=== PATIENT | female | born 1940 | race Caucasian/White ===

== ENCOUNTER → 2018-03-27 11:46 | Outpatient (CLI) | payer MEDICARE, OTHER, SELFPAY ==
[2018-03-27 13:59] LABS: Absolute Lymphocyte Count 2.26 X10^3/ul (0.83-4.51); Absolute Neutrophil Count 4.4 X10^3/uL (2.0-7.7); Basophil# 0.02 X10^3/uL; Basophil% 0.3 % (0-1); Eosinophil# 0.07 X10^3/uL; Hematocrit 39.2 % (37-47); Hemoglobin 12.3 g/dl (12.0-15.0); Lymphocyte # 2.26 X10^3/ul (4.0); Lymphocyte % 30.9 % (19-41); Mean Corp Hgb Conc 31.4 g/gl (32-36); Mean Corpuscular Hgb 27.3 pg (27.0-32.0); Mean Corpuscular Volume 87.1 fL (81-99); Mean Platelet Vol. 9.7 fl (6.2-12.0); Monocyte# 0.54 X10^3/uL; Monocyte% 7.4 % (0-10); Neutrophil # 4.42 X10^3/uL (2.7-7.7); Neutrophil % 60.3 % (47-70); Platelet Count 356 K/mm3 (150-450); RBC Distribution Width CV 13.3 % (11.6-14.6); RBC Distribution Width SD 42.3 fl (35.1-43.9); White Blood Count 7.3 K/mm3 (4.4-11.0)
[2018-03-27 14:00] LABS: POSITIVE COUNT NO; POSITIVE DIFFERENTIAL NO; POSITIVE MORPHOLOGY NO
[2018-03-27 14:53] LABS: Ferritin 4 ng/mL (8-252); Iron 63 ug/dL (50-170); Iron Binding Capacity,Total 450 ug/dL (250-450); Thyroid Stim Hormone (TSH) 1.75 uIU/mL (0.358-3.74)
[2018-03-28 08:39] LABS: Vitamin B12 694 pg/mL (211-911); Vitamin D,25 Hydroxy 67.5 ng/mL (29.95-100.01)
[2018-03-29 16:09] LABS: Vitamin D 1,25-Dihydroxy 79.8 pg/mL (19.9-79.3)
[2018-03-30 11:59] LABS: ANTINUCLEAR ANTIBODIES DIRECT Negative (Negative)
[2018-04-01 09:36] LABS: DHEA Sulfate 128.1 ug/dL (13.9-142.8); Testosterone, Free 1.36 ng/dL (0.10-0.85); Testosterone, Total 47 ng/dL (3-41)
[2018-04-02 11:07] LABS: Zinc, Plasma or Serum 80 ug/dL (56-134)
== END ==
PROVIDERS: Family Provider Student in an Organized Health Care Education/Training Program; PCP Student in an Organized Health Care Education/Training Program; Visit Provider Dermatology
DX: L65.0 Telogen effluvium (principal); L57.0 Actinic keratosis; L82.0 Inflamed seborrheic keratosis; L53.8 Other specified erythematous conditions; Z80.8 Family history of malignant neoplasm of other organs or systems
CPT/HCPCS: 36415; 82306; 82607; 82627; 82652; 82728; 82746; 83540; 83550; 84402; 84403; 84439; 84443; 84630; 85025; 86038; 82626

== ENCOUNTER → 2019-07-24 13:54 | Outpatient (CLI) | payer MEDICARE, OTHER, SELFPAY ==
[2017-07-31 12:50] VITALS: BMI 31.8
[2019-07-24 15:29] LABS: Hematocrit 42.2 % (37-47); Mean Corp Hgb Conc 30.8 g/dL (32-36); Mean Corpuscular Hgb 27.3 pg (27.0-32.0); Mean Corpuscular Volume 88.7 fL (81-99); Platelet Count 372 K/mm3 (150-450); RBC Distribution Width CV 13.2 % (11.6-14.6); RBC Distribution Width SD 42.8 fl (35.1-43.9); Red Blood Count 4.76 M/mm3 (4.2-5.4); White Blood Count 9.1 K/mm3 (4.4-11.0)
[2019-07-24 16:05] LABS: Iron 46 ug/dL (50-170); Iron Binding Capacity,Total 435 ug/dL (250-450); PERCENT IRON SATURATION 10.6 % (15.0-55.0)
== END ==
PROVIDERS: Family Provider Student in an Organized Health Care Education/Training Program; PCP Student in an Organized Health Care Education/Training Program; Referring Provider Dermatology; Visit Provider Dermatology
DX: C44.519 Basal cell carcinoma of skin of other part of trunk (principal); L57.0 Actinic keratosis; L65.0 Telogen effluvium
CPT/HCPCS: 36415; 83540; 83550; 85027

== ENCOUNTER → 2020-01-13 | Outpatient (CLI) | payer MEDICARE, OTHER, SELFPAY ==
[2017-07-31 12:50] VITALS: BMI 31.8
== END | disposition home or self-care (01) ==
LOC: LABSPEC 15:51
PROVIDERS: PCP Student in an Organized Health Care Education/Training Program; Referring Provider Urology; Visit Provider Urology
DX: N39.0 Urinary tract infection, site not specified (principal)
CPT/HCPCS: 87077; 87086; 87088; 87186

== ENCOUNTER 2020-01-29 10:30 | Day surgery (SDC) | payer MEDICARE, OTHER, SELFPAY ==
[2017-07-31 12:50] VITALS: BMI 31.8
[2020-01-29] VITALS (7 sets, daily range): BP systolic 135–154; BP diastolic 77–93; PULSE 62–93; RESP 16; TEMP 36.3–36.8; O2SAT 92–100; BMI 31.0
[2020-01-29] MEDS: Lactated Ringers 1,000 ML 100 ML IV (11:02)
[2020-01-29] MEDS: Cefazolin 2 GM in 0.9% Normal Saline 100 ML IV (11:48)
--- NOTE | 2020-01-29 12:31 | OP.PCM_ITS ---
Report of Operation Date of Procedure: 01/29/20 Pre-Operative Diagnosis: Suspected left ureteral stricture history of kidney stones in the past Post-Operative Diagnosis: The same confirmed left mid ureteral stricture Surgery/Procedure Performed:: Cystoscopy, balloon dilation of the left ureteral stricture ureteroscopy retrograde pyelogram interpretation fluoroscopic images and stent placement Description of Surgical Findings:: 79-year-old female with a history of kidney stones in the past she underwent a procedure for kidney stone that was stuck in the kidney a few years ago she presents in the office for recurrent UTIs CAT scan was done and she has hydronephrosis of the left ureter coming down to the pelvis there appears to be a transition zone in the ureter we suspect she may have a ureteral stricture also on CAT scan there is a question of a stone but it is possible that it is just a stricture. Patient was taken back to the operating room after smooth induction of general anesthesia she was placed supine on the table she was then placed in dorsolithotomy position. The urethra and vaginal area were prepped and draped in usual sterile fashion. She had SCDs on for DVT prophylaxis. She was given IV antibiotics prior to surgery. She was being treated for a Pseudomonas infection with amoxicillin before surgery. Of note she did refuse to take Cipro as she decided this is an allergy. After anesthesia went into the bladder with a 21 Kosovan rigid cystourethroscope the entire length the urethra was normal the trigone was normal left and right ureter orifice normal the bladder was normal no tumors or stones were seen inside the bladder I then cannulated the left ureteral orifice put a wire up and the wire went fairly easily up the ureter I then performed a retrograde pyelogram and you could see a transition point in the ureter right over the pelvic brim. A image of this was saved on fluoroscopy to document the transition point in the ureter and the stricture. I then attempted to go up with the ureteroscope but the distal ureter was too narrowed so I balloon dilated the ureteral orifice I then advanced the balloon dilator up to the area of stricture and balloon dilated the ureteral stricture I then backed out the balloon dilator went up with the ureteroscope and sure enough he could see the stricture and got was able to get through it with the ureteroscope but it was quite tight I then went back in with a 15 Kosovan 10 cm balloon dilator and dilated the stricture again for 3minutes and then after this pulled out the balloon dilator and then we loaded a stent up it was a 6 Kosovan by 24 cm stent advanced a stent over the wire up into the kidney once a stent was in good position I pulled the wire and the stent coiled in the kidney bladder good position I drained the bladder patient will go home with antibiotics high-dose for her Pseudomonas infection and will give her Pyridium for pain and some ibuprofen for pain or discomfort plan is to leave the stent in probably about a month and then remove the stent to see if the stricture will heal it was a short length stricture I think a prior good 70% chance it will heal with dilation alone. I will see her 2 weeks for checkup Type of Anesthesia:: General Drains: stent left side. - Admit VTE Documentation VTE Present on Admission: No VTE Mechan Device Prophylaxis: SCD's
--- NOTE | 2020-01-29 12:31 | DCINST_ITS ---
Discharge Diet: Light diet - advance as tolerated Discharge Activity: Return to Normal Activity Call your doctor if your incision/area has: Sudden Increased Bleeding Call your doctor if you observe: Fever of 101 or Higher Suture Line Care: Avoid Pulling/Pushing, Avoid Pinching/Bending Allergies/Adverse Reactions: Allergies ciprofloxacin [From Cipro] Allergy (Verified 01/29/20 10:54) CONFUSION Iodinated Contrast Media [DYEE] Allergy (Verified 01/29/20 10:54) Anaphylaxis lisinopril Allergy (Verified 01/29/20 10:54) CONFUSION metoprolol Allergy (Verified 01/29/20 10:54) CONFUSION Sulfa (Sulfonamide Antibiotics) Allergy (Verified 01/29/20 10:54) CONFUSION FLUOROQUINOLONES Allergy (Uncoded 01/29/20 10:54) Anaphylaxis Medications to take at Discharge Estrogen,Con/M-Progest Acet [Prempro 0.3 mg-1.5 mg Tablet] 1 each PO DAILY 07/30/17 Amoxicillin 1,500 mg PO TID 01/24/20 Ferrous Sulfate [Slow Release Iron] 28 mg PO DAILY 01/24/20 Omeprazole [Prilosec] 10 mg PO DAILY 01/24/20 Vitamin B Complex 1 ea PO DAILY 01/24/20 Amoxicillin/Potassium Clav [Augmentin Xr 1,000-62.5 Tab] 2 ea PO Q12H #10 tab.er.12h 01/29/20 Ibuprofen 600 mg PO Q4H PRN PRN 7 Days #20 tab 01/29/20 Phenazopyridine HCl [Pyridium] 100 mg PO BID #10 tab 01/29/20 The following prescriptions were given: Amoxicillin/Potassium Clav [Augmentin Xr 1,000-62.5 Tab] 2 ea PO Q12H #10 tab.er.12h Transmission Status: Pending to [facility] Ibuprofen 600 mg PO Q4H PRN PRN 7 Days #20 tab PRN Reason: Pain Score 1-08/29 Transmission Status: Pending to [facility] Phenazopyridine HCl [Pyridium] 100 mg PO BID #10 tab Transmission Status: Pending to [facility] Primary Care Physician: Honey Nicholas MD [Primary Care Provider] - Test Results: Test results from this visit will be discussed in further detail at your follow- up appointment, if applicable. Please Follow Up With: Tobias Elliott MD When: in 2 weeks, please call to make an appointment.
[2020-01-29] MEDS: Ketorolac 15 MG/ML Vial IV (12:59)
== END 2020-01-29 15:16 | disposition home or self-care (01) ==
LOC: SDC 10:34 → AC 10:36
PROVIDERS: PCP Student in an Organized Health Care Education/Training Program; Referring Provider Urology; Visit Provider Urology
PROC: (CPT 52356; principal; 2020-01-29 15:00)
DX: N13.1 Hydronephrosis with ureteral stricture, not elsewhere classified (principal); N30.00 Acute cystitis without hematuria; B96.5 Pseudomonas (aeruginosa) (mallei) (pseudomallei) as the cause of diseases classified elsewhere; I11.9 Hypertensive heart disease without heart failure; J45.20 Mild intermittent asthma, uncomplicated; E78.00 Pure hypercholesterolemia, unspecified; B15.9 Hepatitis A without hepatic coma; G93.3 Postviral and related fatigue syndromes; Z87.442 Personal history of urinary calculi; Z99.81 Dependence on supplemental oxygen
CPT/HCPCS: 00910; 52332; 52344; 76000; J7120; C1726; C1769; C2617; J2405

== ENCOUNTER 2020-04-07 08:16 | Inpatient (IN) | payer MEDICARE, OTHER, SELFPAY ==
[2020-01-29 10:55] VITALS: BMI 31.0
[2020-04-06 21:38] VITALS: BMI 31.4
[2020-04-06 21:39] VITALS: BP 137/83; PULSE 70; RESP 18; TEMP 36.8; O2SAT 100
[2020-04-06] MEDS: 0.9% Normal Saline 1,000 ML 75 ML IV (23:13)
[2020-04-07] VITALS (16 sets, daily range): BP systolic 103–157; BP diastolic 56–102; PULSE 62–93; RESP 16–18; TEMP 36.8–39.4; O2SAT 93–100; BMI 30.6; BMI 31.4
--- NOTE | 2020-04-07 06:00 | EKG12_ITS ---
Test Reason : AM EKG Blood Pressure : / mmHG Vent. Rate : 069 BPM Atrial Rate : 069 BPM P-R Int : 162 ms QRS Dur : 068 ms QT Int : 376 ms P-R-T Axes : 077 -09 044 degrees QTc Int : 402 ms Sinus rhythm with Premature atrial complexes Low voltage QRS Nonspecific ST and T wave abnormality Abnormal ECG Confirmed by ALLISON VENTURA, TRINY ([id number]), editorial director JOCELIN BIRMINGHAM ([id number]) on 04/09/2020 4:12:53 PM Referred By: OSCAR Confirmed By:TRINY COOPER MD
--- NOTE | 2020-04-07 07:26 | HP.PCM_ITS ---
Problem List (1) Left renal stone Status: Acute (2) Ureteral stricture, left Status: Acute History of Present Illness Date of Admission: 04/07/20 Chief Complaint: Left flank pain The patient is a 79 year old female who I saw recently in January with a kidney stone but also what appeared to be a stricture in the mid lower mid left ureter she has a history of prior kidney stones was instrumented several years ago and had a kidney stone. After this apparently developed a stricture and she has a stricture in the mid left distal ureter. I did a ureteroscopy and laser and found that she had a very tight ureteral stricture in the left distal ureter and she only had a small stone on last inspection she presents now to the hospital from out transfer from outside hospital with severe left flank pain CAT scan was done that was read as a kidney stone in the mid left ureter but is possible this may be scar tissue is possible she does have a ureteral stricture. Plan will be to take her today for retrograde pyelogram and stent placement and probably discharge after this. I get a repeat the CAT scan today to look at the ureter and stone. Past Medical History Allergies ciprofloxacin [From Cipro] Allergy (Verified 04/06/20 21:45) CONFUSION Iodinated Contrast Media [DYEE] Allergy (Verified 04/06/20 21:45) Anaphylaxis lisinopril Allergy (Verified 04/06/20 21:45) CONFUSION metoprolol Allergy (Verified 04/06/20 21:45) CONFUSION Sulfa (Sulfonamide Antibiotics) Allergy (Verified 04/06/20 21:45) CONFUSION FLUOROQUINOLONES Allergy (Unknown, Uncoded 04/06/20 21:45) Anaphylaxis Home Medications: Ambulatory Orders Medication Instructions Recorded Estrogen,Con/M-Progest Acet 1 each PO DAILY 07/30/17 [Prempro 0.3 mg-1.5 mg Tablet] Omeprazole [Prilosec] 20 mg PO DAILY 01/24/20 Vitamin B Complex 1 ea PO DAILY 01/24/20 Cranberry Conc/Ascorbic Acid 1 ea PO DAILY 04/06/20 [Cranberry 12,600 mg Softgel] Surgical History: - - Kidney stones, prior ureteroscopy and laser several years ago with scar tissue development in the mid left ureter recently this year stricture was dilated and balloon dilated. 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 History Items: Asthma Review of Systems Constitutional: Denies: Chills, Fever, Weight Change HEENT: Denies: Head Aches, Sinus Congestion, Sinus Drainage Cardiovascular: Denies: Chest Pain, Palpitations Respiratory: Denies: Cough, Shortness of breath at rest, Sputum production Gastrointestinal: Denies: Abdominal Pain, Nausea, Vomiting Genitourinary: Denies: Dysuria Musculoskeletal: Denies: Joint Pain, Joint Tenderness Skin: Denies: Rash, Wounds Neurological: Denies: Numbness, Tingling, Focal weakness Psychiatric: Denies: Anxiety, Depression, Homicidal Ideations, Suicidal Ideations Hematologic/ Lymphatic: Denies: Easy Bruising, Easy Bleeding VTE Information - Inpt Only VTE Present on Admission: No VTE Mechan Device Prophylaxis: SCD's Patient Problems: Active and Suspected Problems Left renal stone (Acute) Ureteral stricture, left (Acute) - Physical Exam Vitals/I&O's: Vital Signs Temp Pulse Resp BP Pulse Ox 98.7 F 62 16 135/88 H 97 04/07/20 03:48 04/07/20 03:48 04/07/20 03:48 04/07/20 03:48 04/07/20 03:48 Oxygen Flow Rate (L/min) 2 Oxygen Delivery Method Room Air Weight: 80.4 kg Body Mass Index (BMI) 31.4 Finger Stick Blood Glucose 83 Intake and Output for Last 24 Hours 04/05/20 04/06/20 04/07/20 23:59 23:59 23:59 Intake Total 250 / 250 Output Total 900 / 900 Balance -650 / -650 General: Alert, Oriented x3, Cooperative HEENT: Atraumatic, PERRLA, EOMI, Normocephalic Neck: Supple, No JVD, Negative Carotid Bruits Lungs: Clear to auscultation, Normal air movement Cardiovascular: Regular rate, No murmurs Abdomen: Bowel Sounds Present, Soft, Non Tender Extremities: No edema, Capillary Refill Less than 3 Seconds Skin: No rashes, No breakdown Musculoskeletal: No Tenderness to Palpation of Joints or Extremities Neurological: Cranial nerves II-XII grossly intact Psych/Mental Status: Normal Affect, Appropriate Current Medications Acetaminophen (Tylenol) 500 mg PO Q6H PRN PRN PRN Reason: Pain Score 1-5/10 Sodium Chloride () 250 mls @ 15 mls/hr IV .[id number] PRN PRN Reason: Saline Flush Sodium Chloride () 250 mls @ 15 mls/hr IV .[id number] PRN PRN Reason: Additional IVPB Infusion Sodium Chloride () 1,000 mls @ 75 mls/hr IV .[id number] EDWARD Last Admin: 04/06/20 23:13 Dose: 75 mls/hr Documented by: Lorazepam (Ativan) 0.5 mg PO Q12H PRN PRN PRN Reason: ANXIETY Morphine Sulfate () 2 - 4 mg IV Q4H PRN PRN PRN Reason: Pain Score 6-10/10 Morphine Sulfate () 2 - 4 mg IV Q4H PRN PRN PRN Reason: Pain Score 6-10/10 Ondansetron HCl (Zofran) 4 mg IV Q6H PRN PRN PRN Reason: NAUSEA/VOMITING Pantoprazole Sodium (Protonix) 20 mg PO DAILY [facility] Sodium Chloride () 10 - 40 ml IV UD PRN PRN Reason: SALINE FLUSH Assessment/Plan All Active Problems Left renal stone (Acute) Ureteral stricture, left (Acute) Plan today is taken to surgery for stent placement retrograde pyelogram we will repeat the CAT scan today to see if the stone is passed she may have a stricture in the mid left ureter that was found on prior ureteroscopy from prior trauma. The stricture may have recurred she may not have a stone.
--- NOTE | 2020-04-07 07:31 | CT_ITS ---
STUDY: CT ABDOMEN AND PELVIS WITHOUT CONTRAST REASON FOR EXAM: Female, 79 years old. LEFT FLANK PAIN RADIATION DOSAGE (If Supplied By Facility): CTDIvol = ( 11.60 ) mGy, DLP = ( 496.91 ) mGycm TECHNIQUE: Transaxial images were obtained from the dome of the diaphragm to the symphysis pubis without oral contrast, and without intravenous contrast. Sagittal and coronal images were reconstructed. Individualized dose optimization techniques were used for this CT. COMPARISON: None. FINDINGS: The visualized lung bases are unremarkable. The visualized portions of the heart are within normal limits. Normal liver. Normal gallbladder and extrahepatic biliary system. Normal spleen. Normal pancreas. Normal bilateral adrenal glands. 3 cm cyst in the lower pole right kidney. Bilateral nonobstructing renal stones. 5 mm obstructing stone at the mid left ureter with moderate ureteral dilatation, hydronephrosis, and perinephric edema. Moderate-sized hilar hernia. Normal small intestine. There are multiple colonic diverticula consistent with diverticulosis. The appendix is visualized and appears normal. Normal abdominal aorta. Normal inferior vena cava. Normal retroperitoneum. Normal urinary bladder. Normal abdominal wall. Mild dextroscoliosis of lumbar spine with degenerative disc disease. CT/Abdomen/Pelvis without Cont IMPRESSION: 5 mm obstructing stone in the mid left ureter with moderate ureteral dilatation, hydronephrosis, perinephric edema. Electronically Signed: Braydon Gee MD at 8:46 EDT Tel , Service support ,
--- NOTE | 2020-04-07 07:43 | NURSING ---
pt transported to CT scan at this time via bed
[2020-04-07] MEDS: Pantoprazole Sodium 20 MG Tablet PO (08:10)
[2020-04-07] MEDS: 0.9% Saline Lock 10 ML Syringe IV (08:10)
[2020-04-07 08:14] LABS: Absolute Lymphocyte Count 2.37 X10^3/uL (0.83-4.51); Absolute Neutrophil Count 8.2 X10^3/uL (2.0-7.7); Basophil# 0.04 X10^3/uL; Basophil% 0.3 % (0-1); Eosinophil# 0.11 X10^3/uL; Eosinophils% 0.9 % (0-5); Hematocrit 38.7 % (37-47); Hemoglobin 11.9 g/dL (12.0-15.0); Lymphocyte # 2.37 X10^3/ul (4.0); Lymphocyte % 20.1 % (19-41); Mean Corp Hgb Conc 30.7 g/dL (32-36); Mean Corpuscular Hgb 27.2 pg (27.0-32.0); Mean Corpuscular Volume 88.4 fL (81-99); Monocyte# 0.98 X10^3/uL; Monocyte% 8.3 % (0-10); NRBC Flagged by Analyzer 0 % (0-5); Neutrophil # 8.23 X10^3/uL (2.7-7.7); Platelet Count 337 K/mm3 (150-450); RBC Distribution Width CV 13.2 % (11.6-14.6); RBC Distribution Width SD 42.7 fl (35.1-43.9); Red Blood Count 4.38 M/mm3 (4.2-5.4); White Blood Count 11.8 K/mm3 (4.4-11.0)
[2020-04-07 08:37] LABS: Anion Gap 6 (5-15); BUN 17 mg/dL (7-18); BUN/Creat Ratio 18.5 RATIO (10-20); Calcium,Total 8.2 mg/dL (8.5-10.1); Chloride 109 mmol/L (98-107); Creatinine, Serum 0.92 mg/dL (0.55-1.02); EST Glomerular Filtration Rate 63 mL/min (>60); Est Glom Filt Rate - Afr Amer 76 mL/min (>60); Estimated Creatinine Clearance 41.69 ml/min; Glucose 103 mg/dL (74-106); Potassium 3.9 mmol/L (3.5-5.1); Sodium Level 143 mmol/L (136-145)
[2020-04-07] MEDS: 0.9% Normal Saline 1,000 ML 75 ML IV (10:34)
--- NOTE | 2020-04-07 11:17 | NURSING ---
pt transported off unit via bed for surgery at 1100
--- NOTE | 2020-04-07 12:00 | CALC_PTH ---
PATIENT: SEBASTIAN BURGOS LOC: MS3 U#:[id number] AGE/SX: 79/F ROOM: MS311 RE04/07/[address]: Dr. Tobias Elliott MD : [id number] BED: 1 DIS: 04/11/2020 SPEC #: [id number] RECD: 04/07/20 15:25 STATUS: MARIBELL MICHELLE #: [id number] EVARISTO: 04/07/20 12:[address]: Tobias Elliott DEPT: SURGICAL PATHOLOGY RECD BY: Teo Villafana ENTERED: 04/08/20 09:13 SP TYPE: Calculi OTHR DR: Dr. Honey Nicholas MD Tissues: CALCULI Procedures: Surgery Specimen Level I HEADER OPERATION: Cysto, ureteroscopy, laser PRE-OP DIAGNOSIS: Left renal stone, left ureteral stricture TISSUE SUBMITTED: Left kidney stone GROSS DIAGNOSIS Left renal stone, removal: Unremarkable calculus (gross diagnosis only). AM:nilda 04/09/20 COMMENT The calculus is submitted in its entirety for chemical stone analysis. The results from this study will be reported separately. GROSS DESCRIPTION Received is one container labeled with the patient's name and designated left kidney stone. The specimen consists of an irregular fragment of light marcum calculus measuring 0.1 x <0.1 x <0.1 cm. The calculus is submitted in its entirety for chemical stone analysis. / AM:nilda 04/08/20 CPT: 88901
--- NOTE | 2020-04-07 12:45 | PCM.OPRPT ---
Problem List (1) Left renal stone Status: Acute (2) Ureteral stricture, left Status: Acute Report of Operation Date of Procedure: 04/07/20 Pre-Operative Diagnosis: Left ureteral calculi and mild left ureteral stricture Post-Operative Diagnosis: The same Surgery/Procedure Performed:: Cystoscopy, left retrograde pyelogram, interpretation of fluoroscopic images, left ureteroscopy laser lithotripsy of stone and left stent placement. Description of Surgical Findings:: 79-year-old female with a history of scar tissue in the mid left ureter presents to the hospital with severe pain with a stone stuck right at the scar tissue in the mid left ureter she has a mild ureteral stricture. This is been treated with balloon dilation and stenting for 6 weeks. I remove the stent about 6 weeks ago. She now presents the hospital severe pain CAT scan was done that demonstrated a large stone right at the stricture in the mid ureter. Patient was taken back to the operating room at the smooth induction of general anesthesia she was placed prone on the table the urethrovaginal area prepped and draped in usual sterile fashion went into the bladder with a 21 Kuwaiti rigid cystourethroscope, cannulated the left ureter orifice with a Pollack catheter performed a retrograde pyelogram he could see contrast go up it narrowed and then opened up in the area where the stone was in the ureteral stricture I then advanced a Glidewire up into the kidney next the wire went in with a semirigid ureteroscope was able to get into the ureter quite easily got up to the area of scar tissue and she had a very mild scarring of the mid left ureter but I was able to get through it with the ureteroscope and then behind the scar tissue was a stone that was stuck there I then lasered the stone little tiny pieces with a 200 ?m laser fiber, we then basket extracted some of the pieces out, and then after this I left a stent in over the safety wire, drained the bladder patient's anesthetic was reversed at this point stones been lasered out she does have a's stricture in the mid ureter but however it is fairly open and does not require repair will leave the stent in for about a week and next week she will need to have a cystoscopy stent removal in my office. Type of Anesthesia:: General Drains: STENT LEFT SIDE - Admit VTE Documentation VTE Present on Admission: No VTE Mechan Device Prophylaxis: SCD's
--- NOTE | 2020-04-07 13:40 | PCA ---
pt off floor
[2020-04-07] MEDS: Phenazopyridine 95 MG Tablet PO (14:40)
[2020-04-07] MEDS: Ondansetron 4 MG/2 ML Vial IV (15:46)
[2020-04-07] MEDS: 0.9% Normal Saline 1,000 ML 100 ML IV (17:13)
[2020-04-07] MEDS: Acetaminophen 500 MG Tablet PO (21:35)
[2020-04-08] VITALS (13 sets, daily range): BP systolic 105–149; BP diastolic 49–91; PULSE 65–104; RESP 16–22; TEMP 37.1–39.4; O2SAT 94–99; BMI 31.4
[2020-04-08] MEDS: Ondansetron 4 MG/2 ML Vial IV ×2 (01:55→15:30)
[2020-04-08] MEDS: 0.9% Normal Saline 1,000 ML 100 ML IV (03:39)
[2020-04-08] MEDS: Acetaminophen 500 MG Tablet PO ×4 (03:42→22:22)
--- NOTE | 2020-04-08 06:09 | PN_ITS ---
Patient Problems: Active and Suspected Problems Left renal stone (Acute) Ureteral stricture, left (Acute) Subjective: 79-year-old female status post ureteroscopy and laser of stone yesterday she developed a high fever 102 put on broad-spectrum antibiotics urine cultures and blood cultures were sent these are pending her fever curve is gone down, she is still just on liquid diet no more nausea or vomiting but still states she is not feeling that good. - Physical Exam Vitals/I&O's: Vital Signs Temp Pulse Resp BP Pulse Ox 98.8 F 86 18 126/62 H 98 04/08/20 06:05 04/08/20 03:36 04/08/20 03:36 04/08/20 03:36 04/08/20 03:36 Oxygen Flow Rate (L/min) 2 Oxygen Delivery Method Nasal Cannula Weight: 78.426 kg Body Mass Index (BMI) 30.6 Finger Stick Blood Glucose 83 Intake and Output for Last 24 Hours 04/06/20 04/07/20 04/08/20 23:59 23:59 23:59 Intake Total 2031.25 / 2231.25 870 / 870 Output Total 1999 / 2499 1275 / 1275 Balance 31.25 / -268.75 -405 / -405 General: Alert, Oriented x3, Cooperative HEENT: Atraumatic, PERRLA, EOMI, Normocephalic Neck: Supple, No JVD, Negative Carotid Bruits Lungs: Clear to auscultation, Normal air movement Cardiovascular: Regular rate, No murmurs Abdomen: Bowel Sounds Present, Soft, Non Tender Extremities: No edema, Capillary Refill Less than 3 Seconds Skin: No rashes, No breakdown Musculoskeletal: No Tenderness to Palpation of Joints or Extremities Neurological: Cranial nerves II-XII grossly intact Psych/Mental Status: Normal Affect, Appropriate Microbiology Past 72 Hours 04/07/20 08:22 Mucosa - Nasopharyngeal Coronavirus COVID-19 PCR - Final Laboratory Results 04/07/20 06:31: WBC 11.8 H, RBC 4.38, Hgb 11.9 L, Hct 38.7, MCV 88.4, MCH 27.2, MCHC 30.7 L, RDW Std Deviation 42.7, RDW Coeff of Laure 13.2, Plt Count 337, MPV 10.0, Immature Gran % (Auto) 0.400, Neut % (Auto) 70.0, Lymph % (Auto) 20.1, Bath % (Auto) 8.3, Eos % (Auto) 0.9, Baso % (Auto) 0.3, Absolute Neuts (auto) 8.2 H, Absolute Lymphs (auto) 2.37, Nucleated RBC % 0 04/07/20 06:31: Sodium 143, Potassium 3.9, Chloride 109 H, Carbon Dioxide 28.0, Anion Gap 6, BUN 17, Creatinine 0.92, Estim Creat Clear Calc 41.69, Est GFR (M DRD) Af Amer 76, Est GFR (MDRD) Non-Af 63, BUN/Creatinine Ratio 18.5, Glucose 103, Calcium 8.2 L Current Medications Acetaminophen (Tylenol) 500 mg PO Q6H PRN PRN PRN Reason: Pain Score 1-5/10, fever Last Admin: 04/08/20 03:42 Dose: 500 mg Documented by: Sodium Chloride () 250 mls @ 15 mls/hr IV .[id number] PRN PRN Reason: Saline Flush Sodium Chloride () 250 mls @ 15 mls/hr IV .[id number] PRN PRN Reason: Additional IVPB Infusion Sodium Chloride () 1,000 mls @ 100 mls/hr IV .Q10H [facility] Last Admin: 04/08/20 03:39 Dose: 100 mls/hr Documented by: Ceftriaxone Sodium 2 gm/ (Sodium Chloride) 50 mls @ 100 mls/hr IV Q12 [facility] Last Infusion: 04/07/20 22:09 Dose: Infused Documented by: Lorazepam (Ativan) 0.5 mg PO Q12H PRN PRN PRN Reason: ANXIETY Morphine Sulfate () 2 - 4 mg IV Q4H PRN PRN PRN Reason: Pain Score 6-10/10 Morphine Sulfate () 2 - 4 mg IV Q4H PRN PRN PRN Reason: Pain Score 6-10/10 Ondansetron HCl (Zofran) 4 mg IV Q6H PRN PRN PRN Reason: NAUSEA/VOMITING Last Admin: 04/08/20 01:55 Dose: 4 mg Documented by: Pantoprazole Sodium (Protonix) 20 mg PO DAILY [facility] Last Admin: 04/07/20 08:10 Dose: 20 mg Documented by: Phenazopyridine HCl (Azo Standard) 95 mg PO TID EDWARD Stop: 04/09/20 06:01 Last Admin: 04/08/20 05:19 Dose: Not Given Documented by: Promethazine HCl (Phenergan) 12.5 mg IV Q4H PRN PRN PRN Reason: NAUSEA/VOMITING Sodium Chloride () 10 - 40 ml IV UD PRN PRN Reason: SALINE FLUSH Last Admin: 04/07/20 08:10 Dose: 10 ml Documented by: Medical Necessity - Tobacco Use Smoking Status: Never smoker Tobacco Use: Non-smoker Assessment/Plan All Active Problems Left renal stone (Acute) Ureteral stricture, left (Acute) Status post stent placement with a high fever afterwards early sepsis treated with broad-spectrum antibiotics, continue with antibiotics await urine and blood cultures regular diet today KVO IV fluids. Otherwise clinically stable hemodynamically stable fever curve is resolved some we will continue to monitor not sure she is just ready for discharge await urine and blood cultures.
[2020-04-08 06:44] LABS: Absolute Lymphocyte Count 1.52 X10^3/uL (0.83-4.51); Absolute Neutrophil Count 15.8 X10^3/uL (2.0-7.7); Basophil# 0.03 X10^3/uL; Basophil% 0.2 % (0-1); Hematocrit 37.2 % (37-47); Hemoglobin 11.8 g/dL (12.0-15.0); Lymphocyte # 1.52 X10^3/ul (4.0); Lymphocyte % 8.1 % (19-41); Mean Corp Hgb Conc 31.7 g/dL (32-36); Mean Corpuscular Hgb 27.9 pg (27.0-32.0); Mean Corpuscular Volume 87.9 fL (81-99); Mean Platelet Vol. 9.9 fl (6.2-12.0); Monocyte# 1.24 X10^3/uL; Monocyte% 6.6 % (0-10); NRBC Flagged by Analyzer 0 % (0-5); Neutrophil # 15.78 X10^3/uL (2.7-7.7); Neutrophil % 84.4 % (47-70); Platelet Count 297 K/mm3 (150-450); RBC Distribution Width CV 13.3 % (11.6-14.6); RBC Distribution Width SD 42.6 fl (35.1-43.9); Red Blood Count 4.23 M/mm3 (4.2-5.4); White Blood Count 18.7 K/mm3 (4.4-11.0)
[2020-04-08 07:07] LABS: Anion Gap 5 (5-15); BUN 11 mg/dL (7-18); BUN/Creat Ratio 12.1 RATIO (10-20); Calcium,Total 7.8 mg/dL (8.5-10.1); Chloride 107 mmol/L (98-107); Creatinine, Serum 0.91 mg/dL (0.55-1.02); EST Glomerular Filtration Rate 64 mL/min (>60); Est Glom Filt Rate - Afr Amer 77 mL/min (>60); Estimated Creatinine Clearance 42.15 ml/min; Glucose 154 mg/dL (74-106); Potassium 3.6 mmol/L (3.5-5.1); Sodium Level 139 mmol/L (136-145)
[2020-04-08] MEDS: Pantoprazole Sodium 20 MG Tablet PO (07:58)
--- NOTE | 2020-04-08 10:30 | CASEMGMT ---
RN CM Face to Face with patient for initial transition planning/care coordination assessment. RN CM introduced self and role at [facility]. Patient lying in bed, alert and oriented. Patient willing to participate in assessment and is able to answer all questions appropriately. Care providers, pharmacy, and demographics verified. Patient wishes to discharge home, denies need for home health at this time. Patient states she has no further needs or concerns at this time. CM to follow for discharge planning needs that may arise. PCP: Yu Specialists: Lexi Kunz Pharmacy: [facility] retail Insurance: [employer], [employer] Prescription Benefit: yes Living Will/HPOA: none LNOK: sister, niece Living Arrangements: Patient lives alone in ranch style home with 2 steps to enter the home. Patient states she is independent at home. Transportation: self, will need transport home, possibly niece. DME/HHC: Patient states she has cane and walker at home. Patient denies previous HHC. Disposition Plan: Patient to discharge home with follow-up plans in place. Kasey RITCHIE, RN, CM
[2020-04-08] MEDS: 0.9% Saline Lock 10 ML Syringe IV (15:32)
[2020-04-08 16:06] LABS: Bedside Glucose 188 mg/dL (70-110)
[2020-04-08] MEDS: 0.9% Normal Saline 1,000 ML 125 ML IV (17:25)
[2020-04-09] VITALS (10 sets, daily range): BP systolic 102–114; BP diastolic 55–81; PULSE 65–98; RESP 18–20; TEMP 36.7–39.2; O2SAT 95–100
[2020-04-09] MEDS: 0.9% Normal Saline 1,000 ML 125 ML IV ×3 (01:16→17:31)
[2020-04-09] MEDS: Acetaminophen 500 MG Tablet PO ×2 (04:35→12:31)
[2020-04-09 07:03] LABS: Hematocrit 32.5 % (37-47); Hemoglobin 9.9 g/dL (12.0-15.0); Mean Corp Hgb Conc 30.5 g/dL (32-36); Mean Corpuscular Hgb 27.1 pg (27.0-32.0); Mean Platelet Vol. 10.2 fl (6.2-12.0); Platelet Count 240 K/mm3 (150-450); RBC Distribution Width CV 13.6 % (11.6-14.6); RBC Distribution Width SD 43.9 fl (35.1-43.9); Red Blood Count 3.65 M/mm3 (4.2-5.4); White Blood Count 16.9 K/mm3 (4.4-11.0)
[2020-04-09 07:29] LABS: Anion Gap 4 (5-15); BUN 12 mg/dL (7-18); BUN/Creat Ratio 15.1 RATIO (10-20); Chloride 110 mmol/L (98-107); EST Glomerular Filtration Rate 74 mL/min (>60); Est Glom Filt Rate - Afr Amer 90 mL/min (>60); Estimated Creatinine Clearance 47.94 ml/min; Glucose 152 mg/dL (74-106); Potassium 3.5 mmol/L (3.5-5.1); Sodium Level 140 mmol/L (136-145)
--- NOTE | 2020-04-09 07:30 | PCM.PROGNOTE ---
Patient Problems: Active and Suspected Problems Left renal stone (Acute) Ureteral stricture, left (Acute) Subjective: 79-year-old female status post laser of stone in the mid ureter on the left side with scar tissue she has a mild ureteral stricture but the stone was stuck on. Was able to get through the stricture with the ureteroscope with only mild. She developed fevers and chills and early sepsis after the procedure with high fevers white blood count is still elevated at 16 urine culture is growing Pseudomonas pending results of the sensitivity. She states she was bit by a tick 3 weeks ago and has chronic Lyme disease she is wonder Lyme disease as a cause of her fever explained to her most likely this is a Pseudomonas UTI sepsis picture I am not going to do any further work-up for Lyme disease, she does have a perception that she has chronic Lyme disease etc. - Physical Exam Vitals/I&O's: Vital Signs Temp Pulse Resp BP Pulse Ox 99.5 F H 65 20 H 112/68 100 04/09/20 04:32 04/09/20 04:32 04/09/20 04:32 04/09/20 04:32 04/09/20 04:32 Oxygen Flow Rate (L/min) 2 Oxygen Delivery Method Nasal Cannula Weight: 78.426 kg Body Mass Index (BMI) 30.6 Finger Stick Blood Glucose 83 Intake and Output for Last 24 Hours 04/07/20 04/08/20 04/09/20 23:59 23:59 23:59 Intake Total 2031.25 / 2231.25 3549.92 / 3549.92 1281.25 / 1281.25 Output Total 1999 / 2499 2525 / 2525 550 / 550 Balance 31.25 / -268.75 1024.92 / 1024.92 731.25 / 731.25 General: Alert, Oriented x3, Cooperative HEENT: Atraumatic, PERRLA, EOMI, Normocephalic Neck: Supple, No JVD, Negative Carotid Bruits Lungs: Clear to auscultation, Normal air movement Cardiovascular: Regular rate, No murmurs Abdomen: Bowel Sounds Present, Soft, Non Tender Extremities: No edema, Capillary Refill Less than 3 Seconds Skin: No rashes, No breakdown Musculoskeletal: No Tenderness to Palpation of Joints or Extremities Neurological: Cranial nerves II-XII grossly intact Psych/Mental Status: Normal Affect, Appropriate Microbiology Past 72 Hours 04/07/20 17:50 Urine, Clean Catch Urine Culture - Preliminary GNR Poss Pseudomonas sp 04/07/20 08:22 Mucosa - Nasopharyngeal Coronavirus COVID-19 PCR - Final Laboratory Results 04/08/20 15:30: POC Glucose 188 H 04/09/20 06:16: WBC 16.9 H, RBC 3.65 L, Hgb 9.9 L, Hct 32.5 L, MCV 89.0, MCH 27.1, MCHC 30.5 L, RDW Std Deviation 43.9, RDW Coeff of Laure 13.6, Plt Count 240, MPV 10.2 04/09/20 06:16: Sodium 140, Potassium 3.5, Chloride 110 H, Carbon Dioxide 26.0, Anion Gap 4 L, BUN 12, Creatinine 0.80, Estim Creat Clear Calc 47.94, Est GFR (MDRD) Af Amer 90, Est GFR (MDRD) Non-Af 74, BUN/Creatinine Ratio 15.1, Glucose 152 H, Calcium 8.0 L Current Medications Acetaminophen (Tylenol) 500 mg PO Q6H PRN PRN PRN Reason: Pain Score 1-5/10, fever Last Admin: 04/09/20 04:35 Dose: 500 mg Documented by: Sodium Chloride () 1,000 mls @ 125 mls/hr IV .Q8H EDWARD Last Admin: 04/09/20 01:16 Dose: 125 mls/hr Documented by: Ceftriaxone Sodium 2 gm/ (Sodium Chloride) 50 mls @ 100 mls/hr IV Q12 [facility] Last Infusion: 04/08/20 23:00 Dose: Infused Documented by: Ondansetron HCl (Zofran) 4 mg IV Q6H PRN PRN PRN Reason: NAUSEA/VOMITING Last Admin: 04/08/20 15:30 Dose: 4 mg Documented by: Pantoprazole Sodium (Protonix) 20 mg PO DAILY [facility] Last Admin: 04/08/20 07:58 Dose: 20 mg Documented by: Promethazine HCl (Phenergan) 12.5 mg IV Q4H PRN PRN PRN Reason: NAUSEA/VOMITING Sodium Chloride () 10 - 40 ml IV UD PRN PRN Reason: SALINE FLUSH Last Admin: 04/08/20 15:32 Dose: 20 ml Documented by: Medical Necessity - Tobacco Use Smoking Status: Never smoker Tobacco Use: Non-smoker Assessment/Plan All Active Problems Left renal stone (Acute) Ureteral stricture, left (Acute) 79-year-old female status post laser of stone with infection afterwards probably was an infected stone, continue with antibiotics, Pseudomonas growing in the urine, blood cultures pending, continue with Rocephin, may may change the antibiotics per the sensitivities will await results of the sensitivities. No discharge until fevers are gone and white count is normal.
[2020-04-09] MEDS: Pantoprazole Sodium 20 MG Tablet PO (08:11)
[2020-04-09] MEDS: 0.9% Saline Lock 10 ML Syringe IV (12:39)
[2020-04-09] MEDS: Ondansetron 4 MG/2 ML Vial IV (12:39)
--- NOTE | 2020-04-09 18:06 | NURSING ---
O2 DECREASED TO 1L NC
[2020-04-10] VITALS (8 sets, daily range): BP systolic 114–144; BP diastolic 63–82; PULSE 68–144; RESP 17–20; TEMP 36.6–37.2; O2SAT 88–99
[2020-04-10] MEDS: 0.9% Normal Saline 1,000 ML 125 ML IV (01:42)
[2020-04-10] MEDS: Acetaminophen 500 MG Tablet PO (01:42)
--- NOTE | 2020-04-10 07:16 | PCM.PROGNOTE ---
Patient Problems: Active and Suspected Problems Left renal stone (Acute) Ureteral stricture, left (Acute) Subjective: 79-year-old female status post stent placement laser of stone she had a Pseudomonas infection on the stone she had sepsis afterwards this is resolving we will stop her IV fluids no more fevers. Awaiting culture results from her Pseudomonas infection. We will Hep-Lock IV fluids for now. Plan for discharge Monday. - Physical Exam Vitals/I&O's: Vital Signs Temp Pulse Resp BP Pulse Ox 98.4 F 82 18 117/72 96 04/10/20 04:04 04/10/20 04:04 04/10/20 04:04 04/10/20 04:04 04/10/20 04:04 Oxygen Flow Rate (L/min) 2 Oxygen Delivery Method Nasal Cannula Weight: 78.426 kg Body Mass Index (BMI) 30.6 Finger Stick Blood Glucose 83 Intake and Output for Last 24 Hours 04/08/20 04/09/20 04/10/20 23:59 23:59 23:59 Intake Total 3549.92 / 3549.92 4119.17 / 4519.17 1400 / 1400 Output Total 2525 / 2525 1050 / 1750 700 / 700 Balance 1024.92 / 1024.92 3069.17 / 2769.17 700 / 700 General: Alert, Oriented x3, Cooperative HEENT: Atraumatic, PERRLA, EOMI, Normocephalic Neck: Supple, No JVD, Negative Carotid Bruits Lungs: Clear to auscultation, Normal air movement Cardiovascular: Regular rate, No murmurs Abdomen: Bowel Sounds Present, Soft, Non Tender Extremities: No edema, Capillary Refill Less than 3 Seconds Skin: No rashes, No breakdown Musculoskeletal: No Tenderness to Palpation of Joints or Extremities Neurological: Cranial nerves II-XII grossly intact Psych/Mental Status: Normal Affect, Appropriate Microbiology Past 72 Hours 04/07/20 17:50 Urine, Clean Catch Urine Culture - Preliminary GNR Poss Pseudomonas sp 04/07/20 08:22 Mucosa - Nasopharyngeal Coronavirus COVID-19 PCR - Final Laboratory Results 04/09/20 06:16: Sodium 140, Potassium 3.5, Chloride 110 H, Carbon Dioxide 26.0, Anion Gap 4 L, BUN 12, Creatinine 0.80, Estim Creat Clear Calc 47.94, Est GFR (MDRD) Af Amer 90, Est GFR (MDRD) Non-Af 74, BUN/Creatinine Ratio 15.1, Glucose 152 H, Calcium 8.0 L Current Medications Acetaminophen (Tylenol) 500 mg PO Q6H PRN PRN PRN Reason: Pain Score 1-5/10, fever Last Admin: 04/10/20 01:42 Dose: 500 mg Documented by: Ceftriaxone Sodium 2 gm/ (Sodium Chloride) 50 mls @ 100 mls/hr IV Q12 [facility] Last Infusion: 04/09/20 22:36 Dose: Infused Documented by: Ondansetron HCl (Zofran) 4 mg IV Q6H PRN PRN PRN Reason: NAUSEA/VOMITING Last Admin: 04/09/20 12:39 Dose: 4 mg Documented by: Pantoprazole Sodium (Protonix) 20 mg PO DAILY [facility] Last Admin: 04/09/20 08:11 Dose: 20 mg Documented by: Promethazine HCl (Phenergan) 12.5 mg IV Q4H PRN PRN PRN Reason: NAUSEA/VOMITING Sodium Chloride () 10 - 40 ml IV UD PRN PRN Reason: SALINE FLUSH Last Admin: 04/09/20 12:39 Dose: 10 ml Documented by: Medical Necessity - Tobacco Use Smoking Status: Never smoker Tobacco Use: Non-smoker Assessment/Plan All Active Problems Left renal stone (Acute) Ureteral stricture, left (Acute) Plan for discharge tomorrow await sensitivities of Pseudomonas infection.
[2020-04-10 07:42] LABS: Hematocrit 32.3 % (37-47); Hemoglobin 9.9 g/dL (12.0-15.0); Mean Corp Hgb Conc 30.7 g/dL (32-36); Mean Corpuscular Hgb 27.2 pg (27.0-32.0); Mean Corpuscular Volume 88.7 fL (81-99); Mean Platelet Vol. 10.3 fl (6.2-12.0); Platelet Count 246 K/mm3 (150-450); RBC Distribution Width CV 13.8 % (11.6-14.6); RBC Distribution Width SD 44.6 fl (35.1-43.9); Red Blood Count 3.64 M/mm3 (4.2-5.4); White Blood Count 13.4 K/mm3 (4.4-11.0)
[2020-04-10 08:10] LABS: Anion Gap 7 (5-15); BUN 12 mg/dL (7-18); BUN/Creat Ratio 16.7 RATIO (10-20); Calcium,Total 7.8 mg/dL (8.5-10.1); Chloride 109 mmol/L (98-107); Creatinine, Serum 0.72 mg/dL (0.55-1.02); EST Glomerular Filtration Rate 83 mL/min (>60); Est Glom Filt Rate - Afr Amer 101 mL/min (>60); Estimated Creatinine Clearance 38.35 ml/min; Glucose 139 mg/dL (74-106); Potassium 3.3 mmol/L (3.5-5.1); Sodium Level 140 mmol/L (136-145)
[2020-04-10] MEDS: Pantoprazole Sodium 20 MG Tablet PO (09:02)
--- NOTE | 2020-04-10 09:30 | NURSING ---
Pt reports SOB with cough, had temp. Covid neg on the . HR is irregular when this nurse listens. Pt denies hx of AFIB. Dr. Elliott is aware and hospitalist consulted. Dr. Ramirez to order chest xray. This nurse took oxygen off and spo2 was 89-91% on RA at rest. Did not walk her yet.
--- NOTE | 2020-04-10 09:42 | PCM.CONS.GEN ---
Problem List (1) Exercise-induced asthma Status: Chronic (2) Allergic alveolitis Status: Chronic Comment: Suspected (3) Left renal stone Status: Acute (4) Ureteral stricture, left Status: Acute Reason for Consult Date of Consultation: 04/10/20 Reason for Consultation: Shortness of breath, irregular heartbeat History of Present Illness: The patient is a 79 year old F was admitted by Dr. Pollard for left ureteral stone complicated with a stricture in mid lower left ureter with prior history of kidney stone/nephrolithiasis and had cystoscopy with left ureteroscopy, laser lithotripsy of stone and left stent placement. Patient had high fever, T-max 102.9, 103 Fahrenheit on 04/08 and urine culture shows Pseudomonas aeruginosa less than 1000. Patient has history of recurrent UTI with Pseudomonas in the past, last one on 01/13/2020. Patient has chronic shortness of breath and a history of exercise-induced asthma. She also gets cough and shortness of breath on exposure to pets, pollen and farm. She lives in [facility]. She is a non-smoker. She denies any exposure to suspected or confirmed case of COVID-19. Her COVID 19 PCR was negative on 04/07/2020. Chest x-ray was done and reviewed and shows chronic interstitial changes in both lung sánchez with a small left CP angle effusion. No organized infiltrate. Currently patient heart rate is regular, blood pressure is maintained and pulse ox 91% on room air. Denies chest pain, near-syncope or syncope. [] She also has a history of chronic Lyme disease and had 5 times bitten by tick, last one about 3 weeks ago. The area of bite has healed and there is no rash or induration. Past Medical History Past Medical History (Chronic Problems): Chronic Problems Exercise-induced asthma (Chronic) Allergic alveolitis (Chronic) Suspected Allergies ciprofloxacin [From Cipro] Allergy (Verified 04/06/20 21:45) CONFUSION Iodinated Contrast Media [DYEE] Allergy (Verified 04/06/20 21:45) Anaphylaxis lisinopril Allergy (Verified 04/06/20 21:45) CONFUSION metoprolol Allergy (Verified 04/06/20 21:45) CONFUSION Sulfa (Sulfonamide Antibiotics) Allergy (Verified 04/06/20 21:45) CONFUSION FLUOROQUINOLONES Allergy (Unknown, Uncoded 04/06/20 21:45) Anaphylaxis Home Medications: Ambulatory Orders Medication Instructions Recorded Estrogen,Con/M-Progest Acet 1 each PO DAILY 07/30/17 [Prempro 0.3 mg-1.5 mg Tablet] Omeprazole [Prilosec] 20 mg PO DAILY 01/24/20 Vitamin B Complex 1 ea PO DAILY 01/24/20 Cranberry Conc/Ascorbic Acid 1 ea PO DAILY 04/06/20 [Cranberry 12,600 mg Softgel] Surgical History: - - Kidney stones, prior ureteroscopy and laser several years ago with scar tissue development in the mid left ureter recently this year stricture was dilated and balloon dilated. 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 History Items: Asthma Review of Systems Constitutional: Reports: Chills, Fever - About 2 days ago. Denies: Weight Change HEENT: Denies: Head Aches, Sinus Congestion, Sinus Drainage Cardiovascular: Denies: Chest Pain, Palpitations Respiratory: Reports: Cough - Intermittent, exposure to dust. Exercise-induced asthma. Denies: Shortness of breath at rest, Sputum production Gastrointestinal: Denies: Abdominal Pain, Nausea, Vomiting Genitourinary: Reports: Dysuria - Burning micturition at the end of the stream. Denies: Frequency, Hematuria Musculoskeletal: Reports: Joint Pain. Denies: Joint Tenderness Skin: Denies: Rash, Wounds Neurological: Reports: Balance problems. Denies: Focal weakness, Numbness, Tingling Psychiatric: Denies: Anxiety, Depression, Homicidal Ideations, Suicidal Ideations Hematologic/ Lymphatic: Denies: Easy Bruising, Easy Bleeding Patient Problems: Active and Suspected Problems Left renal stone (Acute) Ureteral stricture, left (Acute) - Physical Exam Vitals/I&O's: Vital Signs Temp Pulse Resp BP Pulse Ox 97.9 F 92 18 114/63 97 04/10/20 08:42 04/10/20 08:42 04/10/20 08:42 04/10/20 08:42 04/10/20 08:42 Oxygen Flow Rate (L/min) 1 Oxygen Delivery Method Nasal Cannula Weight: 172 lb 14.4 oz Body Mass Index (BMI) 30.6 Finger Stick Blood Glucose 83 Intake and Output for Last 24 Hours 04/08/20 04/09/20 04/10/20 23:59 23:59 23:59 Intake Total 3549.92 / 3549.92 4119.17 / 4519.17 2618.75 / 2618.75 Output Total 2525 / 2525 1050 / 1750 1000 / 1000 Balance 1024.92 / 1024.92 3069.17 / 2769.17 1618.75 / 1618.75 General: Alert, Oriented x3, Cooperative HEENT: Atraumatic, PERRLA, EOMI, Normocephalic Oral: No Gingival or Mucosal Lesions/ Ulcerations, Dry Mucosa Neck: Supple, No JVD, Negative Carotid Bruits Lungs: Diminished - Air entry diminished in bilateral lung bases, Short of Breath, Wheezes - Expiratory wheezing Cardiovascular: Regular rate, Regular Rhythm, Normal S1, Normal S2, No murmurs Abdomen: Bowel Sounds Present, Soft, Non Tender, Non-Distended, - - No suprapubic tenderness or renal angle tenderness Extremities: No edema, Capillary Refill Less than 3 Seconds Skin: No rashes, No breakdown Musculoskeletal: No Tenderness to Palpation of Joints or Extremities, Arthritic Changes Neurological: Cranial nerves II-XII grossly intact, Deep Tendon Reflexes 2+/4 and Symmetrical, Neuro grossly intact Psych/Mental Status: Normal Affect, Appropriate Microbiology Past 72 Hours 04/07/20 17:50 Urine, Clean Catch Urine Culture - Final Pseudomonas aeroginosa 04/07/20 17:55 Blood Culture (Wb) - Left Hand Blood Culture - Preliminary No growth in 48 hours. 04/07/20 17:48 Blood Culture (Wb) - Anticubital Right Blood Culture - Preliminary No growth in 48 hours. 04/07/20 08:22 Mucosa - Nasopharyngeal Coronavirus COVID-19 PCR - Final Laboratory Results 04/10/20 06:33: WBC 13.4 H, RBC 3.64 L, Hgb 9.9 L, Hct 32.3 L, MCV 88.7, MCH 27.2, MCHC 30.7 L, RDW Std Deviation 44.6 H, RDW Coeff of Laure 13.8, Plt Count 246, MPV 10.3 04/10/20 06:33: Sodium 140, Potassium 3.3 L, Chloride 109 H, Carbon Dioxide 24.0, Anion Gap 7, BUN 12, Creatinine 0.72, Estim Creat Clear Calc 38.35, Est GFR (MDRD) Af Amer 101, Est GFR (MDRD) Non-Af 83, BUN/Creatinine Ratio 16.7, Glucose 139 H, Calcium 7.8 L Current Medications Acetaminophen (Tylenol) 500 mg PO Q6H PRN PRN PRN Reason: Pain Score 1-5/10, fever Last Admin: 04/10/20 01:42 Dose: 500 mg Documented by: Ceftriaxone Sodium 2 gm/ (Sodium Chloride) 50 mls @ 100 mls/hr IV Q12 [facility] Last Infusion: 04/10/20 09:36 Dose: Infused Documented by: Ondansetron HCl (Zofran) 4 mg IV Q6H PRN PRN PRN Reason: NAUSEA/VOMITING Last Admin: 04/09/20 12:39 Dose: 4 mg Documented by: Pantoprazole Sodium (Protonix) 20 mg PO DAILY [facility] Last Admin: 04/10/20 09:02 Dose: 20 mg Documented by: Promethazine HCl (Phenergan) 12.5 mg IV Q4H PRN PRN PRN Reason: NAUSEA/VOMITING Sodium Chloride () 10 - 40 ml IV UD PRN PRN Reason: SALINE FLUSH Last Admin: 04/09/20 12:39 Dose: 10 ml Documented by: Assessment/Plan All Active Problems Left renal stone (Acute) Ureteral stricture, left (Acute) 71-year-old female admitted for left ureteral stone complicated with a stricture and previous history of Pseudomonas UTI is being seen for irregular heartbeat and intermittent shortness of breath. 1. Left ureteral stone complicated with a stricture, complicated urinary tract/upper UTI with Pseudomonas: Antibiotic changed to cefepime as per sensitivity. Need total 7 days of antibiotic coverage. Rest as per Dr. Elliott. Leukocytosis is improving. Fever has resolved for about 48 hours. 2. Intermittent shortness of breath with history of exercise-induced asthma and possible allergic alveolitis/extrinsic allergy: Started on Solu-Medrol 40 mg every 12 hourly. Albuterol inhaler as needed. Follow-up in pulmonary clinic in 2 to 3 weeks after discharge. COVID-19 PCR is negative and clinically low suspicion as she has chronic lung disease as mentioned above 3. Intermittent PACs/PVCs: Twelve-lead EKG reviewed. Normal sinus rhythm with low voltage QRS complex with intermittent PACs. Currently her heart rate is regular. Mild hypokalemia: Potassium replaced. Magnesium is 1.8. 4. Other comorbidities include GERD: On Prilosec. DVT prophylaxis: Lovenox 40 mils subcu daily. Inpatient E&M: 91219 Init Hosp L2
--- NOTE | 2020-04-10 09:55 | RAD_ITS ---
STUDY: X-RAY CHEST REASON FOR EXAM: Female, 79 years old. SOB TECHNIQUE: PA and lateral views of the chest. COMPARISON: None. FINDINGS: Chronic interstitial changes in both lung sánchez with blunting of left costophrenic angle suggesting small left pleural effusion. No organized infiltrate noted. Normal size heart. Normal mediastinum and emanuel. Normal visualized pulmonary arteries. Normal visualized aortic arch and descending thoracic aorta. There are diffuse degenerative changes of the visualized thoracic spine. There is degenerative osteoarthritis of the bilateral shoulders. There is no demonstrated abnormality of the visualized soft tissue structures of the upper abdomen. RAD/Chest PA and Lateral IMPRESSION: Chronic interstitial changes in both lung sánchez with small left pleural effusion. No organized infiltrate Electronically Signed: Gus Valverde MD at 10:20 EDT , Service support ,
[2020-04-10 10:18] LABS: AST(SGOT) 28 U/L (15-37); Alanine Aminotransfer ALT/SGPT 23 U/L (13-56); Albumin, Serum 2.2 g/dL (3.2-5.0); Alkaline Phosphatase 88 U/L (45-117); Bilirubin, Direct 0.12 mg/dL (0.00-0.30); Globulin 3.7 g/dL (2.2-4.2); Magnesium 1.8 mg/dL (1.6-2.6); Protein, Total 5.9 g/dL (6.4-8.2)
--- NOTE | 2020-04-10 12:18 | EKG12_ITS ---
Test Reason : Blood Pressure : / mmHG Vent. Rate : 109 BPM Atrial Rate : 156 BPM P-R Int : 000 ms QRS Dur : 068 ms QT Int : 298 ms P-R-T Axes : 000 036 034 degrees QTc Int : 401 ms Atrial fibrillation Low voltage QRS Nonspecific ST and T wave abnormality Abnormal ECG Confirmed by ALLISON VENTURA, TRINY ([id number]), editor newspaper JOCELIN BIRMINGHAM ([id number]) on 04/16/2020 2:55:36 PM Referred By: OSCAR Confirmed By:TRINY COOPER MD
[2020-04-10] MEDS: 0.9% Saline Lock 10 ML Syringe IV ×4 (12:25→21:45)
[2020-04-10] MEDS: Enoxaparin 40 MG/0.4 ML Syringe SC (12:28)
--- NOTE | 2020-04-10 14:11 | NURSING ---
discussed plan of care with supervisor maintenance and custodians regarding afib
[2020-04-10] MEDS: dilTIAZem 30 MG Tablet PO ×2 (15:21→21:08)
--- NOTE | 2020-04-10 15:37 | CASEMGMT ---
Addendum entered by Kasey Sarkar 04/10/20 15:51: Transfer to extended care facility form placed on pt's chart Addendum entered by Kasey Sarkar 04/10/20 15:42: Green sheet on chart. Original Note: Social Work Note Pt will now need to be discharged on IV cefepime Q12 for 10 days. JERSON placed a call to [facility], TCU would have a bed available for pt. JERSON and RN MAGED in to speak with pt. Pt unsure if she will be able to do own IV antibiotics at discharge. Pt does live alone. JERSON and RN MAGED spoke with pt about SNF for IV antibiotics and mentioned [facility] as pt would be able to stay at [facility]. Pt agreeable to staying at [facility]. Pt agreeable to SNF, prefers [facility]. JERSON explained Medicare rules and guidelines, coverage for SNF stay. JERSON placed a call back to Jennifer in TCU and updated Jennifer that pt is agreeable to TCU, likely discharge tomorrow per notes. Jennifer states understanding, confirms she is able to accept pt. Plan: TCU once medically cleared, likely tomorrow Kasey Sarkar ASSORTMENT PLANNER, [employer]
--- NOTE | 2020-04-10 16:36 | PCM.HP.ID ---
Problem List (1) Left renal stone Status: Acute Reason for Consult: fever Consulted by: Dr. Ramirez History of Present Illness: The patient is a 79 year old F with kidney stones, recurrent uti. Presented with fever, obstruction in L ureter. Has been on many courses of po abx without improvement. Does not think she has ever gotten outpt iv abx. Grew pseudomonas 12/2019. Reports tendonopathy with cipro in the past. Admitted, started on ceftriaxone, taken to OR 04/[address] Elliott for L stent placement and laser lithotripsy. 04.09 changed to cefepime and now fever resolved. Feeling anxious, no pain, does c/o some diarrhea. Going several times a day, no blood in stool, no abd pain. Full ROS performed and neg except as noted above. - Medical History Past Medical History (Chronic Problems): Chronic Problems Exercise-induced asthma (Chronic) Allergic alveolitis (Chronic) Suspected Allergies/Adverse Reactions: Allergies ciprofloxacin [From Cipro] Allergy (Verified 04/06/20 21:45) CONFUSION Iodinated Contrast Media [DYEE] Allergy (Verified 04/06/20 21:45) Anaphylaxis lisinopril Allergy (Verified 04/06/20 21:45) CONFUSION metoprolol Allergy (Verified 04/06/20 21:45) CONFUSION Sulfa (Sulfonamide Antibiotics) Allergy (Verified 04/06/20 21:45) CONFUSION FLUOROQUINOLONES Allergy (Unknown, Uncoded 04/06/20 21:45) Anaphylaxis Home Medications: Ambulatory Orders Medication Instructions Recorded Estrogen,Con/M-Progest Acet 1 each PO DAILY 07/30/17 [Prempro 0.3 mg-1.5 mg Tablet] Omeprazole [Prilosec] 20 mg PO DAILY 01/24/20 Vitamin B Complex 1 ea PO DAILY 01/24/20 Cranberry Conc/Ascorbic Acid 1 ea PO DAILY 04/06/20 [Cranberry 12,600 mg Softgel] Apixaban [Eliquis] 5 mg PO BID #60 tab 04/10/20 Cefepime HCl [Maxipime] 2 gm IV Q12 10 Days #20 vial 04/10/20 - Social History SMOKING STATUS:: Never smoker Vital Signs Temp Pulse Resp BP Pulse Ox 99.0 F 91 20 H 144/82 H 94 04/10/20 15:24 04/10/20 16:20 04/10/20 15:24 04/10/20 15:24 04/10/20 15:24 Oxygen Flow Rate (L/min) 2 Oxygen Delivery Method Nasal Cannula Weight: 78.426 kg Body Mass Index (BMI) 30.6 Finger Stick Blood Glucose 83 Microbiology Past 72 Hours 04/07/20 17:50 Urine Culture - Final Urine, Clean Catch Pseudomonas aeroginosa 04/07/20 17:55 Blood Culture - Preliminary Blood Culture (Wb) - Left Hand No growth in 48 hours. 04/07/20 17:48 Blood Culture - Preliminary Blood Culture (Wb) - Anticubital Right No growth in 48 hours. Laboratory Tests Past 24 Hrs 04/10/20 04/10/20 04/10/20 06:23 06:33 06:33 WBC 13.4 H RBC 3.64 L Hgb 9.9 L Hct 32.3 L MCV 88.7 MCH 27.2 MCHC 30.7 L RDW Std Deviation 44.6 H RDW Coeff of Laure 13.8 Plt Count 246 MPV 10.3 Sodium 140 Potassium 3.3 L Chloride 109 H Carbon Dioxide 24.0 Anion Gap 7 BUN 12 Creatinine 0.72 Estim Creat Clear Calc 38.35 Est GFR (MDRD) Af Amer 101 Est GFR (MDRD) Non-Af 83 BUN/Creatinine Ratio 16.7 Glucose 139 H Calcium 7.8 L Magnesium 1.8 Total Bilirubin 0.40 Direct Bilirubin 0.12 AST 28 ALT 23 Alkaline Phosphatase 88 Total Protein 5.9 L Albumin 2.2 L Globulin 3.7 - Other Studies Radiology: [] reviewed Other Studies: [] Route of nutrition/ use of supplements: [] Nutritional Intake: [] IV Site: [] Austin Catheter: [] - Physical Exam General: Alert, Oriented x3, Cooperative, No apparent distress HEENT: Atraumatic, PERRLA, EOMI Neck: Supple, No Nodes Lungs: Clear to auscultation, Normal air movement Cardiovascular: Regular rate, Regular Rhythm Abdomen: Soft, Non Tender, Non-Distended Extremities: No edema Skin: No rashes IV Site: Peripheral, without redness Musculoskeletal: No Tenderness to Palpation of Joints or Extremities Neurological: Cranial nerves II-XII grossly intact - Assessment/Plan Antibiotics: [] Assessment/Plan: [] Active and Suspected Problems Left renal stone (Acute) Ureteral stricture, left (Acute) Pseudomonas chronic uti with kidney stone and L ureteral obstruction - now s/p L sided stent placement and lithotripsy by Dr. Elliott 04/07. Fever now resolved since changing cefepime. Sounds like severe reaction to cipro in the past, so she will need midline placement, plan on 10 day course of cefepime to get her through her planned stent removal next week. Stop date 04/19/20. Wrote rx and lab order. Plan is for TCU. COVID neg here. Will follow, thank you, d/w Dr. Ramirez and adult protective caseworker.
--- NOTE | 2020-04-10 16:39 | ECHOD_ITS ---
Reason For Study: AFIB Procedure This was a 2D Doppler, Color Flow transthoracic echocardiogram. Exam performed portable in patient room. Left Ventricle Normal LV size. Left ventricular systolic function is normal. Stage 2 diastolic dysfunction. No regional wall motion abnormalities noted. Right Ventricle Normal RV size. Normal systolic function. Atria The left atrium is moderately enlarged. Normal right atrium. Mitral Valve Normal mitral valve. Mild (1+) eccentric mitral valve insufficiency. Tricuspid Valve Normal tricuspid valve. Mild (1+) tricuspid valve insufficiency. Pulmonary artery systolic pressure is 34 mmHg. Aortic Valve Trisinus/trileaflet aortic valve. Trivial eccentric aortic valve insufficiency. Pulmonic Valve Normal pulmonic valve. Great Vessels Normal aortic root. The pulmonary artery is normal size. Normal inferior vena cava. Pericardium/Pleural No pericardial effusion. Medication Performed a rapid injection of agitated mix of 9 cc saline and 1cc air to assess for atrial septal defect. MMode/2D Measurements & Calculations LVIDd: 4.9 cm IVSd: 1.2 cm Ao root diam: 3.3 cm LVIDs: 3.2 cm LVPWd: 1.1 cm RVDd: 3.2 cm FS: 34.2 % LAV(MOD-bp): 71.2 ml LA A4 area: 24.3 cm2 RA A4 area: 19.5 cm2 LAV(MOD-bp) Indexed: 39.2 ml/m2 LAV(MOD-sp2): 69.5 ml LAV(MOD-sp4): 71.8 ml Time Measurements MV dec time: 0.17 sec Doppler Measurements & Calculations MV E max jonny: 110.9 cm/sec Lat Peak E' Jonny: 10.5 cm/sec Med Peak E' Jonny: 9.2 cm/sec MV A max jonny: 56.6 cm/sec E/E' lat: 10.5 E/E' med: 12.0 MV E/A: 2.0 Ao V2 max: 160.7 cm/sec AI max jonny: 425.6 cm/sec LV V1 max: 114.2 cm/sec Ao max P.3 mmHg AI max P.5 mmHg LV V1 max P.2 mmHg Ao V2 mean: 119.0 cm/sec AI dec slope: 189.8 cm/sec2 LV V1 mean P.2 mmHg Ao mean P.1 mmHg AI P1/2t: 656.9 msec LV V1 mean: 85.3 cm/sec Ao V2 VTI: 40.4 cm LV V1 VTI: 28.4 cm PA V2 max: 94.7 cm/sec TR max jonny: 273.3 cm/sec TR max P.9 mmHg Interpretation Summary Normal LV size. Left ventricular systolic function is normal. Stage 2 diastolic dysfunction. Trivial eccentric aortic valve insufficiency. Pulmonary artery systolic pressure is 34 mmHg. Ordering Physician: Nicholas Ramirez Referring Physician: Honey Nicholas Performed By: Angela Hess, MARIA E, RVT
[2020-04-10] MEDS: APIXABAN 5 MG TABLET PO (21:23)
[2020-04-11] VITALS (7 sets, daily range): BP systolic 140–146; BP diastolic 75–88; PULSE 51–77; RESP 17–20; TEMP 36.6–36.8; O2SAT 99–100
--- NOTE | 2020-04-11 06:00 | NURSING ---
Addendum entered by Suzanne Monday04/11/20 06:16: hospitalist notified 0340 of the trend. 0600 cardizem held for HR<60. No new orders. Awakened pt, states feeling normal. HR increased to 60's. Original Note: Pt started on po cardizem yesterday after EKG showed new A fib. Evening dose given 04/10. Pt's HR in 60's during night time vitals. Starting around 0300 pt's HR in 50's with brief drops into the upper 30's/low 40's. This pattern continued so the hospitalist was notified 034
--- NOTE | 2020-04-11 07:58 | NURSING ---
pt alarming calos on telly monitor around 30-38. This nurse going to go assess pt but Dr. Ramirez notified.
--- NOTE | 2020-04-11 08:22 | NURSING ---
This nurse checked the leads on the telly monitor and the RA lead was stuck on the pt's hair on her vagina. Pt apical HR was 55. Once lead put on correct spot, HR was 63 on telly monitor.
--- NOTE | 2020-04-11 08:24 | NURSING ---
Echo is here in room to do Echocardiogram
--- NOTE | 2020-04-11 08:30 | EKG12_ITS ---
Test Reason : BRADYCARDIA Blood Pressure : / mmHG Vent. Rate : 086 BPM Atrial Rate : 086 BPM P-R Int : 144 ms QRS Dur : 074 ms QT Int : 364 ms P-R-T Axes : 079 015 006 degrees QTc Int : 435 ms Sinus rhythm with Premature atrial complexes Low voltage QRS Nonspecific T wave abnormality Abnormal ECG Confirmed by ALLISON VENTURA, TRINY ([id number]), department editor JOCELIN BIRMINGHAM ([id number]) on 04/16/2020 2:55:13 PM Referred By: OSCAR Confirmed By:TRINY COOPER MD
[2020-04-11] MEDS: 0.9% Saline Lock 10 ML Syringe IV ×3 (08:56→15:24)
[2020-04-11] MEDS: APIXABAN 5 MG TABLET PO (08:57)
[2020-04-11] MEDS: Pantoprazole Sodium 20 MG Tablet PO (08:57)
--- NOTE | 2020-04-11 09:52 | PCM.TXEXTCAR ---
- Diet 04/08/20 06:10 Diet: Regular Diet Is pt able to select menu?: Yes - Routine Orders/Code Status O2 Frequency: PRN - Wound(s) left ureter Wound Type: none Dressing Change: none - Therapies Weight Bearing: Full weight bearing Physical Therapy: Eval and Treat - Problem/Diagnosis (1) Left renal stone Status: Acute Current Visit: Yes (2) Ureteral stricture, left Status: Acute Current Visit: Yes - Allergies/Procedures Done in Hospital Allergies/Adverse Reactions: Allergies ciprofloxacin [From Cipro] Allergy (Verified 04/06/20 21:45) CONFUSION Iodinated Contrast Media [DYEE] Allergy (Verified 04/06/20 21:45) Anaphylaxis lisinopril Allergy (Verified 04/06/20 21:45) CONFUSION metoprolol Allergy (Verified 04/06/20 21:45) CONFUSION Sulfa (Sulfonamide Antibiotics) Allergy (Verified 04/06/20 21:45) CONFUSION FLUOROQUINOLONES Allergy (Unknown, Uncoded 04/06/20 21:45) Anaphylaxis Procedures: - - stent laser stone, has resistant, psuedomonas UTI - Type of Care/Length of Stay Estimated LOS: Convalescent Care Less Than 30 days Type of Care Needed: Skilled Rehab Potential: Good Prognosis: Good - Additional Orders/Day of Discharge Additional Orders: Needs to be Cefepime 1gm q 12 hours x 7 days more. Day of Discharge: 04/11/20 - Follow Up Care Primary Care Physician: Honey Nicholas MD [Primary Care Provider] - Please Follow Up With: Tobias Elliott MD
--- NOTE | 2020-04-11 09:55 | DS.PCM_ITS ---
Discharge Date and Diagnosis - Problem List Patient Problems: Active and Suspected Problems Left renal stone (Acute) Ureteral stricture, left (Acute) Date of Admission: 04/07/20 Date of Discharge: 04/11/20 - Primary Discharge Diagnosis Acute Problems: Active Problems Left renal stone (Acute) Ureteral stricture, left (Acute) New onset A. fib - Secondary Discharge Diagnosis Chronic Problems: Chronic Problems Exercise-induced asthma (Chronic) Allergic alveolitis (Chronic) Suspected Hospital Course and Treatment Operations: - - Cystoscopy left stent placement laser of stone. Procedures: - - Consult to hospitalist for heart problem and consult to infectious disease for resistant UTI. Summary of Care Provided: The patient is a 79 year old female with a transfer from an outside hospital she has an obstructing stone in the mid left ureter she has had a ureteral stricture, she underwent laser of the stone and stent placement on the left side after this developed high fevers of 102-103 chills and had sepsis urine and blood cultures were obtained. Blood cultures were negative urine culture was positive for Pseudomonas resistant. Also during the hospitalization she developed shortness of breath and was found to have atrial fibrillation she is started on blood thinners. She has been seen by infectious diseases and also by hospitalist. Infectious disease recommended at least 10 days of cefepime. The patient is going to go to transitional care unit to finish up her antibiotics. Hospitalist had placed the patient on blood thinners her symptoms have improved. She will need to follow-up as an outpatient with cardiology regarding her new onset of A. fib. Should be discharged to transitional care unit to continue antibiotics and she will follow-up with urology to remove the stent after she is finished with her antibiotics. Patient Problems: Active and Suspected Problems Left renal stone (Acute) Ureteral stricture, left (Acute) - Physical Exam Vitals/I&O's: Vital Signs Temp Pulse Resp BP Pulse Ox 97.9 F 55 L 18 146/88 H 100 04/11/20 08:06 04/11/20 08:06 04/11/20 08:06 04/11/20 08:06 04/11/20 08:06 Oxygen Flow Rate (L/min) 2 Oxygen Delivery Method Nasal Cannula Weight: 78.426 kg Body Mass Index (BMI) 30.6 Finger Stick Blood Glucose 83 Intake and Output for Last 24 Hours 04/09/20 04/10/20 04/11/20 23:59 23:59 23:59 Intake Total 4119.17 / 4519.17 3060.00 / 3060.00 700 / 700 Output Total 1050 / 1750 1300 / 1300 850 / 850 Balance 3069.17 / 2769.17 1760.00 / 1760.00 -150 / -150 General: Alert, Oriented x3, Cooperative HEENT: Atraumatic, PERRLA, EOMI, Normocephalic Neck: Supple, No JVD, Negative Carotid Bruits Lungs: Clear to auscultation, Normal air movement Cardiovascular: Regular rate, No murmurs Abdomen: Bowel Sounds Present, Soft, Non Tender Extremities: No edema, Capillary Refill Less than 3 Seconds Skin: No rashes, No breakdown Musculoskeletal: No Tenderness to Palpation of Joints or Extremities Neurological: Cranial nerves II-XII grossly intact Psych/Mental Status: Normal Affect, Appropriate Microbiology Past 72 Hours 04/10/20 20:50 Stool C. difficile DNA Amplification - Final 04/07/20 17:50 Urine, Clean Catch Urine Culture - Final Pseudomonas aeroginosa 04/07/20 17:55 Blood Culture (Wb) - Left Hand Blood Culture - Preliminary No growth in 48 hours. 04/07/20 17:48 Blood Culture (Wb) - Anticubital Right Blood Culture - Preliminary No growth in 48 hours. Laboratory Results 04/10/20 06:23: Magnesium 1.8, Total Bilirubin 0.40, Direct Bilirubin 0.12, AST 28, ALT 23, Alkaline Phosphatase 88, Total Protein 5.9 L, Albumin 2.2 L, Globulin 3.7 Current Medications Acetaminophen (Tylenol) 500 mg PO Q6H PRN PRN PRN Reason: Pain Score 1-5/10, fever Last Admin: 04/10/20 01:42 Dose: 500 mg Documented by: Albuterol Sulfate (Ventolin Aerosols) 2.5 mg INHALATION Q4H PRN PRN Reason: SHORTNESS OF BREATH Apixaban (Eliquis) 5 mg PO BID [facility] Last Admin: 04/11/20 08:57 Dose: 5 mg Documented by: Diltiazem HCl (Cardizem) 30 mg PO Q8 [facility] Last Admin: 04/11/20 05:44 Dose: Not Given Documented by: Cefepime HCl 2 gm/ Sodium (Chloride) 50 mls @ 100 mls/hr IV Q12 [facility] Last Admin: 04/11/20 08:57 Dose: 100 mls/hr Documented by: Potassium Chloride () 10 meq in 100 mls @ 100 mls/hr IV BOLUS Q1H [facility] Stop: 04/11/20 12:44 Methylprednisolone (Solu-Medrol) 40 mg IV Q12 [facility] Last Admin: 04/10/20 21:08 Dose: 40 mg Documented by: Ondansetron HCl (Zofran) 4 mg IV Q6H PRN PRN PRN Reason: NAUSEA/VOMITING Last Admin: 04/09/20 12:39 Dose: 4 mg Documented by: Pantoprazole Sodium (Protonix) 20 mg PO DAILY [facility] Last Admin: 04/11/20 08:57 Dose: 20 mg Documented by: Promethazine HCl (Phenergan) 12.5 mg IV Q4H PRN PRN PRN Reason: NAUSEA/VOMITING Sodium Chloride () 10 - 40 ml IV UD PRN PRN Reason: SALINE FLUSH Last Admin: 04/11/20 08:56 Dose: 10 ml Documented by: Discharge Diet: Light diet - advance as tolerated Discharge Activity: Return to Normal Activity Home Medications: Medications to take at Discharge Estrogen,Con/M-Progest Acet [Prempro 0.3 mg-1.5 mg Tablet] 1 each PO DAILY 07/30/17 Omeprazole [Prilosec] 20 mg PO DAILY 01/24/20 Vitamin B Complex 1 ea PO DAILY 01/24/20 Cranberry Conc/Ascorbic Acid [Cranberry 12,600 mg Softgel] 1 ea PO DAILY 04/06/20 Apixaban [Eliquis] 5 mg PO BID #60 tab 04/10/20 Cefepime HCl [Maxipime] 2 gm IV Q12 10 Days #20 vial 04/10/20 Following Prescrptions Were Given to Patient: Apixaban [Eliquis] 5 mg PO BID #60 tab Transmission Status: Received by [facility] Cefepime HCl [Maxipime] 2 gm IV Q12 10 Days #20 vial Prescription Printed Primary Care Physician: Honey Nicholas MD [Primary Care Provider] - Please Follow Up With: Tobias Elliott MD Medical Necessity - Tobacco Use Smoking Status: Never smoker Tobacco Use: Non-smoker Meaningful Use Info Meaningful Use Diagnoses (Choose all that apply): None applicable
--- NOTE | 2020-04-11 10:13 | PCA ---
A voicemail was left for Arelis Reynaga (person to contact) on 04-11-2020 @ 1012. Voicemail contained a call back number to [phone] to inform her of the D/C order to [facility] for her sister Yadira Leija.
[2020-04-11] MEDS: Potassium Chloride 10mEq/100mL 10 MEQ/100 ML IV.SOLN. 100 MEQ IV BOLUS ×4 (10:34→14:02)
--- NOTE | 2020-04-11 11:16 | PCM.TXEXTCAR ---
- Diet 04/08/20 06:10 Diet: Regular Diet Is pt able to select menu?: Yes - Routine Orders/Code Status Suppository Type: Dulcolax 10mg Suppository Frequency: Daily PRN O2 Frequency: PRN - Wound(s) left ureter Wound Type: none Dressing Change: none - Therapies Weight Bearing: Full weight bearing Physical Therapy: Eval and Treat Occupational Therapy: Eval and Treat - Problem/Diagnosis (1) Exercise-induced asthma Status: Chronic Current Visit: Yes (2) Allergic alveolitis Status: Chronic Comment: Suspected Current Visit: Yes (3) Left renal stone Status: Acute Current Visit: Yes (4) Ureteral stricture, left Status: Acute Current Visit: Yes - Allergies/Procedures Done in Hospital Allergies/Adverse Reactions: Allergies ciprofloxacin [From Cipro] Allergy (Verified 04/06/20 21:45) CONFUSION Iodinated Contrast Media [DYEE] Allergy (Verified 04/06/20 21:45) Anaphylaxis lisinopril Allergy (Verified 04/06/20 21:45) CONFUSION metoprolol Allergy (Verified 04/06/20 21:45) CONFUSION Sulfa (Sulfonamide Antibiotics) Allergy (Verified 04/06/20 21:45) CONFUSION FLUOROQUINOLONES Allergy (Unknown, Uncoded 04/06/20 21:45) Anaphylaxis Procedures: - - stent laser stone, has resistant, psuedomonas UTI - Type of Care/Length of Stay Estimated LOS: Convalescent Care Less Than 30 days Type of Care Needed: Skilled Rehab Potential: Good Prognosis: Good - Additional Orders/Day of Discharge Additional Orders: Needs to be Cefepime 1gm q 12 hours x 7 days more. Day of Discharge: 04/11/20 - Follow Up Care Primary Care Physician: Honey Nicholas MD [Primary Care Provider] - Please follow up with your Primary Care Physician in: in 2 weeks Please Follow Up With: Tobias Elliott MD Please Follow Up With: Andre Becerra MD When: in 3 weeks for New onset Afib for cardioversion Please Follow Up With: Vinay Donaldson DO When: in 4 weeks for PFT, Allergic history, Exercised induced asthma
--- NOTE | 2020-04-11 11:19 | PN_ITS ---
Patient Problems: Active and Suspected Problems Left renal stone (Acute) Ureteral stricture, left (Acute) Reason for Visit: Follow-up of new onset A. fib with bradycardia, complicated UTI secondary to left ureteric stone with stricture by Pseudomonas Vitals/I&O's: Vital Signs Temp Pulse Resp BP Pulse Ox 97.9 F 55 L 18 146/88 H 100 04/11/20 08:06 04/11/20 08:06 04/11/20 08:06 04/11/20 08:06 04/11/20 08:06 Oxygen Flow Rate (L/min) 2 Oxygen Delivery Method Nasal Cannula Weight: 172 lb 14.4 oz Body Mass Index (BMI) 30.6 Finger Stick Blood Glucose 83 Intake and Output for Last 24 Hours 04/09/20 04/10/20 04/11/20 23:59 23:59 23:59 Intake Total 4119.17 / 4519.17 3060.00 / 3060.00 750 / 750 Output Total 1050 / 1750 1300 / 1300 850 / 850 Balance 3069.17 / 2769.17 1760.00 / 1760.00 -100 / -100 General: Alert, Oriented x3, Cooperative HEENT: Atraumatic, PERRLA, EOMI, Normocephalic Neck: Supple, No JVD, Negative Carotid Bruits Lungs: Clear to auscultation, Normal air movement, No rhonchi, No wheeze, No rales Cardiovascular: Normal S1, Normal S2, No murmurs, Bradycardic, Irregular Rate Abdomen: Bowel Sounds Present, Soft, Non Tender, Non-Distended Extremities: No edema, Capillary Refill Less than 3 Seconds Skin: No rashes, No breakdown Musculoskeletal: No Tenderness to Palpation of Joints or Extremities Neurological: Cranial nerves II-XII grossly intact, Deep Tendon Reflexes 2+/4 and Symmetrical, Neuro grossly intact Psych/Mental Status: Normal Affect, Appropriate Microbiology Past 72 Hours 04/10/20 20:50 Stool C. difficile DNA Amplification - Final 04/07/20 17:50 Urine, Clean Catch Urine Culture - Final Pseudomonas aeroginosa 04/07/20 17:55 Blood Culture (Wb) - Left Hand Blood Culture - Preliminary No growth in 48 hours. 04/07/20 17:48 Blood Culture (Wb) - Anticubital Right Blood Culture - Preliminary No growth in 48 hours. Current Medications Acetaminophen (Tylenol) 500 mg PO Q6H PRN PRN PRN Reason: Pain Score 1-5/10, fever Last Admin: 04/10/20 01:42 Dose: 500 mg Documented by: Albuterol Sulfate (Ventolin Aerosols) 2.5 mg INHALATION Q4H PRN PRN Reason: SHORTNESS OF BREATH Apixaban (Eliquis) 5 mg PO BID [facility] Last Admin: 04/11/20 08:57 Dose: 5 mg Documented by: Diltiazem HCl (Cardizem) 30 mg PO Q8 [facility] Last Admin: 04/11/20 05:44 Dose: Not Given Documented by: Cefepime HCl 2 gm/ Sodium (Chloride) 50 mls @ 100 mls/hr IV Q12 [facility] Last Infusion: 04/11/20 09:30 Dose: Infused Documented by: Potassium Chloride () 10 meq in 100 mls @ 100 mls/hr IV BOLUS Q1H [facility] Stop: 04/11/20 12:44 Last Admin: 04/11/20 10:34 Dose: 100 mls/hr Documented by: Methylprednisolone (Solu-Medrol) 40 mg IV Q12 [facility] Last Admin: 04/11/20 10:34 Dose: 40 mg Documented by: Ondansetron HCl (Zofran) 4 mg IV Q6H PRN PRN PRN Reason: NAUSEA/VOMITING Last Admin: 04/09/20 12:39 Dose: 4 mg Documented by: Pantoprazole Sodium (Protonix) 20 mg PO DAILY [facility] Last Admin: 04/11/20 08:57 Dose: 20 mg Documented by: Promethazine HCl (Phenergan) 12.5 mg IV Q4H PRN PRN PRN Reason: NAUSEA/VOMITING Sodium Chloride () 10 - 40 ml IV UD PRN PRN Reason: SALINE FLUSH Last Admin: 04/11/20 10:36 Dose: 10 ml Documented by: STROKE Vital Signs/Narrative: Vital Signs Temp Pulse Resp BP Pulse Ox 04/11/20 08:06 97.9 F 55 L 18 146/88 H 100 04/11/20 07:25 51 L Medical Necessity - Tobacco Use Smoking Status: Never smoker Tobacco Use: Non-smoker Assessment/Plan All Active Problems Left renal stone (Acute) Ureteral stricture, left (Acute) 71-year-old female admitted for left ureteral stone complicated with a stricture and previous history of Pseudomonas UTI is being seen for irregular heartbeat and intermittent shortness of breath. 1. Left ureteral stone complicated with a stricture, complicated urinary tract/upper UTI with Pseudomonas: Antibiotic changed to cefepime as per sensitivity. Discussed with ID on 04/10 and requested ID consult. He wrote a prescription for Ceftin 2 g IV every 12 for total of 10 days stop date 04/19/2020 along with weekly BMP and CBC while on IV antibiotic. Patient has history of diarrhea probably IBS or antibiotic associated. Stool for C. difficile negative. Leukocytosis is improving. Fever has resolved for more than 48 hours 2. Intermittent shortness of breath with history of exercise-induced asthma and possible hypersensitivity pneumonitis: Started on Solu-Medrol 40 mg every 12 hourly for 1 day. Patient shortness of breath was improved. Not need prolonged steroid or steroid taper. Albuterol inhaler as needed. Follow-up in pulmonary clinic in 2 to 3 weeks after discharge. COVID-19 PCR is negative and clinically low suspicion as she has chronic lung disease as mentioned above 3. New onset A. fib: Twelve-lead EKG reviewed. Initial normal sinus rhythm with low voltage QRS complex with intermittent PACs. Repeat EKG shows A. fib at 106/min. Patient started on low-dose of Cardizem 30 mg every 8 hourly but started running bradycardic heart rate in 50s. Cardizem discontinued. Nurse also notified the patient heart rate is between 30-38 but not but it was ERROR on satellite project site monitor because of detached lead. Patient is discharged on Eliquis 5 mg twice daily. Patient has history of metoprolol and cannot tolerate rate control medications but heart rate is controlled. Follow-up with cardiology in 3 weeks for cardioversion. Mild hypokalemia: Potassium replaced. Magnesium is 1.8. 4. Other comorbidities include GERD: On Prilosec. DVT prophylaxis: On Eliquis Patient is being discharged to TCU. Inpatient E&M: 40455 Subs Hosp L2
--- NOTE | 2020-04-11 14:57 | PCA ---
04-11-2020 @ 5226 I spoke to Arelis Reynaga (person to contact) to let her know of the D/C to [facility] for Yadira Leija.
[2020-04-11] MEDS: dilTIAZem 30 MG Tablet PO (15:01)
--- NOTE | 2020-04-11 15:21 | NURSING ---
report given to Clarissa in TCU at this time.
--- OUTSIDE RECORDS SUMMARY | 2020-09-01 12:50 | XMS RPT_ITS | CCD ---
:1940 External Reference #:[id number] Demographics Preferred Language Unknown Marital Status Unknown Yarsani Affiliation Unknown Race Unknown Ethnic Group Unknown Author Organization [facility] Care Team Providers Name Role Phone Cuba Finney Attending Unavailable MD DELMER Admitting Unavailable MD DELMER Attending Unavailable MD DELMER Primary Care Unavailable MD DELMER Consulting Unavailable PROVIDER Consulting Unavailable PROVIDER Consulting Unavailable MD DELMER Admitting Unavailable MD DELMER Attending Unavailable MD DELMER Primary Care Unavailable MD DELMER Consulting Unavailable PROVIDER Consulting Unavailable PROVIDER Consulting Unavailable MD DELMER Admitting Unavailable MD DELMER Attending Unavailable MD DELMER Primary Care Unavailable MD DELMER Consulting Unavailable MD DELMER Referring Unavailable PROVIDER Consulting Unavailable PROVIDER Consulting Unavailable MD DELMER Admitting Unavailable MD DELMER Attending Unavailable MD DELMER Primary Care Unavailable MD DELMER Consulting Unavailable PROVIDER Consulting Unavailable PROVIDER Consulting Unavailable MD DELMER Admitting Unavailable MD DELMER Attending Unavailable MD DELMER Primary Care Unavailable MD DELMER Consulting Unavailable PROVIDER Consulting Unavailable PROVIDER Consulting Unavailable Nish INFANTE Admitting Unavailable Nish INFANTE Attending Unavailable Nish INFANET Primary Care Unavailable MD DELMER Consulting Unavailable MD DELMER Referring Unavailable PROVIDER Consulting Unavailable PROVIDER Consulting Unavailable Lesvia GUTIÉRREZ Admitting Unavailable Lesvia GUTIÉRREZ Attending Unavailable Lesvia GUTIÉRREZ Primary Care Unavailable MD DELMER Consulting Unavailable MD DELMER Referring Unavailable PROVIDER Consulting Unavailable PROVIDER Consulting Unavailable KAY MOORE Admitting Unavailable KAY MOORE Attending Unavailable KAY MOORE Primary Care Unavailable MD DELMER Consulting Unavailable PROVIDER Consulting Unavailable PROVIDER Consulting Unavailable MD DELMER Admitting Unavailable MD DELMER Attending Unavailable MD DELMER Primary Care Unavailable MD DELMER Consulting Unavailable MD DELMER Referring Unavailable PROVIDER Consulting Unavailable PROVIDER Consulting Unavailable MD DELMER Admitting Unavailable MD DELMER Attending Unavailable MD DELMER Primary Care Unavailable MD DELMER Consulting Unavailable PROVIDER Consulting Unavailable PROVIDER Consulting Unavailable MD DELMER Admitting Unavailable MD DELMER Attending Unavailable MD DELMER Primary Care Unavailable MD DELMER Consulting Unavailable PROVIDER Consulting Unavailable PROVIDER Consulting Unavailable GUTIÉRREZ, C Admitting Unavailable Lesvia GUTIÉRREZ Attending Unavailable MD DELMER Referring Unavailable GUTIÉRREZ, C Primary Care Unavailable MD DELMER Consulting Unavailable PROVIDER Consulting Unavailable PROVIDER Consulting Unavailable Nish INFANTE Admitting Unavailable Nish INFANTE Attending Unavailable MD DELMER Referring Unavailable Nish INFANTE Primary Care Unavailable MD DELMER Consulting Unavailable PROVIDER Consulting Unavailable PROVIDER Consulting Unavailable TIFFANIE, C Admitting Unavailable TIFFANIE C Attending Unavailable TIFFANIE C Primary Care Unavailable MD DELMER Consulting Unavailable PROVIDER Consulting Unavailable PROVIDER Consulting Unavailable Allergies Reported Allergen Reaction(s) Severity Date of Onset Location Ciprofloxacin Moderate Antony [facility] (Severity [facility] Hospit [facility] Modifier) Repository (Qualifier Value) CONTRAST MEDIA, Moderate Antony Pome[facility] e GADOLINIUM RELATED (Severity [facility] Hospital Modifier) Repository (Qualifier Value) FLUOROQUINOLONE Moderate Antony [facility]ome[facility] e (Severity [facility] Modifier) Repository (Qualifier Value) Lisinopril Moderate [facility] (Severity [facility] Modifier) Repository (Qualifier Value) Metoprolol Moderate Antony [facility] (Severity [facility] Modifier) Repository (Qualifier Value) Problems Active Problems Category Problem Name Status Date Location Diabetes mellitus Type 2 diabetes mellitus Active 02-22-2020 - Antony Pomerene without complication without complications [facility] ([id number]) Diverticulosis and Diverticulosis of Active 01-22-2020 - Antony Pomerene diverticulitis intestine, part [facility] unspecified, without (20279) perforation or abscess without bleeding 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 (72693 ) Allergic reactions Allergy status to Completed 10-30-2019 - Antony Pomerene other antibiotic [facility] agents [facility] (0000 0) Other diseases of kidney Hydronephrosis with Completed 0 - Antony Pomerene and ureters renal and ureteral [facility] calculous obstruction Hospit al (11172) Other gastrointestinal Constipation, Completed 01-22-2020 - Antony Pomerene disorders unspecified [facility] (96238 ) Residual codes; Other general symptoms Completed 03-18-2020 - Malorie el Pomerene unclassified and signs [facility] (49181 ) Residual codes; Disorientation, Completed 10-30-2019 - Antony Pome jyoti unclassified unspecified [facility] (15126 ) Urinary tract infections Urinary tract Completed 02-22-2020 - Malorie el Pomerene infection, site not [facility] (83424 ) Results Result Name Value Range Unit Interpretation Flag Date Location ct sinuses w/o contrast on 2020-08-14 CT SINUSES W/O [facility] Normal 020 [facility] CONTRAST [facility] [address] [place] [address] ([id number]) Patient: SEBASTIAN BURGOS Phone#: : 1940 Age: 80 Gender: F Pt. Type: Out Account: [id number] Location: [facility] Ordering: ZACHARIAH BRAUN Exam Date: 08/14/2020/11:18 Family Phys: ALEJANDRO REALOK Charge Code: 272506 Physician: [facility] Order #: [id number] DLP Dose#: 22.90 PROCEDURE: CT SINUSES WITHOUT CONTRAST COMPARISON: None. INDICATIONS: Intrinsic cartilagenous obstruction of E[place] an tube. TECHNIQUE: CT images were created without intravenous contra st. All CT scans at this facilit y use dose modulation, iterative reconstruction, and/or weight based dosing when appropriate to reduce radiation dos e to as low as reasonably achievable. IV CONTRAST: No IV contrast used,0ml TOTAL DOSE: 22.90 CTDIvol(mGy) FINDINGS: There is dental amalgam stre ak artifact limiting evaluation of the involved levels. MAXILLARY SINUSES: Normal. N o significant mucosal thickening or fluid. Infundibula are patent. No anomalous inferior orbital ethmoid (Arti) air cells. ETHMOID SINUSES: Normal. No significant mucosal thickening or fluid. Fovea ethmoidali and lamina papyracea are symmetric and intact. SPHENOID SINUSES: Normal. No significant mucosal thickening or fluid. Sphenoethmoidal recesses are patent. No bony dehiscence. FRONTAL SINUSES: The right f rontal sinus is not pneumatized. No significant mucosal thickening or fluid. Frontal recesses are patent. No anomalous frontal air cells. NASAL FOSSA: Leftward nasal septal spur and a smaller rightward nasal septal spur. There is paradoxical left middle turbinate. No septal perforation or deviation. No josemanuel bullosa are identified. OTHER: There is atherosclero tic calcification of the cavernous carotid arteries. Limited views of the skull base and orbits are unremarkable. CONCLUSION: 1. No sinus mucosal disease. 2. Nasal septal spurs [place] [address] Patient: SEBASTIAN BURGOS. Phone#: : 1940 Age: 80 Gender: F Pt. Type: Out Account: [id number] Location: 052 Ordering: ZACHARIAH BRAUN Exam Date: 08/14/2020/11:18 Family Phys: ALEJANDRO MCCOY Charge Code: 175150 Physician: [facility] Order #: [id number] DLP Dose#: 22.90 Dictated by: Vanessa Walker MD on 08/14/2020 at 13:38 Approved by: Vanessa Walker MD on 08/14/2020 at 13:38 emergency report on 2020-05-06 EMERGENCY REPORT [facility] Normal 05-06 [facility] EMERGENCY ROOM REPORT ([id number]) NAME ACCOUNT SEX AGE ADMIT DISCHARGE PT MED. RECORD# NUMBER DATE DATE TYPE LORETTA [id number] F 79 05/02/20 05/02/20 Drew Feldman [address] ROOM: ER DATE OF : 1940 DICTATING PHYSICIAN: Kitty Casper CHIEF COMPLAINT: Roaring, decreased hearing in left ear for 5 days. HISTORY OF PRESENT ILLNESS: No trauma, no bleeding, no drain age. No sore throat. No headache. No blur red vision or double vision. She said when she listens to music the pitch sounds reall y high. We saw and evaluated her here on April 06. She had a large ureteral calculi, wa s sent to [facility], seen by Nephrology, had surgery done, grew out pseudomonas and was on IV antibiotics cephazolin for 14 days. She has been home and in the last 5 days she feels a roaring and decreased hearing in her left ear only when she moves real august ck does she have to recalibrate herself but she is not dizzy. She is not lightheade d. She drove herself here. She has no headache, no blurry vision, no double vision, no stroke like symptoms. No difficulty breathing, swallowing, talking. No chest pain. No c ough. No shortness of breath. No nausea, vomiting and is ambulatory on arrival. PAST MEDICAL HISTORY: Pretty extensive f or kidney stones, atrial fibrillation, asthma. PAST SURGICAL HISTORY: Kidney stones, appendectomy. MEDICATIONS: See nurse's notes. ALLERGIES: Multiple. SOCIAL HISTORY: Negative for alcohol, tobacco, illicit drug abuse. REVIEW OF SYSTEMS: Ten systems reviewed and present above in HPI. PHYSICAL EXAMINATION: Blood pressure 148/78, pulse 76, res piratory rate 18, temperature 98, O2 saturatio n 98% on room air. General: She is awake, alert, nontoxic, no acute distress. Head is n ormocephalic, atraumatic. Pupils equal, reactive to light bilaterally. Mucous membrane s are moist. Trachea midline. Neck is supple. Her ear is completely normal in the lef t. No pre or postauricular lymphadenopathy, redness, swelling, drainage of the ma stoid, but when I talk to her on that side, she has trouble hearing me. I do not see any thing abnormal. No facial swelling. No tenderness. Right TM is symmetrical and normal . No difficulty breathing or swallowing. Heart rate and rhythm regular without murmu r, rub or gallop. Lungs clear to auscultation bilaterally Page 1 of 2 SEBASTIAN BURGOS Emergency Room Report SEBASTIAN BURGOS : 1940 without wheezes, rales or rhonchi. EMERGENCY DEPARTMENT COURSE AND TREATMENT: This is not an in fection. Usually when people describe roaring or decreased hearing, there is no real medication I can start at this point. S he is going to see ENT this week for a further evaluation. I do not think she needs an acute CT. This is definitely stroke like symptoms, but I told her if anything changed or worsened she needs to come back here, but I think this is more in the realm of ear, nose and t hroat and that there is nothing different emergently I can do today. She may need an outpa tient MRI of the brain, but a CAT scan would be of little value today and I do not thi nk it is necessary. She is to follow up with Dr. Braun. Call to be seen in 3 or 4 days. Return for increased worsening or ne w symptoms. DIAGNOSIS: Decreased hearing, roaring in the left ear. Dictated By: Kitty Casper DO 05/02/20 12:15 JOB #: [id number] Transcribed By: sasha 05/03/20 09:34 Electronically signed by: E-Sign: KITTY CASPER MD 05/06/20 11:46 Page 2 of 2 SEBASTIAN BURGOS Emergency Room Report emergency report on 2020-04-09 EMERGENCY REPORT [facility] Normal 04-09 [facility] EMERGENCY ROOM REPORT ([id number]) NAME ACCOUNT SEX AGE ADMIT DISCHARGE PT MED. RECORD# NUMBER DATE DATE TYPE LORETTA [id number] F 79 04/06/20 3 SEBASTIAN Gaston [id number] ROOM: ER DATE OF : 1940 DICTATING PHYSICIAN: Brian Gutiérrez CHIEF COMPLAINT: Flank pain. HISTORY OF PRESENT ILLNESS: The patient states that she has a history of frequent UTIs and has also h ad previous kidney stones. Last week, she generally was doing pretty well. Yesterday , she noticed some mild urinary incontinence, which is unusual for her. She was not having other significant symptoms such pain. However, today fairly abruptly she de veloped some left flank pain associated with an episode of vomiting, which she states t hat I never do. She has had ongoing left flank pain that is quite severe since, and stat es that she is afraid it is a kidney stone, which is similar to what she had previously. She has not had fever with this. No cough or congestion. PAST MEDICAL HISTORY: Significant for previous urinary tract infections, fibromyalgia, myalgia encephalomyelitis. She has chronic Lym e disease. PAST SURGICAL HISTORY: She has not had previous surgeries. S he has had previous lithotripsy. MEDICATIONS: She is on a number of medications per med rec l ist. ALLERGIES: She has multiple allergies as on her allergy list . SOCIAL HISTORY: She lives at home alone. She baires s not smoke or drink alcohol. REVIEW OF SYSTEMS: No headache or dizziness. No chest pain o r shortness of breath. No bowel problems or bleeding disorders. PHYSICAL EXAMINATION: This is a 79-year-old mildly anxious appearing female pleasant, alert, appropriate, and does not appea r toxic, though uncomfortable appearing. Her skin is pink, warm, and dry. HEENT: Normal. Her neck is supple. Lungs are clear. Cardiac exam is r egular rhythm without ectopy or murmurs. Abdomen is soft without significant tenderne ss. No masses, guarding, or rebound. No appreciable flank tenderness. She does move ex tremities appropriately with good peripheral pulses and good capillary refill. Vital signs: Temperature 97, pulse 75, respirations 16, and blood pressure 147/98. DIAGNOSTIC DATA: Laboratories returned showing a CBC with a white count of Page 1 of 2 SEBASTIAN BURGOS Emergency Room Report SEBASTIAN BURGOS : 1940 15,200, 80% neutrophils, H&H 13.7 and 40.8. CMP: BUN and creatinine 21 and 1.1. She does have a GFR mildly l ow at 48. Glucose 133. Electrolytes are normal. Urinalysis is pending. CT KUB shows a 7 mm calculus in the mid ureter with signific ant left-sided hydronephrosis and perinephr ic fat stranding. She got some relief with IV Dilaudid, but continues to have ongoing pain. EMERGENCY DEPARTMENT COURSE AND TREATMENT: Her O2 saturation was 95%. We did check laboratory studies, CT KUB. She did have some difficult venous access, but we were able to get an IV and gave her Dilaudid and Zofran IV. DIAGNOSIS: Renal colic with left ureteral calculus. PLAN/DISPOSITION: Since she lives at home by herself and the fact with her ongoing pain and large ureteral calc ulus, I feel that admission will be most appropriate. She has seen Dr. Moore for this in the past. I did talk with him, and he is willing to accept the patient as a direct admit to [facility] where he will see her there. Dictated By: Brian Gutiérrez MD 04/06/20 19:00 JOB #: [id number] Transcribed By: am 04/06/20 19:09 Electronically signed by: DUNIA Gutiérrez M.D. 04/09/20 07:29 Page 2 of 2 SEBASTIAN BURGOS Emergency Room Report urinalysis on 04-06 Amorphous NONE Normal 04-06-2020 [facility] (82355) Comment: Performed By: #### [id number] ## ##[facility],[address] [place] [address] 97814 Bacteria LM.HPF (Urine sed) 1+ Normal [facility] [#/Area] [facility] ( 25255) Comment: Performed By: #### [id number] ## ##[facility],[address] [place] [address] 34214 Bilirubin [Mass/Vol] NEG NORMAL: NEGATIVE mg/dL Normal [facility] (12570) Comment: Performed By: #### [id number] ## ##[facility],[address] [place] [address] 82855 Blood 25 NORMAL: NEGATIVE Abnormal 04-06-2020 [facility] (44962) Comment: Performed By: #### [id number] ## ##[facility],[address] [place] [address] 96969 Casts LM.LPF (Urine sed) NONE Normal 04-06 [facility] [#/Area] [facility] ( 15240) Comment: Performed By: #### [id number] ## ##[facility],[address] [place] [address] 97584 Clarity (U) sl.cloudy NORMAL: CLEAR Normal 04-06-2020 [facility] ( 56793) Comment: Performed By: #### [id number] ## ##[facility],[address] [place] [address] 12942 Color (U) p.yel NORMAL: YELLOW Normal 04-06-2020 [facility] (34811) Comment: Performed By: #### [id number] ## ##[facility],[address] [place] [address] 41035 Crystals LM Nom (Urine sed) NONE Normal [facility] ( 72070) Comment: Performed By: #### [id number] ## ##[facility],[address] [place] [address] 27084 Epi Cells MANY Normal 04-06-2020 [facility] (41713) Comment: Performed By: #### [id number] ## ##[facility],[address] [place] [address] 37132 Glucose [Mass/Vol] NORM NORMAL: NORMAL Normal 2019 [facility] ( 02905) Comment: Performed By: #### [id number] ## ##[facility],[address] [place] [address] 21913 Ketone NEG NORMAL: NEGATIVE Normal 04-06-2020 [facility] (38866) Comment: Performed By: #### [id number] ## ##[facility],[address] [place] [address] 78002 Microscopic SEE BELOW Normal 04-06-2020 [facility] (01915) Comment: Result Comment: MICROSCOPIC Performed By: #### [id number] ## ##[facility],[address] [place] [address] 04494 Mucous TRACE Normal 04-06-2020 [facility] (37178) Comment: Performed By: #### [id number] ## ##[facility],[address] [place] [address] 80441 Nitrite Ql (U) NEG NORMAL: NEGATIVE Normal 04-06-20 [facility] ( 82338) Comment: Performed By: #### [id number] ## ##[facility],[address] [place] [address] 80565 pH (Bld) 6 NORMAL: 5.0-8.0 Normal 04-06-2020 [facility] (33098) Comment: Performed By: #### [id number] ## ##[address] [address] Protein (U) 15 NORMAL: NEGATIVE mg/dL Abnormal 04-06-2020 [facility] [Mass/Vol] [facility] (07975) Comment: Performed By: #### [id number] ## ##[address] [address] Rbc 0-5 0-3/hpf Normal 04-06-2020 [facility] (06082) Comment: Performed By: #### [id number] ## ##[place] [address] Sp [place] 1.015 NORMAL: 1.010-1.030 Normal 0 [facility] ( 76409) Comment: Performed By: #### [id number] ## ##[place] [address] Specimen type Nom (Spec) UNSPECIFIED Normal [facility] ( 36824) Comment: Performed By: #### [id number] ## ##[place] [id number] Urobilinog NORM NORMAL: NORMAL Normal 04-06-2020 [facility] (45981) Comment: Performed By: #### [id number] ## ##[place] [id number] Wbc >50 0-5/hpf Normal 04-06-2020 [facility] (74977) Comment: Performed By: #### [id number] ## ##[address] [address] WBC (Bld) [#/Vol] 500 NORMAL: NEGATIVE Abnormal 04-06 [facility] ( 54332) Comment: Performed By: #### [id number] ## ##[address] [address] Yeast LM Ql (Urine sed) NONE Normal 2019 [facility] (94710) Comment: Performed By: #### [id number] ## ##[facility],[address] [place] [address] kub (kidney stone protocol) on 2020-04-06 CT KUB (KIDNEY [facility] Normal 04-06-2 020 [facility] STONE PROTOCOL) [address] [address] ([id number]) Patient: SEBASTIAN BURGOS Phone#: : 1940 Age: 79 Gender: F Pt. Type: ER Account: [id number] Location: [facility] Ordering: BRIAN GUTIÉRREZ Exam Date: 04/06/2020/17:44 Family Phys: GERBER NICHOLAS Charge Code: [id number] Physician: [facility] Order #: [id number] DLP Dose#: 13.60 PROCEDURE: CT ABDOMEN AND PELVIS WITHOUT CONTRAST COMPARISON: [facility], CT, KUB W/O CON, 01/25/2019, 1 1:00. INDICATIONS: Abdominal pain. TECHNIQUE: After obtaining t he patient's consent, CT images of the abdomen and pelvis were created without non-ionic intravenous contrast material. All CT scans at this facilit y use dose modulation, iterative reconstruction, and/or weight based dosing when appropriate to reduce radiation dos e to as low as reasonably achievable. IV CONTRAST: No IV contrast used,0ml TOTAL DOSE: 13.60 CTDIvol(mGy) FINDINGS: KIDNEYS: There is moderate l eft-sided hydronephrosis. Perinephric fat stranding is present. There is a 7 x 5 mi llimeter mid left ureteral calculus. The ureter distal to the calculus is normal. T here is a 2.8 centimeter posterior right renal cyst. There is no evidence of renal calculi. ADRENALS: Normal. No mass or enlargement. URINARY BLADDER: Normal. No visible focal wall thickening, lesion, or calculus. LIVER: Normal. No enlargement, atrophy, abnormal density, or significant focal lesion. BILIARY: Normal. No visible dilatation or calcification. PANCREAS: Normal. No lesion, fluid collection, d uctal dilatation, or atrophy. SPLEEN: Normal. No enlargement or focal lesion. AORTA/VASCULAR: Normal. No aneurysm. RETROPERITONEUM: Normal. No mass or adenopathy. BOWEL/MESENTERY: Sigmoid div erticula are present without inflammatory change. A moderate hiatal hernia is present. No visible mass, obstruction, or bowel wall thickening. Continued Report - Page 2 of 2 Patient: SEBASTIAN BURGOS Phone#: : 1940 Age: 79 Gender: F Pt. Type: ER Account: [id number] Location: [facility] Ordering: BRIAN GUTIÉRREZ Exam Date: 04/06/2020/17:44 Family Phys: GERBER STRATTONFRANCINE Charge Code: [id number] Physician: [facility] Order #: [id number] DLP Dose#: 13.60 ABDOMINAL WALL: Normal. No mass or hernia. PELVIC NODES: Normal. No adenopathy. PELVIC ORGANS: Normal. No vi sible mass. Pelvic organs appropriate for patient age. BONES: Mild degenerative elie nges of the spine are present. There is narrowing at the L4-5 interspace. There is mild curvature of the lumbar spine to the right. LUNG BASES: Normal. No visible pulmonary or pleural disease. OTHER: Negative. CONCLUSION: 1. Moderate left-sided hydro nephrosis with perinephric fat stranding. There is a 7.0 millimeter calculus in the mid ureter. Dictated by: Shannan Casey MD on 04/06/2020 at 18:05 Approved by: Shannan Casey MD on 04/06/2020 at 18:05 cmp with egfr on 08-04-18 Age - Reported 79 years Normal 04-06-2020 [facility] (66019) Comment: Performed By: #### [id number] ## ##[facility],[address] [place] [address]2704 Albumin [Mass/Vol] 4.5 3.4 - 4.8 g/dL Normal 04-06-2020 [facility] ( 76240) Comment: Performed By: #### [id number] ## ##[facility],[address],[place] [address] Albumin/Globulin [Mass 1.7 0.9 - 1.6 {ratio} High 020 [facility] ratio] [facility] (19991) Comment: Performed By: #### [id number] ## ##[facility],[address] [place] [address] [place] [address] ALK PHOS 78 38 - 126 U/L Normal 04-06-2020 [facility] (68019) Comment: Performed By: #### [id number] ## ##[facility],[address] [place] [address] [place] [address] ALT/SGPT 12 8 - 35 U/L Normal 04-06-2020 [facility] (44757) Comment: Performed By: #### [id number] ## ##[facility],[address] [place] [address] [place] [address] Anion gap [Moles/Vol] 12 10 - 20 mmol/L Normal 04-06-20 20 [facility] ( 45817) Comment: Performed By: #### [id number] ## ##The [facility],[address] [place] [address] [place] [address] AST/SGOT 18 13 - 39 U/L Normal 04-06-2020 [facility] (81022) Comment: Performed By: #### [id number] ## ##[facility],[address] [place] [address] [place] [address] B/C RATIO 19 0 - 30 ratio Normal 04-06-2020 [facility] (33262) Comment: Performed By: #### [id number] ## ##[facility],[address] [place] [address] [place] [address] Bilirubin [Mass/Vol] 0.4 0.0 - 1.5 mg/dl Normal 0 [facility] ( 92314) Comment: Performed By: #### [id number] ## ##[facility],[address] [place] [address] [place] [address] Calcium [Mass/Vol] 9.4 8.6 - 10.2 mg/dl Normal 04-06-2020 [facility] ( 43758) Comment: Performed By: #### [id number] ## ##[facility],[address] [place] [address] 59829 Chloride [Moles/Vol] 103 98 - 107 mmol/L Normal 0 [facility] ( 29941) Comment: Performed By: #### [id number] ## ##[facility],[address] [place] [address] 11978 CO2 [Moles/Vol] 29.4 21.0 - 31.0 mmol/L Normal 04-06-2020 [facility] ( 99624) Comment: Performed By: #### [id number] ## ##[facility],[address] [place] [address] 23262 Creatinine [Mass/Vol] 1.1 0.6 - 1.2 mg/dl Normal 04-06-20 20 [facility] ( 71494) Comment: Performed By: #### [id number] ## ##[facility],[address] [place] [address]241 GFR/1.73 sq M predicted 58 60 - 999 ML/MINUTE Low 2019 [facility] among non-blacks [facility] (03968) (S/P/Bld) [Vol rate/Area] Comment: Result Comment: ACCORDING TO THE NATIONAL KIDNEY DISEASE EDUCATION PROGRAM(NKDE), A NORMAL eGFR IS A VALUE GREATER THAN OR E QUAL TO 60 ML/MIN/1.73 SQ METERS. CHRONIC KIDNEY DISEASE: <60m L/MIN/1.73 SQ METERS KIDNEY FAILURE: <15mL/MIN/1. 73 SQ METERS THIS TEST SHOULD ONLY BE USE D FOR PATIENTS 18 YEARS OF AGE AND OLDER. Performed By: #### [id number] ## ##[facility],[address] [place] [address]106 GFR/1.73 sq M predicted among Normal 04-06-2020 [facility] non-blacks MDRD (S/P/Bld) [Vol Hospital (18335) rate/Area] Comment: Result Comment: COMPREHENSIV E METABOLIC PANEL Performed By: #### [id number] ## ##[facility],[address] [place] [address] [place] [address] GFR/1.73 sq M predicted 48 60 - 999 ML/MINUTE Low 2019 [facility] among non-blacks [facility] (31889) (S/P/Bld) [Vol rate/Area] Comment: Performed By: #### [id number] ## ##[facility],[address] [place] [address] [place] [address] Globulin (S) [Mass/Vol] 2.7 1.5 - 3.8 G/DL Normal 2019 [facility] ( 15384) Comment: Performed By: #### [id number] ## ##[facility],[address] [place] [address] [place] [address] Glucose [Mass/Vol] 133 74 - 106 mg/dl High 04-06-2020 [facility] (59605) Comment: Performed By: #### [id number] ## ##[facility],[address] [place] [address] [place] [address] Potassium [Moles/Vol] 4.2 3.5 - 5.1 mmol/L Normal 04-06-20 20 [facility] ( 53824) Comment: Performed By: #### [id number] ## ##[facility],[address] [place] [address] [place] [address] Protein [Mass/Vol] 7.2 6.4 - 8.3 g/dl Normal 04-06-2020 [facility] ( 68195) Comment: Performed By: #### [id number] ## ##[facility],[address] [place] [address] [place] [address] Sodium [Moles/Vol] 140 136 - 145 mmol/l Normal 04-06-2020 [facility] ( 46807) Comment: Performed By: #### [id number] ## ##[facility],[address] [place] [address] [place] [address] Urea nitrogen [Mass/Vol] 21 6 - 20 mg/dl High 04-06 [facility] ( 45695) Comment: Performed By: #### [id number] ## ##[facility],[address] [place] [address] 19103 cbc + diff on 04-06 Basophils (Bld) 0.10 0.00 - 0.10 x10EE3/UL Normal 04-06-2020 [facility] [#/Vol] [facility] (31292) Comment: Performed By: #### [id number] ## ##[facility],[address] [place] [address] 78699 Basophils/100 WBC (Bld) 0.5 0.0 - 2.0 % Normal 2019 [facility] ( 76158) Comment: Performed By: #### [id number] ## ##[address] [address] CBC + DIFF Normal 04-06-2020 [facility] (65952) Comment: Result Comment: CBC-COMPLETE BLOOD COUNT Performed By: #### [id number] ## ##[address] [address] Eosinophils (Bld) 0.00 0.00 - 0.50 x10EE3/UL Normal 04-06-2020 [facility] [#/Vol] [facility] (11170) Comment: Performed By: #### [id number] ## ##[address] [address] Eosinophils/100 WBC (Bld) 0.3 0.0 - 7.0 % Normal 03-20 [facility] ( 71283) Comment: Performed By: #### [id number] ## ##[address] [address] Erythrocyte distribution 14.5 12.0 - 15.6 % Normal [place] (RBC) [Ratio] [facility] (10147) Comment: Performed By: #### [id number] ## ##[facility] [address] [address] Hematocrit (Bld) [Volume 40.8 34.0 - 46.0 % Normal [facility] ( 01153) Comment: Performed By: #### [id number] ## ##[address] [address] Hemoglobin (Bld) 13.7 12.0 - 16.0 g/dl Normal 04-06-2020 [facility] [Mass/Vol] [facility] (18932) Comment: Performed By: #### [id number] ## ##[address] [address] Lymphocytes (Bld) 2.00 0.80 - 2.80 x10EE3/UL Normal 04-06-2020 [facility] [#/Vol] [facility] (80617) Comment: Performed By: #### [id number] ## ##[address] [address] Lymphocytes/100 WBC (Bld) 13.3 20.0 - 45.0 % Low [facility] ( 19594) Comment: Performed By: #### [id number] ## ##[address] [address] MANUAL DIFF N/A Normal 04-06-2020 [facility] (70245) Comment: Performed By: #### [id number] ## ##[address] [address] MCH (RBC) [Entitic mass] 28 27 - 33 pg Normal 04-06 [facility] ( 80835) Comment: Performed By: #### [id number] ## ##[address] [address] MCHC (RBC) [Mass/Vol] 34 32 - 36 X10 3 Normal 04-06-20 20 [facility] ( 98625) Comment: Performed By: #### [id number] ## ##[address] [place] [address] MCV (RBC) [Entitic vol] 85 80 - 99 fl Normal 2019 [facility] ( 95077) Comment: Performed By: #### [id number] ## ##[address] [address] Monocytes (Bld) 0.90 0.20 - 1.00 x10EE3/UL Normal 04-06-2020 [facility] [#/Vol] [facility] (42666) Comment: Performed By: #### [id number] ## ##[address] [address] MONOS % 5.7 0.0 - 10.0 % Normal 04-06-2020 [facility] (33612) Comment: Performed By: #### [id number] ## ##[address] [address] Morphology Victorino (Bld) [Interp] N/A Normal 04-06-2020 [facility] ( 93969) Comment: Performed By: #### [id number] ## ##[address] [address] Neutrophils (Bld) 12.20 1.50 - 7.10 x10EE3/UL High 04-06-2020 [facility] [#/Vol] [facility] (66935) Comment: Performed By: #### [id number] ## ##[address] [address] Neutrophils/100 WBC (Bld) 80.2 46.0 - 76.0 % High [facility] ( 70693) Comment: Performed By: #### [id number] ## ##[address] [address] Platelet mean volume 7.8 6.6 - 10.5 fl Normal 04-06-20 20 [facility] (Bld) [Entitic vol] Hospital (11054) Comment: Result Comment: AUTOMATED DI FFERENTIAL Performed By: #### [id number] ## ##[facility],[address] [place] [address] 06616 Platelets (Bld) 390 150 - 450 x10EE3/UL Normal 04-06-2020 [facility] [#/Vol] [facility] (31117) Comment: Performed By: #### [id number] ## ##[address] [address] RBC (Bld) [#/Vol] 4.80 4.10 - 5.30 x 10EE6/UL Normal 0 [facility] (25203) Comment: Performed By: #### [id number] ## ##[facility],[address] [place] [address] 12181 WBC (Bld) [#/Vol] 15.2 4.5 - 10.8 x 10EE3/UL High 04-06-2020 [facility] ( 58773) Comment: Performed By: #### [id number] ## ##[address] [address] tsh on 2020-03-18 TSH Qn 2.64 0.34 - 5.60 uIU/ml Normal 03-18-2020 [facility] (15106) Comment: Performed By: #### [id number] ## ##[address] [address] cmp with egfr on 09-03-29 Age - Reported 79 years Normal 03-18-2020 [facility] (37520) Comment: Performed By: #### [id number] ## ##[address] [address] Albumin [Mass/Vol] 4.4 3.4 - 4.8 g/dL Normal 03-18-2020 [facility] ( 80596) Comment: Performed By: #### [id number] ## ##[address] [address] Albumin/Globulin [Mass 1.4 0.9 - 1.6 {ratio} Normal 020 [facility] (66342) Comment: Performed By: #### [id number] ## ##[facility],[address] [place] [address] 01778 ALK PHOS 80 38 - 126 U/L Normal 03-18-2020 [facility] (79682) Comment: Performed By: #### [id number] ## ##[facility],[address] [place] [address] 32814 ALT/SGPT 15 8 - 35 U/L Normal 03-18-2020 [facility] (68388) Comment: Performed By: #### [id number] ## ##[facility],[address] [place] [address] 60641 Anion gap [Moles/Vol] 12 10 - 20 mmol/L Normal 03-18-20 20 [facility] ( 77018) Comment: Performed By: #### [id number] ## ##[facility],[address] [place] [address] 59494 AST/SGOT 18 13 - 39 U/L Normal 03-18-2020 [facility] (70878) Comment: Performed By: #### [id number] ## ##[facility],[address] [place] [address] 28879 B/C RATIO 20 0 - 30 ratio Normal 03-18-2020 [facility] (20849) Comment: Performed By: #### [id number] ## ##[facility],[address] [place] [address] 88170 Bilirubin [Mass/Vol] 0.4 0.0 - 1.5 mg/dl Normal 0 [facility] ( 98536) Comment: Performed By: #### [id number] ## ##[facility],[address] [place] [address] 92979 Calcium [Mass/Vol] 9.4 8.6 - 10.2 mg/dl Normal 03-18-2020 [facility] ( 70851) Comment: Performed By: #### [id number] ## ##[facility],[address] [place] [address] 93099 Chloride [Moles/Vol] 102 98 - 107 mmol/L Normal 0 [facility] ( 28826) Comment: Performed By: #### [id number] ## ##[facility],[address] [place] [address] 14379 CO2 [Moles/Vol] 31.0 21.0 - 31.0 mmol/L Normal 03-18-2020 [facility] ( 98313) Comment: Performed By: #### [id number] ## ##[facility],[address] [place] [address] 29889 Creatinine [Mass/Vol] 0.9 0.6 - 1.2 mg/dl Normal 03-18-20 20 [facility] ( 72915) Comment: Performed By: #### [id number] ## ##[facility],[address] [place] [address] 51192 GFR/1.73 sq M >60 60 - 999 mL/min/{1.73_m2} Normal 0 [facility] predicted among [facility] non-blacks MDRD (000 00) (S/P/Bld) [Vol rate/Area] Comment: Performed By: #### [id number] ## ##[address] [address] Result Comment: ACCORDING TO THE NATIONAL KIDNEY DISEASE EDUCATION PROGRAM(NKDE), A NORMAL eGFR IS A VALUE GREATER THAN OR E QUAL TO 60 ML/MIN/1.73 SQ METERS. CHRONIC KIDNEY DISEASE: <60m L/MIN/1.73 SQ METERS KIDNEY FAILURE: <15mL/MIN/1. 73 SQ METERS THIS TEST SHOULD ONLY BE USE D FOR PATIENTS 18 YEARS OF AGE AND OLDER. GFR/1.73 sq M predicted among Normal 03-18-2020 [facility] non-blacks MDRD (S/P/Bld) [Vol Hospital (10224) rate/Area] Comment: Result Comment: COMPREHENSIV E METABOLIC PANEL Performed By: #### [id number] ## ##[facility],[address] [place] [address] 39781 Globulin (S) [Mass/Vol] 3.2 1.5 - 3.8 G/DL Normal 2019 [facility] ( 70493) Comment: Performed By: #### [id number] ## ##[facility],[address] [place] [address] 97716 Glucose [Mass/Vol] 94 74 - 106 mg/dl Normal 03-18-2020 [facility] ( 09609) Comment: Performed By: #### [id number] ## ##[facility],[address] [place] [address] 44952 Potassium [Moles/Vol] 3.9 3.5 - 5.1 mmol/L Normal 03-18-20 20 [facility] ( 88757) Comment: Performed By: #### [id number] ## ##[facility],[address] [place] [address] 81526 Protein [Mass/Vol] 7.6 6.4 - 8.3 g/dl Normal 03-18-2020 [facility] ( 69496) Comment: Performed By: #### [id number] ## ##[facility],[address] [place] [address] 08647 Sodium [Moles/Vol] 141 136 - 145 mmol/l Normal 03-18-2020 [facility] ( 08530) Comment: Performed By: #### [id number] ## ##[facility],[address] [place] [address] 11776 Urea nitrogen [Mass/Vol] 18 6 - 20 mg/dl Normal 03-18 [facility] ( 87648) Comment: Performed By: #### [id number] ## ##[facility],[address] [place] [address] 72742 cbc + diff on 03-18 Basophils (Bld) 0.10 0.00 - 0.10 x10EE3/UL Normal 03-18-2020 [facility] [#/Vol] [facility] (98835) Comment: Performed By: #### [id number] ## ##[address] [address] Basophils/100 WBC (Bld) 0.6 0.0 - 2.0 % Normal 2019 [facility] ( 16907) Comment: Performed By: #### [id number] ## ##[address] [address] CBC + DIFF Normal 03-18-2020 [facility] (82414) Comment: Result Comment: CBC-COMPLETE BLOOD COUNT Performed By: #### [id number] ## ##[address] [address] Eosinophils (Bld) 0.10 0.00 - 0.50 x10EE3/UL Normal 03-18-2020 [facility] [#/Vol] [facility] (00848) Comment: Performed By: #### [id number] ## ##[address] [address] Eosinophils/100 WBC (Bld) 1.4 0.0 - 7.0 % Normal 02-19 [facility] ( 93672) Comment: Performed By: #### 701851 ## ##[address] [address] Erythrocyte distribution 14.0 12.0 - 15.6 % Normal [facility] width (RBC) [Ratio] [facility] (66886) Comment: Performed By: #### [id number] ## ##[address] [address] Hematocrit (Bld) [Volume 40.8 34.0 - 46.0 % Normal [facility]] [facility] ( 76667) Comment: Performed By: #### [id number] ## ##[address] [address] Hemoglobin (Bld) 13.4 12.0 - 16.0 g/dl Normal 03-18-2020 [facility] [Mass/Vol] [facility] (69079) Comment: Performed By: #### [id number] ## ##[facility],[address] [place] [address] 04966 Lymphocytes (Bld) 3.10 0.80 - 2.80 x10EE3/UL High 03-18-2020 [facility] [#/Vol] [facility] (47038) Comment: Performed By: #### [id number] ## ##[facility],[address] [place] [address] 25632 Lymphocytes/100 WBC (Bld) 33.4 20.0 - 45.0 % Normal [facility] ( 56473) Comment: Performed By: #### [id number] ## ##[address] [address] MANUAL DIFF N/A Normal 03-18-2020 [facility] (43672) Comment: Performed By: #### [id number] ## ##[address] [address] MCH (RBC) [Entitic mass] 28 27 - 33 pg Normal 03-18 [facility] ( 88764) Comment: Performed By: #### [id number] ## ##[address] [address] MCHC (RBC) [Mass/Vol] 33 32 - 36 X10 3 Normal 03-18-20 20 [facility] ( 84526) Comment: Performed By: #### [id number] ## ##[address] [address] MCV (RBC) [Entitic vol] 84 80 - 99 fl Normal 2019 [facility] ( 27238) Comment: Performed By: #### [id number] ## ##[address] [address] Monocytes (Bld) 0.60 0.20 - 1.00 x10EE3/UL Normal 03-18-2020 Emily [facility] [#/Vol] [facility] (08518) Comment: Performed By: #### [id number] ## ##[facility],[address] [place] [address] 35399 MONOS % 6.1 0.0 - 10.0 % Normal 03-18-2020 [facility] (92442) Comment: Performed By: #### [id number] ## ##[facility],[address] [place] [address] Morphology Victorino (Bld) [Interp] N/A Normal 03-18-2020 [facility] ( 84510) Comment: Performed By: #### [id number] ## ##[address] [address] Neutrophils (Bld) 5.40 1.50 - 7.10 x10EE3/UL Normal 03-18-2020 [facility] [#/Vol] [facility] (97249) Comment: Performed By: #### [id number] ## ##[address] [address] Neutrophils/100 WBC (Bld) 58.5 46.0 - 76.0 % Normal [facility] ( 75010) Comment: Performed By: #### [id number] ## ##[address] [address] Platelet mean volume 7.7 6.6 - 10.5 fl Normal 03-18-20 20 [facility] (Bld) [Entitic vol] Hospital (59550) Comment: Result Comment: AUTOMATED DI FFERENTIAL Performed By: #### 245119 ## ##[address] [address] Platelets (Bld) [#/Vol] 471 150 - 450 x10EE3/UL High 2019 [facility] ( 19228) Comment: Performed By: #### [id number] ## ##[facility],[address] [place] [address] 14212 RBC (Bld) [#/Vol] 4.84 4.10 - 5.30 x 10EE6/UL Normal 0 [facility] (49908) Comment: Performed By: #### [id number] ## ##[address] [address] WBC (Bld) [#/Vol] 9.2 4.5 - 10.8 x 10EE3/UL Normal 03-18-2020 [facility] ( 45623) Comment: Performed By: #### [id number] ## ##[address] [address] parasite id on 2019 Parasite ID Specimen Desc: Normal 02-24-2020 [facility] (52585) Sp. Request/Comment: SPSTER Culture Result Adult Female Ixodes spp. (Pratt Tick)(*) Mouth parts not in tact Not Engorged Report Status 02/24/2020 FINAL Parasite ID Specimen Desc: Normal 02-24-2020 [facility] (12523) Sp. Request/Comment: SPSTER Culture Result Adult Female Ixodes spp. (Pratt Tick)(*) Mouth parts intact N ot Engorged Report Status 02/24/2020 FINAL hgb a1c [ccl] on 09-03-05 HbA1c (Bld) [Mass fraction] 143 mg/dL Normal [facility] ( 33867) Comment: Result Comment: eAG: (Estima zoey average glucose) is a calculated value from HgbA1c and is accounting representative of the averag e blood glucose level in the last 2-3 month period. [facility] [address] [place] [address] Alexx Han III, M.D. [id number] Performed By: #### [id number] ## ## [facility],[address] [place] [address] 88938 HbA1c (Bld) [Mass fraction] 6.6 4.3-5.6 % High [facility] ( 03858) Comment: Result Comment: [place] [employer] guidelines indicate that patients with HgbA1c in the range 5.7-6.4% are at in creased risk for development of diabetes, and intervention by lifestyle mo dification may be beneficial. HgbA1c greater or equal to 6.5% is considered diagnostic of diabetes. Performed By: #### [id number] ## ## [facility],[address] [place] [address] 89694 hemoglobin a1c on HbA1c (Bld) [Mass fraction] 143 mg/dL Normal [facility] (15543 ) Comment: Performed By: #### HBA1C ### # [facility] Routine Lab [address] [place], [place] [address] HbA1c (Bld) [Mass fraction] 6.6 4.3-5.6 % High [facility] (60047 ) Comment: Performed By: #### HBA1C ### # [facility] [address] [place], [place] [address] lipid profile on 09-03-03 Cholesterol [Mass/Vol] 295 0 - 200 mg/dl High 020 [facility] ( 61006) Comment: Performed By: #### [id number] ## ## [facility],[address] [place] [address] 96248 Cholesterol in HDL 72 40 - 60 mg/dl High 02-21-2020 [facility] [Mass/Vol] [facility] (91469) Comment: Performed By: #### [id number] ## ## [facility],[address] [place] [address] 09489 Cholesterol in LDL 196 0 - 129 mg/dl High 02-21-2020 [facility] [Mass/Vol] [facility] (14089) Comment: Performed By: #### [id number] ## ## [facility],[address] [place] [address] 39208 Cholesterol.total/Cholesterol in HDL 4.1 0.0 - 5.0 Nor mal 02-21-2020 [facility] [Mass ratio] [facility] (23907) Comment: Performed By: #### 260505 ## ## [facility],[address] [facility] [address] Lipid 1996 panel Normal 02-21-2020 [facility] (44724) Comment: Result Comment: LIPID PROFIL E Performed By: #### [id number] ## ## [facility] [facility] [address] Triglyceride [Mass/Vol] 135 0 - 150 mg/dl Normal 2019 [facility] ( 24698) Comment: Performed By: #### 137015 ## ## [facility],[address] [facility] [address]135 culture urine on 09-03-03 CULTURE CULTURE URINE Normal 02-21-2020 [facility] URINE _URINE CULTURE_ Pome jyoti Mock I C R O B I O L O G Y R E P O R T FINAL [facility] ----- Antimicrobial Susceptibility and Organism Identification Report [facility] Specimen Number : [id number] Requested : 02/21/20 ([id number]) Specimen Source : URINE Collected : 02/21/20 11:25 Riley of Isolation : OUTPATIENT Received : 02/21/20 11:25 Requesting Physician : DELMER Patient/Specimen Tests and Comments Specimen Comments --------- FINAL REPORT: URINE COLONY COUNT: > THAN 100,000 CFU/CC GRAM NEGATIVE RODS [id number] CFU/CC GRAM POSITIVE TERESA PROBABLE CONTAMINATION Organisms Identified --- ----- * 01 Pseudomonas aeruginosa 02/24/20 Comments --------- >100,000 cfu Tech : Source : URINE ID # : [id number] FINAL Report Date : / / : Collected : 02/21/20 11:25 Continued on Next Page M I C R O B I O L O G Y R E P O R T FINAL ----- Antimicrobial Susceptibility and Organism Identification Report Isolate 01 Pseudomonas aeruginosa Pseudomonas aeruginosa DRUG ELPIDIO Sys. Urine UNITS ML/DL --- ----- ----- Ceftriaxone >32 Ciprofloxacin <=1 S S Ertapenem 4 Imipenem 2 S S Levofloxacin <=2 S S Meropenem <=1 S S Pip/Tazo >64 R R Tobramycin <=4 S S +, ++, +++, or S = Susceptib le N/R = Not Reported Claude = Beta Lactamase Positive I = Intermediate CC = Cost Code TFG = Thymidine-dependent St rain R = Resistant ELPIDIO = mcg/ml ( mg/L) Blank = Data not available, or drug not advisable or tested For Blood and CSF Isolates, a Beta-Lactamase test is recommended for Enterococus species. IB appears in place of S, I (S), +, ++, or +++ with species known to possess inducible B-lactamases; potentially they may become resistant to all B-lactam dr ugs. Monitoring of patients during/after therapy is recommended. Avoid other/combined B-lactam drugs. (a) Use maximum doses of rl g with an aminoglycoside for P. aeruginosa in patients with granulocytopenia or serious infections. (b) Breakpoints based on par enteral dose. For cefuroxime Axetil (PO) use <8=S, 8-16=I, >16=R. (c) For non-enterococcal str eptococci, Micrococcus species, and Listeria species, refer to the Ampicillin interpretation. * Interpretations based on a pprox. adult attainable systemic/urine levels, except drugs with <3 dilutions, which print NCCLS. Doses are guidelines; consider weight and renal/hepatic function. Urine interpretation for lower UTI only. Interpretations based on NCCLS M7-A2. Ticar/K Clav'ate for gram positives based on financial coach's breakpoints. Tech : Source : URINE ID # : [id number] FINAL Report Date : / / : Collected : 02/21/20 11:25 02/24/20.1414.KLS. 02/23/20.0713.AMIEN. 02/24/[email or web address].[email or web address] Comment: Performed By: #### [id number] ## ## [facility] [place] [address] ct abdomen/pelvis on 2020-01-22 CT ABDOMEN/PELVIS [facility] Normal 0 01-22-2020 [facility] [address] [place] [address] ([id number]) Patient: SEBASTIAN BURGOS Phone#: : [phone] Age: 79 Gender: F Pt. Type: Out Account: [id number] Location: 010 Ordering: Emily MOORE Exam Date: 01/22/2020/11:02 Family Phys: GERBER NICHOLAS Charge Code: 308760 Physician: [place] Order #: [id number] DLP Dose#: PROCEDURE: CT ABDOMEN/PELVIS WITHOUT CONTRAST COMPARISON: [facility] l, CT, DANI W/O CON, 01/25/2019, 11:00. [facility], CT, ABDOMEN/PELVIS W/O CON, 07/24/2016, 22:34. INDICATIONS: Hydronephrosis hematuria. TECHNIQUE: CT images were created without intravenous contra st. All CT scans at this facilit y use dose modulation, iterative reconstruction, and/or weight based dosing when appropriate to reduce radiation dos e to as low as reasonably achievable. IV CONTRAST: No IV contrast used,ml TOTAL DOSE: 13.0 CTDIvol(mGy) FINDINGS: Evaluation of the solid orga ns and soft tissues is limited in the absence of intravenous contrast. LIVER: Unremarkable in contour. BILIARY: The gallbladder is present. PANCREAS: Unremarkable in contour. SPLEEN: Unremarkable in contour. KIDNEYS: In the distal left ureter there are at least 3 small stones, 2 of which measures 0.4 cm. The stones are located at the site of transition belinda cribed on comparison CT. This raises suspicion for focal ureteral sten osis. There is moderate hydroureter and hydronephrosis. There are bilateral nonobstructing nephr olithiasis. On the right measuring 0.3 cm. On the left measuring 0.5 cm, and was present on the com parison study. A 2nd left sided stone seen on the comparison CT is no longer present in the lower pole. There is no right hydronephr osis. There is a fluid attenuation lesion in the right kidney, similar prior. Continued Report - Page 2 of 2 Patient: SEBASTIAN BURGOS Phone#: : 1940 Age: 79 Gender: F Pt. Type: Out Account: [id number] Location: [facility] Ordering: Emily MOORE Exam Date: 01/22/2020/11:02 Family Phys: GERBER NICHOLAS Charge Code: [id number] Physician: Prince George'S Order #: [id number] DLP Dose#: ADRENALS: Normal. No mass or enlargement. AORTA/VASCULAR: No aortic an eurysm. There are atherosclerotic calcifications of the aorta and branch vessels. RETROPERITONEUM: Limited vanessa luation for adenopathy in the absence of contrast, though none identified. BOWEL/MESENTERY: There is a moderate-sized hiatal hernia. No bowel obstruction or dilatation. There is diverticulosis. There is moderate stool burden throughout the colon. The appendix is unremarkable containing air. ABDOMINAL WALL: Small fat containing umbilical hernia. URINARY BLADDER: Normal. No visible focal wall thickening, lesion, or calculus. PELVIC NODES: Normal. No adenopathy. PELVIC ORGANS: The uterus is present. There is a small calcification in the fundus of the uterus. No adnexal mass. BONES: Mild dextroscoliosis of the lumbar spine. There is disc height loss and vacuum disc phenomenon at L4-5. LUNG BASES: Normal. No visible pulmonary or pleural disease. OTHER: Negative. CONCLUSION: 1. Collection of small stone s in the distal left ureter at the site of prior ureteral transition suggesting focal stenosis. T here is persistent moderate hydronephrosis and hydroureter. 2. Bilateral nonobstructing nephrolithiasis. 3. Moderate size hiatal hernia. 4. Moderate stool burden, correlate for constipation. 5. Diverticulosis. Dictated by: Vanessa Walker MD on 01/22/2020 at 13:15 Approved by: Vanessa Walker MD on 01/22/2020 at 13:15 emergency report on 2019-11-09 EMERGENCY REPORT [facility] Normal 11-09 [facility] ospital EMERGENCY ROOM REPORT ([id number]) NAME ACCOUNT SEX AGE ADMIT DISCHARGE PT MED. RECORD# NUMBER DATE DATE TYPE LORETTA [id number] F 79 10/31/19 10/31/19 3 SEBASTIAN Feldman [id number] ROOM: ER DATE OF : 1940 DICTATING PHYSICIAN: Brian Gutiérrez CHIEF COMPLAINT: Here for antibiotics. HISTORY OF PRESENT ILLNESS: The patient was seen in the ED y esterday. She apparently has had chronic r ecurrent UTIs recently. She had a urinalysis done by her family physician, Dr. Paz keating, and was seen in the ED yesterday, where she was given a dose of IV meropenem. She was told that she needed to return and get IV antibiotics for 3 days, so she presents today. She is not having fever, chills, or abdominal pain. She does have somewhat ongoing urinary s ymptoms intermittently for months. She states that this morning it seemed more concentrated than what it had been. Initially she was given meropenem but thought she was going to be getting Tobramycin and was somewhat concerned and a little disappointed that she was getting meropenem because she was told in the past that it was not effective. We do not, however, have any Tobramycin in the hospital. PAST MEDICAL HISTORY: Signif icant for a number of chronic medical problems. She states that she also has chronic Lyme disease. MEDICATIONS: Per medication reconciliation list. She uses a lot of herbal and jrsj-vnj-lfazixh vitamin products. ALLERGIES: She has multiple allergies as noted on the allerg y list. PHYSICAL EXAMINATION: This i s a 79-year-old, generally pleasant female who does not appear toxic or in any d istress. Her skin is warm and dry. Vital signs are quite unremarkable. She is not hav ing any abdominal tenderness. Good peripheral pulses and capillary refill. EMERGENCY DEPARTMENT COURSE AND TREATMENT: I discussed manag ement with her and told her that i nitially I would probably recommend giving meropenem IV, which was recommended to her . However, she is very hesitant to do this. Additionally, she states that her urine is actually worse today than it was in the last day or two since she had the meropenem and if there was a way to avoid that she would prefer that. I did mention that we could procee d to get a urinalysis to check at first and get another culture, and she was quite i n agreement with this. Her urinalysis returned showing a moderately large number of w moreno cells and too numerous to count red cells with positive nitrites. We will p rachel to get a culture on this. She preferred to get started on Page 1 of 2 SEBASTIAN BURGOS Emergency Room Report SEBASTIAN BURGOS : 1940 some oral antibiotics at [facility] until we can find what the culture and sensitivities are of this, so I did give her a pr escription for Augmentin, as she does not seem to have any penicillin allergies. She st ates that she is unable to tolerate quinolones. She states that she also is allergic to Bactrim and Macr obid. She was given a prescription for Augmentin 500 mg b.i.d. Cont inue her other medications and follow up with Dr. Nicholas in the next couple of days. She said that she has had Pseudomonas in her urine for a year. I mentioned that if i ndeed that is the case she probably will need to see a urologist, and she did want a urology referral. I gave her Dr. Moore in [place] to follow up with in the meantime. DIAGNOSIS: Urinary tract infection. Dictated By: Brian Gutiérrez MD 10/31/19 13:36 JOB #: [id number] Transcribed By: maurice 11/01/19 15:09 Electronically signed by: DUNIA Gutiérrez M.D. 11/09/19 07:54 Page 2 of 2 SEBASTIAN BURGOS Emergency Room Report emergency report on 2019-11-04 EMERGENCY REPORT [facility] Normal 11-04 [facility] ospital EMERGENCY ROOM REPORT ([id number]) NAME ACCOUNT SEX AGE ADMIT DISCHARGE PT MED. RECORD# NUMBER DATE DATE TYPE LORETTA [id number] F 79 10/30/19 10/30/19 3 SEBASTIAN Feldman [id number] ROOM: ER DATE OF : 1940 DICTATING PHYSICIAN: Kitty Casper HISTORY OF PRESENT ILLNESS: She actually wandered over to th e Emergency Department and asked if I wa s here today. She wanted to talk to me, and the nurse thought she was just here to say hello. She began asking me questions about a recent diagnosis given by Dr. Arden li and just came from an MRI. I come to find out after looking up all the informati on that she had a urinary tract infection that was diagnosed as Pseudomonas. She is aller gic to fluoroquinolones and refuses to take Cipro or Levaquin because she is everett id that something is going to happen to her despite being told that she does not have an allergic reaction to it. I pulled up her sensitivity, and those are the only two oral antibiotics she is sensitive to. Everything else she is resistant to except for IV antibiotics . I went ahead and gave her some Tobramycin IV here. She has no complaints on arrival . She has been having increased confusion for several months, which is why Dr. Guille sanchez did an MRI of the brain. She denies any headaches, blurred vision, double visio n, chest pain, shortness of breath, nausea, vomiting, fevers, chills, or change in appetite. PAST MEDICAL HISTORY: Fibromyalgia, myalgic encephalitis, an d recurrent incontinence. MEDICATIONS: Primarily vitamins and herbal. ALLERGIES: Multiple. SOCIAL HISTORY: She lives at home by herself. She does not d rink. REVIEW OF SYSTEMS: Ten systems were reviewed and pertinent positives as above in the HPI. PHYSICAL EXAMINATION: She is pleasant an d cooperative. She is awake and alert. She denies any current compl aints. Head is normocephalic, atraumatic. Pupils are equal and reactive to light bilaterally. Extraocular muscles are intact. Mucous membranes are moist. Trachea is midline. Neck is supple. Heart rate and rhythm are regular without murmur, gall op or rub. Lungs are clear to auscultation bilaterally without wheezes, rales or rhonchi. A bdomen is soft. No tenderness, guarding, rebound, or rigidity. Skin is otherwise warm and dry without cyanosis, ecchymosis, petechiae, or purpura. Page 1 of 2 SEBASTIAN BURGOS Emergency Room Report SEBASTIAN BURGOS : 1940 EMERGENCY DEPARTMENT COURSE AND TREATMENT: I will go ahead a nd give her IV Tobramycin. Her only option is to bring her back for a recheck tomorrow and the next day and give her IV Tob ramycin because otherwise there is no antibiotic that she is going to take for the Pseudo monas. I explained all of that to her. We are going to give her a dose of Tobramycin her e. I got her a meal tray, and she is going to be discharged to follow up in 24 hours and then 48 hours for r echeck and Tobramycin dosage. DIAGNOSES: 1. Urinary tract infection, Pseudomonas resistant. 2. Cannot take fluoroquinolones. Dictated By: Kitty Casper DO 10/30/19 12:30 JOB #: [id number] Transcribed By: maurice 10/31/19 13:03 Electronically signed by: E-Sign: KITTY CASPER MD 11/04/19 11:14 Page 2 of 2 SEBASTIAN BURGOS Emergency Room Report urinalysis on 10-31 Amorphous NONE Normal 10-31-2019 [facility] ([id number]) Comment: Performed By: #### [id number] ## ## [facility],[address] [place] [address] Bacteria LM.HPF (Urine sed) 2+ Normal [facility] [#/Area] [facility] ( 21227) Comment: Performed By: #### [id number] ## ## [facility],[address] [place] [address] 92210 Bilirubin [Mass/Vol] NEG NORMAL: NEGATIVE mg/dL Normal [facility] ospital (84582) Comment: Performed By: #### [id number] ## ## [facility],[address] [place] [address] 72160 Blood 250 NORMAL: NEGATIVE Abnormal 10-31-2019 [facility] (30455) Comment: Performed By: #### [id number] ## ## [facility],[address] [place] [address] 43468 Casts LM.LPF (Urine sed) NONE Normal 10-31 [facility] ( 74740) Comment: Performed By: #### [id number] ## ## [facility],[address] [place] [address] 57897 Clarity (U) very cloudy NORMAL: CLEAR Normal 10-31-2019 [facility] ( 49447) Comment: Performed By: #### [id number] ## ## [facility],[address] [place] [address] 89649 Color (U) david NORMAL: YELLOW Normal 10-31-2019 [facility] (82971) Comment: Performed By: #### [id number] ## ## [facility],[address] [place] [address] 30282 Crystals LM Nom (Urine sed) NONE Normal [facility] ( 25790) Comment: Performed By: #### [id number] ## ## [facility],[address] [place] [address] 90810 Epi Cells NONE Normal 10-31-2019 [facility] (50537) Comment: Performed By: #### [id number] ## ## [facility],[address] [place] [address] 92254 Glucose [Mass/Vol] NORM NORMAL: NORMAL Normal 2018 [facility] ( 37555) Comment: Performed By: #### [id number] ## ## [facility],[address] [place] [address] 78743 Ketone 5 NORMAL: NEGATIVE Abnormal 10-31-2019 [facility] (10027) Comment: Performed By: #### [id number] ## ## [facility],[address] [place] [address] 02147 Microscopic SEE BELOW Normal 10-31-2019 [facility] (06747) Comment: Result Comment: MICROSCOPIC Performed By: #### [id number] ## ## [facility],[address] [place] [address] 42463 Mucous 1+ Normal 10-31-2019 [facility] (93979) Comment: Performed By: #### [id number] ## ## [facility],[address] [place] [address] 16224 Nitrite Ql (U) POS NORMAL: NEGATIVE Normal 10-31-20 19 [facility] ( 24797) Comment: Performed By: #### [id number] ## ## [facility],[address] [place] [address] 10492 pH (Bld) 5 NORMAL: 5.0-8.0 Normal 10-31-2019 [facility] (79355) Comment: Performed By: #### [id number] ## ## [facility],[address] [place] [address] 90108 Protein (U) 100 NORMAL: NEGATIVE mg/dL Abnormal 10-31-2019 [facility] [Mass/Vol] [facility] (80124) Comment: Performed By: #### [id number] ## ## [facility],[address] [place] [address] 56828 Rbc TNTC 0-3/hpf Normal 10-31-2019 [facility] (23428) Comment: Performed By: #### [id number] ## ## [facility],[address] [place] [address] 73128 Sp [place] 1.025 NORMAL: 1.010-1.030 Normal 9 [facility] ( 86769) Comment: Performed By: #### [id number] ## ## [facility],[address] [place] [address] 22411 Specimen type Nom (Spec) Void Normal 10-31 [facility] (52489) Comment: Performed By: #### [id number] ## ## [facility],[address] [place] [address] 87368 Urobilinog NORM NORMAL: NORMAL Normal 10-31-2019 [facility] (45158) Comment: Performed By: #### [id number] ## ## [facility],[address] [place] [address] 60683 Wbc 26-50 0-5/hpf Normal 10-31-2019 [facility] (41783) Comment: Performed By: #### [id number] ## ## [facility],[address] [place] [address] 73847 WBC (Bld) [#/Vol] 500 NORMAL: NEGATIVE Abnormal 10-31 [facility] ( 67384) Comment: Performed By: #### [id number] ## ## [facility],[address] [place] [address] 65544 Yeast LM Ql (Urine sed) NONE Normal 2018 [facility] (88994) Comment: Performed By: #### [id number] ## ## [facility],[address] [place], [place] [id number] culture urine on 20 07-11-12 CULTURE CULTURE URINE Normal 10-31-2019 [facility] URINE _URINE CULTURE_ [facility] G Y [facility] E P O R T FINAL [facility] ----- Antimicrobial Susceptibility and Organism Identification Report Hospital Specimen Number : [id number] Requested : 10/31/19 ([id number]) Specimen Source : URINE Collected : 10/31/19 12:05 [facility] Isolation : Emergency Room Received : 10/31/19 12:05 Requesting Physician : FILIPE MULLER Patient/Specimen Tests and Comments Specimen Comments --------- FINAL REPORT: URINE COLONY COUNT: 5000 CFU/CC GRAM NEGATIVE RODS Organisms Identified --- ----- * 01 Pseudomonas aeruginosa 11/03/19 Comments --------- 5,000 cfu Tech : Source : URINE ID # : [id number] FINAL Report Date : / / : Collected : 10/31/19 12:05 Continued on Next Page M I C R O B I O L O G Y R E P O R T FINAL ----- Antimicrobial Susceptibility and Organism Identification Report Isolate 01 Pseudomonas aeruginosa Pseudomonas aeruginosa DRUG ELPIDIO Sys. Urine UNITS ML/DL --- ----- ----- Aztreonam >16 R R Ceftriaxone >32 Ceftazidime >16 R R Ciprofloxacin <=1 S S Ertapenem 4 Gentamicin 8 I I Imipenem <=1 S S Levofloxacin <=2 S S Meropenem <=1 S S Pip/Tazo <=16 S S Piperacillin >64 R R Tobramycin <=4 S S +, ++, +++, or S = Susceptib le N/R = Not Reported Claude = Beta Lactamase Positive I = Intermediate CC = Cost Code TFG = Thymidine-dependent St rain R = Resistant ELPIDIO = mcg/ml ( mg/L) Blank = Data not available, or drug not advisable or tested For Blood and CSF Isolates, a Beta-Lactamase test is recommended for Enterococus species. IB appears in place of S, I (S), +, ++, or +++ with species known to possess inducible B-lactamases; potentially they may become resistant to all B-lactam dr ugs. Monitoring of patients during/after therapy is recommended. Avoid other/combined B-lactam drugs. (a) Use maximum doses of rl g with an aminoglycoside for P. aeruginosa in patients with granulocytopenia or serious infections. (b) Breakpoints based on par enteral dose. For cefuroxime Axetil (PO) use <8=S, 8-16=I, >16=R. (c) For non-enterococcal str eptococci, Micrococcus species, and Listeria species, refer to the Ampicillin interpretation. * Interpretations based on a pprox. adult attainable systemic/urine levels, except drugs with <3 dilutions, which print NCCLS. Doses are guidelines; consider weight and renal/hepatic function. Urine interpretation for lower UTI only. Interpretations based on NCCLS M7-A2. Ticar/K Clav'ate for gram positives based on financial coach's breakpoints. Tech : Source : URINE ID # : [id number] FINAL Report Date : / / : Collected : 10/31/19 12:05 11/03/19.1005.FELICIA. 11/02/19.1035.PETERO. 11/01/19.0844.PETERO. SEND TO PHARMACY? YES 11/03/19.1005.FELICIA.COMPLETE YES Comment: Performed By: #### [id number] ## ## [facility],[address] [place] [address] mr mri brain w/o contrast on 2019-10-30 MR MRI BRAIN W/O [facility] Normal 10-30 [facility] ospital [address] [place], [place] [address] ([id number]) Patient: SEBASTIAN BURGOS Phone#: : 1940 Age: 79 Gender: F Pt. Type: Out Account: [id number] Location: [facility] Ordering: GERBER NICHOLAS Exam Date: 10/30/2019/10:21 Family Phys: Charge Code: [id number] Physician: Prince George'S Order #: [id number] DLP Dose#: PROCEDURE: MRI BRAIN WITHOUT CONTRAST COMPARISON: [facility], MR, BRAIN WITHOUT CONTR AST, 08/01/2012, 11:34. INDICATIONS: Episodic confusion TECHNIQUE: A variety of imag ing planes and parameters were utilized for visualization of suspected pathology. Images were performed without contrast. FINDINGS: CEREBRUM: There has been int erval development of periventricular and scattered deep cerebral T2 and FLAIR signal hyperint ensities. On the right there are at least 6 foci and on the left at least ten foci. A accounting representative lesion measures 0.3 cm. No associated restricted diffusion, mass effect, or ross on HEMO sequence . There is mild global atrophy. No hemorrhage or acute infarction. CEREBELLUM: No edema, hemorrhage, mass, or acute infarction. BRAINSTEM: No edema, hemorrh age, mass, acute infarction, or inappropriate atrophy. CSF SPACES: Ventricles, cist erns, and sulci are appropriate for age. No hydrocephalus, subarachnoid hemorrhage, or mass. Stable prominence of the c horoid plexus. SKULL: No mass or other significant visible lesion. SINUSES: Limited views demonstrate no si gnificant mucosal thickening or fluid. ORBITS: Limited views are unremarkable. OTHER: Negative. CONCLUSION: 1. Interval development of p eriventricular and scattered foci of deep cerebral matter signal abnormalities. In a patient of this age group, this finding is most often due to chronic small vessel ischemic disease, how ever given the patient's history of Lyme's disease and skin cancer the differential also includes post inflammatory, post infectious, metastatic or demyelinating etiologies. Dictated by: Vanessa Walker MD on 10/30/2019 at 16:36 Continued Report - Page 2 of 2 Patient: SEBASTIAN BURGOS Phone#: : 1940 Age: 79 Gender: F Pt. Type: Out Account: [id number] Location: [facility] Ordering: GERBER NICHOLAS Exam Date: 10/30/2019/10:21 Family Phys: Charge Code: [id number] Physician: Prince George'S Order #: [id number] DLP Dose#: Approved by: Vanessa Walker MD on 10/30/2019 at 16:36 culture urine on 07-11-04 CULTURE CULTURE URINE Normal 10-23-2019 Antony URINE _URINE CULTURE_ Conchita Mock I C R O B I O L O G Y R E P O R T FINAL [facility] ----- Antimicrobial Susceptibility and Organism Identification Report Hospital Specimen Number : [id number] Requested : 10/23/19 ([id number]) Specimen Source : URINE Collected : 10/23/19 12:30 [facility]olation : OUTPATIENT Received : 10/23/19 12:30 Requesting Physician : DELMER Patient/Specimen Tests and Comments Specimen Comments --------- FINAL REPORT: URINE COLONY COUNT: [id number] CFU/CC GRAM NEGATIVE RODS CONTAMINATED WITH: GRAM POSITIVE TERESA Organisms Identified --- ----- * 01 Pseudomonas aeruginosa 10/26/19 Comments --------- 10-50,000 CFU Tech : Source : URINE ID # : [id number] FINAL Report Date : / / : Collected : 10/23/19 12:30 Continued on Next Page M I C R O B I O L O G Y R E P O R T FINAL ----- Antimicrobial Susceptibility and Organism Identification Report Isolate 01 Pseudomonas aeruginosa Pseudomonas aeruginosa DRUG ELPIDIO Sys. Urine UNITS ML/DL --- ----- ----- Ceftriaxone >32 Ciprofloxacin <=1 S S Ertapenem >4 Imipenem >8 R R Levofloxacin <=2 S S Meropenem 2 S S Pip/Tazo >64 R R Tobramycin <=4 S S +, ++, +++, or S = Susceptib le N/R = Not Reported Claude = Beta Lactamase Positive I = Intermediate CC = Cost Code TFG = Thymidine-dependent St rain R = Resistant ELPIDIO = mcg/ml ( mg/L) Blank = Data not available, or drug not advisable or tested For Blood and CSF Isolates, a Beta-Lactamase test is recommended for Enterococus species. IB appears in place of S, I (S), +, ++, or +++ with species known to possess inducible B-lactamases; potentially they may become resistant to all B-lactam dr ugs. Monitoring of patients during/after therapy is recommended. Avoid other/combined B-lactam drugs. (a) Use maximum doses of rl g with an aminoglycoside for P. aeruginosa in patients with granulocytopenia or serious infections. (b) Breakpoints based on par enteral dose. For cefuroxime Axetil (PO) use <8=S, 8-16=I, >16=R. (c) For non-enterococcal str eptococci, Micrococcus species, and Listeria species, refer to the Ampicillin interpretation. * Interpretations based on a pprox. adult attainable systemic/urine levels, except drugs with <3 dilutions, which print NCCLS. Doses are guidelines; consider weight and renal/hepatic function. Urine interpretation for lower UTI only. Interpretations based on NCCLS M7-A2. Ticar/K Clav'ate for gram positives based on financial coach's breakpoints. Tech : Source : URINE ID # : [id number] FINAL Report Date : / / : Collected : 10/23/19 12:30 10/26/19.0825.BKO. 10/25/19.1240.KLS. SEND TO PHARMACY? NO 10/26/19.BKO.COMPLETE NO Comment: Performed By: #### [id number] ## ## Antony [facility],[address] [place] [address] Encounters Date Type Reason Provider Location 05-02-2020 - Emergency [facility] Antony Franklin 05-02-2020 [facility] GERBER VENTURA ([id number]) [facility] GERBER NICHOLAS UNKNOWN PROVIDER UNKNOWN PROVIDER 04-06-2020 - Emergency BRIAN montes 04-06-2020 department patient BROCK MAYES MD Memoria l [facility] BROCK MAYES MD ([id number]) DELMER UNKNOWN PROVIDER UNKNOWN PROVIDER 10-31-2019 - Emergency BRIAN montes 10-31-2019 department patient BROCK GUTIÉRREZ Memor ial visit GERBER VENTURA [facility] DELMER MAYES ([id number]) MD NICHOLAS UNKNOWN PROVIDER UNKNOWN PROVIDER 10-30-2019 - Emergency [facility] Antony Franklin 10-30-2019 [facility] ([id number]) ARELIS NICHOLAS UNKNOWN PROVIDER UNKNOWN PROVIDER 03-07-2019 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 [place] carcamo:[facility] inpatient 08-14-2020 - Patient encounter ZACHARIAH Franklin 08-14-2020 procedure C TIFFANIE MAYES MD [facility] GUILLE UNKNOWN ([id number]) PROVIDER UNKNOWN PROVIDER 03-18-2020 - Patient encounter Other general symptoms GERBER Franklin 03-18-2020 procedure and signs DELMER [facility] [place] ([id number]) DELMER NICHOLAS UNKNOWN PROVIDER UNKNOWN PROVIDER 02-22-2020 - Patient encounter Urinary tract GERBER Arango jyoti 02-22-2020 procedure infection, site not DELMER MAYES Memo rial leia VENTURA [facility] GERBER [place]A ([id number]) DELMER NICHOLAS UNKNOWN PROVIDER UNKNOWN PROVIDER 02-22-2020 - Patient encounter Type 2 diabetes GERBER armstrong 02-22-2020 procedure mellitus without DELMER MAYES Memoria l val VENTURA [facility] GERBER V[place]URA ([id number]) DELMER NICHOLAS UNKNOWN PROVIDER UNKNOWN PROVIDER 01-22-2020 - Patient encounter Neuromuscular J KAY OSCAR J Antony Franklin 01-22-2020 procedure dysfunction of [facility] bladder, unspecified [facility] [place] ([id number]) DELMER UNKNOWN PROVIDER UNKNOWN PROVIDER 01-13-2020 Patient encounter GERBER saleh procedure DELMER Aviles [facility] GERBER [place] ([id number]) DELMER NICHOLAS UNKNOWN PROVIDER UNKNOWN PROVIDER 10-30-2019 - Patient encounter Disorientation, GERBER armstrong 10-30-2019 procedure unspecified DELMER Aviles MD [facility] GERBER [place] ([id number]) DELMER NICHOLAS UNKNOWN PROVIDER UNKNOWN PROVIDER 10-23-2019 - Patient encounter GERBER saleh 10-23-2019 procedure DELMER Aviles MD [facility] GERBER [place] ([id number]) DELMER NICHOLAS UNKNOWN PROVIDER UNKNOWN PROVIDER Procedures Procedure Name Date Provider Location Urinalysis 04-06-2020 [facility] ([id number]) Comment: Result Comment: URINALYSIS Performed By: #### [id number] ## ##[facility],[address] [place] [id number] Urinalysis 10-31-2019 [facility] ([id number]) Comment: Result Comment: URINALYSIS Performed By: #### [id number] ## ## [facility],[address] [place] [id number] Payers Payer Name Policy Number Location [employer] [id number] [facility] ([id number]) MEDICARE OUTPATIENT [id number] [facility] ([id number]) [id number] [facility] ([phone]) [id number] [facility] ([phone]) [id number] [facility] ([phone]) [id number] [facility] ([phone]) [id number] [facility] ([phone]) [id number] [facility] ([phone]) [id number] [facility] ([id number]) [id number] [facility] ([id number]) [id number] [facility] ([id number]) [id number] [facility] ([phone]) [id number] [facility] ([phone]) [id number] [facility] ([phone]) [id number] [facility] ([phone]) [id number] [facility] ([id number]) The following information is from the original human readable contentNo Payer Records FoundNo Payer Records FoundNo Payer Records Found Summary Purpose Family History No Family History Records FoundNo Family History Records FoundNo Family History Records Found Advance Directives No Advanced Directives Records FoundNo Advanced Directives Records FoundNo Advanced Directives Records Found Additional Source Comments FOR RECORDS PERTAINING TO PATIENTS WHO ARE OR HAVE BEEN ENROLLED IN A CHEMICAL DEPENDENCY/SUBSTANCE ABUSE PROGRAM, SOME INFORMATION MAY BE OMITTED. This clinical summary was aggregated from multiple sources. Caution should be exercised in using it in the provision of clinical care. This summary normalizes information from multiple sources, and as a consequence, information in this document may materially changethe coding, format and clinical context of patient data. In addition, data may be omittedin some cases. CLINICAL DECISIONS SHOULD BE BASED ON THE PRIMARY CLINICAL RECORDS. [facility] provides no warranty or guarantee of the accuracy or completeness of information in this document. UNRECOGNIZED CONTENT PROVIDED BELOW FOR UNRECOGNIZED SECTION INFORMATION SOURCE DATE CREATED AUTHOR AUTHOR'S ORGANIZATIO N 02/28/2019 [facility] DATE CREATED AUTHOR AUTHOR'S ORGANIZATIO N 02/24/2020 [facility] DATE CREATED AUTHOR AUTHOR'S ORGANIZATIO N 08/15/2020 [facility]
--- OUTSIDE RECORDS SUMMARY | 2020-09-01 12:50 | XMS RPT_ITS | CCD ---
:1940 External Reference #:[id number] Demographics Preferred Language Unknown Marital Status Unknown Taoist Affiliation Unknown Race Unknown Ethnic Group Unknown Author Organization [facility] Care Team Providers Name Role Phone [...] PROVIDER Consulting Unavailable PROVIDER Consulting Unavailable Nish INFANET Admitting Unavailable Nish INFANTE Attending Unavailable Nish INFANTE Primary Care Unavailable MD [...] Onset Location Ciprofloxacin Moderate Antony Pomerene (Severity [facility] Modifier) Repository (Qualifier Value) CONTRAST MEDIA, Moderate Antony Pomeren e GADOLINIUM RELATED (Severity [facility] Modifier) Repository (Qualifier Value) FLUOROQUINOLONE Moderate Antony Pomeren e (Severity [facility] Modifier) Repository (Qualifier Value) Lisinopril Moderate Antony Pomerene (Severity [facility] Modifier) Repository (Qualifier Value) Metoprolol Moderate Antony Pomerene (Severity [facility] Modifier) Repository (Qualifier Value) Problems Active Problems Category Problem Name Status Date Location Diabetes mellitus Type 2 diabetes mellitus Active 02-22-2020 - Antony Pomerene without complication without complications [facility] (54364) Diverticulosis and Diverticulosis of Active 01-22-2020 - Antony Pomerene diverticulitis intestine, part [facility]spital unspecified, without (66736) perforation or abscess without bleeding 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, [facility] unspecified (45787) Unclassified LEFT HYDRONEPHROSIS Active 03-07-2019 - [facility] (88920) Past or Other Problems Category Problem Name Status Date Location Abdominal hernia Diaphragmatic hernia Completed 01-22-2020 - Keenan l Pomerene without obstruction or [facility] (46596 ) Allergic reactions Allergy status to Completed 10-30-2019 - Antony Pomerene other antibiotic [facility] agents [facility] (0000 0) Other diseases of kidney Hydronephrosis with Completed 0 - Antony Pomerene and ureters renal and ureteral [facility] calculous obstruction Hospit al (23306) Other gastrointestinal Constipation, Completed 01-22-2020 - Antony Pomerene disorders unspecified [facility] (56381 ) Residual codes; Other general symptoms Completed 03-18-2020 - Malorie el Pomerene unclassified and signs [facility] (90359 ) Residual codes; Disorientation, Completed 10-30-2019 - Antony Pome jyoti unclassified unspecified [facility] (96595 ) Urinary tract infections Urinary tract Completed 02-22-2020 - Malorie el Pomerene infection, site not [facility] (62678 ) Results Result Name Value Range Unit Interpretation Flag Date Location ct sinuses w/o contrast on 2020-08-14 CT SINUSES W/O [facility] Normal 020 [facility] CONTRAST [facility] [address] [place] [address] (34463) Patient: SEBASTIAN BURGOS Phone#: : 1940 Age: 80 Gender: F Pt. Type: Out Account: [id number] Location: [facility] Ordering: ZACHARIAH BRAUN Exam Date: 08/14/2020/11:18 Family Phys: ALEJANDRO REALOK Charge Code: 141751 Physician: [place] Order #: [id number] DLP Dose#: 22.90 PROCEDURE: CT SINUSES WITHOUT [...] sinus mucosal disease. 2. Nasal septal spurs [place] [address] Patient: SEBASTIAN BURGOS. Phone#: : 1940 Age: 80 Gender: F Pt. Type: Out Account: [id number] Location: 052 Ordering: ZACHARIAH BRAUN Exam Date: 08/14/2020/11:18 Family Phys: ALEJANDRO MCCOY Charge Code: 820651 Physician: [place] Order #: [id number] DLP Dose#: 22.90 Dictated by: Vanessa Walker MD on 08/14/2020 at 13:38 Approved by: Vanessa Walker MD on 08/14/2020 at 13:38 emergency report on 2020-05-06 EMERGENCY REPORT [facility] Normal 05-06 [facility] EMERGENCY ROOM REPORT (72213) NAME ACCOUNT SEX AGE ADMIT DISCHARGE PT MED. RECORD# NUMBER DATE DATE TYPE LORETTA [id number] F 79 05/02/20 05/02/20 Drew Feldman [address] ROOM: ER DATE OF : 1940 DICTATING PHYSICIAN: Kitty Casepr CHIEF COMPLAINT: Roaring, decreased hearing in left [...] Kitty Casper DO 05/02/20 12:15 JOB #: [id number] Transcribed By: sasha 05/03/20 09:34 Electronically signed by: E-Sign: KITTY CASPER MD 05/06/20 11:46 Page 2 of 2 SEBASTIAN BURGOS Emergency Room Report emergency report on 2020-04-09 EMERGENCY REPORT [facility] Normal 04-09 [facility] EMERGENCY ROOM REPORT (93083) NAME ACCOUNT SEX AGE ADMIT DISCHARGE PT MED. RECORD# NUMBER DATE DATE TYPE LORETTA [id number] F 79 04/06/20 3 SEBASTIAN Gaston [id number] ROOM: ER DATE OF : 1940 DICTATING [...] the patient as a direct admit to [facility] where he will see her there. Dictated By: Brian Gutiérrez MD 04/06/20 19:00 JOB #: [id number] Transcribed By: am 04/06/20 19:09 Electronically signed by: DUNIA Gutiérrez M.D. 04/09/20 07:29 Page 2 of 2 SEBASTIAN BURGOS Emergency Room Report urinalysis on 04-06 Amorphous NONE Normal 04-06-2020 [facility] (95741) Comment: Performed By: #### [id number] ## ##[facility],[address] [place] [address] 28038 Bacteria LM.HPF (Urine sed) 1+ Normal [facility] [#/Area] [facility] ( 69258) Comment: Performed By: #### [id number] ## ##[facility],[address] [place] [address] 24165 Bilirubin [Mass/Vol] NEG NORMAL: NEGATIVE mg/dL Normal [facility] (06103) Comment: Performed By: #### [id number] ## ##[facility],[address] [place] [address] 10916 Blood 25 NORMAL: NEGATIVE Abnormal 04-06-2020 [facility] (35732) Comment: Performed By: #### [id number] ## ##[facility],[address] [place] [address] 27591 Casts LM.LPF (Urine sed) NONE Normal 04-06 [facility] [#/Area] [facility] ( 15310) Comment: Performed By: #### [id number] ## ##[facility],[address] [place] [address] 14455 Clarity (U) sl.cloudy NORMAL: CLEAR Normal 04-06-2020 [facility] ( 78133) Comment: Performed By: #### [id number] ## ##[facility],[address] [place] [address] 69628 Color (U) p.yel NORMAL: YELLOW Normal 04-06-2020 [facility] (27755) Comment: Performed By: #### [id number] ## ##[facility],[address] [place] [address] 77612 Crystals LM Nom (Urine sed) NONE Normal [facility] ( 60801) Comment: Performed By: #### [id number] ## ##[facility],[address] [place] [address] 72259 Epi Cells MANY Normal 04-06-2020 [facility] (56521) Comment: Performed By: #### [id number] ## ##[facility],[address] [place] [address] 44057 Glucose [Mass/Vol] NORM NORMAL: NORMAL Normal 2019 [facility] ( 80967) Comment: Performed By: #### [id number] ## ##[facility],[address] [place] [address] 25246 Ketone NEG NORMAL: NEGATIVE Normal 04-06-2020 [facility] (85100) Comment: Performed By: #### [id number] ## ##[facility],[address] [place] [address] 33512 Microscopic SEE BELOW Normal 04-06-2020 [facility] (69603) Comment: Result Comment: MICROSCOPIC Performed By: #### [id number] ## ##[facility],[address] [place] [address] 44996 Mucous TRACE Normal 04-06-2020 [facility] (41948) Comment: Performed By: #### [id number] ## ##[facility],[address] [place] [address] 67945 Nitrite Ql (U) NEG NORMAL: NEGATIVE Normal 04-06-20 [facility] ( 07713) Comment: Performed By: #### [id number] ## ##[facility],[address] [place] [address] 71204 pH (Bld) 6 NORMAL: 5.0-8.0 Normal 04-06-2020 [facility] (92657) Comment: Performed By: #### [id number] ## ##[address] [address] Protein (U) 15 NORMAL: NEGATIVE mg/dL Abnormal 04-06-2020 [facility] [Mass/Vol] [facility] (16198) Comment: Performed By: #### [id number] ## ##[address] [address] Rbc 0-5 0-3/hpf Normal 04-06-2020 [facility] (75511) Comment: Performed By: #### [id number] ## ##[place] [address] Sp [place] 1.015 NORMAL: 1.010-1.030 Normal 0 [facility] ( 66086) Comment: Performed By: #### [id number] ## ##[place] [address] Specimen type Nom (Spec) UNSPECIFIED Normal [facility] ( 10956) Comment: Performed By: #### [id number] ## ##[place] [id number] Urobilinog NORM NORMAL: NORMAL Normal 04-06-2020 [facility] (68708) Comment: Performed By: #### [id number] ## ##[place] [id number] Wbc >50 0-5/hpf Normal 04-06-2020 [facility] (34848) Comment: Performed By: #### [id number] ## ##[address] [address] WBC (Bld) [#/Vol] 500 NORMAL: NEGATIVE Abnormal 04-06 [facility] ( 02646) Comment: Performed By: #### [id number] ## ##[address] [address] Yeast LM Ql (Urine sed) NONE Normal 2019 [facility] (11805) Comment: Performed By: #### [id number] ## ##[facility],[address] [place] [address] kub (kidney stone protocol) on 2020-04-06 CT KUB (KIDNEY [facility] Normal 04-06-2 020 [facility] STONE PROTOCOL) [address] [address] ([address]894) Patient: SEBASTIAN BURGOS Phone#: : 1940 Age: 79 Gender: F Pt. Type: ER Account: [id number] Location: [facility] Ordering: BRIAN GUTIÉRREZ Exam Date: 04/06/2020/17:44 Family Phys: GERBER NCIHOLAS Charge Code: 984255 Physician: [place] Order #: [id number] DLP Dose#: 13.60 PROCEDURE: CT ABDOMEN AND PELVIS WITHOUT CONTRAST COMPARISON: [facility], CT, KUB W/O CON, 01/25/2019, 1 [...] 79 Gender: F Pt. Type: ER Account: [id number] Location: [facility] Ordering: BRIAN GUITÉRREZ Exam Date: 04/06/2020/17:44 Family Phys: GERBER STRATTONFRANCINE Charge Code: 224907 Physician: [place] Order #: [id number] DLP Dose#: 13.60 ABDOMINAL WALL: Normal. No [...] Age - Reported 79 years Normal 04-06-2020 [facility] (67148) Comment: Performed By: #### [id number] ## ##[facility],[address] [place] [address] 94878 Albumin [Mass/Vol] 4.5 3.4 - 4.8 g/dL Normal 04-06-2020 [facility] ( 56698) Comment: Performed By: #### [id number] ## ##[facility],[address],[place] [address] Albumin/Globulin [Mass 1.7 0.9 - 1.6 {ratio} High 020 [facility] ratio] [facility] (55350) Comment: Performed By: #### [id number] ## ##[facility],[address] [place] [address] [place] [address] ALK PHOS 78 38 - 126 U/L Normal 04-06-2020 [facility] (01994) Comment: Performed By: #### [id number] ## ##[facility],[address] [place] [address] [place] [address] ALT/SGPT 12 8 - 35 U/L Normal 04-06-2020 [facility] (44469) Comment: Performed By: #### [id number] ## ##[facility],[address] [place] [address] [place] [address] Anion gap [Moles/Vol] 12 10 - 20 mmol/L Normal 04-06-20 20 [facility] ( 11102) Comment: Performed By: #### [id number] ## ##[facility],[address] [place] [address] [place] [address] AST/SGOT 18 13 - 39 U/L Normal 04-06-2020 [facility] (16144) Comment: Performed By: #### [id number] ## ##[facility],[address] [place] [address] [place] [address] B/C RATIO 19 0 - 30 ratio Normal 04-06-2020 [facility] (50214) Comment: Performed By: #### [id number] ## ##[facility],[address] [place] [address] [place] [address] Bilirubin [Mass/Vol] 0.4 0.0 - 1.5 mg/dl Normal 0 [facility] ( 51655) Comment: Performed By: #### [id number] ## ##[facility],[address] [place] [address] [place] [address] Calcium [Mass/Vol] 9.4 8.6 - 10.2 mg/dl Normal 04-06-2020 [facility] ( 66809) Comment: Performed By: #### [id number] ## ##[facility],[address] [place] [address] 48020 Chloride [Moles/Vol] 103 98 - 107 mmol/L Normal 0 [facility] ( 63186) Comment: Performed By: #### [id number] ## ##[facility],[address] [place] [address] 86653 CO2 [Moles/Vol] 29.4 21.0 - 31.0 mmol/L Normal 04-06-2020 [facility] ( 38244) Comment: Performed By: #### [id number] ## ##[facility],[address] [place] [address] 13542 Creatinine [Mass/Vol] 1.1 0.6 - 1.2 mg/dl Normal 04-06-20 20 [facility] ( 19994) Comment: Performed By: #### [id number] ## ##[facility],[address] [place] [address] 33597 GFR/1.73 sq M predicted 58 60 - 999 ML/MINUTE Low 2019 [facility] among non-blacks MDRD Hospital (48129) (S/P/Bld) [Vol rate/Area] Comment: Result Comment: ACCORDING TO THE NATIONAL KIDNEY DISEASE EDUCATION PROGRAM(NKDE), A NORMAL eGFR IS A VALUE GREATER THAN OR E QUAL TO 60 ML/MIN/1.73 SQ METERS. CHRONIC KIDNEY DISEASE: <60m L/MIN/1.73 SQ METERS KIDNEY FAILURE: <15mL/MIN/1. 73 SQ METERS THIS TEST SHOULD ONLY BE USE D FOR PATIENTS 18 YEARS OF AGE AND OLDER. Performed By: #### [id number] ## ##[facility],[address] [place] [address] 06692 GFR/1.73 sq M predicted among Normal 04-06-2020 [facility] non-blacks MDRD (S/P/Bld) [Vol Hospital (89325) rate/Area] Comment: Result Comment: COMPREHENSIV E METABOLIC PANEL Performed By: #### [id number] ## ##[facility],[address] [place] [address] [place] [address] GFR/1.73 sq M predicted 48 60 - 999 ML/MINUTE Low 2019 [facility] (84596) (S/P/Bld) [Vol rate/Area] Comment: Performed By: #### [id number] ## ##[facility],[address] [place] [address] [place] [address] Globulin (S) [Mass/Vol] 2.7 1.5 - 3.8 G/DL Normal 2019 [facility] ( 41098) Comment: Performed By: #### [id number] ## ##[facility],[address] [place] [address] [place] [address] Glucose [Mass/Vol] 133 74 - 106 mg/dl High 04-06-2020 [facility] (94120) Comment: Performed By: #### [id number] ## ##[facility],[address] [place] [address] [place] [address] Potassium [Moles/Vol] 4.2 3.5 - 5.1 mmol/L Normal 04-06-20 20 [facility] ( 44728) Comment: Performed By: #### [id number] ## ##[facility],[address] [place] [address] [place] [address] Protein [Mass/Vol] 7.2 6.4 - 8.3 g/dl Normal 04-06-2020 [facility] ( 19445) Comment: Performed By: #### [id number] ## ##[facility],[address] [place] [address] [place] [address] Sodium [Moles/Vol] 140 136 - 145 mmol/l Normal 04-06-2020 [facility] ( 88060) Comment: Performed By: #### [id number] ## ##[facility],[address] [place] [address] [place] [address] Urea nitrogen [Mass/Vol] 21 6 - 20 mg/dl High 04-06 [facility] ( 55182) Comment: Performed By: #### [id number] ## ##[facility],[address] [place] [address] 01319 cbc + diff on 04-06 Basophils (Bld) 0.10 0.00 - 0.10 x10EE3/UL Normal 04-06-2020 [facility] [#/Vol] [facility] (93105) Comment: Performed By: #### [id number] ## ##[facility],[address] [place] [address] 39965 Basophils/100 WBC (Bld) 0.5 0.0 - 2.0 % Normal 2019 [facility] ( 16313) Comment: Performed By: #### [id number] ## ##[address] [address] CBC + DIFF Normal 04-06-2020 [facility] (51421) Comment: Result Comment: CBC-COMPLETE BLOOD COUNT Performed By: #### [id number] ## ##[address] [address] Eosinophils (Bld) 0.00 0.00 - 0.50 x10EE3/UL Normal 04-06-2020 [facility] [#/Vol] [facility] (25803) Comment: Performed By: #### [id number] ## ##[address] [address] Eosinophils/100 WBC (Bld) 0.3 0.0 - 7.0 % Normal 03-20 [facility] ( 19952) Comment: Performed By: #### [id number] ## ##[address] [address] Erythrocyte distribution 14.5 12.0 - 15.6 % Normal [facility] (RBC) [Ratio] [facility] (67831) Comment: Performed By: #### [id number] ## ##[facility] [address] [address] Hematocrit (Bld) [Volume 40.8 34.0 - 46.0 % Normal [facility] ( 27595) Comment: Performed By: #### [id number] ## ##[address] [address] Hemoglobin (Bld) 13.7 12.0 - 16.0 g/dl Normal 04-06-2020 [facility] [Mass/Vol] [facility] (13999) Comment: Performed By: #### [id number] ## ##[address] [address] Lymphocytes (Bld) 2.00 0.80 - 2.80 x10EE3/UL Normal 04-06-2020 [facility] [#/Vol] [facility] (82713) Comment: Performed By: #### [id number] ## ##[address] [address] Lymphocytes/100 WBC (Bld) 13.3 20.0 - 45.0 % Low [facility] ( 41082) Comment: Performed By: #### 391940 ## ##[address] [address] MANUAL DIFF N/A Normal 04-06-2020 [facility] (77432) Comment: Performed By: #### 379113 ## ##[address] [address] MCH (RBC) [Entitic mass] 28 27 - 33 pg Normal 04-06 [facility] ( 20196) Comment: Performed By: #### [id number] ## ##[address] [address] MCHC (RBC) [Mass/Vol] 34 32 - 36 X10 3 Normal 04-06-20 20 [facility] ( 59376) Comment: Performed By: #### [id number] ## ##[address] [place] [address] MCV (RBC) [Entitic vol] 85 80 - 99 fl Normal 2019 [facility] ( 94147) Comment: Performed By: #### 727704 ## ##[address] [address] Monocytes (Bld) 0.90 0.20 - 1.00 x10EE3/UL Normal 04-06-2020 [facility] [#/Vol] [facility] (09726) Comment: Performed By: #### [id number] ## ##[address] [address] MONOS % 5.7 0.0 - 10.0 % Normal 04-06-2020 [facility] (13471) Comment: Performed By: #### 484187 ## ##[address] [address] Morphology Victorino (Bld) [Interp] N/A Normal 04-06-2020 [facility] ( 77354) Comment: Performed By: #### [id number] ## ##[address] [address] Neutrophils (Bld) 12.20 1.50 - 7.10 x10EE3/UL High 04-06-2020 [facility] [#/Vol] [facility] (66523) Comment: Performed By: #### [id number] ## ##[address] [address] Neutrophils/100 WBC (Bld) 80.2 46.0 - 76.0 % High [facility] ( 00686) Comment: Performed By: #### [id number] ## ##[address] [address] Platelet mean volume 7.8 6.6 - 10.5 fl Normal 04-06-20 20 [facility] (Bld) [Entitic vol] Hospital (75580) Comment: Result Comment: AUTOMATED DI FFERENTIAL Performed By: #### [id number] ## ##[facility],[address] [place] [address]676 Platelets (Bld) 390 150 - 450 x10EE3/UL Normal 04-06-2020 [facility] [#/Vol] [facility] (05844) Comment: Performed By: #### [id number] ## ##[address] [address] RBC (Bld) [#/Vol] 4.80 4.10 - 5.30 x 10EE6/UL Normal 0 [facility] (16212) Comment: Performed By: #### [id number] ## ##[facility],[address] [place] [address] WBC (Bld) [#/Vol] 15.2 4.5 - 10.8 x 10EE3/UL High 04-06-2020 [facility] ( 13925) Comment: Performed By: #### [id number] ## ##[address] [address] tsh on 2020-03-18 TSH Qn 2.64 0.34 - 5.60 uIU/ml Normal 03-18-2020 [facility] (49563) Comment: Performed By: #### [id number] ## ##[address] [address] cmp with egfr on 09-03-29 Age - Reported 79 years Normal 03-18-2020 [facility] (37787) Comment: Performed By: #### [id number] ## ##[address] [address] Albumin [Mass/Vol] 4.4 3.4 - 4.8 g/dL Normal 03-18-2020 [facility] ( 33587) Comment: Performed By: #### 760230 ## ##[address] [address] Albumin/Globulin [Mass 1.4 0.9 - 1.6 {ratio} Normal 020 [facility] (24978) Comment: Performed By: #### 284350 ## ##[facility],[address] [place] [address] 74208 ALK PHOS 80 38 - 126 U/L Normal 03-18-2020 [facility] (40683) Comment: Performed By: #### 706215 ## ##[facility],[address] [place] [address] 27042 ALT/SGPT 15 8 - 35 U/L Normal 03-18-2020 [facility] (16182) Comment: Performed By: #### [id number] ## ##[facility],[address] [place] [address] 44966 Anion gap [Moles/Vol] 12 10 - 20 mmol/L Normal 03-18-20 20 [facility] ( 89969) Comment: Performed By: #### [id number] ## ##[facility],[address] [place] [address] 42055 AST/SGOT 18 13 - 39 U/L Normal 03-18-2020 [facility] (07252) Comment: Performed By: #### [id number] ## ##[facility],[address] [place] [address] 87675 B/C RATIO 20 0 - 30 ratio Normal 03-18-2020 [facility] (71431) Comment: Performed By: #### [id number] ## ##[facility],[address] [place] [address] 78219 Bilirubin [Mass/Vol] 0.4 0.0 - 1.5 mg/dl Normal 0 [facility] ( 04308) Comment: Performed By: #### [id number] ## ##[facility],[address] [place] [address] 19144 Calcium [Mass/Vol] 9.4 8.6 - 10.2 mg/dl Normal 03-18-2020 [facility] ( 25395) Comment: Performed By: #### [id number] ## ##[facility],[address] [place] [address] 77431 Chloride [Moles/Vol] 102 98 - 107 mmol/L Normal 0 [facility] ( 92970) Comment: Performed By: #### [id number] ## ##[facility],[address] [place] [address] 05871 CO2 [Moles/Vol] 31.0 21.0 - 31.0 mmol/L Normal 03-18-2020 [facility] ( 42292) Comment: Performed By: #### [id number] ## ##[facility],[address] [place] [address] 63200 Creatinine [Mass/Vol] 0.9 0.6 - 1.2 mg/dl Normal 03-18-20 20 [facility] ( 70857) Comment: Performed By: #### [id number] ## ##[facility],[address] [place] [address] 93846 GFR/1.73 sq M >60 60 - 999 mL/min/{1.73_m2} Normal 0 [facility] predicted among [facility] non-blacks MDRD (000 00) (S/P/Bld) [Vol rate/Area] Comment: Performed By: #### [id number] ## ##[address] [address] Result Comment: ACCORDING TO THE NATIONAL KIDNEY DISEASE EDUCATION PROGRAM(NKDE), A NORMAL eGFR IS A VALUE GREATER THAN OR E QUAL TO 60 ML/MIN/1.73 SQ METERS. CHRONIC KIDNEY DISEASE: <60m L/MIN/1.73 SQ METERS KIDNEY FAILURE: <15mL/MIN/1. 73 SQ METERS THIS TEST SHOULD ONLY BE USE D FOR PATIENTS 18 YEARS OF AGE AND OLDER. GFR/1.73 sq M predicted among Normal 03-18-2020 [facility] non-blacks MDRD (S/P/Bld) [Vol Hospital (85632) rate/Area] Comment: Result Comment: COMPREHENSIV E METABOLIC PANEL Performed By: #### [id number] ## ##[facility],[address] [place] [address] 61718 Globulin (S) [Mass/Vol] 3.2 1.5 - 3.8 G/DL Normal 2019 [facility] ( 45019) Comment: Performed By: #### [id number] ## ##[facility],[address] [place] [address] 54672 Glucose [Mass/Vol] 94 74 - 106 mg/dl Normal 03-18-2020 [facility] ( 41478) Comment: Performed By: #### [id number] ## ##[facility],[address] [place] [address] 28797 Potassium [Moles/Vol] 3.9 3.5 - 5.1 mmol/L Normal 03-18-20 20 [facility] ( 77979) Comment: Performed By: #### [id number] ## ##[facility],[address] [place] [address] 41267 Protein [Mass/Vol] 7.6 6.4 - 8.3 g/dl Normal 03-18-2020 [facility] ( 79775) Comment: Performed By: #### [id number] ## ##[facility],[address] [place] [address] 02806 Sodium [Moles/Vol] 141 136 - 145 mmol/l Normal 03-18-2020 [facility] ( 26994) Comment: Performed By: #### [id number] ## ##[facility],[address] [place] [address] 44554 Urea nitrogen [Mass/Vol] 18 6 - 20 mg/dl Normal 03-18 [facility] ( 25635) Comment: Performed By: #### [id number] ## ##[facility],[address] [place] [address] 11341 cbc + diff on 03-18 Basophils (Bld) 0.10 0.00 - 0.10 x10EE3/UL Normal 03-18-2020 [facility] [#/Vol] [facility] (14088) Comment: Performed By: #### [id number] ## ##[address] [address] Basophils/100 WBC (Bld) 0.6 0.0 - 2.0 % Normal 2019 [facility] ( 08008) Comment: Performed By: #### [id number] ## ##[address] [address] CBC + DIFF Normal 03-18-2020 [facility] (59174) Comment: Result Comment: CBC-COMPLETE BLOOD COUNT Performed By: #### [id number] ## ##[address] [address] Eosinophils (Bld) 0.10 0.00 - 0.50 x10EE3/UL Normal 03-18-2020 [facility] [#/Vol] [facility] (46157) Comment: Performed By: #### [id number] ## ##[address] [address] Eosinophils/100 WBC (Bld) 1.4 0.0 - 7.0 % Normal 02-19 [facility] ( 71628) Comment: Performed By: #### [id number] ## ##[address] [address] Erythrocyte distribution 14.0 12.0 - 15.6 % Normal [facility] width (RBC) [Ratio] [facility] (85977) Comment: Performed By: #### [id number] ## ##[address] [address] Hematocrit (Bld) [Volume 40.8 34.0 - 46.0 % Normal [facility]] [facility] ( 49075) Comment: Performed By: #### [id number] ## ##[address] [address] Hemoglobin (Bld) 13.4 12.0 - 16.0 g/dl Normal 03-18-2020 [facility] [Mass/Vol] [facility] (12222) Comment: Performed By: #### [id number] ## ##[facility],[address] [place] [address] 44057 Lymphocytes (Bld) 3.10 0.80 - 2.80 x10EE3/UL High 03-18-2020 [facility] [#/Vol] [facility] (08426) Comment: Performed By: #### [id number] ## ##[facility],[address] [place] [address] 24121 Lymphocytes/100 WBC (Bld) 33.4 20.0 - 45.0 % Normal [facility] ( 81315) Comment: Performed By: #### [id number] ## ##[address] [address] MANUAL DIFF N/A Normal 03-18-2020 [facility] (03042) Comment: Performed By: #### [id number] ## ##[address] [address] MCH (RBC) [Entitic mass] 28 27 - 33 pg Normal 03-18 [facility] ( 39324) Comment: Performed By: #### [id number] ## ##[address] [address] MCHC (RBC) [Mass/Vol] 33 32 - 36 X10 3 Normal 03-18-20 20 [facility] ( 09756) Comment: Performed By: #### [id number] ## ##[address] [address] MCV (RBC) [Entitic vol] 84 80 - 99 fl Normal 2019 [facility] ( 58213) Comment: Performed By: #### [id number] ## ##[address] [address] Monocytes (Bld) 0.60 0.20 - 1.00 x10EE3/UL Normal 03-18-2020 [facility] [#/Vol] [facility] (17996) Comment: Performed By: #### [id number] ## ##[facility],[address] [place] [address] 28931 MONOS % 6.1 0.0 - 10.0 % Normal 03-18-2020 [facility] (18404) Comment: Performed By: #### [id number] ## ##[facility],[address] [place] [address] 12964 Morphology Victorino (Bld) [Interp] N/A Normal 03-18-2020 [facility] ( 46104) Comment: Performed By: #### [id number] ## ##[address] [address] Neutrophils (Bld) 5.40 1.50 - 7.10 x10EE3/UL Normal 03-18-2020 [facility] [#/Vol] [facility] (30084) Comment: Performed By: #### [id number] ## ##[address] [address] Neutrophils/100 WBC (Bld) 58.5 46.0 - 76.0 % Normal [facility] ( 67156) Comment: Performed By: #### [id number] ## ##[address] [address] Platelet mean volume 7.7 6.6 - 10.5 fl Normal 03-18-20 20 [facility] (Bld) [Entitic vol] Hospital (26539) Comment: Result Comment: AUTOMATED DI FFERENTIAL Performed By: #### [id number] ## ##[address] [address] Platelets (Bld) [#/Vol] 471 150 - 450 x10EE3/UL High 2019 [facility] ( 90405) Comment: Performed By: #### [id number] ## ##[facility],[address] [place] [address] 22317 RBC (Bld) [#/Vol] 4.84 4.10 - 5.30 x 10EE6/UL Normal 0 [facility] (81267) Comment: Performed By: #### [id number] ## ##[address] [address] WBC (Bld) [#/Vol] 9.2 4.5 - 10.8 x 10EE3/UL Normal 03-18-2020 [facility] ( 55010) Comment: Performed By: #### [id number] ## ##[address] [address] parasite id on 2019 Parasite ID Specimen Desc: Normal 02-24-2020 [facility] (15071) Sp. Request/Comment: SPSTER Culture Result Adult Female Ixodes spp. ([place] Tick)(*) Mouth parts not in tact Not Engorged Report Status 02/24/2020 FINAL Parasite ID Specimen Desc: Normal 02-24-2020 [facility] (30321) Sp. Request/Comment: SPSTER Culture Result Adult Female Ixodes spp. ([place] Tick)(*) Mouth parts intact N ot Engorged Report Status 02/24/2020 FINAL hgb a1c [ccl] on 09-03-05 HbA1c (Bld) [Mass fraction] 143 mg/dL Normal [facility] ( 77096) Comment: Result Comment: eAG: (Estima zoey average glucose) is a calculated value from HgbA1c and is product support sales representative of the averag e blood glucose level in the last 2-3 month period. [facility] [address] [place] [address] Alexx Han III, M.D. [id number] Performed By: #### [id number] ## ## [facility],[address] [place] [address] 03992 HbA1c (Bld) [Mass fraction] 6.6 4.3-5.6 % High [facility] ( 37764) Comment: Result Comment: [employer] Raquel betes [employer] guidelines indicate that patients with HgbA1c in the range 5.7-6.4% are at in creased risk for development of diabetes, and intervention by lifestyle mo dification may be beneficial. HgbA1c greater or equal to 6.5% is considered diagnostic of diabetes. Performed By: #### [id number] ## ## [facility],[address] [place] [address] 38447 hemoglobin a1c on HbA1c (Bld) [Mass fraction] 143 mg/dL Normal [facility] (86038 ) Comment: Performed By: #### HBA1C ### # [facility] Routine Lab [address] [place], [place] [address] HbA1c (Bld) [Mass fraction] 6.6 4.3-5.6 % High [facility] (05845 ) Comment: Performed By: #### HBA1C ### # [facility] [address] [place], [place] [address] lipid profile on 09-03-03 Cholesterol [Mass/Vol] 295 0 - 200 mg/dl High 020 [facility] ( 42934) Comment: Performed By: #### [id number] ## ## [facility],[address] [place] [address] 48702 Cholesterol in HDL 72 40 - 60 mg/dl High 02-21-2020 [facility] [Mass/Vol] [facility] (01989) Comment: Performed By: #### [id number] ## ## [facility],[address] [place] [address] 59172 Cholesterol in LDL 196 0 - 129 mg/dl High 02-21-2020 [facility] [Mass/Vol] [facility] (69974) Comment: Performed By: #### [id number] ## ## [facility],[address] [place] [address] 58074 Cholesterol.total/Cholesterol in HDL 4.1 0.0 - 5.0 Nor mal 02-21-2020 [facility] [Mass ratio] [facility] (81037) Comment: Performed By: #### [id number] ## ## [facility],[address] [facility] [address] Lipid 1996 panel Normal 02-21-2020 [facility] (96773) Comment: Result Comment: LIPID PROFIL E Performed By: #### [id number] ## ## [facility] [facility] [address] Triglyceride [Mass/Vol] 135 0 - 150 mg/dl Normal 2019 [facility] ( 41663) Comment: Performed By: #### [id number] ## ## [facility],[address] [facility] [address] culture urine on 09-03-03 CULTURE CULTURE URINE Normal 02-21-2020 [facility] URINE _URINE CULTURE_ Pome jyoti Mock I C R O B I O L O G Y R E P O R T FINAL [facility] ----- Antimicrobial Susceptibility and Organism Identification Report [facility] Specimen Number : [id number] Requested : 02/21/20 (35685) Specimen Source : URINE Collected : 02/21/20 11:25 [facility] Isolation : OUTPATIENT Received : 02/21/20 11:25 Requesting Physician : DELMER Patient/Specimen Tests and Comments Specimen Comments --------- FINAL REPORT: URINE COLONY COUNT: > THAN 100,000 CFU/CC GRAM NEGATIVE RODS [id number] CFU/CC GRAM POSITIVE TERESA PROBABLE CONTAMINATION Organisms Identified --- ----- * 01 Pseudomonas aeruginosa 02/24/20 Comments --------- >100,000 cfu Tech : Source : URINE ID # : [id number] FINAL Report Date : / / : [...] Ticar/K Clav'ate for gram positives based on furniture builder's breakpoints. Tech : Source : URINE ID # : [id number] FINAL Report Date : / / : Collected : 02/21/20 11:25 02/24/20.1414.KLS. 02/23/20.0713.AMIEN. 02/24/20.1414.KLGaston.COMPLETE Comment: Performed By: #### [id number] ## ## [facility],[address] [place] [address] ct abdomen/pelvis on 2020-01-22 CT ABDOMEN/PELVIS [facility] Normal 0 01-22-2020 [facility] [address] [place] [address] ([id number]) Patient: SEBASTIAN BURGOS Phone#: : 1940 Age: 79 Gender: F Pt. Type: Out Account: [id number] Location: 010 Ordering: Emily MOORE Exam Date: 01/22/2020/11:02 Family Phys: GERBER NICHOLAS Charge Code: [id number] Physician: [place] Order #: [id number] DLP Dose#: PROCEDURE: CT ABDOMEN/PELVIS WITHOUT CONTRAST COMPARISON: [facility] l, CT, DANI W/O CON, 01/25/2019, 11:00. [facility], CT, ABDOMEN/PELVIS W/O CON, 07/24/2016, 22:34. [...] 79 Gender: F Pt. Type: Out Account: [id number] Location: [facility] Ordering: Emily MOORE Exam Date: 01/22/2020/11:02 Family Phys: GERBER NICHOLAS Charge Code: [id number] Physician: [place] Order #: [id number] DLP Dose#: ADRENALS: Normal. No mass or [...] 13:15 emergency report on 2019-11-09 EMERGENCY REPORT [facility] Normal 11-09 [facility] EMERGENCY ROOM REPORT (03420) NAME ACCOUNT SEX AGE ADMIT DISCHARGE PT MED. RECORD# NUMBER DATE DATE TYPE LORETTA [id number] F 79 10/31/19 10/31/19 3 SEBASTIAN Feldman [address] ROOM: ER DATE OF : 1940 DICTATING [...] She uses a lot of herbal and ycep-ori-oshipfl vitamin products. ALLERGIES: She has multiple allergies [...] BURGOS : 1940 some oral antibiotics at [facility] until we can find what the [...] referral. I gave her Dr. Moore in [place] to follow up with in the meantime. DIAGNOSIS: Urinary tract infection. Dictated By: Brian Gutiérrez MD 10/31/19 13:36 JOB #: [id number] Transcribed By: maurice 11/01/19 15:09 Electronically signed by: DUNIA Gutiérrez M.D. 11/09/19 07:54 Page 2 of 2 SEBASTIAN BURGOS Emergency Room Report emergency report on 2019-11-04 EMERGENCY REPORT [facility] Normal 11-04 [facility] EMERGENCY ROOM REPORT ([id number]) NAME ACCOUNT SEX AGE ADMIT DISCHARGE PT MED. RECORD# NUMBER DATE DATE TYPE LORETTA [id number] F 79 10/30/19 10/30/19 3 SEBASTIAN Feldman [address] ROOM: ER DATE OF : 1940 DICTATING [...] Kitty Casper DO 10/30/19 12:30 JOB #: [id number] Transcribed By: maurice 10/31/19 13:03 Electronically signed by: E-Sign: KITTY CASPER MD 11/04/19 11:14 Page 2 of 2 SEBASTIAN BURGOS Emergency Room Report urinalysis on 10-31 Amorphous NONE Normal 10-31-2019 [facility] (35507) Comment: Performed By: #### [id number] ## ## [facility],[address] [place] [address] Bacteria LM.HPF (Urine sed) 2+ Normal [facility] [#/Area] [facility] ( 00553) Comment: Performed By: #### [id number] ## ## [facility],[address] [place] [address] 07070 Bilirubin [Mass/Vol] NEG NORMAL: NEGATIVE mg/dL Normal [facility] (25566) Comment: Performed By: #### [id number] ## ## [facility],[address] [place] [address] 95397 Blood 250 NORMAL: NEGATIVE Abnormal 10-31-2019 [facility] (69630) Comment: Performed By: #### [id number] ## ## [facility],[address] [place] [address] 89792 Casts LM.LPF (Urine sed) NONE Normal 10-31 [facility] ( 68848) Comment: Performed By: #### [id number] ## ## [facility],[address] [place] [address] 57211 Clarity (U) very cloudy NORMAL: CLEAR Normal 10-31-2019 [facility] ( 54660) Comment: Performed By: #### [id number] ## ## [facility],[address] [place] [address] 73167 Color (U) david NORMAL: YELLOW Normal 10-31-2019 [facility] (90734) Comment: Performed By: #### [id number] ## ## [facility],[address] [place] [address] 44179 Crystals LM Nom (Urine sed) NONE Normal [facility] ( 09735) Comment: Performed By: #### [id number] ## ## [facility],[address] [place] [address] 11861 Epi Cells NONE Normal 10-31-2019 [facility] (95576) Comment: Performed By: #### [id number] ## ## [facility],[address] [place] [address] 39510 Glucose [Mass/Vol] NORM NORMAL: NORMAL Normal 2018 [facility] ( 32408) Comment: Performed By: #### [id number] ## ## [facility],[address] [place] [address] 50315 Ketone 5 NORMAL: NEGATIVE Abnormal 10-31-2019 [facility] (45276) Comment: Performed By: #### [id number] ## ## [facility],[address] [place] [address] 21244 Microscopic SEE BELOW Normal 10-31-2019 [facility] (62212) Comment: Result Comment: MICROSCOPIC Performed By: #### [id number] ## ## [facility],[address] [place] [address] 06576 Mucous 1+ Normal 10-31-2019 [facility] (73776) Comment: Performed By: #### [id number] ## ## [facility],[address] [place] [address] 65386 Nitrite Ql (U) POS NORMAL: NEGATIVE Normal 10-31-20 19 [facility] ( 27189) Comment: Performed By: #### [id number] ## ## [facility],[address] [place] [address] 64144 pH (Bld) 5 NORMAL: 5.0-8.0 Normal 10-31-2019 [facility] (79081) Comment: Performed By: #### [id number] ## ## [facility],[address] [place] [address] 03518 Protein (U) 100 NORMAL: NEGATIVE mg/dL Abnormal 10-31-2019 [facility] [Mass/Vol] [facility] (52666) Comment: Performed By: #### [id number] ## ## [facility],[address] [place] [address] 91806 Rbc TNTC 0-3/hpf Normal 10-31-2019 [facility] (05566) Comment: Performed By: #### [id number] ## ## [facility],[address] [place] [address] 53323 Sp Fortuna 1.025 NORMAL: 1.010-1.030 Normal 9 [facility] ( 93565) Comment: Performed By: #### [id number] ## ## [facility],[address] [place] [address] 03154 Specimen type Nom (Spec) Void Normal 10-31 [facility] (54349) Comment: Performed By: #### [id number] ## ## [facility],[address] [place] [address] 55986 Urobilinog NORM NORMAL: NORMAL Normal 10-31-2019 [facility] (68120) Comment: Performed By: #### [id number] ## ## [facility],[address] [place] [address] 11880 Wbc 26-50 0-5/hpf Normal 10-31-2019 [facility] (53737) Comment: Performed By: #### [id number] ## ## [facility],[address] [place] [address] 68278 WBC (Bld) [#/Vol] 500 NORMAL: NEGATIVE Abnormal 10-31 [facility] ( 75782) Comment: Performed By: #### [id number] ## ## [facility],[address] [place] [address] 47812 Yeast LM Ql (Urine sed) NONE Normal 2018 [facility] (71185) Comment: Performed By: #### [id number] ## ## [facility],[address] [place], [place] [address] culture urine on 20 07-11-12 CULTURE CULTURE URINE Normal 10-31-2019 [facility] URINE _URINE CULTURE_ [facility] M I C R O B I O L O G Y R E P O R T FINAL [facility] ----- Antimicrobial Susceptibility and Organism Identification Report Hospital Specimen Number : [id number] Requested : 10/31/19 ([id number]) Specimen Source : URINE Collected : 10/31/19 12:05 [place] [facility] Isolation : Emergency Room Received : 10/31/19 12:05 Requesting Physician : FILIPE MULLER Patient/Specimen Tests and Comments Specimen Comments --------- FINAL REPORT: URINE COLONY COUNT: 5000 CFU/CC GRAM NEGATIVE RODS Organisms Identified --- ----- * 01 Pseudomonas aeruginosa 11/03/19 Comments --------- 5,000 cfu Tech : Source : URINE ID # : [id number] FINAL Report Date : / / : [...] Ticar/K Clav'ate for gram positives based on furniture builder's breakpoints. Tech : Source : URINE ID # : [id number] FINAL Report Date : / / : Collected : 10/31/19 12:05 11/03/19.1005.FELICIA. 11/02/19.1035.PETERO. 11/01/19.0844.PETERO. SEND TO PHARMACY? YES 11/03/19.1005.FELICIA.COMPLETE YES Comment: Performed By: #### [id number] ## ## Antony Franklin [facility],[address] [place] [address] mr mri brain w/o contrast on 2019-10-30 MR MRI BRAIN W/O [facility] Normal 10-30 [facility] [address] [place], [place] [address] (44308) Patient: SEBASTIAN BURGOS Phone#: : 1940 Age: 79 Gender: F Pt. Type: Out Account: [id number] Location: [facility] Ordering: GERBER NICHOLAS Exam Date: 10/30/2019/10:21 Family Phys: Charge Code: [id number] Physician: [place] Order #: [id number] DLP Dose#: PROCEDURE: MRI BRAIN WITHOUT CONTRAST COMPARISON: [facility], MR, BRAIN WITHOUT CONTR AST, 08/01/2012, [...] the left at least ten foci. A product support sales representative lesion measures 0.3 cm. No associated [...] 79 Gender: F Pt. Type: Out Account: [id number] Location: [facility] Ordering: GERBER NICHOLAS Exam Date: 10/30/2019/10:21 Family Phys: Charge Code: [id number] Physician: [place] Order #: [id number] DLP Dose#: Approved by: Vanessa Walker MD on 10/30/2019 at 16:36 culture urine on 07-11-04 CULTURE CULTURE URINE Normal 10-23-2019 Antony URINE _URINE CULTURE_ Conchita Mock I C R O B I O L O G Y R E P O R T FINAL [facility] ----- Antimicrobial Susceptibility and Organism Identification Report Hospital Specimen Number : [id number] Requested : 10/23/19 ([id number]) Specimen Source : URINE Collected : 10/23/19 12:30 [place] of Isolation : OUTPATIENT Received : 10/23/19 12:30 Requesting Physician : DELMER Patient/Specimen Tests and Comments Specimen Comments --------- FINAL REPORT: URINE COLONY COUNT: [id number] CFU/CC GRAM NEGATIVE RODS CONTAMINATED WITH: GRAM POSITIVE TERESA Organisms Identified --- ----- * 01 Pseudomonas aeruginosa 10/26/19 Comments --------- 10-50,000 CFU Tech : Source : URINE ID # : [id number] FINAL Report Date : / / : [...] Ticar/K Clav'ate for gram positives based on furniture builder's breakpoints. Tech : Source : URINE ID # : [id number] FINAL Report Date : / / : Collected : 10/23/19 12:30 10/26/19.0825.BKO. 10/25/19.1240.KLS. SEND TO PHARMACY? NO 10/26/19.BKO.COMPLETE NO Comment: Performed By: #### [id number] ## ## Antony [facility],[address] [place] [address] Encounters Date Type Reason Provider Location 05-02-2020 - [facility] 05-02-[address] [facility] [facility] GERBER VENTURA (76562) [facility] GERBER NICHOLAS UNKNOWN PROVIDER UNKNOWN PROVIDER 04-06-2020 - Emergency BRIAN montes 04-06-2020 department patient BROCK MAYES MD [facility] l [facility] BROCK MAYES MD (18128) DELMER UNKNOWN PROVIDER UNKNOWN PROVIDER 10-31-2019 - Emergency BRIAN montes 10-31-2019 department patient BROCK GUTIÉRREZ Memor ial visit GERBER VENTURA [facility] DELMER MAYES (48235) MD NICHOLAS UNKNOWN PROVIDER UNKNOWN PROVIDER 10-30-2019 - [facility] Antony Franklin 10-30-[address] 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 [place] carcamo:[facility] inpatient 08-14-2020 - Patient encounter ZACHARIAH Franklin 08-14-2020 procedure C TIFFANIE AMYES MD [facility] GUILLE UNKNOWN (51614) PROVIDER UNKNOWN PROVIDER 03-18-2020 - Patient encounter Other general symptoms GERBER Franklin 03-18-2020 procedure and signs DELMER Aviles [facility] GERBER VENTURA (45462) DELMER NICHOLAS UNKNOWN PROVIDER UNKNOWN PROVIDER 02-22-2020 - Patient encounter Urinary tract GERBER Arango jyoti 02-22-2020 procedure infection, site not DELMER MAYES Memo rial leia VENTURA [facility] GERBER VENTURA (41976) DELMER NICHOLAS UNKNOWN PROVIDER UNKNOWN PROVIDER 02-22-2020 - Patient encounter Type 2 diabetes GERBER armstrong 02-22-2020 procedure mellitus without DELMER MAYES Memoria l val [facility]UR[facility] GERBER VENTURA (63376) DELMER NICHOLAS UNKNOWN PROVIDER UNKNOWN PROVIDER 01-22-2020 - Patient encounter Neuromuscular J KAY OSCAR J Antony Franklin 01-22-2020 procedure dysfunction of [facility] bladder, unspecified [facility] GERBER VENTURA (62634) DELMER UNKNOWN PROVIDER UNKNOWN PROVIDER 01-13-2020 Patient encounter GERBER saleh procedure DELMER Aviles MD [facility] GERBER VENTURA (67815) DELMER NICHOLAS UNKNOWN PROVIDER UNKNOWN PROVIDER 10-30-2019 - Patient encounter Disorientation, GERBER armstrong 10-30-2019 procedure unspecified DELMER Aviles MD [facility] GERBER VENTURA (13893) DELMER NICHOLAS UNKNOWN PROVIDER UNKNOWN PROVIDER 10-23-2019 - Patient encounter GERBER saleh 10-23-2019 procedure DELMER Aviles MD [facility] GERBER VENTURA (94905) DELMER NICHOLAS UNKNOWN PROVIDER UNKNOWN PROVIDER Procedures Procedure Name Date Provider Location Urinalysis 04-06-2020 [facility] (73663) Comment: Result Comment: URINALYSIS Performed By: #### [id number] ## ##[facility],[address] [place] [id number] Urinalysis 10-31-2019 [facility] ([id number]) Comment: Result Comment: URINALYSIS Performed By: #### [id number] ## ## [facility],[address] [place] [id number] Payers Payer Name Policy Number Location [employer] [id number] [facility] ([id number]) MEDICARE OUTPATIENT [id number] [facility] [place] [phone]) [phone] [facility] [place] [phone]) [phone] [facility] [place] [phone]) [phone] [facility] [place] [phone]) [phone] [facility] [place] [phone]) [phone] [facility] [place] [phone]) [phone] [facility] [place] [phone]) [phone] [facility] [place] [phone]) [phone] [facility] [place] [phone]) [phone] [facility] [place] [phone]) [phone] [facility] [place] [phone]) [phone] [facility] [place] [phone]) [phone] [facility] [place] [phone]) [phone] [facility] [place] [phone]) [phone] [facility] [place] ([phone]) The following information is from the original [...] BE BASED ON THE PRIMARY CLINICAL RECORDS. [facility] provides no warranty or guarantee of the accuracy or completeness of information in this document. UNRECOGNIZED CONTENT PROVIDED BELOW FOR UNRECOGNIZED SECTION INFORMATION SOURCE DATE CREATED AUTHOR AUTHOR'S ORGANIZATIO N 02/28/2019 [facility] [place] DATE CREATED AUTHOR AUTHOR'S ORGANIZATIO N 02/24/2020 [facility] DATE CREATED AUTHOR AUTHOR'S ORGANIZATIO N 08/15/2020 [facility] [place]
--- OUTSIDE RECORDS SUMMARY | 2020-09-01 13:05 | XMS RPT_ITS | CCD ---
:1940 External Reference #:[id number] Demographics Preferred Language Unknown Marital Status Unknown Tenriism Affiliation Unknown Race Unknown Ethnic Group Unknown Author Organization [facility] Care Team Providers Name Role Phone [place] [...] Onset Location Ciprofloxacin Moderate Antony Pomerene (Severity [facility] Modifier) Repository (Qualifier Value) CONTRAST MEDIA, Moderate Antony Pomeren e GADOLINIUM RELATED (Severity [facility] Hospital Modifier) Repository (Qualifier Value) FLUOROQUINOLONE Moderate Antony Pomeren e (Severity [facility] Hospit [facility] Modifier) Repository (Qualifier Value) Lisinopril Moderate Antony Pomerene (Severity [facility] Modifier) Repository (Qualifier Value) Metoprolol Moderate Antony Pomerene (Severity [facility] Modifier) Repository (Qualifier Value) Problems Active Problems Category Problem Name Status Date Location Diabetes mellitus Type 2 diabetes mellitus Active 02-22-2020 - Antony Pomerene without complication without complications [facility] (32716) Diverticulosis and Diverticulosis of Active 01-22-2020 - Antony Pomerene diverticulitis intestine, part [facility] ospital unspecified, without (00631) perforation or abscess without bleeding 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, [facility] unspecified (83446) Unclassified LEFT HYDRONEPHROSIS Active 03-07-2019 - [facility] (47960) Past or Other Problems Category Problem Name Status Date Location Abdominal hernia Diaphragmatic hernia Completed 01-22-2020 - Keenan l Pomerene without obstruction or [facility] (42208 ) Allergic reactions Allergy status to Completed 10-30-2019 - Antony Pomerene other antibiotic [facility] agents [facility] (0000 0) Other diseases of kidney Hydronephrosis with Completed 0 - Antony Pomerene and ureters renal and ureteral [facility] calculous obstruction Hospit al (63293) Other gastrointestinal Constipation, Completed 01-22-2020 - Antony Pomerene disorders unspecified [facility] (06876 ) Residual codes; Other general symptoms Completed 03-18-2020 - Malorie el Pomerene unclassified and signs [facility] (79605 ) Residual codes; Disorientation, Completed 10-30-2019 - Antony Pome jyoti unclassified unspecified [facility] (49547 ) Urinary tract infections Urinary tract Completed 02-22-2020 - Malorie el Pomerene infection, site not [facility] (85440 ) Results Result Name Value Range Unit Interpretation Flag Date Location ct sinuses w/o contrast on 2020-08-14 CT SINUSES W/O [facility] Normal 020 [facility] CONTRAST [facility] [address] [place] [address] (70644) Patient: SEBASTIAN BURGOS Phone#: : 1940 Age: 80 Gender: F Pt. Type: Out Account: [id number] Location: [facility] Ordering: ZACHARIAH BRAUN Exam Date: 08/14/2020/11:18 Family Phys: ALEJANDRO REALOK Charge Code: 019737 Physician: Obion Order #: [id number] DLP Dose#: 22.90 PROCEDURE: CT SINUSES WITHOUT [...] sinus mucosal disease. 2. Nasal septal spurs [place] [address] Patient: SEBASTIAN BURGOS. Phone#: : 1940 Age: 80 Gender: F Pt. Type: Out Account: [id number] Location: 052 Ordering: ZACHARIAH BRAUN Exam Date: 08/14/2020/11:18 Family Phys: ALEJANDRO MCCOY Charge Code: 442251 Physician: Obion Order #: [id number] DLP Dose#: 22.90 Dictated by: Vanessa Walker MD on 08/14/2020 at 13:38 Approved by: Vanessa Walker MD on 08/14/2020 at 13:38 emergency report on 2020-05-06 EMERGENCY REPORT [facility] Normal 05-06 [facility] EMERGENCY ROOM REPORT (97601) NAME ACCOUNT SEX AGE ADMIT DISCHARGE PT MED. RECORD# NUMBER DATE DATE TYPE LORETTA [id number] F 79 05/02/20 05/02/20 Drew Feldman [address] ROOM: ER DATE OF : 1940 DICTATING [...] Kitty Casper DO 05/02/20 12:15 JOB #: [id number] Transcribed By: sasha 05/03/20 09:34 Electronically signed by: E-Sign: KITTY CASPER MD 05/06/20 11:46 Page 2 of 2 SEBASTIAN BURGOS Emergency Room Report emergency report on 2020-04-09 EMERGENCY REPORT [facility] Normal 04-09 [facility] EMERGENCY ROOM REPORT (49335) NAME ACCOUNT SEX AGE ADMIT DISCHARGE PT MED. RECORD# NUMBER DATE DATE TYPE LORETTA [id number] F [id number] 04/06/20 3 SEBASTIAN Gaston [address]227 ROOM: ER DATE OF : 1940 DICTATING [...] HISTORY: She lives at home alone. She abires s not smoke or drink alcohol. REVIEW [...] the patient as a direct admit to [facility] where he will see her there. Dictated By: Brian Gutiérrez MD 04/06/20 19:00 JOB #: [id number] Transcribed By: am 04/06/20 19:09 Electronically signed by: DUNIA Gutiérrez M.D. 04/09/20 07:29 Page 2 of 2 SEBASTIAN BURGOS Emergency Room Report urinalysis on 04-06 Amorphous NONE Normal 04-06-2020 [facility] (08958) Comment: Performed By: #### [id number] ## ##[facility],[address] [place] [address] 40142 Bacteria LM.HPF (Urine sed) 1+ Normal [facility] [#/Area] [facility] ( 37015) Comment: Performed By: #### [id number] ## ##[facility],[address] [place] [address] 17045 Bilirubin [Mass/Vol] NEG NORMAL: NEGATIVE mg/dL Normal [facility] (18356) Comment: Performed By: #### [id number] ## ##[facility],[address] [place] [address] 58832 Blood 25 NORMAL: NEGATIVE Abnormal 04-06-2020 [facility] (20096) Comment: Performed By: #### [id number] ## ##[facility],[address] [place] [address] 26864 Casts LM.LPF (Urine sed) NONE Normal 04-06 [facility] [#/Area] [facility] ( 32781) Comment: Performed By: #### [id number] ## ##[facility],[address] [place] [address] 24379 Clarity (U) sl.cloudy NORMAL: CLEAR Normal 04-06-2020 [facility] ( 56618) Comment: Performed By: #### [id number] ## ##[facility],[address] [place] [address] 06914 Color (U) p.yel NORMAL: YELLOW Normal 04-06-2020 [facility] (54964) Comment: Performed By: #### [id number] ## ##[facility],[address] [place] [address] 07133 Crystals LM Nom (Urine sed) NONE Normal [facility] ( 34310) Comment: Performed By: #### [id number] ## ##[facility],[address] [place] [address] 42639 Epi Cells MANY Normal 04-06-2020 [facility] (77542) Comment: Performed By: #### [id number] ## ##[facility],[address] [place] [address] 15366 Glucose [Mass/Vol] NORM NORMAL: NORMAL Normal 2019 [facility] ( 65285) Comment: Performed By: #### [id number] ## ##[facility],[address] [place] [address] 43697 Ketone NEG NORMAL: NEGATIVE Normal 04-06-2020 [facility] (02470) Comment: Performed By: #### [id number] ## ##[facility],[address] [place] [address] 24230 Microscopic SEE BELOW Normal 04-06-2020 [facility] (99675) Comment: Result Comment: MICROSCOPIC Performed By: #### [id number] ## ##[facility],[address] [place] [address] 95975 Mucous TRACE Normal 04-06-2020 [facility] (29580) Comment: Performed By: #### [id number] ## ##[facility],[address] [place] [address] 49241 Nitrite Ql (U) NEG NORMAL: NEGATIVE Normal 04-06-20 [facility] ( 93391) Comment: Performed By: #### [id number] ## ##[facility],[address] [place] [address] 29413 pH (Bld) 6 NORMAL: 5.0-8.0 Normal 04-06-2020 [facility] (36026) Comment: Performed By: #### [id number] ## ##[address] [address] Protein (U) 15 NORMAL: NEGATIVE mg/dL Abnormal 04-06-2020 [facility] [Mass/Vol] [facility] (77772) Comment: Performed By: #### 003105 ## ##[address] [address] Rbc 0-5 0-3/hpf Normal 04-06-2020 [facility] (71049) Comment: Performed By: #### [id number] ## ##[place] [address] [address] [facility] 1.015 NORMAL: 1.010-1.030 Normal 0 [facility] ( 83685) Comment: Performed By: #### [id number] ## ##[place] [address] Specimen type Nom (Spec) UNSPECIFIED Normal [facility] ( 39824) Comment: Performed By: #### [id number] ## ##[place] [id number] Urobilinog NORM NORMAL: NORMAL Normal 04-06-2020 [facility] (23508) Comment: Performed By: #### [id number] ## ##[place] [id number] Wbc >50 0-5/hpf Normal 04-06-2020 [facility] (16793) Comment: Performed By: #### [id number] ## ##[address] [address] WBC (Bld) [#/Vol] 500 NORMAL: NEGATIVE Abnormal 04-06 [facility] ( 59772) Comment: Performed By: #### [id number] ## ##[address] [address] Yeast LM Ql (Urine sed) NONE Normal 2019 [facility] (57951) Comment: Performed By: #### [id number] ## ##[facility],[address] [place] [address] kub (kidney stone protocol) on 2020-04-06 CT KUB (KIDNEY [facility] Normal 04-06-2 020 [facility] STONE PROTOCOL) [address] [address] ([address]) Patient: SEBASTIAN BURGOS Phone#: : 1940 Age: 79 Gender: F Pt. Type: ER Account: [id number] Location: [facility] Ordering: BRIAN GUTIÉRREZ Exam Date: 04/06/2020/17:44 Family Phys: GERBER NICHOLAS Charge Code: 995836 Physician: Obion Order #: [id number] DLP Dose#: 13.60 PROCEDURE: CT ABDOMEN AND [...] 79 Gender: F Pt. Type: ER Account: [id number] Location: [facility] Ordering: BRIAN GUTIÉRREZ Exam Date: 04/06/2020/17:44 Family Phys: GERBER STRATTONFRANCINE Charge Code: 103714 Physician: Obion Order #: [id number] DLP Dose#: 13.60 ABDOMINAL WALL: Normal. No [...] Age - Reported 79 years Normal 04-06-2020 [facility] (33383) Comment: Performed By: #### [id number] ## ##[facility],[address] [place] [address] 60238 Albumin [Mass/Vol] 4.5 3.4 - 4.8 g/dL Normal 04-06-2020 [facility] ( 51022) Comment: Performed By: #### [id number] ## ##[facility],[address],[place] [address] Albumin/Globulin [Mass 1.7 0.9 - 1.6 {ratio} High 020 [facility] ratio] [facility] (95826) Comment: Performed By: #### [id number] ## ##[facility],[address] [place] [address] [place] [address] ALK PHOS 78 38 - 126 U/L Normal 04-06-2020 [facility] (87668) Comment: Performed By: #### [id number] ## ##[facility],[address] [place] [address] [place] [address] ALT/SGPT 12 8 - 35 U/L Normal 04-06-2020 [facility] (96398) Comment: Performed By: #### [id number] ## ##[facility],[address] [place] [address] [place] [address] Anion gap [Moles/Vol] 12 10 - 20 mmol/L Normal 04-06-20 20 [facility] ( 78120) Comment: Performed By: #### [id number] ## ##[facility],[address] [place] [address] [place] [address] AST/SGOT 18 13 - 39 U/L Normal 04-06-2020 [facility] (37065) Comment: Performed By: #### [id number] ## ##[facility],[address] [place] [address] [place] [address] B/C RATIO 19 0 - 30 ratio Normal 04-06-2020 [facility] (57213) Comment: Performed By: #### 615206 ## ##[facility],[address] [place] [address] [place] [address] Bilirubin [Mass/Vol] 0.4 0.0 - 1.5 mg/dl Normal 0 [facility] ( 61098) Comment: Performed By: #### [id number] ## ##[facility],[address] [place] [address] [place] [address] Calcium [Mass/Vol] 9.4 8.6 - 10.2 mg/dl Normal 04-06-2020 [facility] ( 59253) Comment: Performed By: #### 896297 ## ##[facility],[address] [place] [address] 22141 Chloride [Moles/Vol] 103 98 - 107 mmol/L Normal 0 [facility] ( 95450) Comment: Performed By: #### [id number] ## ##[facility],[address] [place] [address] 27679 CO2 [Moles/Vol] 29.4 21.0 - 31.0 mmol/L Normal 04-06-[address] [facility] ( 35728) Comment: Performed By: #### [id number] ## ##[facility],[address] [place] [address] 99158 Creatinine [Mass/Vol] 1.1 0.6 - 1.2 mg/dl Normal 04-06-20 20 [facility] ( 20505) Comment: Performed By: #### [id number] ## ##[facility],[address] [place] [address] 46966 GFR/1.73 sq M predicted 58 60 - 999 ML/MINUTE Low 2019 [facility] among non-blacks [facility]D Hospital (04896) (S/P/Bld) [Vol rate/Area] Comment: Result Comment: ACCORDING TO THE NATIONAL KIDNEY DISEASE EDUCATION PROGRAM(NKDE), A NORMAL eGFR IS A VALUE GREATER THAN OR E QUAL TO 60 ML/MIN/1.73 SQ METERS. CHRONIC KIDNEY DISEASE: <60m L/MIN/1.73 SQ METERS KIDNEY FAILURE: <15mL/MIN/1. 73 SQ METERS THIS TEST SHOULD ONLY BE USE D FOR PATIENTS 18 YEARS OF AGE AND OLDER. Performed By: #### [id number] ## ##[facility],[address] [place] [address] 29311 GFR/1.73 sq M predicted among Normal 04-06-2020 [facility] non-blacks MDRD (S/P/Bld) [Vol Hospital (81657) rate/Area] Comment: Result Comment: COMPREHENSIV E METABOLIC PANEL Performed By: #### [id number] ## ##[facility],[address] [place] [address] [place] [address] GFR/1.73 sq M predicted 48 60 - 999 ML/MINUTE Low 2019 [facility] among non-blacks [facility] (36386) (S/P/Bld) [Vol rate/Area] Comment: Performed By: #### [id number] ## ##[facility],[address] [place] [address] [place] [address] Globulin (S) [Mass/Vol] 2.7 1.5 - 3.8 G/DL Normal 2019 [facility] ( 43769) Comment: Performed By: #### 315191 ## ##[facility],[address] [place] [address] [place] [address] Glucose [Mass/Vol] 133 74 - 106 mg/dl High 04-06-2020 [facility] (18516) Comment: Performed By: #### 975486 ## ##[facility],[address] [place] [address] [place] [address] Potassium [Moles/Vol] 4.2 3.5 - 5.1 mmol/L Normal 04-06-20 20 [facility] ( 42548) Comment: Performed By: #### 413851 ## ##[facility],[address] [place] [address] [place] [address] Protein [Mass/Vol] 7.2 6.4 - 8.3 g/dl Normal 04-06-2020 [facility] ( 42222) Comment: Performed By: #### [id number] ## ##[facility],[address] [place] [address] [place] [address] Sodium [Moles/Vol] 140 136 - 145 mmol/l Normal 04-06-2020 [facility] ( 19047) Comment: Performed By: #### 814911 ## ##[facility],[address] [place] [address] [place] [address] Urea nitrogen [Mass/Vol] 21 6 - 20 mg/dl High 04-06 [facility] ( 57494) Comment: Performed By: #### [id number] ## ##[facility],[address] [place] [address] 09103 cbc + diff on 04-06 Basophils (Bld) 0.10 0.00 - 0.10 x10EE3/UL Normal 04-06-2020 [facility] [#/Vol] [facility] (57006) Comment: Performed By: #### [id number] ## ##[facility],[address] [place] [address] 86429 Basophils/100 WBC (Bld) 0.5 0.0 - 2.0 % Normal 2019 [facility] ( 09482) Comment: Performed By: #### 660691 ## ##[address] [address] CBC + DIFF Normal 04-06-2020 [facility] (43606) Comment: Result Comment: CBC-COMPLETE BLOOD COUNT Performed By: #### [id number] ## ##[address] [address] Eosinophils (Bld) 0.00 0.00 - 0.50 x10EE3/UL Normal 04-06-2020 [facility] [#/Vol] [facility] (76775) Comment: Performed By: #### [id number] ## ##[address] [address] Eosinophils/100 WBC (Bld) 0.3 0.0 - 7.0 % Normal 03-20 [facility] ( 93905) Comment: Performed By: #### 568592 ## ##[address] [address] Erythrocyte distribution 14.5 12.0 - 15.6 % Normal [facility] (RBC) [Ratio] [facility] (19945) Comment: Performed By: #### [id number] ## ##[facility] [address] [address] Hematocrit (Bld) [Volume 40.8 34.0 - 46.0 % Normal [facility] ( 48110) Comment: Performed By: #### 198229 ## ##[address] [address] Hemoglobin (Bld) 13.7 12.0 - 16.0 g/dl Normal 04-06-2020 [facility] [Mass/Vol] [facility] (93396) Comment: Performed By: #### 577154 ## ##[address] [address] Lymphocytes (Bld) 2.00 0.80 - 2.80 x10EE3/UL Normal 04-06-2020 [facility] [#/Vol] [facility]ital (09035) Comment: Performed By: #### [id number] ## ##[address] [address] Lymphocytes/100 WBC (Bld) 13.3 20.0 - 45.0 % Low [facility] ( 87439) Comment: Performed By: #### [id number] ## ##[address] [address] MANUAL DIFF N/A Normal 04-06-2020 [facility] (88303) Comment: Performed By: #### 126932 ## ##[address] [address] MCH (RBC) [Entitic mass] 28 27 - 33 pg Normal 04-06 [facility] ( 89225) Comment: Performed By: #### [id number] ## ##[address] [address] MCHC (RBC) [Mass/Vol] 34 32 - 36 X10 3 Normal 04-06-20 20 [facility] ( 62555) Comment: Performed By: #### [id number] ## ##[address] [place] [address] MCV (RBC) [Entitic vol] 85 80 - 99 fl Normal 2019 [facility] ( 79164) Comment: Performed By: #### 798116 ## ##[address] [address] Monocytes (Bld) 0.90 0.20 - 1.00 x10EE3/UL Normal 04-06-2020 [facility] [#/Vol] [facility] (61303) Comment: Performed By: #### 765358 ## ##[address] [address] MONOS % 5.7 0.0 - 10.0 % Normal 04-06-2020 [facility] (78166) Comment: Performed By: #### [id number] ## ##[address] [address] Morphology Victorino (Bld) [Interp] N/A Normal 04-06-2020 [facility] ( 34954) Comment: Performed By: #### 947249 ## ##[address] [address] Neutrophils (Bld) 12.20 1.50 - 7.10 x10EE3/UL High 04-06-2020 [facility] [#/Vol] [facility] (68582) Comment: Performed By: #### 308491 ## ##[address] [address] Neutrophils/100 WBC (Bld) 80.2 46.0 - 76.0 % High [facility] ( 43724) Comment: Performed By: #### 897200 ## ##[address] [address] Platelet mean volume 7.8 6.6 - 10.5 fl Normal 04-06-20 20 [facility] (Bld) [Entitic vol] Hospital (26822) Comment: Result Comment: AUTOMATED DI FFERENTIAL Performed By: #### 146582 ## ##[facility],[address] [place] [address] 12292 Platelets (Bld) 390 150 - 450 x10EE3/UL Normal 04-06-2020 [facility] [#/Vol] [facility] (83062) Comment: Performed By: #### [id number] ## ##[address] [address] RBC (Bld) [#/Vol] 4.80 4.10 - 5.30 x 10EE6/UL Normal 0 [facility] (05364) Comment: Performed By: #### [id number] ## ##[facility],[address] [place] [address] 86017 WBC (Bld) [#/Vol] 15.2 4.5 - 10.8 x 10EE3/UL High 04-06-2020 [facility] ( 25692) Comment: Performed By: #### 924254 ## ##[address] [address] tsh on 2020-03-18 TSH Qn 2.64 0.34 - 5.60 uIU/ml Normal 03-18-2020 [facility] (89939) Comment: Performed By: #### [id number] ## ##[address] [address] cmp with egfr on 09-03-29 Age - Reported 79 years Normal 03-18-2020 [facility] (72446) Comment: Performed By: #### 071944 ## ##[address] [address] Albumin [Mass/Vol] 4.4 3.4 - 4.8 g/dL Normal 03-18-2020 [facility] ( 69790) Comment: Performed By: #### 012666 ## ##[address] [address] Albumin/Globulin [Mass 1.4 0.9 - 1.6 {ratio} Normal 020 [facility] (56455) Comment: Performed By: #### [id number] ## ##[facility],[address] [place] [address]0330 ALK PHOS 80 38 - 126 U/L Normal 03-18-2020 [facility] (85803) Comment: Performed By: #### 720443 ## ##[facility],[address] [place] [address] 81297 ALT/SGPT 15 8 - 35 U/L Normal 03-18-2020 [facility] (76122) Comment: Performed By: #### [id number] ## ##[facility],[address] [place] [address] 76354 Anion gap [Moles/Vol] 12 10 - 20 mmol/L Normal 03-18-20 20 [facility] ( 81233) Comment: Performed By: #### 120585 ## ##[facility],[address] [place] [address] 05198 AST/SGOT 18 13 - 39 U/L Normal 03-18-2020 [facility] (74754) Comment: Performed By: #### 538102 ## ##[facility],[address] [place] [address] 46875 B/C RATIO 20 0 - 30 ratio Normal 03-18-2020 [facility] (85011) Comment: Performed By: #### 812509 ## ##[facility],[address] [place] [address] 67476 Bilirubin [Mass/Vol] 0.4 0.0 - 1.5 mg/dl Normal 0 [facility] ( 34135) Comment: Performed By: #### 343295 ## ##[facility],[address] [place] [address] 60895 Calcium [Mass/Vol] 9.4 8.6 - 10.2 mg/dl Normal 03-18-2020 [facility] ( 01291) Comment: Performed By: #### 947169 ## ##[facility],[address] [place] [address] 48859 Chloride [Moles/Vol] 102 98 - 107 mmol/L Normal 0 [facility] ( 98868) Comment: Performed By: #### 063757 ## ##[facility],[address] [place] [address] 11248 CO2 [Moles/Vol] 31.0 21.0 - 31.0 mmol/L Normal 03-18-[address] [facility] ( 80114) Comment: Performed By: #### [id number] ## ##[facility],[address] [place] [address] 64139 Creatinine [Mass/Vol] 0.9 0.6 - 1.2 mg/dl Normal 03-18-20 20 [facility] ( 52240) Comment: Performed By: #### [id number] ## ##[facility],[address] [place] [address] 22894 GFR/1.73 sq M >60 60 - 999 mL/min/{1.73_m2} Normal 0 [facility] predicted among [facility] non-blacks MDRD (000 00) (S/P/Bld) [Vol rate/Area] Comment: Performed By: #### 129013 ## ##[address] [address] Result Comment: ACCORDING TO THE NATIONAL KIDNEY DISEASE EDUCATION PROGRAM(NKDE), A NORMAL eGFR IS A VALUE GREATER THAN OR E QUAL TO 60 ML/MIN/1.73 SQ METERS. CHRONIC KIDNEY DISEASE: <60m L/MIN/1.73 SQ METERS KIDNEY FAILURE: <15mL/MIN/1. 73 SQ METERS THIS TEST SHOULD ONLY BE USE D FOR PATIENTS 18 YEARS OF AGE AND OLDER. GFR/1.73 sq M predicted among Normal 03-18-2020 [facility] non-blacks MDRD (S/P/Bld) [Vol Hospital (74819) rate/Area] Comment: Result Comment: COMPREHENSIV E METABOLIC PANEL Performed By: #### [id number] ## ##[facility],[address] [place] [address] 82005 Globulin (S) [Mass/Vol] 3.2 1.5 - 3.8 G/DL Normal 2019 [facility] ( 70890) Comment: Performed By: #### [id number] ## ##[facility],[address] [place] [address] 26336 Glucose [Mass/Vol] 94 74 - 106 mg/dl Normal 03-18-2020 [facility] ( 54726) Comment: Performed By: #### 384178 ## ##[facility],[address] [place] [address] 08735 Potassium [Moles/Vol] 3.9 3.5 - 5.1 mmol/L Normal 03-18-20 20 [facility] ( 75426) Comment: Performed By: #### 595294 ## ##[facility],[address] [place] [address] 85467 Protein [Mass/Vol] 7.6 6.4 - 8.3 g/dl Normal 03-18-2020 [facility] ( 02142) Comment: Performed By: #### 199801 ## ##[facility],[address] [place] [address] 47376 Sodium [Moles/Vol] 141 136 - 145 mmol/l Normal 03-18-2020 [facility] ( 76833) Comment: Performed By: #### 759297 ## ##[facility],[address] [place] [address] 09347 Urea nitrogen [Mass/Vol] 18 6 - 20 mg/dl Normal 03-18 [facility] ( 07469) Comment: Performed By: #### [id number] ## ##[facility],[address] [place] [address] 61593 cbc + diff on 03-18 Basophils (Bld) 0.10 0.00 - 0.10 x10EE3/UL Normal 03-18-2020 [facility] [#/Vol] [facility] (05728) Comment: Performed By: #### [id number] ## ##[address] [address] Basophils/100 WBC (Bld) 0.6 0.0 - 2.0 % Normal 2019 [facility] ( 21396) Comment: Performed By: #### [id number] ## ##[address] [address] CBC + DIFF Normal 03-18-2020 [facility] (32283) Comment: Result Comment: CBC-COMPLETE BLOOD COUNT Performed By: #### [id number] ## ##[address] [address] Eosinophils (Bld) 0.10 0.00 - 0.50 x10EE3/UL Normal 03-18-2020 [facility] [#/Vol] [facility] (33759) Comment: Performed By: #### [id number] ## ##[address] [address] Eosinophils/100 WBC (Bld) 1.4 0.0 - 7.0 % Normal 02-19 [facility] ( 11784) Comment: Performed By: #### [id number] ## ##[address] [address] Erythrocyte distribution 14.0 12.0 - 15.6 % Normal [facility] width (RBC) [Ratio] [facility] (76108) Comment: Performed By: #### [id number] ## ##[address] [address] Hematocrit (Bld) [Volume 40.8 34.0 - 46.0 % Normal [facility]] [facility] ( 44759) Comment: Performed By: #### [id number] ## ##[address] [address] Hemoglobin (Bld) 13.4 12.0 - 16.0 g/dl Normal 03-18-2020 [facility] [Mass/Vol] [facility] (03262) Comment: Performed By: #### [id number] ## ##[facility],[address] [place] [address] Lymphocytes (Bld) 3.10 0.80 - 2.80 x10EE3/UL High 03-18-2020 [facility] [#/Vol] [facility] [place] [facility] (30914) Comment: Performed By: #### [id number] ## ##[facility],[address] [place] [address]64 Lymphocytes/100 WBC (Bld) 33.4 20.0 - 45.0 % Normal [facility] ( 42836) Comment: Performed By: #### [id number] ## ##[address] [address] MANUAL DIFF N/A Normal 03-18-2020 [facility] (20272) Comment: Performed By: #### [id number] ## ##[address] [address] MCH (RBC) [Entitic mass] 28 27 - 33 pg Normal 03-18 [facility] ( 28717) Comment: Performed By: #### [id number] ## ##[address] [address] MCHC (RBC) [Mass/Vol] 33 32 - 36 X10 3 Normal 03-18-20 20 [facility] ( 83581) Comment: Performed By: #### [id number] ## ##[address] [address] MCV (RBC) [Entitic vol] 84 80 - 99 fl Normal 2019 [facility] ( 78791) Comment: Performed By: #### [id number] ## ##[address] [address] Monocytes (Bld) 0.60 0.20 - 1.00 x10EE3/UL Normal 03-18-2020 [facility] [#/Vol] [facility] (70435) Comment: Performed By: #### [id number] ## ##[facility],[address] [place] [address]684 MONOS % 6.1 0.0 - 10.0 % Normal 03-18-2020 [facility] (96491) Comment: Performed By: #### [id number] ## ##[facility],[address] [place] [address]261 Morphology Victorino (Bld) [Interp] N/A Normal 03-18-2020 [facility] ( 65755) Comment: Performed By: #### [id number] ## ##[address] [address] Neutrophils (Bld) 5.40 1.50 - 7.10 x10EE3/UL Normal 03-18-2020 [facility] [#/Vol] [facility] (46208) Comment: Performed By: #### [id number] ## ##[address] [address] Neutrophils/100 WBC (Bld) 58.5 46.0 - 76.0 % Normal [facility] ( 66326) Comment: Performed By: #### [id number] ## ##[address] [address] Platelet mean volume 7.7 6.6 - 10.5 fl Normal 03-18-20 20 [facility] (Bld) [Entitic vol] Hospital (98528) Comment: Result Comment: AUTOMATED DI FFERENTIAL Performed By: #### [id number] ## ##[address] [address] Platelets (Bld) [#/Vol] 471 150 - 450 x10EE3/UL High 2019 [facility] ( 48247) Comment: Performed By: #### [id number] ## ##[facility],[address] [place] [address] RBC (Bld) [#/Vol] 4.84 4.10 - 5.30 x 10EE6/UL Normal 0 [facility] (11077) Comment: Performed By: #### [id number] ## ##[address] [address] WBC (Bld) [#/Vol] 9.2 4.5 - 10.8 x 10EE3/UL Normal 03-18-2020 [facility] ( 15987) Comment: Performed By: #### [id number] ## ##[address] [address] parasite id on 2019 Parasite ID Specimen Desc: Normal 02-24-[address] [facility] (56380) Sp. Request/Comment: SPSTER Culture Result Adult Female Ixodes spp. (Wilmot Tick)(*) Mouth parts not in tact Not Engorged Report Status 02/24/2020 FINAL Parasite ID Specimen Desc: Normal 02-24-[address] [facility] (55522) Sp. Request/Comment: SPSTER Culture Result Adult Female Ixodes spp. (Wilmot Tick)(*) Mouth parts intact N ot Engorged Report Status 02/24/2020 FINAL hgb a1c [ccl] on 09-03-05 HbA1c (Bld) [Mass fraction] 143 mg/dL Normal [facility] ( 29209) Comment: Result Comment: eAG: (Estima zoey average glucose) is a calculated value from HgbA1c and is loss control representative of the averag e blood glucose level in the last 2-3 month period. [facility] [address] [place] [address] Alexx Han III, M.D. [id number] Performed By: #### [id number] ## ## [facility],[address] [place] [address] HbA1c (Bld) [Mass fraction] 6.6 4.3-5.6 % High [facility] ( 78343) Comment: Result Comment: [place] Raquel betes Association guidelines indicate that patients with HgbA1c in the range 5.7-6.4% are at in creased risk for development of diabetes, and intervention by lifestyle mo dification may be beneficial. HgbA1c greater or equal to 6.5% is considered diagnostic of diabetes. Performed By: #### [id number] ## ## [facility],[address] [place] [address] hemoglobin a1c on HbA1c (Bld) [Mass fraction] 143 mg/dL Normal [facility] (12261 ) Comment: Performed By: #### HBA1C ### # [facility] Routine Lab [address] [place], [place] [address] HbA1c (Bld) [Mass fraction] 6.6 4.3-5.6 % High [facility] (38948 ) Comment: Performed By: #### HBA1C ### # [facility] Routine Lab [address] [place], [place] [address] lipid profile on 09-03-03 Cholesterol [Mass/Vol] 295 0 - 200 mg/dl High 020 [facility] ( 19697) Comment: Performed By: #### [id number] ## ## [facility],[address] [place] [address] Cholesterol in HDL 72 40 - 60 mg/dl High 02-21-2020 [facility] [Mass/Vol] [facility] (18497) Comment: Performed By: #### [id number] ## ## [facility],[address] [place] [address]642 Cholesterol in LDL 196 0 - 129 mg/dl High 02-21-2020 [facility] [Mass/Vol] [facility] (41352) Comment: Performed By: #### [id number] ## ## [facility],[address] [place] [address]855 Cholesterol.total/Cholesterol in HDL 4.1 0.0 - 5.0 Nor mal 02-21-2020 [facility] [Mass ratio] [facility] (52325) Comment: Performed By: #### [id number] ## ## [facility],[address] [facility] [address] Lipid 1996 panel Normal 02-21-2020 [facility] (69688) Comment: Result Comment: LIPID PROFIL E Performed By: #### [id number] ## ## [facility] [facility] [address] Triglyceride [Mass/Vol] 135 0 - 150 mg/dl Normal 2019 [facility] ( 89129) Comment: Performed By: #### [id number] ## ## [facility],[address] [facility] [address] culture urine on 09-03-03 CULTURE CULTURE URINE Normal 02-21-2020 [facility] URINE _URINE CULTURE_ Pome jyoti Mock I C R O B I O L O G Y R E P O R T FINAL [facility] ----- Antimicrobial Susceptibility and Organism Identification Report [facility] Specimen Number : [id number] Requested : 02/21/20 (84649) Specimen Source : URINE Collected : 02/21/20 11:25 [facility] : OUTPATIENT Received : 02/21/20 11:25 Requesting Physician : DELMER Patient/Specimen Tests and Comments Specimen Comments --------- FINAL REPORT: URINE COLONY COUNT: > THAN 100,000 CFU/CC GRAM NEGATIVE RODS [id number] CFU/CC GRAM POSITIVE TERESA PROBABLE CONTAMINATION Organisms Identified --- ----- * 01 Pseudomonas aeruginosa 02/24/20 Comments --------- >100,000 cfu Tech : Source : URINE ID # : [id number] FINAL Report Date : / / : [...] Ticar/K Clav'ate for gram positives based on failure analysis engineer's breakpoints. Tech : Source : URINE ID # : [id number] FINAL Report Date : / / : Collected : 02/21/20 11:25 02/24/20.1414.KLS. 02/23/20.0713.AMIEN. 02/24/20.1414.KLGaston.COMPLETE Comment: Performed By: #### [id number] ## ## [facility],[address] [place] [address] ct abdomen/pelvis on 2020-01-22 CT ABDOMEN/PELVIS [facility] Normal 0 01-22-2020 [facility] [address] [place] [address] (06892) Patient: SEBASTIAN BURGOS Phone#: : 1940 Age: 79 Gender: F Pt. Type: Out Account: [id number] Location: 010 Ordering: Emily MOORE Exam Date: 01/22/2020/11:02 Family Phys: GERBER NICHOLAS Charge Code: 364245 Physician: Obion Order #: [id number] DLP Dose#: PROCEDURE: CT ABDOMEN/PELVIS WITHOUT CONTRAST COMPARISON: [facility] l, CT, DANI W/O CON, 01/25/2019, [...] 79 Gender: F Pt. Type: Out Account: [id number] Location: [facility] Ordering: Emily MOORE Exam Date: 01/22/2020/11:02 Family Phys: GERBER NICHOLAS Charge Code: 588862 Physician: Obion Order #: [id number] DLP Dose#: ADRENALS: Normal. No mass or [...] 13:15 emergency report on 2019-11-09 EMERGENCY REPORT [facility] Normal 11-09 [facility]ital EMERGENCY ROOM REPORT (76483) NAME ACCOUNT SEX AGE ADMIT DISCHARGE PT MED. RECORD# NUMBER DATE DATE TYPE LORETTA [id number] F 79 10/31/19 10/31/19 3 SEBASTIAN Feldman [address] ROOM: ER DATE OF : 1940 DICTATING [...] She uses a lot of herbal and qlqs-clm-yzzgxug vitamin products. ALLERGIES: She has multiple allergies [...] BURGOS : 1940 some oral antibiotics at [facility] until we can find what the culture [...] referral. I gave her Dr. Moore in [place] to follow up with in the meantime. DIAGNOSIS: Urinary tract infection. Dictated By: Brian Gutiérrez MD 10/31/19 13:36 JOB #: [id number] Transcribed By: amurice 11/01/19 15:09 Electronically signed by: DUNIA Gutiérrez M.D. 11/09/19 07:54 Page 2 of 2 SEBASTIAN BURGOS Emergency Room Report emergency report on 2019-11-04 EMERGENCY REPORT [facility] Normal 11-04 [facility] EMERGENCY ROOM REPORT (48030) NAME ACCOUNT SEX AGE ADMIT DISCHARGE PT MED. RECORD# NUMBER DATE DATE TYPE LORETTA [id number] F 79 10/30/19 10/30/19 3 SEBASTIAN Feldman [address] ROOM: ER DATE OF : 1940 DICTATING [...] Kitty Casper DO 10/30/19 12:30 JOB #: [id number] Transcribed By: maurice 10/31/19 13:03 Electronically signed by: E-Sign: KITTY CASPER MD 11/04/19 11:14 Page 2 of 2 SEBASTIAN BURGOS Emergency Room Report urinalysis on 10-31 Amorphous NONE Normal 10-31-2019 [facility] (90527) Comment: Performed By: #### [id number] ## ## [facility],[address] [place] [address] Bacteria LM.HPF (Urine sed) 2+ Normal [facility] [#/Area] [facility] ( 97164) Comment: Performed By: #### [id number] ## ## [facility],[address] [place] [address] 72846 Bilirubin [Mass/Vol] NEG NORMAL: NEGATIVE mg/dL Normal [facility]spital (15617) Comment: Performed By: #### [id number] ## ## [facility],[address] [place] [address] 11376 Blood 250 NORMAL: NEGATIVE Abnormal 10-31-2019 [facility] (85118) Comment: Performed By: #### [id number] ## ## [facility],[address] [place] [address] 39198 Casts LM.LPF (Urine sed) NONE Normal 10-31 [facility] ( 49328) Comment: Performed By: #### [id number] ## ## [facility],[address] [place] [address] 89287 Clarity (U) very cloudy NORMAL: CLEAR Normal 10-31-2019 [facility] ( 07306) Comment: Performed By: #### [id number] ## ## [facility],[address] [place] [address] 00237 Color (U) david NORMAL: YELLOW Normal 10-31-2019 [facility] (28283) Comment: Performed By: #### [id number] ## ## [facility],[address] [place] [address] 69406 Crystals LM Nom (Urine sed) NONE Normal [facility] ( 64259) Comment: Performed By: #### [id number] ## ## [facility],[address] [place] [address] 90706 Epi Cells NONE Normal 10-31-2019 [facility] (20939) Comment: Performed By: #### [id number] ## ## [facility],[address] [place] [address] 40747 Glucose [Mass/Vol] NORM NORMAL: NORMAL Normal 2018 [facility] ( 58279) Comment: Performed By: #### [id number] ## ## [facility],[address] [place] [address] 14658 Ketone 5 NORMAL: NEGATIVE Abnormal 10-31-2019 [facility] (71170) Comment: Performed By: #### [id number] ## ## [facility],[address] [place] [address] Microscopic SEE BELOW Normal 10-31-2019 [facility] (60223) Comment: Result Comment: MICROSCOPIC Performed By: #### [id number] ## ## [facility],[address] [place] [address] 85463 Mucous 1+ Normal 10-31-2019 [facility] (73501) Comment: Performed By: #### [id number] ## ## [facility],[address] [place] [address] 26803 Nitrite Ql (U) POS NORMAL: NEGATIVE Normal 10-31-20 19 [facility] ( 09657) Comment: Performed By: #### [id number] ## ## [facility],[address] [place] [address] 45129 pH (Bld) 5 NORMAL: 5.0-8.0 Normal 10-31-2019 [facility] (49124) Comment: Performed By: #### [id number] ## ## [facility],[address] [place] [address] 00667 Protein (U) 100 NORMAL: NEGATIVE mg/dL Abnormal 10-31-2019 [facility] [Mass/Vol] [facility] (17088) Comment: Performed By: #### [id number] ## ## [facility],[address] [place] [address] 66083 Rbc TNTC 0-3/hpf Normal 10-31-2019 [facility] (61277) Comment: Performed By: #### [id number] ## ## [facility],[address] [place] [address] 10732 [address] [facility] 1.025 NORMAL: 1.010-1.030 Normal 9 [facility] ( 09748) Comment: Performed By: #### [id number] ## ## [facility],[address] [place] [address] 90247 Specimen type Nom (Spec) Void Normal 10-31 [facility] (25625) Comment: Performed By: #### [id number] ## ## [facility],[address] [place] [address] 36480 Urobilinog NORM NORMAL: NORMAL Normal 10-31-2019 [facility] (09847) Comment: Performed By: #### [id number] ## ## [facility],[address] [place] [address] 77983 Wbc 26-50 0-5/hpf Normal 10-31-2019 [facility] (75186) Comment: Performed By: #### [id number] ## ## [facility],[address] [place] [address] 08392 WBC (Bld) [#/Vol] 500 NORMAL: NEGATIVE Abnormal 10-31 [facility] ( 00738) Comment: Performed By: #### [id number] ## ## [facility],[address] [place] [address] 77020 Yeast LM Ql (Urine sed) NONE Normal 2018 [facility] (38204) Comment: Performed By: #### [id number] ## ## [facility],[address] [place], [place] [address] culture urine on 20 07-11-12 CULTURE CULTURE URINE Normal 10-31-2019 [facility] URINE _[facility] CULTURE_ [facility] M I C R O B I O L O G Y R E P O R T FINAL [facility] [place] [facility] ----- Antimicrobial Susceptibility and Organism Identification Report Hospital Specimen Number : [id number] Requested : 10/31/19 (50799) Specimen Source : URINE Collected : 10/31/19 12:05 [facility] : Emergency Room Received : 10/31/19 12:05 Requesting Physician : FILIPE MULLER Patient/Specimen Tests and Comments Specimen Comments --------- FINAL REPORT: URINE COLONY COUNT: 5000 CFU/CC GRAM NEGATIVE RODS Organisms Identified --- ----- * 01 Pseudomonas aeruginosa 11/03/19 Comments --------- 5,000 cfu Tech : Source : URINE ID # : [id number] FINAL Report Date : / / : [...] Ticar/K Clav'ate for gram positives based on failure analysis engineer's breakpoints. Tech : Source : URINE ID # : [id number] FINAL Report Date : / / : Collected : 10/31/19 12:05 11/03/19.1005.FELICIA. 11/02/19.1035.PETERO. 11/01/19.0844.PETERO. SEND TO PHARMACY? YES 11/03/19.1005.FELICIA.COMPLETE YES Comment: Performed By: #### [id number] ## ## Antony Franklin [facility],[address] [place] [address] mr mri brain w/o contrast on 2019-10-30 MR MRI BRAIN W/O [facility] Normal 10-30 [facility] [address] [place], [place] [address] (06970) Patient: SEBASTIAN BURGOS Phone#: : 1940 Age: 79 Gender: F Pt. Type: Out Account: [id number] Location: [facility] Ordering: GERBER NICHOLAS Exam Date: 10/30/2019/10:21 Family Phys: Charge Code: [id number] Physician: Obion Order #: [id number] DLP Dose#: PROCEDURE: MRI BRAIN WITHOUT CONTRAST [...] the left at least ten foci. A loss control representative lesion measures 0.3 cm. No associated [...] 79 Gender: F Pt. Type: Out Account: [id number] Location: [facility] Ordering: GERBER NICHOLAS Exam Date: 10/30/2019/10:21 Family Phys: Charge Code: [id number] Physician: Obion Order #: [id number] DLP Dose#: Approved by: Vanessa Walker MD on 10/30/2019 at 16:36 culture urine on 07-11-04 CULTURE CULTURE URINE Normal 10-23-2019 Antony URINE _URINE CULTURE_ Conchita Mock I C R O B I O L O G Y R E P O R T FINAL [facility] [place] [facility] ----- Antimicrobial Susceptibility and Organism Identification Report Hospital Specimen Number : [id number] Requested : 10/23/19 (24035) Specimen Source : URINE Collected : 10/23/19 12:30 [facility] Isolation : OUTPATIENT Received : 10/23/19 12:30 Requesting Physician : DELMER Patient/Specimen Tests and Comments Specimen Comments --------- FINAL REPORT: URINE COLONY COUNT: [id number] CFU/CC GRAM NEGATIVE RODS CONTAMINATED WITH: GRAM POSITIVE TERESA Organisms Identified --- ----- * 01 Pseudomonas aeruginosa 10/26/19 Comments --------- 10-50,000 CFU Tech : Source : URINE ID # : [id number] FINAL Report Date : / / : [...] Ticar/K Clav'ate for gram positives based on failure analysis engineer's breakpoints. Tech : Source : URINE ID # : [id number] FINAL Report Date : / / : Collected : 10/23/19 12:30 10/26/19.0825.BKO. 10/25/19.1240.KLS. SEND TO PHARMACY? NO 10/26/19.BKO.COMPLETE NO Comment: Performed By: #### [id number] ## ## [facility],[address] [place] [address] Encounters Date Type Reason Provider Location 05-02-2020 - Emergency [facility] Antony Franklin 05-02-2020 [facility] Ch[facility] GERBER VENTURA (87050) [facility] GERBER NICHOLAS UNKNOWN PROVIDER UNKNOWN PROVIDER 04-06-2020 - Emergency BRIAN montes 04-06-2020 department patient BROCK MAYES MD [facility] BROCK MAYES MD (04184) DELMER UNKNOWN PROVIDER UNKNOWN PROVIDER 10-31-2019 - Emergency BRIAN montes 10-31-2019 department patient BROCK GUTIÉRREZ Memor ial visit GERBER VENTURA 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 inpatient 08-14-2020 - Patient encounter ZACHARIAH Franklin 08-14-2020 procedure C TIFFANIE MAYES MD [facility] GUILLE UNKNOWN (72149) PROVIDER UNKNOWN PROVIDER 03-18-2020 - Patient encounter Other general symptoms GERBER Franklin 03-18-2020 procedure and signs DELMER Aviles [facility] GERBER [facility]A (80367) DELMER NICHOLAS UNKNOWN PROVIDER UNKNOWN PROVIDER 02-22-2020 - Patient encounter Urinary tract GERBER Arango jyoti 02-22-2020 procedure infection, site not DELMER MAYES Memo rial leia VENTURA [facility] GERBER VENTURA (92614) DELMER NICHOLAS UNKNOWN PROVIDER UNKNOWN PROVIDER 02-22-2020 - Patient encounter Type 2 diabetes GERBER armstrong 02-22-2020 procedure mellitus without DELMER MAYES Memoria l val V[facility]URA [facility] GERBER VENTURA (55480) DELMER NICHOLAS UNKNOWN PROVIDER UNKNOWN PROVIDER 01-22-2020 - Patient encounter Neuromuscular J KAY OSCAR J Antony Franklin 01-22-2020 procedure dysfunction of [facility] O[facility] bladder, unspecified [facility] GERBER VENTURA (94652) DELMER UNKNOWN PROVIDER UNKNOWN PROVIDER 01-13-2020 Patient encounter GERBER saleh procedure DELMER Aviles [facility] GERBER VENTURA (80430) DELMER NICHOLAS UNKNOWN PROVIDER UNKNOWN PROVIDER 10-30-2019 - Patient encounter Disorientation, GERBER armstrong 10-30-2019 procedure unspecified DELMER Aviles MD [facility] GERBER VENTURA (00616) DELMER NICHOLAS UNKNOWN PROVIDER UNKNOWN PROVIDER 10-23-2019 - Patient encounter GERBER saleh 10-23-2019 procedure DELMER Aviles MD [facility] GERBER VENTURA (38954) DELMER NICHOLAS UNKNOWN PROVIDER UNKNOWN PROVIDER Procedures Procedure Name Date Provider Location Urinalysis 04-06-2020 [facility] (34950) Comment: Result Comment: URINALYSIS Performed By: #### [id number] ## ##[facility],[address] [place] [address] 75237 Urinalysis 10-31-2019 [facility] (35236) Comment: Result Comment: URINALYSIS Performed By: #### [id number] ## ## [facility],[address] [place] [address] 31832 Payers Payer Name Policy Number Location [employer] OUT[employer]IENT [id number] [facility] ([id number]) MEDICARE OUTPATIENT [id number] [facility] ([id number]) [id number] [facility] ([id number]) [id number] [facility] ([id number]) [id number] [facility] ([id number]) [id number] [facility] (51045) [id number] [facility] ([id number]) [id number] [facility] ([id number]) [id number] [facility] ([id number]) [id number] [facility] ([id number]) [id number] [facility] ([id number]) [id number] [facility] (94454) [id number] [facility] ([id number]) [id number] [facility] ([id number]) [id number] [facility] ([id number]) [id number] [facility] (39316) The following information is from the original [...] BE BASED ON THE PRIMARY CLINICAL RECORDS. [facility] provides no warranty or guarantee of the accuracy or completeness of information in this document. UNRECOGNIZED CONTENT PROVIDED BELOW FOR UNRECOGNIZED SECTION INFORMATION SOURCE DATE CREATED AUTHOR AUTHOR'S ORGANIZATIO N 02/28/2019 [facility] DATE CREATED AUTHOR AUTHOR'S ORGANIZATIO N 02/24/2020 [facility] Ref erence Lab DATE CREATED AUTHOR AUTHOR'S ORGANIZATIO N 08/15/2020 [facility]
== END 2020-04-11 15:35 | disposition skilled nursing facility (03) | DRG 659 ==
PROVIDERS: Internal Medicine; Admitting Provider Urology; PCP Student in an Organized Health Care Education/Training Program; Visit Provider Urology
PROC: BT1F1ZZ Fluoroscopy of Left Kidney, Ureter and Bladder using Low Osmolar Contrast (ICD-10-PCS; CPT 52353; principal; 2020-04-07 11:50)
DX: N20.1 Calculus of ureter (principal); A41.52 Sepsis due to Pseudomonas; J67.9 Hypersensitivity pneumonitis due to unspecified organic dust; N13.6 Pyonephrosis; B96.5 Pseudomonas (aeruginosa) (mallei) (pseudomallei) as the cause of diseases classified elsewhere; J45.990 Exercise induced bronchospasm; I48.91 Unspecified atrial fibrillation; K21.9 Gastro-esophageal reflux disease without esophagitis; E87.6 Hypokalemia; Z87.442 Personal history of urinary calculi; Z87.440 Personal history of urinary (tract) infections
CPT/HCPCS: 36415; 71046; 74176; 76000; 80048; 80076; 82360; 82962; 83735; 85025; 85027; 87040; 87077; 87086; 87088; 87186; 87493; 87635; 88300; 93005; 93306; 94640; G2023; J7030; A4216; C1769; C2617; J0696; J2405; U0002

== ENCOUNTER 2020-04-11 15:47 | Inpatient (IN) | payer MEDICARE, OTHER, SELFPAY ==
[2020-04-07 10:30] VITALS: BMI 30.6
[2020-04-11 16:04] VITALS: PULSE 75; RESP 16; O2SAT 97
[2020-04-11 16:23] VITALS: BMI 32.5
[2020-04-11 16:39] VITALS: BP 155/89; PULSE 78; RESP 16; TEMP 36.9; O2SAT 98
[2020-04-11 16:40] VITALS: BMI 32.5
[2020-04-11] MEDS: APIXABAN 5 MG TABLET PO (18:05)
[2020-04-11] MEDS: Cefepime HCl 2 GM in 0.9% NS 100 ML Minibag Q12 IV (18:59)
[2020-04-11] MEDS: 0.9% Saline Lock 10 ML Syringe IV (19:45)
--- NOTE | 2020-04-11 21:33 | HP.PCM_ITS ---
Problem List (1) Debility Status: Acute (2) Hydronephrosis, left Status: Acute (3) Sepsis Status: Acute (4) Menopausal syndrome Status: Chronic (5) GERD (gastroesophageal reflux disease) Status: Chronic (6) Asthma Status: Chronic (7) Left renal stone Status: Acute (8) Ureteral stricture, left Status: Acute (9) Atrial fibrillation with rapid ventricular response Status: Acute History of Present Illness Date of Admission: 04/11/20 Chief Complaint: Here for rehabilitation, strengthening, intravenous antibiotics, prior to discharge home alone. 04/07/2020 The patient is a 79 year old Femae with below past medical history with followin04/07/2020 Admit to Hospital with left renal stone, left ureteral stricture. 04/07/2020 EKG sinus rhythm with premature atrial contractions. Low voltage QRS, nonspecific ST&T wave abnormality. 04/07/2020 CT abdomen/pelvis showed mid left ureter 5mm obstructing stone with ureteral dilatation, hydronephrosis, perinephric edema. Transfer from outside hospital with severe left flank pain, mid left ureteral stone. Admit to Dr. Elliott. 04/07/2020 Dr. Elliott performed cystoscopy, left retrograde pyelogram, interpretation of fluoro images, left ureteroscopy. Laser lithotripsy of stone, left stent placement. Fever, chills, confusion afterwards. Rocephin 2GM IV Q12H. 04/08/2020 Fever improved. Blood, urine cultures pending. 04/09/2020 Urine culture growing Pseudomonas. Blood culture pending. 04/10/2020 Await sensitivity of Pseudomonas. 04/10/2020 Dr. Ramirez recommended Solu-Medrol 40MG IV Q12H. Albuterol MDI for shortness of breath. Replete potassium. Patient has new onset atrial fibrillation with rapid ventricular response, anticoagulation started, cardiology in 3 weeks for cardioversion. 04/10/2020 Chest X-ray chronic interstitial changes, small left pleural effusion. 04/10/2020 Dr. High noted Pseudomonas chronic urinary tract infection with kidney stone, Left ureteral obstruction, status post left sided stent, lithotripsy. Recommend midline for 10 day course of Cefepime, until left ureteral stent removed. 04/10/2020 Echo LV systolic function normal. Stage 2 diastolic dysfunction. Pulmonary artery systolic pressure 34mm HG. 04/11/2020 Admit to TCU with debility, here for rehabilitation, strengthening, intravenous antibiotics, left ureteral stent removal, prior to discharge home. Past Medical History Past Medical History (Chronic Problems): Chronic Problems Exercise-induced asthma (Chronic) Allergic alveolitis (Chronic) Suspected Menopausal syndrome (Chronic) GERD (gastroesophageal reflux disease) (Chronic) Asthma (Chronic) Allergies ciprofloxacin [From Cipro] Allergy (Verified 04/06/20 21:45) CONFUSION Iodinated Contrast Media [DYEE] Allergy (Verified 04/06/20 21:45) Anaphylaxis lisinopril Allergy (Verified 04/06/20 21:45) CONFUSION metoprolol Allergy (Verified 04/06/20 21:45) CONFUSION Sulfa (Sulfonamide Antibiotics) Allergy (Verified 04/06/20 21:45) CONFUSION FLUOROQUINOLONES Allergy (Unknown, Uncoded 04/06/20 21:45) Anaphylaxis Home Medications: Ambulatory Orders Medication Instructions Recorded Estrogen,Con/M-Progest Acet 1 each PO DAILY 07/30/17 [Prempro 0.3 mg-1.5 mg Tablet] Omeprazole [Prilosec] 20 mg PO DAILY 01/24/20 Vitamin B Complex 1 ea PO DAILY 01/24/20 Cranberry Conc/Ascorbic Acid 1 ea PO DAILY 04/06/20 [Cranberry 12,600 mg Softgel] Apixaban [Eliquis] 5 mg PO BID 04/11/20 Cefepime HCl [Maxipime] 2 gm IV Q12 04/11/20 Surgical History: - - Kidney stones, prior ureteroscopy and laser several years ago with scar tissue development in the mid left ureter recently this year stricture was dilated and balloon dilated. 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 History Items: Asthma Review of Systems Constitutional: Denies: Chills, Fever, Weight Change HEENT: Denies: Head Aches, Sinus Congestion, Sinus Drainage Cardiovascular: Denies: Chest Pain, Palpitations Respiratory: Denies: Cough, Shortness of breath at rest, Sputum production Gastrointestinal: Denies: Abdominal Pain, Nausea, Vomiting Genitourinary: Denies: Dysuria Musculoskeletal: Denies: Joint Pain, Joint Tenderness Skin: Denies: Rash, Wounds Neurological: Denies: Numbness, Tingling, Focal weakness Psychiatric: Denies: Anxiety, Depression, Homicidal Ideations, Suicidal Ideations Hematologic/ Lymphatic: Denies: Easy Bruising, Easy Bleeding VTE Information - Inpt Only VTE Present on Admission: No VTE Mechan Device Prophylaxis: SCD's VTE Pharm Prophylaxis ordered?: No Reason prophylaxis not ordered:: Treatment Not Indicated Patient Problems: Active and Suspected Problems Debility (Acute) Hydronephrosis, left (Acute) Sepsis (Acute) Atrial fibrillation with rapid ventricular response (Acute) - Physical Exam Vitals/I&O's: Vital Signs Temp Pulse Resp BP Pulse Ox 98.4 F 78 16 155/89 H 98 04/11/20 16:39 04/11/20 16:39 04/11/20 16:39 04/11/20 16:39 04/11/20 16:39 Oxygen Delivery Method Room Air Weight: 83.263 kg Body Mass Index (BMI) 32.5 Finger Stick Blood Glucose 83 Intake and Output for Last 24 Hours 04/09/20 04/10/20 04/11/20 23:59 23:59 23:59 Intake Total 240 / 240 Balance 240 / 240 General: Alert, Oriented x3, Cooperative HEENT: Atraumatic, PERRLA, EOMI, Normocephalic Neck: Supple, No JVD, Negative Carotid Bruits Lungs: Clear to auscultation, Normal air movement Cardiovascular: Regular rate, No murmurs Abdomen: Bowel Sounds Present, Soft, Non Tender Extremities: No edema, Capillary Refill Less than 3 Seconds, - - LUE midline. Skin: No rashes, No breakdown Musculoskeletal: No Tenderness to Palpation of Joints or Extremities Neurological: Cranial nerves II-XII grossly intact Psych/Mental Status: Normal Affect, Appropriate Microbiology Past 72 Hours 04/11/20 17:20 Mucosa - Nasopharyngeal Coronavirus COVID-19 PCR - Final Current Medications Apixaban (Eliquis) 5 mg PO BID [facility] Last Admin: 04/11/20 18:05 Dose: 5 mg Documented by: Cefepime HCl 2 gm/ Sodium (Chloride) 100 mls @ 200 mls/hr IV Q12 [facility] Stop: 04/19/20 18:01 Last Admin: 04/11/20 18:59 Dose: 200 mls/hr Documented by: Multivitamins (Allbee W/C Caplet, Thera B Comp/C) 1 capsule PO DAILY@0800 [facility] Non-Formulary Medication (Estrogen,Con/M-Progest Acet) 1 each PO DAILY [facility] Pantoprazole Sodium (Protonix) 20 mg PO DAILY [facility] Sodium Chloride () 10 - 40 ml IV UD PRN PRN Reason: Midline Flush Last Admin: 04/11/20 19:45 Dose: 10 ml Documented by: Sodium Chloride (0.9% Nacl (Sterile) Posiflush) 10 - 40 ml IV UD PRN PRN Reason: Port access or dressing change Tuberculin PPD (Tubersol, Aplisol, Ppd) 5 tu ID X1 ONE Stop: 04/12/20 10:01 Tuberculin PPD (Tubersol, Aplisol, Ppd) 5 tu ID X1 ONE Stop: 04/19/20 10:01 Assessment/Plan All Active Problems Left renal stone (Acute) Ureteral stricture, left (Acute) Debility (Acute) Hydronephrosis, left (Acute) Sepsis (Acute) Atrial fibrillation with rapid ventricular response (Acute) 79 year old female with below past medical history hospitalized for left renal stone, left ureteral stricture, status post left ureteral stent, lithotripsy, complicated by Pseudomonas urinary tract infection, asthma exacerbation, new onset atrial fibrillation, admitted to TCU with debility, here for rehabilitation, strengthening, intravenous antibiotic, left ureteral stent removal, prior to discharge home alone. * Debility - PT/OT. * Pain - Tylenol 1000MG Q6H PRN pain (1-10). * Bowel - Miralax 17GM daily, Senna/colace 1 tablet BID, Dulcolax 10MG daily PRN. * Adult immunization - Administer Prevnar 13, Pneumovax 23, Fluzone as appropriate. * DVT prophylaxis - Not necessary, already on Eliquis. * Pseudomonas UTI - Cefepime 2GM IV Q12H thru 04/19/2020. * Menopausal syndrome - Estrogen/progesterone 1 tablet daily. * GERD - Pantoprazole 20MG daily. * Vitamin B deficiency - Vitamin B complex daily. * Left ureteral stone status post left ureteral stent, lithotripsy - Consult Dr. Elliott for left ureteral stent removal. * Atrial fibrillation - Eliquis 5MG twice daily, currently in sinus rhythm, cardioversion may not be necessary.
[2020-04-11] MEDS: Acetaminophen 500 MG Tablet 1000 MG PO (22:34)
[2020-04-12 05:00] VITALS: BP 149/86; PULSE 58; RESP 16; TEMP 36.6; O2SAT 96
[2020-04-12] MEDS: APIXABAN 5 MG TABLET PO ×2 (05:46→17:44)
[2020-04-12] MEDS: Pantoprazole Sodium 20 MG Tablet PO (05:46)
[2020-04-12] MEDS: Cefepime HCl 2 GM in 0.9% NS 100 ML Minibag Q12 IV ×2 (05:51→17:38)
[2020-04-12 06:09] LABS: Absolute Lymphocyte Count 1.82 X10^3/uL (0.83-4.51); Absolute Neutrophil Count 13.4 X10^3/uL (2.0-7.7); Basophil# 0.02 X10^3/uL; Basophil% 0.1 % (0-1); Hematocrit 31.6 % (37-47); Lymphocyte # 1.82 X10^3/ul (4.0); Lymphocyte % 11.3 % (19-41); Mean Corp Hgb Conc 31.6 g/dL (32-36); Mean Corpuscular Hgb 27.9 pg (27.0-32.0); Mean Corpuscular Volume 88.3 fL (81-99); Mean Platelet Vol. 10.7 fl (6.2-12.0); Monocyte# 0.71 X10^3/uL; Monocyte% 4.4 % (0-10); NRBC Flagged by Analyzer 0 % (0-5); Neutrophil # 13.36 X10^3/uL (2.7-7.7); Neutrophil % 83.3 % (47-70); Platelet Count 316 K/mm3 (150-450); RBC Distribution Width CV 13.7 % (11.6-14.6); RBC Distribution Width SD 44.2 fl (35.1-43.9); Red Blood Count 3.58 M/mm3 (4.2-5.4); White Blood Count 16.1 K/mm3 (4.4-11.0)
[2020-04-12 06:38] LABS: Anion Gap 6 (5-15); BUN 26 mg/dL (7-18); BUN/Creat Ratio 30.8 RATIO (10-20); Calcium,Total 8.7 mg/dL (8.5-10.1); Chloride 108 mmol/L (98-107); Creatinine, Serum 0.84 mg/dL (0.55-1.02); EST Glomerular Filtration Rate 69 mL/min (>60); Est Glom Filt Rate - Afr Amer 84 mL/min (>60); Estimated Creatinine Clearance 45.66 ml/min; Glucose 292 mg/dL (74-106); Potassium 4.9 mmol/L (3.5-5.1); Sodium Level 139 mmol/L (136-145)
[2020-04-12] MEDS: Vitamin B Comp W-C Capsule 1 CAP PO (08:08)
[2020-04-12] MEDS: Tuberculin,Purif.prot.deriv. 50 TU/ML Vial 5 ML ID (10:29)
--- NOTE | 2020-04-12 11:00 | NURSING ---
pt sister was called for daily update, no answer message was left to return call
[2020-04-12 14:27] VITALS: BP 139/76; PULSE 62; RESP 16; TEMP 36.6; O2SAT 98
--- NOTE | 2020-04-12 14:39 | NURSING ---
Addendum entered by Betty Sanchez 04/12/20 14:51: This nurse heard bed alarm going off and went to check on pt, she was observed walking across her room and she turned the alarm off, when asked if she needed help she stated I know I shouldn't shut this alarm off but someone called me and they thought my renard was , she isn't thank goodness but now i'm just so upset, give me a valium or ativan i'll take that if you have it that always helps me settle down. Pt was assisted back in bed and incident was reported to RN Original Note: pt stressing about weight gain saying she has gained 10 pounds since she has been here, thinks she is swelling up with fluid. no edema noted in BLE zoey hose were applied this morning per order. Sister states she has been complaining about her weight since before she came to the hospital
--- NOTE | 2020-04-12 15:00 | NURSING ---
Went in to room to speak with patient about her anxiety and she states she was upset because she thought her cat was , but it's not. Also states she is anxious and used to take ativan a couple years ago but my primary doctor told me to quit taking that. This RN attempted to redirect patient stating that we would notify the doctor if anything needed ordered. Suggested reading, TV, coloring, hot tea, patient declined all. Will monitor.
--- NOTE | 2020-04-12 15:45 | NURSING ---
Patient was notified that someone dropped off a bag of belongings. Patient was extremely excited and states this is so good. I feel so much better now! Will continue to monitor anxiety.
--- NOTE | 2020-04-12 23:51 | NURSING ---
pt called out at hs and asked for 02, stated it would settle her down and help her sleep. pt stated that she is dozing off but startles back awake gasping for air. This nurse applied 02 at 1 L nc, spo2 at 98%. RN aware, will continue to monitor throughout the night.
[2020-04-13] MEDS: Pantoprazole Sodium 20 MG Tablet PO (06:35)
[2020-04-13] MEDS: APIXABAN 5 MG TABLET PO ×2 (06:35→17:19)
[2020-04-13 06:38] VITALS: BP 144/95; PULSE 67; RESP 14; TEMP 36.4; O2SAT 95
[2020-04-13] MEDS: 0.9% Saline Lock 10 ML Syringe IV ×4 (06:42→22:12)
[2020-04-13] MEDS: Cefepime HCl 2 GM in 0.9% NS 100 ML Minibag Q12 IV ×2 (06:44→17:18)
[2020-04-13] MEDS: Vitamin B Comp W-C Capsule 1 CAP PO (07:38)
--- NOTE | 2020-04-13 10:39 | NURSING ---
labs faxed to Dr Giacomo suggs
--- NOTE | 2020-04-13 12:43 | NURSING ---
Called patients sister with an update. Sister was pleased to hear from us and that her sister has started therapy and is tolerating her treatment well.
[2020-04-13 14:27] VITALS: BP 152/82; PULSE 67; RESP 16; TEMP 35.8; O2SAT 98
[2020-04-13 22:05] VITALS: RESP 16; O2SAT 95
[2020-04-14 02:46] VITALS: BP 144/77; PULSE 63; RESP 16; TEMP 36.8; O2SAT 98
[2020-04-14] MEDS: Acetaminophen 500 MG Tablet 1000 MG PO (02:48)
[2020-04-14] MEDS: Cefepime HCl 2 GM in 0.9% NS 100 ML Minibag Q12 IV ×2 (05:17→18:15)
[2020-04-14] MEDS: APIXABAN 5 MG TABLET PO ×2 (05:20→18:03)
[2020-04-14] MEDS: Pantoprazole Sodium 20 MG Tablet PO (05:20)
[2020-04-14] MEDS: Vitamin B Comp W-C Capsule 1 CAP PO (08:44)
[2020-04-14 08:50] VITALS: PULSE 69; RESP 18; O2SAT 98
--- NOTE | 2020-04-14 10:07 | PCM.PN.RX ---
<IkeJavier jenningsi - Last Filed: 04/14/20 10:07> Progress Note - Pharmacy Subjective: TCU Admission Objective: Allergies ciprofloxacin [From Cipro] Allergy (Verified 04/06/20 21:45) CONFUSION Iodinated Contrast Media [DYEE] Allergy (Verified 04/06/20 21:45) Anaphylaxis lisinopril Allergy (Verified 04/06/20 21:45) CONFUSION metoprolol Allergy (Verified 04/06/20 21:45) CONFUSION Sulfa (Sulfonamide Antibiotics) Allergy (Verified 04/06/20 21:45) CONFUSION FLUOROQUINOLONES Allergy (Unknown, Uncoded 04/06/20 21:45) Anaphylaxis Current Medications Generic Name Dose Route Start Last Admin Trade Name Freq PRN Reason Stop Dose Admin Acetaminophen 1,000 mg 04/11/20 21:54 04/14/20 02:48 Tylenol PO 1,000 mg Q6H PRN PRN Administration Pain Score 1-10/10 Apixaban 5 mg 04/11/20 18:00 04/14/20 05:20 Eliquis PO 5 mg BID EDWARD Administration Bisacodyl 10 mg 04/11/20 21:55 Dulcolax PO DAILY PRN PRN Constipation Cefepime HCl 2 gm/ Sodium 100 mls @ 200 mls/hr 04/11/20 18:00 04/14/20 05:57 Chloride IV 04/19/20 18:01 Infused Q12 EDWARD Infusion Sodium Chloride 250 mls @ 15 mls/hr 04/12/20 00:42 04/14/20 06:05 IV 0 mls/hr .[id number] PRN Infusion Additional IVPB Infusion Sodium Chloride 250 mls @ 15 mls/hr 04/14/20 08:13 IV .[id number] PRN Saline Flush Sodium Chloride 250 mls @ 15 mls/hr 04/14/20 08:13 IV .[id number] PRN Additional IVPB Infusion Multivitamins 1 capsule 04/12/20 08:00 04/14/20 08:44 Allbee W/C Caplet, Thera B Comp/C PO 1 capsule DAILY@0800 EDWARD Administration Non-Formulary Medication 1 each 04/12/20 06:00 Estrogen,Con/M-Progest Acet PO DAILY EDWARD Pantoprazole Sodium 20 mg 04/12/20 06:00 04/14/20 05:20 Protonix PO 20 mg DAILY EDWARD Administration Polyethylene Glycol 17 gm 04/12/20 06:00 04/14/20 05:24 Miralax PO Not Given DAILY EDWARD Senna/Docusate Sodium 1 tablet 04/12/20 06:00 04/14/20 05:24 Senokot-S, [place]-Colace PO Not Given BID EDWARD Sodium Chloride 10 - 40 ml 04/11/20 21:53 0.9% Nacl (Sterile) Posiflush IV UD PRN Port access or dressing change Sodium Chloride 10 - 40 ml 04/12/20 18:43 04/13/20 22:12 IV 30 ml UD PRN Administration SALINE FLUSH Sodium Chloride 10 - 40 ml 04/14/20 08:13 IV UD PRN SALINE FLUSH Sodium Chloride 10 - 40 ml 04/14/20 08:13 IV UD PRN Midline Flush Sodium Chloride 10 - 40 ml 04/14/20 08:13 0.9% Nacl (Sterile) Posiflush IV UD PRN Port access or dressing change Tuberculin PPD 5 tu 04/19/20 10:00 Tubersol, Aplisol, Ppd ID 04/19/20 10:01 X1 ONE Problem List Debility (Acute) Hydronephrosis, left (Acute) Sepsis (Acute) Menopausal syndrome (Chronic) GERD (gastroesophageal reflux disease) (Chronic) Asthma (Chronic) Atrial fibrillation with rapid ventricular response (Acute) Vital Signs Temp Pulse Resp BP Pulse Ox 98.2 F 63 16 144/77 H 98 04/14/20 02:46 04/14/20 02:46 04/14/20 02:46 04/14/20 02:46 04/14/20 02:46 Oxygen Flow Rate (L/min) 2 Oxygen Delivery Method Nasal Cannula Weight: 83.263 kg Body Mass Index (BMI) 32.5 Finger Stick Blood Glucose 83 Sodium 139 mmol/L (136-145) 04/12/20 05:25 Potassium 4.9 mmol/L (3.5-5.1) 04/12/20 05:25 Chloride 108 mmol/L (98-107) H 04/12/20 05:25 Carbon Dioxide 25.0 mmol/L (21.0-32.0) 04/12/20 05:25 Anion Gap 6 (5-15) 04/12/20 05:25 BUN 26 mg/dL (7-18) H 04/12/20 05:25 Creatinine 0.84 mg/dL (0.55-1.02) 04/12/20 05:25 Est GFR (MDRD) Af Amer 84 mL/min (>60) 04/12/20 05:25 Est GFR (MDRD) Non-Af 69 mL/min (>60) 04/12/20 05:25 BUN/Creatinine Ratio 30.8 RATIO (10-20) H 04/12/20 05:25 Glucose 292 mg/dL (74-106) H 04/12/20 05:25 Assessment/Plan: 1. Pain: acetaminophen 1000mg PO Q6H PRN pain (-08/29). Please continue to monitor for pain and PRN usage. 2. Pseudomonas UTI: cefepime 2gm IV Q12H thru 04/19/2020. Please continue to monitor renal function and S/S of infection. 3. Atrial fibrillation: apixaban 5mg PO BID. Please continue to monitor for S/S of bleeding, renal functions and platelets. 4. GERD: pantoprazole 20mg PO daily. Please continue to monitor for S/S of GERD. 5. Menopausal syndrome: estrogen/progesterone 1T PO daily. Please continue to monitor for S/S of menopause. *6. Vitamin B deficiency: Thera-B complex 1 capsule PO daily. Last vitamin B12 level is from 2018. Please consider ordering one now and then annually as clinically appropriate. Thanks. Please continue to monitor. Psychotropic Medications: None Unnecessary Medications: None *Bowel Regimen: Miralax 17gm PO daily, senna/docusate 1T PO BID and bisacodyl 10mg PO daily PRN constipation. Patient has refused 3/3 doses of Miralax and 5/5 doses of senna/docusate. Please consider changing from scheduled to PRN constipation. Thanks. Please continue to monitor for constipation and diarrhea. Date of Note:: 04/14/20 - Provider Comments Provider responsibility: Provider responsible to enter orders to implement recommendations <Torsten Koenig Chi - Last Filed: 04/14/20 17:28> Progress Note - Pharmacy Subjective: [] Objective: Allergies ciprofloxacin [From Cipro] Allergy (Verified 04/06/20 21:45) CONFUSION Iodinated Contrast Media [DYEE] Allergy (Verified 04/06/20 21:45) Anaphylaxis lisinopril Allergy (Verified 04/06/20 21:45) CONFUSION metoprolol Allergy (Verified 04/06/20 21:45) CONFUSION Sulfa (Sulfonamide Antibiotics) Allergy (Verified 04/06/20 21:45) CONFUSION FLUOROQUINOLONES Allergy (Unknown, Uncoded 04/06/20 21:45) Anaphylaxis Current Medications Generic Name Dose Route Start Last Admin Trade Name Freq PRN Reason Stop Dose Admin Acetaminophen 1,000 mg 04/11/20 21:54 04/14/20 02:48 Tylenol PO 1,000 mg Q6H PRN PRN Administration Pain Score 1-10/10 Apixaban 5 mg 04/11/20 18:00 04/14/20 05:20 Eliquis PO 5 mg BID EDWARD Administration Bisacodyl 10 mg 04/11/20 21:55 Dulcolax PO DAILY PRN PRN Constipation Estrogens Conj/Medroxyprogest Acet 1 each 04/15/20 06:00 Prempro 0.3 Mg-1.5 Mg Tablet PO DAILY EDWARD Cefepime HCl 2 gm/ Sodium 100 mls @ 200 mls/hr 04/11/20 18:00 04/14/20 05:57 Chloride IV 04/19/20 18:01 Infused Q12 EDWARD Infusion Sodium Chloride 250 mls @ 15 mls/hr 04/12/20 00:42 04/14/20 06:05 IV 0 mls/hr .[id number] PRN Infusion Additional IVPB Infusion Sodium Chloride 250 mls @ 15 mls/hr 04/14/20 08:13 IV .[id number] PRN Saline Flush Sodium Chloride 250 mls @ 15 mls/hr 04/14/20 08:13 IV .[id number] PRN Additional IVPB Infusion Multivitamins 1 capsule 04/12/20 08:00 04/14/20 08:44 Allbee W/C Caplet, Thera B Comp/C PO 1 capsule DAILY@0800 EDWARD Administration Pantoprazole Sodium 20 mg 04/12/20 06:00 04/14/20 05:20 Protonix PO 20 mg DAILY EDWARD Administration Polyethylene Glycol 17 gm 04/12/20 06:00 04/14/20 05:24 Miralax PO Not Given DAILY EDWARD Senna/Docusate Sodium 1 tablet 04/12/20 06:00 04/14/20 05:24 Senokot-S, [place]-Colace PO Not Given BID EDWARD Sodium Chloride 10 - 40 ml 04/11/20 21:53 0.9% Nacl (Sterile) Posiflush IV UD PRN Port access or dressing change Sodium Chloride 10 - 40 ml 04/12/20 18:43 04/13/20 22:12 IV 30 ml UD PRN Administration SALINE FLUSH Sodium Chloride 10 - 40 ml 04/14/20 08:13 IV UD PRN SALINE FLUSH Sodium Chloride 10 - 40 ml 04/14/20 08:13 IV UD PRN Midline Flush Sodium Chloride 10 - 40 ml 04/14/20 08:13 0.9% Nacl (Sterile) Posiflush IV UD PRN Port access or dressing change Tuberculin PPD 5 tu 04/19/20 10:00 Tubersol, Aplisol, Ppd ID 04/19/20 10:01 X1 ONE Problem List Debility (Acute) Hydronephrosis, left (Acute) Sepsis (Acute) Menopausal syndrome (Chronic) GERD (gastroesophageal reflux disease) (Chronic) Asthma (Chronic) Atrial fibrillation with rapid ventricular response (Acute) Vital Signs Temp Pulse Resp BP Pulse Ox 98.2 F 61 20 H 163/74 H 98 04/14/20 15:54 04/14/20 15:54 04/14/20 15:54 04/14/20 15:54 04/14/20 15:54 Oxygen Flow Rate (L/min) 2 Oxygen Delivery Method Room Air Weight: 83.263 kg Body Mass Index (BMI) 32.5 Finger Stick Blood Glucose 83 Sodium 139 mmol/L (136-145) 04/12/20 05:25 Potassium 4.9 mmol/L (3.5-5.1) 04/12/20 05:25 Chloride 108 mmol/L (98-107) H 04/12/20 05:25 Carbon Dioxide 25.0 mmol/L (21.0-32.0) 04/12/20 05:25 Anion Gap 6 (5-15) 04/12/20 05:25 BUN 26 mg/dL (7-18) H 04/12/20 05:25 Creatinine 0.84 mg/dL (0.55-1.02) 04/12/20 05:25 Est GFR (MDRD) Af Amer 84 mL/min (>60) 04/12/20 05:25 Est GFR (MDRD) Non-Af 69 mL/min (>60) 04/12/20 05:25 BUN/Creatinine Ratio 30.8 RATIO (10-20) H 04/12/20 05:25 Glucose 292 mg/dL (74-106) H 04/12/20 05:25 Assessment/Plan: Psychotropic Medications: Unnecessary Medications: Bowel Regimen: - Provider Comments Provider responsibility: Provider responsible to enter orders to implement recommendations Provider Comments to Recommendations by Pharmacy: Agree
[2020-04-14 15:54] VITALS: BP 163/74; PULSE 61; RESP 20; TEMP 36.8; O2SAT 98
[2020-04-14] MEDS: 0.9% Saline Lock 10 ML Syringe IV (18:13)
[2020-04-15] MEDS: Cefepime HCl 2 GM in 0.9% NS 100 ML Minibag Q12 IV ×2 (05:54→17:58)
[2020-04-15] MEDS: 0.9% Saline Lock 10 ML Syringe IV ×2 (05:55→17:49)
[2020-04-15] MEDS: Pantoprazole Sodium 20 MG Tablet PO (05:56)
[2020-04-15] MEDS: APIXABAN 5 MG TABLET PO ×2 (05:57→17:47)
[2020-04-15] MEDS: Senna/Docusate Sodium 1 Tablet PO ×2 (05:57→17:47)
[2020-04-15] MEDS: Polyethylene Glycol 3350 17 GM PACKET PO (06:00)
[2020-04-15 07:17] VITALS: BP 136/78; PULSE 65; RESP 16; TEMP 36.4; O2SAT 94
[2020-04-15] MEDS: Vitamin B Comp W-C Capsule 1 CAP PO (08:04)
[2020-04-15] MEDS: Acetaminophen 500 MG Tablet 1000 MG PO ×2 (08:07→19:57)
--- NOTE | 2020-04-15 11:31 | NURSING ---
everardo,soc.worker talked to family.
[2020-04-15 13:16] VITALS: BP 105/72; PULSE 68; RESP 16; TEMP 36.9; O2SAT 97
--- NOTE | 2020-04-15 15:16 | CASEMGMT ---
Social Work IDT met with patient and son via conference call for care plan meeting. Discussed patient's progress in therapy. Pt is SBA for bed mobility, transfers, ambulating 25 ft wit hFWW, and distant supervision with all ADLs, toileting. Pt is adlib in room on this date. P tis on a reg/thin diet, intake 75-100%, weight table, off of O2, out of room isolation 04/24, IV ATB Q12 until 04/19. Pt enjoys 1:1 visits from activities, writing poetry and was provided art supplies in room. Provided [employer] resources to pt and son via email. Explained Medicare benefit. Pt requesting DC after IVS 04/20, IDT agreeable. No HHC or DME needs. Plan: DC home alone 04/20 with no HHC/DME needs. ERNESTO Cabrera ULTRASONIC WELDING MACHINE OPERATOR
[2020-04-15 19:46] VITALS: PULSE 67; O2SAT 98
--- NOTE | 2020-04-15 20:09 | PCM.DC ---
- Discharge Diagnoses Current Active Problems: Current Active and Chronic Problems Debility (Acute) Hydronephrosis, left (Acute) Sepsis (Acute) Menopausal syndrome (Chronic) GERD (gastroesophageal reflux disease) (Chronic) Asthma (Chronic) Atrial fibrillation with rapid ventricular response (Acute) You will use the following diet at home:: No restrictions, Regular Your food should be the consistency of: Regular Your liquids should be the consistency of: Regular/Thin Discharge Activity: Return to Normal Activity, May Shower, Use Walker Weight Bearing Status: Weight bearing as tolerated Call your doctor if you observe: Fever of 101 or Higher, Inability to urinate, Inability to have a bowel movement, Shortness of breath, Chest pain, Uncontrolled pain Allergies/Adverse Reactions: Allergies ciprofloxacin [From Cipro] Allergy (Verified 04/06/20 21:45) CONFUSION Iodinated Contrast Media [DYEE] Allergy (Verified 04/06/20 21:45) Anaphylaxis lisinopril Allergy (Verified 04/06/20 21:45) CONFUSION metoprolol Allergy (Verified 04/06/20 21:45) CONFUSION Sulfa (Sulfonamide Antibiotics) Allergy (Verified 04/06/20 21:45) CONFUSION FLUOROQUINOLONES Allergy (Unknown, Uncoded 04/06/20 21:45) Anaphylaxis Medications to take at Discharge Estrogen,Con/M-Progest Acet [Prempro 0.3 mg-1.5 mg Tablet] 1 each PO DAILY 07/30/17 Omeprazole [Prilosec] 20 mg PO DAILY 01/24/20 Vitamin B Complex 1 ea PO DAILY 01/24/20 Cranberry Conc/Ascorbic Acid [Cranberry 12,600 mg Softgel] 1 ea PO DAILY 04/06/20 Acetaminophen [Tylenol] 1,000 mg PO Q6H PRN PRN tablet 04/15/20 Apixaban [Eliquis] 5 mg PO BID #60 tab 04/15/20 The following prescriptions were given: Apixaban [Eliquis] 5 mg PO BID #60 tab Transmission Status: Pending to [facility] Primary Care Physician: Torsten Koenig Chi, MD [COURTESY STAFF PHYSICIAN] - Please follow up with your Primary Care Physician in: 1 week. Test Results: Test results from this visit will be discussed in further detail at your follow-up appointment, if applicable. Please Follow Up With: Tobias Elliott MD When: follow-up after d/c from TCU Please Follow Up With: Andre Becerra MD - Paroxysmal atrial fibrillation When: 2 weeks. Proposed Discharge Date: 04/20/20
--- NOTE | 2020-04-15 20:12 | PCM.DC.SUM ---
Discharge Date and Diagnosis - Problem List Patient Problems: Active and Suspected Problems Debility (Acute) Hydronephrosis, left (Acute) Sepsis (Acute) Atrial fibrillation with rapid ventricular response (Acute) Date of Admission: 04/11/20 Date of Discharge: 04/20/20 - Primary Discharge Diagnosis Acute Problems: Active Problems Debility (Acute) Hydronephrosis, left (Acute) Sepsis (Acute) Atrial fibrillation with rapid ventricular response (Acute) - Secondary Discharge Diagnosis Chronic Problems: Chronic Problems Exercise-induced asthma (Chronic) Allergic alveolitis (Chronic) Suspected Menopausal syndrome (Chronic) GERD (gastroesophageal reflux disease) (Chronic) Asthma (Chronic) Hospital Course and Treatment Imaging Results: 04/11/20 16:23 Diet: Regular Diet Food consistency:: Regular Liquid Consistency:: Regular/Thin Operations: None, - - Cystoscopy left stent placement laser of stone. Procedures: None Summary of Care Provided: The patient is a 79 year old Female with below past medical history hospitalized for left renal stone, left ureteral stricture, status post left ureteral stent, lithotripsy, complicated by Pseudomonas urinary tract infection, asthma exacerbation, new onset atrial fibrillation, admitted to TCU with debility, here for rehabilitation, strengthening, intravenous antibiotic, left ureteral stent removal, prior to discharge home alone. Consider PFT as outpatient for Asthma. Follow up with Dr. Becerra for new onset atrial fibrillation, resident now in normal sinus rhythm. Will ask Dr. Elliott if resident's left ureteral stent can be removed prior to discharge, she has transportation issues due to living alone. Discharge home alone 04/20/2020, No Home health Care/Durable Medical Equipment needs. Patient Problems: Active and Suspected Problems Debility (Acute) Hydronephrosis, left (Acute) Sepsis (Acute) Atrial fibrillation with rapid ventricular response (Acute) - Physical Exam Vitals/I&O's: Vital Signs Temp Pulse Resp BP Pulse Ox 98.4 F 67 16 105/72 98 04/15/20 13:16 04/15/20 19:46 04/15/20 13:16 04/15/20 13:16 04/15/20 19:46 Oxygen Flow Rate (L/min) 2 Oxygen Delivery Method Room Air Weight: 83.263 kg Body Mass Index (BMI) 32.5 Finger Stick Blood Glucose 83 Intake and Output for Last 24 Hours 04/13/20 04/14/20 04/15/20 23:59 23:59 23:59 Intake Total 860.25 / 860.25 902 / 902 1042 / 1042 Balance 860.25 / 860. 902 / 902 1042 / 1042 Current Medications Acetaminophen (Tylenol) 1,000 mg PO Q6H PRN PRN PRN Reason: Pain Score 1-10/10 Last Admin: 04/15/20 19:57 Dose: 1,000 mg Documented by: Apixaban (Eliquis) 5 mg PO BID [facility] Last Admin: 04/15/20 17:47 Dose: 5 mg Documented by: Bisacodyl (Dulcolax) 10 mg PO DAILY PRN PRN PRN Reason: Constipation Estrogens Conj/Medroxyprogest Acet (Prempro 0.3 Mg-1.5 Mg Tablet) 1 each PO DAILY [facility] Last Admin: 04/15/20 05:56 Dose: 1 each Documented by: Cefepime HCl 2 gm/ Sodium (Chloride) 100 mls @ 200 mls/hr IV Q12 [facility] Stop: 04/19/20 18:01 Last Infusion: 04/15/20 18:37 Dose: Infused Documented by: Sodium Chloride () 250 mls @ 15 mls/hr IV .[id number] PRN PRN Reason: Additional IVPB Infusion Last Infusion: 04/15/20 06:32 Dose: 0 mls/hr Documented by: Sodium Chloride () 250 mls @ 15 mls/hr IV .[id number] PRN PRN Reason: Saline Flush Sodium Chloride () 250 mls @ 15 mls/hr IV .[id number] PRN PRN Reason: Additional IVPB Infusion Multivitamins (Allbee W/C Caplet, Thera B Comp/C) 1 capsule PO DAILY@0800 [facility] Last Admin: 04/15/20 08:04 Dose: 1 capsule Documented by: Pantoprazole Sodium (Protonix) 20 mg PO DAILY [facility] Last Admin: 04/15/20 05:56 Dose: 20 mg Documented by: Polyethylene Glycol (Miralax) 17 gm PO DAILY [facility] Last Admin: 04/15/20 06:00 Dose: 17 gm Documented by: Senna/Docusate Sodium (Senokot-S, [place]-Colace) 1 tablet PO BID [facility] Last Admin: 04/15/20 17:47 Dose: 1 tablet Documented by: Sodium Chloride (0.9% Nacl (Sterile) Posiflush) 10 - 40 ml IV UD PRN PRN Reason: Port access or dressing change Sodium Chloride () 10 - 40 ml IV UD PRN PRN Reason: SALINE FLUSH Last Admin: 04/15/20 17:49 Dose: 20 ml Documented by: Sodium Chloride () 10 - 40 ml IV UD PRN PRN Reason: SALINE FLUSH Sodium Chloride () 10 - 40 ml IV UD PRN PRN Reason: Midline Flush Sodium Chloride (0.9% Nacl (Sterile) Posiflush) 10 - 40 ml IV UD PRN PRN Reason: Port access or dressing change Tuberculin PPD (Tubersol, Aplisol, Ppd) 5 tu ID [id number] Stop: 04/19/20 10:01 Discharge Diet: No Restrictions Discharge Activity: Return to Normal Activity, May Shower, Use Walker Weight Bearing Status: Weight bearing as tolerated Call your doctor if you observe: Fever of 101 or Higher, Inability to urinate, Inability to have a bowel movement, Shortness of breath, Chest pain, Uncontrolled pain Home Medications: Medications to take at Discharge Estrogen,Con/M-Progest Acet [Prempro 0.3 mg-1.5 mg Tablet] 1 each PO DAILY 07/30/17 Omeprazole [Prilosec] 20 mg PO DAILY 01/24/20 Vitamin B Complex 1 ea PO DAILY 01/24/20 Cranberry Conc/Ascorbic Acid [Cranberry 12,600 mg Softgel] 1 ea PO DAILY 04/06/20 Acetaminophen [Tylenol] 1,000 mg PO Q6H PRN PRN tablet 04/15/20 Apixaban [Eliquis] 5 mg PO BID #60 tab 04/15/20 Following Prescrptions Were Given to Patient: Apixaban [Eliquis] 5 mg PO BID #60 tab Transmission Status: Pending to [facility] Primary Care Physician: Torsten Koenig Chi, MD [COURTESY STAFF PHYSICIAN] - Please follow up with your Primary Care Physician in: 1 week. Please Follow Up With: Tobias Elliott MD When: follow-up after d/c from TCU Please Follow Up With: Andre Becerra MD - Paroxysmal atrial fibrillation When: 2 weeks. Disposition: Home Minutes spent on discharge:: 30 Patient Condition:: Stable Medical Necessity - Tobacco Use Smoking Status: Never smoker Tobacco Use: Non-smoker Meaningful Use Info Meaningful Use Diagnoses (Choose all that apply): None applicable
[2020-04-16] MEDS: Acetaminophen 500 MG Tablet 1000 MG PO ×2 (04:31→21:07)
[2020-04-16] MEDS: Pantoprazole Sodium 20 MG Tablet PO (04:31)
[2020-04-16] MEDS: Senna/Docusate Sodium 1 Tablet PO ×2 (04:31→18:09)
[2020-04-16] MEDS: APIXABAN 5 MG TABLET PO ×2 (04:31→18:09)
[2020-04-16] MEDS: Polyethylene Glycol 3350 17 GM PACKET PO (04:32)
[2020-04-16] MEDS: 0.9% Saline Lock 10 ML Syringe IV (04:36)
[2020-04-16] MEDS: Cefepime HCl 2 GM in 0.9% NS 100 ML Minibag Q12 IV ×2 (04:37→17:56)
[2020-04-16 04:45] VITALS: BP 170/82; PULSE 68; RESP 16; TEMP 36.4; O2SAT 97
[2020-04-16] MEDS: Vitamin B Comp W-C Capsule 1 CAP PO (07:44)
--- NOTE | 2020-04-16 11:06 | NURSING ---
family not called, pt stated she had already talked with her family that there was no need to call them
--- NOTE | 2020-04-16 14:09 | NURSING ---
Lexi's office was called to request f/u appointment for pt occurs before discharge d/t transportation issues. Office stated they would talk with Dr. Elliott and call back and let staff know what Dr. Elliott wants to do.
[2020-04-16 14:54] VITALS: BP 141/54; PULSE 70; RESP 14; TEMP 36.2; O2SAT 95
--- NOTE | 2020-04-16 17:29 | NURSING ---
Dr Elliott checks in with patient. He states he will come in tomorrow to do a stent removal in residents room.He would like resident to be in her gown. She does not need to be NPO for procedure.
--- NOTE | 2020-04-16 17:32 | PCM.CONS.U ---
Reason for Consult Date of Consultation: 04/16/20 Reason for Consultation: Status post stent and treatment of Pseudomonas infection History of Present Illness: The patient is a 79 year old female who underwent ureteroscopy laser for stone in a stricture and stent placement. She is now in rehab for IV antibiotics for resistant UTI. Plan is tomorrow to remove her stent here at the rehab center. Past Medical History Past Medical History (Chronic Problems): Chronic Problems Exercise-induced asthma (Chronic) Allergic alveolitis (Chronic) Suspected Menopausal syndrome (Chronic) GERD (gastroesophageal reflux disease) (Chronic) Asthma (Chronic) Allergies ciprofloxacin [From Cipro] Allergy (Verified 04/06/20 21:45) CONFUSION Iodinated Contrast Media [DYEE] Allergy (Verified 04/06/20 21:45) Anaphylaxis lisinopril Allergy (Verified 04/06/20 21:45) CONFUSION metoprolol Allergy (Verified 04/06/20 21:45) CONFUSION Sulfa (Sulfonamide Antibiotics) Allergy (Verified 04/06/20 21:45) CONFUSION FLUOROQUINOLONES Allergy (Unknown, Uncoded 04/06/20 21:45) Anaphylaxis Home Medications: Ambulatory Orders Medication Instructions Recorded Estrogen,Con/M-Progest Acet 1 each PO DAILY 07/30/17 [Prempro 0.3 mg-1.5 mg Tablet] Omeprazole [Prilosec] 20 mg PO DAILY 01/24/20 Vitamin B Complex 1 ea PO DAILY 01/24/20 Cranberry Conc/Ascorbic Acid 1 ea PO DAILY 04/06/20 [Cranberry 12,600 mg Softgel] Acetaminophen [Tylenol] 1,000 mg PO Q6H PRN PRN tab 04/15/20 Apixaban [Eliquis] 5 mg PO BID #60 tab 04/15/20 Surgical History: - - Kidney stones, prior ureteroscopy and laser several years ago with scar tissue development in the mid left ureter recently this year stricture was dilated and balloon dilated. 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 History Items: Asthma Review of Systems Constitutional: Denies: Chills, Fever, Weight Change HEENT: Denies: Head Aches, Sinus Congestion, Sinus Drainage Cardiovascular: Denies: Chest Pain, Palpitations Respiratory: Denies: Cough, Shortness of breath at rest, Sputum production Gastrointestinal: Denies: Abdominal Pain, Nausea, Vomiting Genitourinary: Denies: Dysuria Musculoskeletal: Denies: Joint Pain, Joint Tenderness Skin: Denies: Rash, Wounds Neurological: Denies: Numbness, Tingling, Focal weakness Psychiatric: Denies: Anxiety, Depression, Homicidal Ideations, Suicidal Ideations Hematologic/ Lymphatic: Denies: Easy Bruising, Easy Bleeding Physical Exam - Physical Exam Vital Signs Temp 97.1 F L 04/16/20 14:54 Pulse 70 04/16/20 14:54 Resp 14 04/16/20 14:54 BP 141/54 H 04/16/20 14:54 Pulse Ox 95 04/16/20 14:54 Intake & Output 04/14/20 04/15/20 04/16/20 23:59 23:59 23:59 Intake Total 902 / 902 1042 / 1042 580 / 580 Balance 902 / 902 1042 / 1042 580 / 580 Weight: 78.483 kg 83.263 kg Intake: Oral 700 / 700 840 / 840 480 / 480 Intake, IV Amount 202 / 202 202 / 202 100 / 100 0.9% Normal Saline 250 ML @ 15 2 / 2 2 / 2 mls/hr IV .[id number] PRN Rx#: [id number] Maxipime 2 GM In 0.9% Normal 200 / 200 200 / 200 100 / 100 Saline 100 ML @ 200 mls/hr IV Q12 [facility] Rx#:[id number] Other: Incontinent Amount Moderate General: Alert, Oriented x3 HEENT: Atraumatic Oral: Moist Mucosa Neck: Supple Lungs: Normal air movement Cardiovascular: Regular rate Assessment/Plan All Active Problems Left renal stone (Acute) Ureteral stricture, left (Acute) Debility (Acute) Hydronephrosis, left (Acute) Sepsis (Acute) Atrial fibrillation with rapid ventricular response (Acute) 79-year-old female status post laser of stone and stent plan is to swing by tomorrow and I will remove the stent here on the floor all bring a flexible scope and a grasper.
[2020-04-16 21:07] VITALS: PULSE 70; RESP 16; O2SAT 97
[2020-04-17] MEDS: Cefepime HCl 2 GM in 0.9% NS 100 ML Minibag Q12 IV ×2 (05:41→17:27)
[2020-04-17] MEDS: APIXABAN 5 MG TABLET PO ×2 (05:42→17:35)
[2020-04-17] MEDS: Senna/Docusate Sodium 1 Tablet PO (05:42)
[2020-04-17] MEDS: Pantoprazole Sodium 20 MG Tablet PO (05:42)
[2020-04-17] MEDS: 0.9% Saline Lock 10 ML Syringe IV (05:43)
[2020-04-17 05:45] VITALS: BP 158/71; PULSE 63; RESP 18; TEMP 36.6; O2SAT 95
[2020-04-17] MEDS: Vitamin B Comp W-C Capsule 1 CAP PO (07:37)
--- NOTE | 2020-04-17 08:49 | CASEMGMT ---
Social Work BIMS and PHQ-9 completed for MDS assessment. [place] الع[place]اقي, [employer]
[2020-04-17 09:37] VITALS: PULSE 67; RESP 16; O2SAT 98
--- NOTE | 2020-04-17 12:37 | PCM.OPRPT ---
Report of Operation Date of Procedure: 04/17/20 Pre-Operative Diagnosis: Status post treatment of left kidney stone and stent Post-Operative Diagnosis: Same Surgery/Procedure Performed:: Flexible cystoscopy and stent removal Description of Surgical Findings:: 79-year-old female was prepped and draped in sterile fashion she was placed in lithotomy position went into the bladder with a flexible cystoscope and used a rat-tooth grasper to grab the stent from the left ureteral orifice the stent was then carefully removed from the bladder. She was given topical lidocaine jelly for anesthesia she tolerated procedure well and the stent was removed without difficulty. Type of Anesthesia:: Local - Admit VTE Documentation VTE Present on Admission: No
--- NOTE | 2020-04-17 12:37 | NURSING ---
Addendum entered by Betty Sanchez 04/17/20 12:47: tylenol given per request d/t discomfort of stent removal Original Note: Dr Elliott here and removed stent at bedside. pt tolerated well. resting in bed, c/o cramping. Dr Elliott aware and states normal, may have alittle bleeding as well.
[2020-04-17] MEDS: Acetaminophen 500 MG Tablet 1000 MG PO (12:44)
[2020-04-17] MEDS: Lidocaine Jelly 2% 20 ML Syringe (URO-JET) 20 APPLIC (12:46)
--- NOTE | 2020-04-17 13:08 | MDS.RN ---
Pain interview for RAVI 04/18/20 completed.
[2020-04-17 16:50] VITALS: BP 151/95; PULSE 69; RESP 20; TEMP 36.6; O2SAT 98
[2020-04-18 06:03] VITALS: BP 143/77; PULSE 68; RESP 14; TEMP 36.8; O2SAT 97
[2020-04-18] MEDS: 0.9% Saline Lock 10 ML Syringe IV ×2 (06:05→18:35)
[2020-04-18] MEDS: APIXABAN 5 MG TABLET PO ×2 (06:06→17:27)
[2020-04-18] MEDS: Pantoprazole Sodium 20 MG Tablet PO (06:09)
[2020-04-18] MEDS: Cefepime HCl 2 GM in 0.9% NS 100 ML Minibag Q12 IV ×2 (06:13→18:34)
[2020-04-18] MEDS: Vitamin B Comp W-C Capsule 1 CAP PO (08:14)
[2020-04-18 14:49] VITALS: BP 155/72; PULSE 63; RESP 16; TEMP 37; O2SAT 99
--- NOTE | 2020-04-18 16:17 | NURSING ---
PT STATED TO THIS NURSE THAT THERE WAS NO ONE THAT SHE WANTED UPDATED ON.
[2020-04-18 20:35] VITALS: PULSE 67; RESP 16; O2SAT 96
[2020-04-19 06:19] VITALS: BP 158/83; PULSE 67; RESP 16; TEMP 36.9; O2SAT 98
[2020-04-19] MEDS: APIXABAN 5 MG TABLET PO ×2 (06:27→17:19)
[2020-04-19] MEDS: Pantoprazole Sodium 20 MG Tablet PO (06:27)
[2020-04-19] MEDS: Cefepime HCl 2 GM in 0.9% NS 100 ML Minibag Q12 IV ×2 (06:28→17:14)
[2020-04-19] MEDS: 0.9% Saline Lock 10 ML Syringe IV ×2 (06:32→18:15)
[2020-04-19 06:59] LABS: Absolute Lymphocyte Count 3.32 X10^3/uL (0.83-4.51); Basophil# 0.08 X10^3/uL; Basophil% 0.7 % (0-1); Eosinophil# 0.26 X10^3/uL; Eosinophils% 2.2 % (0-5); Hematocrit 39.5 % (37-47); Hemoglobin 12.2 g/dL (12.0-15.0); Lymphocyte # 3.32 X10^3/ul (4.0); Lymphocyte % 28.5 % (19-41); Mean Corp Hgb Conc 30.9 g/dL (32-36); Mean Corpuscular Hgb 27.4 pg (27.0-32.0); Mean Corpuscular Volume 88.8 fL (81-99); NRBC Flagged by Analyzer 0 % (0-5); Neutrophil # 7.03 X10^3/uL (2.7-7.7); Neutrophil % 60.3 % (47-70); Platelet Count 491 K/mm3 (150-450); RBC Distribution Width CV 13.5 % (11.6-14.6); RBC Distribution Width SD 43.6 fl (35.1-43.9); Red Blood Count 4.45 M/mm3 (4.2-5.4); White Blood Count 11.7 K/mm3 (4.4-11.0)
[2020-04-19 07:18] LABS: Anion Gap 4 (5-15); BUN 15 mg/dL (7-18); BUN/Creat Ratio 18.7 RATIO (10-20); Calcium,Total 8.7 mg/dL (8.5-10.1); Chloride 106 mmol/L (98-107); EST Glomerular Filtration Rate 73 mL/min (>60); Est Glom Filt Rate - Afr Amer 89 mL/min (>60); Estimated Creatinine Clearance 47.94 ml/min; Glucose 145 mg/dL (74-106); Potassium 4.1 mmol/L (3.5-5.1); Sodium Level 139 mmol/L (136-145)
[2020-04-19 08:51] VITALS: RESP 16
[2020-04-19] MEDS: Vitamin B Comp W-C Capsule 1 CAP PO (08:55)
[2020-04-19] MEDS: Tuberculin,Purif.prot.deriv. 50 TU/ML Vial 5 ML ID (09:35)
--- NOTE | 2020-04-19 11:13 | NURSING ---
Labs faxed to Dr. Lopez per order.
[2020-04-19 14:10] VITALS: BP 122/66; PULSE 71; RESP 16; TEMP 36.8; O2SAT 96
--- NOTE | 2020-04-19 18:22 | NURSING ---
Midline removed per orders. Length 11 cm, no blood noted, DSD applied, pt tolerated well.
[2020-04-20 05:30] VITALS: BP 158/76; PULSE 64; RESP 16; TEMP 36.8; O2SAT 98
[2020-04-20] MEDS: Pantoprazole Sodium 20 MG Tablet PO (05:39)
[2020-04-20] MEDS: APIXABAN 5 MG TABLET PO (05:39)
[2020-04-20] MEDS: Vitamin B Comp W-C Capsule 1 CAP PO (07:56)
[2020-04-20 09:32] VITALS: BP 149/78; PULSE 69; RESP 18; TEMP 36.7; O2SAT 99
[2020-04-20 09:33] VITALS: PULSE 69; RESP 18; O2SAT 99
--- NOTE | 2020-04-20 14:52 | MDS.RN ---
Information for the mds was obtained from review of the clinical record, interview of resident, staff, and direct observation of resident's care.
--- OUTSIDE RECORDS SUMMARY | 2020-09-01 16:29 | XMS RPT_ITS | CCD ---
:1940 External Reference #:[id number] Demographics Preferred Language Unknown Marital Status Unknown Oriental Orthodox Affiliation Unknown Race Unknown Ethnic Group Unknown [...] Onset Location Ciprofloxacin Moderate Antony Pomerene (Severity [facility] Modifier) Repository (Qualifier Value) CONTRAST MEDIA, Moderate Antony Pomeren e GADOLINIUM RELATED (Severity [facility] Modifier) Repository (Qualifier Value) FLUOROQUINOLONE Moderate Antony Pomeren e (Severity [facility] Modifier) Repository (Qualifier Value) Lisinopril Moderate Antony Pomerene (Severity [facility] Modifier) Repository (Qualifier Value) Metoprolol Moderate Antony Pomerene (Severity [facility] Modifier) Repository (Qualifier Value) Problems Active Problems Category Problem Name Status Date Location Diabetes mellitus Type 2 diabetes mellitus Active 02-22-2020 - Antony Pomerene without complication without complications [facility] (46996) Diverticulosis and Diverticulosis of Active 01-22-2020 - Antony Pomerene diverticulitis intestine, part [facility] ospital unspecified, without (16468) perforation or abscess without bleeding 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, [facility] unspecified (42647) Unclassified LEFT HYDRONEPHROSIS Active 03-07-2019 - [facility] (16587) Past or Other Problems Category Problem Name Status Date Location Abdominal hernia Diaphragmatic hernia Completed 01-22-2020 - Keenan l Pomerene without obstruction or [facility] (58058 ) Allergic reactions Allergy status to Completed 10-30-2019 - Antony Pomerene other antibiotic [facility] agents [facility] (0000 0) Other diseases of kidney Hydronephrosis with Completed 0 - Antony Pomerene and ureters renal and ureteral [facility] calculous obstruction Hospit al (84276) Other gastrointestinal Constipation, Completed 01-22-2020 - Antony Pomerene disorders unspecified [facility] (24387 ) Residual codes; Other general symptoms Completed 03-18-2020 - Malorie el Pomerene unclassified and signs [facility] (91711 ) Residual codes; Disorientation, Completed 10-30-2019 - Antony Pome jyoti unclassified unspecified [facility] (26247 ) Urinary tract infections Urinary tract Completed 02-22-2020 - Malorie el Pomerene infection, site not [facility] (89022 ) Results Result Name Value Range Unit Interpretation Flag Date Location ct sinuses w/o contrast on 2020-08-14 CT SINUSES W/O [facility] Normal 020 [facility] CONTRAST [facility] ospital [address] [place] [address] (35672) Patient: SEBASTIAN BURGOS Phone#: : 1940 Age: 80 Gender: F Pt. Type: Out Account: [id number] Location: [facility] Ordering: ZACHARIAH BRAUN Exam Date: 08/14/2020/11:18 Family Phys: ALEJANDRO REALOK Charge Code: 630709 Physician: Dickenson Order #: [id number] DLP Dose#: 22.90 PROCEDURE: CT SINUSES WITHOUT [...] sinus mucosal disease. 2. Nasal septal spurs [place] [address] Patient: SEBASTIAN BURGOS. Phone#: : 1940 Age: 80 Gender: F Pt. Type: Out Account: [id number] Location: 052 Ordering: ZACHARIAH BRAUN Exam Date: 08/14/2020/11:18 Family Phys: ALEJANDRO MCCOY Charge Code: 183889 Physician: Dickenson Order #: [id number] DLP Dose#: 22.90 Dictated by: Vanessa Walker MD on 08/14/2020 at 13:38 Approved by: Vanessa Walker MD on 08/14/2020 at 13:38 emergency report on 2020-05-06 EMERGENCY REPORT [facility] Normal 05-06 [facility] EMERGENCY ROOM REPORT (55023) NAME ACCOUNT SEX AGE ADMIT DISCHARGE PT MED. RECORD# NUMBER DATE DATE TYPE LORETTA [id number] F [id number] 05/02/20 05/02/20 Drew Feldman [address] ROOM: ER DATE OF : 1940 DICTATING [...] Kitty Casper DO 05/02/20 12:15 JOB #: [id number] Transcribed By: sasha 05/03/20 09:34 Electronically signed by: E-Sign: KITTY CASPER MD 05/06/20 11:46 Page 2 of 2 SEBASTIAN BURGOS Emergency Room Report emergency report on 2020-04-09 EMERGENCY REPORT [facility] Normal 04-09 [facility] EMERGENCY ROOM REPORT (57689) NAME ACCOUNT SEX AGE ADMIT DISCHARGE PT MED. RECORD# NUMBER DATE DATE TYPE LORETTA [id number] F [id number] 04/06/20 3 SEBASTIAN Gaston [address] ROOM: ER DATE OF : 1940 DICTATING [...] the patient as a direct admit to [facility] where he will see her there. Dictated By: Brian Gutiérrez MD 04/06/20 19:00 JOB #: [id number] Transcribed By: am 04/06/20 19:09 Electronically signed by: DUNIA Gutiérrez M.D. 04/09/20 07:29 Page 2 of 2 SEBASTIAN BURGOS Emergency Room Report urinalysis on 04-06 Amorphous NONE Normal 04-06-2020 [facility] (93004) Comment: Performed By: #### [id number] ## ##[facility],[address] [place] [address] 39704 Bacteria LM.HPF (Urine sed) 1+ Normal [facility] [#/Area] [facility] ( 46046) Comment: Performed By: #### [id number] ## ##[facility],[address] [place] [address] 09964 Bilirubin [Mass/Vol] NEG NORMAL: NEGATIVE mg/dL Normal [facility] (67077) Comment: Performed By: #### [id number] ## ##[facility],[address] [place] [address] 16415 Blood 25 NORMAL: NEGATIVE Abnormal 04-06-2020 [facility] (55702) Comment: Performed By: #### [id number] ## ##[facility],[address] [place] [address] 63490 Casts LM.LPF (Urine sed) NONE Normal 04-06 [facility] [#/Area] [facility] ( 68093) Comment: Performed By: #### [id number] ## ##[facility],[address] [place] [address] 24377 Clarity (U) sl.cloudy NORMAL: CLEAR Normal 04-06-2020 [facility] ( 74502) Comment: Performed By: #### [id number] ## ##[facility],[address] [place] [address] 17540 Color (U) p.yel NORMAL: YELLOW Normal 04-06-2020 [facility] (72969) Comment: Performed By: #### [id number] ## ##[facility],[address] [place] [address] 65144 Crystals LM Nom (Urine sed) NONE Normal [facility] ( 19285) Comment: Performed By: #### [id number] ## ##[facility],[address] [place] [address] 79550 Epi Cells MANY Normal 04-06-2020 [facility] (88941) Comment: Performed By: #### [id number] ## ##[facility],[address] [place] [address] 48335 Glucose [Mass/Vol] NORM NORMAL: NORMAL Normal 2019 [facility] ( 30782) Comment: Performed By: #### [id number] ## ##[facility],[address] [place] [address] 59069 Ketone NEG NORMAL: NEGATIVE Normal 04-06-2020 [facility] (45072) Comment: Performed By: #### [id number] ## ##[facility],[address] [place] [address] 98453 Microscopic SEE BELOW Normal 04-06-[address] [facility] (08133) Comment: Result Comment: MICROSCOPIC Performed By: #### [id number] ## ##[facility],[address] [place] [address] 26133 Mucous TRACE Normal 04-06-2020 [facility] (10369) Comment: Performed By: #### [id number] ## ##[facility],[address] [place] [address] 63413 Nitrite Ql (U) NEG NORMAL: NEGATIVE Normal 04-06-20 [facility] ( 51101) Comment: Performed By: #### [id number] ## ##[facility],[address] [place] [address] 07573 pH (Bld) 6 NORMAL: 5.0-8.0 Normal 04-06-2020 [facility] (12184) Comment: Performed By: #### [id number] ## ##[address] [address] Protein (U) 15 NORMAL: NEGATIVE mg/dL Abnormal 04-06-2020 [facility] [Mass/Vol] [facility] (40541) Comment: Performed By: #### [id number] ## ##[address] [address] Rbc 0-5 0-3/hpf Normal 04-06-2020 [facility] (52309) Comment: Performed By: #### [id number] ## ##[place] [address] [address] [place] 1.015 NORMAL: 1.010-1.030 Normal 0 [facility] ( 98563) Comment: Performed By: #### [id number] ## ##[place] [address] Specimen type Nom (Spec) UNSPECIFIED Normal [facility] ( 60725) Comment: Performed By: #### [id number] ## ##[place] [id number] Urobilinog NORM NORMAL: NORMAL Normal 04-06-2020 [facility] (72186) Comment: Performed By: #### [id number] ## ##[place] [id number] Wbc >50 0-5/hpf Normal 04-06-2020 [facility] (93013) Comment: Performed By: #### [id number] ## ##[address] [address] WBC (Bld) [#/Vol] 500 NORMAL: NEGATIVE Abnormal 04-06 [facility] ( 83259) Comment: Performed By: #### [id number] ## ##[address] [address] Yeast LM Ql (Urine sed) NONE Normal 2019 [facility] (66740) Comment: Performed By: #### [id number] ## ##[facility],[address] [place] [address] kub (kidney stone protocol) on 2020-04-06 CT KUB (KIDNEY [facility] Normal 04-06-2 020 [facility] STONE PROTOCOL) [address] [address] (85142) Patient: SEBASTIAN BURGOS Phone#: : 1940 Age: 79 Gender: F Pt. Type: ER Account: [id number] Location: [facility] Ordering: BRIAN GUTIÉRREZ Exam Date: 04/06/2020/17:44 Family Phys: GERBER NICHOLAS Charge Code: 747448 Physician: Dickenson Order #: [id number] DLP Dose#: 13.60 PROCEDURE: CT ABDOMEN AND PELVIS WITHOUT CONTRAST COMPARISON: [facility], CT, KUB W/O CON, 01/25/2019, 1 [...] 79 Gender: F Pt. Type: ER Account: [id number] Location: [facility] Ordering: BRIAN GUTIÉRREZ Exam Date: 04/06/2020/17:44 Family Phys: GERBER STRATTONFRANCINE Charge Code: 270262 Physician: Dickenson Order #: [id number] DLP Dose#: 13.60 ABDOMINAL WALL: Normal. No [...] - Reported 79 years Normal 04-06-2020 [facility] (09226) Comment: Performed By: #### [id number] ## ##[facility],[address] [place] [address] 45490 Albumin [Mass/Vol] 4.5 3.4 - 4.8 g/dL Normal 04-06-2020 [facility] ( 61684) Comment: Performed By: #### [id number] ## ##[facility],[address],[place] [address] Albumin/Globulin [Mass 1.7 0.9 - 1.6 {ratio} High 020 [facility] ratio] [facility] (57004) Comment: Performed By: #### [id number] ## ##[facility],[address] [place] [address] [place] [address] ALK PHOS 78 38 - 126 U/L Normal 04-06-2020 [facility] (66342) Comment: Performed By: #### [id number] ## ##[facility],[address] [place] [address] [place] [address] ALT/SGPT 12 8 - 35 U/L Normal 04-06-2020 [facility] (20691) Comment: Performed By: #### [id number] ## ##[facility],[address] [place] [address] [place] [address] Anion gap [Moles/Vol] 12 10 - 20 mmol/L Normal 04-06-20 20 [facility] ( 06245) Comment: Performed By: #### [id number] ## ##[facility],[address] [place] [address] [place] [address] AST/SGOT 18 13 - 39 U/L Normal 04-06-2020 [facility] (99121) Comment: Performed By: #### [id number] ## ##[facility],[address] [place] [address] [place] [address] B/C RATIO 19 0 - 30 ratio Normal 04-06-2020 [facility] (17446) Comment: Performed By: #### [id number] ## ##[facility],[address] [place] [address] [place] [address] Bilirubin [Mass/Vol] 0.4 0.0 - 1.5 mg/dl Normal 0 [facility] ( 73022) Comment: Performed By: #### [id number] ## ##[facility],[address] [place] [address] [place] [address] Calcium [Mass/Vol] 9.4 8.6 - 10.2 mg/dl Normal 04-06-2020 [facility] ( 01578) Comment: Performed By: #### [id number] ## ##[facility],[address] [place] [address] 13588 Chloride [Moles/Vol] 103 98 - 107 mmol/L Normal 0 [facility] ( 97154) Comment: Performed By: #### [id number] ## ##[facility],[address] [place] [address] 43177 CO2 [Moles/Vol] 29.4 21.0 - 31.0 mmol/L Normal 04-06-2020 [facility] ( 42134) Comment: Performed By: #### [id number] ## ##[facility],[address] [place] [address] 13561 Creatinine [Mass/Vol] 1.1 0.6 - 1.2 mg/dl Normal 04-06-20 20 [facility] ( 08403) Comment: Performed By: #### [id number] ## ##[facility],[address] [place] [address] 17960 GFR/1.73 sq M predicted 58 60 - 999 ML/MINUTE Low 2019 [facility] among non-blacks [facility] (58761) (S/P/Bld) [Vol rate/Area] Comment: Result Comment: ACCORDING TO THE NATIONAL KIDNEY DISEASE EDUCATION PROGRAM(NKDE), A NORMAL eGFR IS A VALUE GREATER THAN OR E QUAL TO 60 ML/MIN/1.73 SQ METERS. CHRONIC KIDNEY DISEASE: <60m L/MIN/1.73 SQ METERS KIDNEY FAILURE: <15mL/MIN/1. 73 SQ METERS THIS TEST SHOULD ONLY BE USE D FOR PATIENTS 18 YEARS OF AGE AND OLDER. Performed By: #### [id number] ## ##[facility],[address] [place] [address] 15898 GFR/1.73 sq M predicted among Normal 04-06-2020 [facility] non-blacks MDRD (S/P/Bld) [Vol Hospital (59868) rate/Area] Comment: Result Comment: COMPREHENSIV E METABOLIC PANEL Performed By: #### [id number] ## ##[facility],[address] [place] [address] [place] [address] GFR/1.73 sq M predicted 48 60 - 999 ML/MINUTE Low 2019 [facility] among non-blacks [facility] (43786) (S/P/Bld) [Vol rate/Area] Comment: Performed By: #### [id number] ## ##[facility],[address] [place] [address] [place] [address] Globulin (S) [Mass/Vol] 2.7 1.5 - 3.8 G/DL Normal 2019 [facility] ( 53333) Comment: Performed By: #### [id number] ## ##[facility],[address] [place] [address] [place] [address] Glucose [Mass/Vol] 133 74 - 106 mg/dl High 04-06-2020 [facility] (73474) Comment: Performed By: #### [id number] ## ##[facility],[address] [place] [address] [place] [address] Potassium [Moles/Vol] 4.2 3.5 - 5.1 mmol/L Normal 04-06-20 20 [facility] ( 14772) Comment: Performed By: #### [id number] ## ##[facility],[address] [place] [address] [place] [address] Protein [Mass/Vol] 7.2 6.4 - 8.3 g/dl Normal 04-06-2020 [facility] ( 69702) Comment: Performed By: #### [id number] ## ##[facility],[address] [place] [address] [place] [address] Sodium [Moles/Vol] 140 136 - 145 mmol/l Normal 04-06-2020 [facility] ( 06738) Comment: Performed By: #### [id number] ## ##[facility],[address] [place] [address] [place] [address] Urea nitrogen [Mass/Vol] 21 6 - 20 mg/dl High 04-06 [facility] ( 17440) Comment: Performed By: #### 085350 ## ##[facility],[address] [place] [address] 46705 cbc + diff on 04-06 Basophils (Bld) 0.10 0.00 - 0.10 x10EE3/UL Normal 04-06-2020 [facility] [#/Vol] [facility] (97568) Comment: Performed By: #### [id number] ## ##[facility],[address] [place] [address] 16045 Basophils/100 WBC (Bld) 0.5 0.0 - 2.0 % Normal 2019 [facility] ( 14109) Comment: Performed By: #### [id number] ## ##[address] [address] CBC + DIFF Normal 04-06-2020 [facility] (46010) Comment: Result Comment: CBC-COMPLETE BLOOD COUNT Performed By: #### [id number] ## ##[address] [address] Eosinophils (Bld) 0.00 0.00 - 0.50 x10EE3/UL Normal 04-06-2020 [facility] [#/Vol] [facility] (95830) Comment: Performed By: #### [id number] ## ##[address] [address] Eosinophils/100 WBC (Bld) 0.3 0.0 - 7.0 % Normal 03-20 [facility] ( 81553) Comment: Performed By: #### [id number] ## ##[address] [address] Erythrocyte distribution 14.5 12.0 - 15.6 % Normal [facility] (RBC) [Ratio] [facility] (64086) Comment: Performed By: #### [id number] ## ##[facility] [address] [address] Hematocrit (Bld) [Volume 40.8 34.0 - 46.0 % Normal [facility] ( 87139) Comment: Performed By: #### [id number] ## ##[address] [address] Hemoglobin (Bld) 13.7 12.0 - 16.0 g/dl Normal 04-06-2020 [facility] [Mass/Vol] [facility] (52878) Comment: Performed By: #### [id number] ## ##[address] [address] Lymphocytes (Bld) 2.00 0.80 - 2.80 x10EE3/UL Normal 04-06-2020 [facility] [#/Vol] [facility]spital (32820) Comment: Performed By: #### [id number] ## ##[address] [address] Lymphocytes/100 WBC (Bld) 13.3 20.0 - 45.0 % Low [facility] ( 48590) Comment: Performed By: #### [id number] ## ##[address] [address] MANUAL DIFF N/A Normal 04-06-[address] [facility] (75424) Comment: Performed By: #### [id number] ## ##[address] [address] MCH (RBC) [Entitic mass] 28 27 - 33 pg Normal 04-06 [facility] ( 73451) Comment: Performed By: #### 939101 ## ##[address] [address] MCHC (RBC) [Mass/Vol] 34 32 - 36 X10 3 Normal 04-06-20 20 [facility] ( 70640) Comment: Performed By: #### 649750 ## ##[address] [place] [address] MCV (RBC) [Entitic vol] 85 80 - 99 fl Normal 2019 [facility] ( 99299) Comment: Performed By: #### [id number] ## ##[address] [address] Monocytes (Bld) 0.90 0.20 - 1.00 x10EE3/UL Normal 04-06-2020 [facility] [#/Vol] [facility] (48596) Comment: Performed By: #### 984609 ## ##[address] [address] MONOS % 5.7 0.0 - 10.0 % Normal 04-06-2020 [facility] (05845) Comment: Performed By: #### 975861 ## ##[address] [address] Morphology Victorino (Bld) [Interp] N/A Normal 04-06-2020 [facility] ( 49754) Comment: Performed By: #### 685295 ## ##[address] [address] Neutrophils (Bld) 12.20 1.50 - 7.10 x10EE3/UL High 04-06-2020 [facility] [#/Vol] [facility] (02484) Comment: Performed By: #### [id number] ## ##[address] [address] Neutrophils/100 WBC (Bld) 80.2 46.0 - 76.0 % High [facility] ( 52483) Comment: Performed By: #### 586257 ## ##[address] [address] Platelet mean volume 7.8 6.6 - 10.5 fl Normal 04-06-20 20 [facility] (Bld) [Entitic vol] Hospital (70935) Comment: Result Comment: AUTOMATED DI FFERENTIAL Performed By: #### [id number] ## ##[facility],[address] [place] [address] 72182 Platelets (Bld) 390 150 - 450 x10EE3/UL Normal 04-06-2020 [facility] [#/Vol] [facility] (98319) Comment: Performed By: #### [id number] ## ##[address] [address] RBC (Bld) [#/Vol] 4.80 4.10 - 5.30 x 10EE6/UL Normal 0 [facility] (11867) Comment: Performed By: #### [id number] ## ##[facility],[address] [place] [address] 53702 WBC (Bld) [#/Vol] 15.2 4.5 - 10.8 x 10EE3/UL High 04-06-2020 [facility] ( 34605) Comment: Performed By: #### [id number] ## ##[address] [address] tsh on 2020-03-18 TSH Qn 2.64 0.34 - 5.60 uIU/ml Normal 03-18-[address] [facility] (09732) Comment: Performed By: #### 661128 ## ##[address] [address] cmp with egfr on 09-03-29 Age - Reported 79 years Normal 03-18-2020 [facility] (24453) Comment: Performed By: #### 540221 ## ##[address] [address] Albumin [Mass/Vol] 4.4 3.4 - 4.8 g/dL Normal 03-18-2020 [facility] ( 91376) Comment: Performed By: #### 549889 ## ##[address] [address] Albumin/Globulin [Mass 1.4 0.9 - 1.6 {ratio} Normal 020 [facility] (46365) Comment: Performed By: #### [id number] ## ##[facility],[address] [place] [address] 62998 ALK PHOS 80 38 - 126 U/L Normal 03-18-2020 [facility] (51723) Comment: Performed By: #### [id number] ## ##[facility],[address] [place] [address] 04555 ALT/SGPT 15 8 - 35 U/L Normal 03-18-2020 [facility] (86317) Comment: Performed By: #### [id number] ## ##[facility],[address] [place] [address] 15003 Anion gap [Moles/Vol] 12 10 - 20 mmol/L Normal 03-18-20 20 [facility] ( 04399) Comment: Performed By: #### [id number] ## ##[facility],[address] [place] [address] 84135 AST/SGOT 18 13 - 39 U/L Normal 03-18-2020 [facility] (89055) Comment: Performed By: #### [id number] ## ##[facility],[address] [place] [address] 71440 B/C RATIO 20 0 - 30 ratio Normal 03-18-2020 [facility] (90458) Comment: Performed By: #### [id number] ## ##[facility],[address] [place] [address] 84816 Bilirubin [Mass/Vol] 0.4 0.0 - 1.5 mg/dl Normal 0 [facility] ( 99861) Comment: Performed By: #### [id number] ## ##[facility],[address] [place] [address] 31998 Calcium [Mass/Vol] 9.4 8.6 - 10.2 mg/dl Normal 03-18-2020 [facility] ( 89235) Comment: Performed By: #### [id number] ## ##[facility],[address] [place] [address] 43812 Chloride [Moles/Vol] 102 98 - 107 mmol/L Normal 0 [facility] ( 12996) Comment: Performed By: #### [id number] ## ##[facility],[address] [place] [address] 04513 CO2 [Moles/Vol] 31.0 21.0 - 31.0 mmol/L Normal 03-18-2020 [facility] ( 69148) Comment: Performed By: #### [id number] ## ##[facility],[address] [place] [address] 51638 Creatinine [Mass/Vol] 0.9 0.6 - 1.2 mg/dl Normal 03-18-20 20 [facility] ( 26141) Comment: Performed By: #### [id number] ## ##[facility],[address] [place] [address] 97072 GFR/1.73 sq M >60 60 - 999 mL/min/{1.73_m2} Normal 0 [facility] predicted among [place] non-blacks MDRD (000 00) (S/P/Bld) [Vol rate/Area] Comment: Performed By: #### 632324 ## ##[address] [address] Result Comment: ACCORDING TO THE NATIONAL KIDNEY DISEASE EDUCATION PROGRAM(NKDE), A NORMAL eGFR IS A VALUE GREATER THAN OR E QUAL TO 60 ML/MIN/1.73 SQ METERS. CHRONIC KIDNEY DISEASE: <60m L/MIN/1.73 SQ METERS KIDNEY FAILURE: <15mL/MIN/1. 73 SQ METERS THIS TEST SHOULD ONLY BE USE D FOR PATIENTS 18 YEARS OF AGE AND OLDER. GFR/1.73 sq M predicted among Normal 03-18-2020 [facility] non-blacks MDRD (S/P/Bld) [Vol Hospital (96982) rate/Area] Comment: Result Comment: COMPREHENSIV E METABOLIC PANEL Performed By: #### [id number] ## ##[facility],[address] [place] [address] 70689 Globulin (S) [Mass/Vol] 3.2 1.5 - 3.8 G/DL Normal 2019 [facility] ( 29470) Comment: Performed By: #### [id number] ## ##[facility],[address] [place] [address] 99786 Glucose [Mass/Vol] 94 74 - 106 mg/dl Normal 03-18-2020 [facility] ( 84755) Comment: Performed By: #### 850269 ## ##[facility],[address] [place] [address] 96606 Potassium [Moles/Vol] 3.9 3.5 - 5.1 mmol/L Normal 03-18-20 20 [facility] ( 90298) Comment: Performed By: #### [id number] ## ##[facility],[address] [place] [address] 31667 Protein [Mass/Vol] 7.6 6.4 - 8.3 g/dl Normal 03-18-2020 [facility] ( 52142) Comment: Performed By: #### [id number] ## ##[facility],[address] [place] [address] 01856 Sodium [Moles/Vol] 141 136 - 145 mmol/l Normal 03-18-2020 [facility] ( 68224) Comment: Performed By: #### [id number] ## ##[facility],[address] [place] [address] 04867 Urea nitrogen [Mass/Vol] 18 6 - 20 mg/dl Normal 03-18 [facility] ( 25075) Comment: Performed By: #### [id number] ## ##[facility],[address] [place] [address] 19005 cbc + diff on 03-18 Basophils (Bld) 0.10 0.00 - 0.10 x10EE3/UL Normal 03-18-2020 [facility] [#/Vol] [facility] (08317) Comment: Performed By: #### [id number] ## ##[address] [address] Basophils/100 WBC (Bld) 0.6 0.0 - 2.0 % Normal 2019 [facility] ( 56902) Comment: Performed By: #### [id number] ## ##[address] [address] CBC + DIFF Normal 03-18-2020 [facility] (29728) Comment: Result Comment: CBC-COMPLETE BLOOD COUNT Performed By: #### [id number] ## ##[address] [address] Eosinophils (Bld) 0.10 0.00 - 0.50 x10EE3/UL Normal 03-18-2020 [facility] [#/Vol] [facility] (79893) Comment: Performed By: #### [id number] ## ##[address] [address] Eosinophils/100 WBC (Bld) 1.4 0.0 - 7.0 % Normal 02-19 [facility] ( 48925) Comment: Performed By: #### [id number] ## ##[address] [address] Erythrocyte distribution 14.0 12.0 - 15.6 % Normal [facility] width (RBC) [Ratio] [facility] (64403) Comment: Performed By: #### [id number] ## ##[address] [address] Hematocrit (Bld) [Volume 40.8 34.0 - 46.0 % Normal [facility]] [facility] ( 59999) Comment: Performed By: #### [id number] ## ##[address] [address] Hemoglobin (Bld) 13.4 12.0 - 16.0 g/dl Normal 03-18-2020 [facility] [Mass/Vol] [facility] (78567) Comment: Performed By: #### [id number] ## ##[facility],[address] [place] [address] 96269 Lymphocytes (Bld) 3.10 0.80 - 2.80 x10EE3/UL High 03-18-2020 [facility] [#/Vol] [facility] (98967) Comment: Performed By: #### [id number] ## ##[facility],[address] [place] [address] 00294 Lymphocytes/100 WBC (Bld) 33.4 20.0 - 45.0 % Normal [facility] ( 15818) Comment: Performed By: #### [id number] ## ##[address] [address] MANUAL DIFF N/A Normal 03-18-[address] [facility] (22699) Comment: Performed By: #### [id number] ## ##[address] [address] MCH (RBC) [Entitic mass] 28 27 - 33 pg Normal 03-18 [facility] ( 03470) Comment: Performed By: #### [id number] ## ##[address] [address] MCHC (RBC) [Mass/Vol] 33 32 - 36 X10 3 Normal 03-18-20 20 [facility] ( 10372) Comment: Performed By: #### [id number] ## ##[address] [address] MCV (RBC) [Entitic vol] 84 80 - 99 fl Normal 2019 [facility] ( 70339) Comment: Performed By: #### [id number] ## ##[address] [address] Monocytes (Bld) 0.60 0.20 - 1.00 x10EE3/UL Normal 03-18-2020 Emily [facility] [#/Vol] [facility] (18299) Comment: Performed By: #### [id number] ## ##[facility],[address] [place] [address] 27590 MONOS % 6.1 0.0 - 10.0 % Normal 03-18-2020 [facility] (87630) Comment: Performed By: #### [id number] ## ##[facility],[address] [place] [address] 14000 Morphology Victorino (Bld) [Interp] N/A Normal 03-18-2020 [facility] ( 48742) Comment: Performed By: #### [id number] ## ##[address] [address] Neutrophils (Bld) 5.40 1.50 - 7.10 x10EE3/UL Normal 03-18-2020 [facility] [#/Vol] [facility] (00898) Comment: Performed By: #### [id number] ## ##[address] [address] Neutrophils/100 WBC (Bld) 58.5 46.0 - 76.0 % Normal [facility] ( 06965) Comment: Performed By: #### [id number] ## ##[address] [address] Platelet mean volume 7.7 6.6 - 10.5 fl Normal 03-18-20 20 [facility] (Bld) [Entitic vol] Hospital (82583) Comment: Result Comment: AUTOMATED DI FFERENTIAL Performed By: #### [id number] ## ##[address] [address] Platelets (Bld) [#/Vol] 471 150 - 450 x10EE3/UL High 2019 [facility] ( 48398) Comment: Performed By: #### [id number] ## ##[facility],[address] [place] [address] 57500 RBC (Bld) [#/Vol] 4.84 4.10 - 5.30 x 10EE6/UL Normal 0 [facility] (40172) Comment: Performed By: #### [id number] ## ##[address] [address] WBC (Bld) [#/Vol] 9.2 4.5 - 10.8 x 10EE3/UL Normal 03-18-2020 [facility] ( 10779) Comment: Performed By: #### [id number] ## ##[address] [address] parasite id on 2019 Parasite ID Specimen Desc: Normal 02-24-2020 [facility] (02891) Sp. Request/Comment: SPSTER Culture Result Adult Female Ixodes spp. ([place] Tick)(*) Mouth parts not in tact Not Engorged Report Status 02/24/2020 FINAL Parasite ID Specimen Desc: Normal 02-24-2020 [facility] (20224) Sp. Request/Comment: SPSTER Culture Result Adult Female Ixodes spp. ([place] Tick)(*) Mouth parts intact N ot Engorged Report Status 02/24/2020 FINAL hgb a1c [ccl] on 09-03-05 HbA1c (Bld) [Mass fraction] 143 mg/dL Normal [facility] ( 71798) Comment: Result Comment: eAG: (Estima zoey average glucose) is a calculated value from HgbA1c and is sales representative electric service of the averag e blood glucose level in the last 2-3 month period. [facility] [address] [place] [address] Alexx Han III, M.D. [id number] Performed By: #### [id number] ## ## [facility],[address] [place] [address] 03948 HbA1c (Bld) [Mass fraction] 6.6 4.3-5.6 % High [facility] ( 64595) Comment: Result Comment: [place] Raquel betes [employer] guidelines indicate that patients with HgbA1c in the range 5.7-6.4% are at in creased risk for development of diabetes, and intervention by lifestyle mo dification may be beneficial. HgbA1c greater or equal to 6.5% is considered diagnostic of diabetes. Performed By: #### [id number] ## ## [facility],[address] [place] [address] 38061 hemoglobin a1c on HbA1c (Bld) [Mass fraction] 143 mg/dL Normal [facility] (59368 ) Comment: Performed By: #### HBA1C ### # [facility]ine [facility] [address] [place], [place] [address] HbA1c (Bld) [Mass fraction] 6.6 4.3-5.6 % High [facility] (23125 ) Comment: Performed By: #### HBA1C ### # [facility] [address] [place], [place] [address] lipid profile on 09-03-03 Cholesterol [Mass/Vol] 295 0 - 200 mg/dl High 020 [facility] ( 26427) Comment: Performed By: #### [id number] ## ## [facility],[address] [place] [address] 00060 Cholesterol in HDL 72 40 - 60 mg/dl High 02-21-2020 [facility] [Mass/Vol] [facility] (83821) Comment: Performed By: #### [id number] ## ## [facility],[address] [place] [address] 42314 Cholesterol in LDL 196 0 - 129 mg/dl High 02-21-2020 [facility] [Mass/Vol] [facility] (14403) Comment: Performed By: #### [id number] ## ## [facility],[address] [place] [address] 77692 Cholesterol.total/Cholesterol in HDL 4.1 0.0 - 5.0 Nor mal 02-21-2020 [facility] [Mass ratio] [facility] (33578) Comment: Performed By: #### [id number] ## ## [facility],[address] [facility] [address] Lipid 1996 panel Normal 02-21-2020 [facility] (32169) Comment: Result Comment: LIPID PROFIL E Performed By: #### [id number] ## ## [facility] [facility] [address] Triglyceride [Mass/Vol] 135 0 - 150 mg/dl Normal 2019 [facility] ( 56192) Comment: Performed By: #### [id number] ## ## [facility],[address] [facility] [address] culture urine on 09-03-03 CULTURE CULTURE URINE Normal 02-21-2020 [facility] URINE _URINE CULTURE_ Pome jyoti Mock I C R O B I O L O G Y R E P O R T FINAL [facility] ----- Antimicrobial Susceptibility and Organism Identification Report [facility] Specimen Number : [id number] Requested : 02/21/20 ([id number]) Specimen Source : URINE Collected : 02/21/20 11:25 [facility] : OUTPATIENT Received : 02/21/20 11:25 Requesting Physician : DELMER Patient/Specimen Tests and Comments Specimen Comments --------- FINAL REPORT: URINE COLONY COUNT: > THAN 100,000 CFU/CC GRAM NEGATIVE RODS [id number] CFU/CC GRAM POSITIVE TERESA PROBABLE CONTAMINATION Organisms Identified --- ----- * 01 Pseudomonas aeruginosa 02/24/20 Comments --------- >100,000 cfu Tech : Source : URINE ID # : [id number] FINAL Report Date : / / : [...] Ticar/K Clav'ate for gram positives based on telephone sterilizer's breakpoints. Tech : Source : URINE ID # : [id number] FINAL Report Date : / / : Collected : 02/21/20 11:25 02/24/20.1414.KLS. 02/23/20.0713.AMIEN. 02/24/20.1414.KLGaston.COMPLETE Comment: Performed By: #### [id number] ## ## [facility],[address] [place] [address] ct abdomen/pelvis on 2020-01-22 CT ABDOMEN/PELVIS [facility] Normal 0 01-22-2020 [facility] [address] [place] [address] (76984) Patient: SEBASTIAN BURGOS Phone#: : 1940 Age: 79 Gender: F Pt. Type: Out Account: [id number] Location: 010 Ordering: Emily MOORE Exam Date: 01/22/2020/11:02 Family Phys: GERBER NICHOLAS Charge Code: [id number] Physician: Dickenson Order #: [id number] DLP Dose#: PROCEDURE: CT ABDOMEN/PELVIS WITHOUT CONTRAST COMPARISON: [facility] l, CT, DANI W/O CON, 01/25/2019, 11:00. [facility], CT, ABDOMEN/PELVIS W/O CON, 07/24/2016, 22:34. [...] 79 Gender: F Pt. Type: Out Account: [id number] Location: [facility] Ordering: Emily MOORE Exam Date: 01/22/2020/11:02 Family Phys: GERBER NICHOLAS Charge Code: [id number] Physician: Dickenson Order #: [id number] DLP Dose#: ADRENALS: Normal. No mass or [...] 13:15 emergency report on 2019-11-09 EMERGENCY REPORT [facility] Normal 11-09 [facility]spital EMERGENCY ROOM REPORT (96352) NAME ACCOUNT SEX AGE ADMIT DISCHARGE PT MED. RECORD# NUMBER DATE DATE TYPE LORETTA [id number] F 79 10/31/19 10/31/19 3 SEBASTIAN Feldman [address] ROOM: ER DATE OF : 1940 DICTATING [...] She uses a lot of herbal and itqo-xwr-mmhthka vitamin products. ALLERGIES: She has multiple allergies [...] BURGOS : 1940 some oral antibiotics [facility] until we can find what the [...] referral. I gave her Dr. Moore in [place] to follow up with in the meantime. DIAGNOSIS: Urinary tract infection. Dictated By: Brian Gutiérrez MD 10/31/19 13:36 JOB #: [id number] Transcribed By: maurice 11/01/19 15:09 Electronically signed by: DUNIA Gutiérrez M.D. 11/09/19 07:54 Page 2 of 2 SEBASTIAN BURGOS Emergency Room Report emergency report on 2019-11-04 EMERGENCY REPORT [facility] Normal 11-04 [facility] [place] [facility] EMERGENCY ROOM REPORT ([id number]) NAME ACCOUNT SEX AGE ADMIT DISCHARGE PT MED. RECORD# NUMBER DATE DATE TYPE LORETTA [id number] F 79 10/30/19 10/30/19 3 SEBASTIAN Feldman [address]8989 ROOM: ER DATE OF : 1940 DICTATING [...] Kitty Casper DO 10/30/19 12:30 JOB #: [id number] Transcribed By: maurice 10/31/19 13:03 Electronically signed by: E-Sign: KITTY CASPER MD 11/04/19 11:14 Page 2 of 2 SEBASTIAN BURGOS Emergency Room Report urinalysis on 10-31 Amorphous NONE Normal 10-31-2019 [facility] (17611) Comment: Performed By: #### [id number] ## ## [facility],[address] [place] [address] Bacteria LM.HPF (Urine sed) 2+ Normal [facility] [#/Area] [facility] ( 43457) Comment: Performed By: #### [id number] ## ## [facility],[address] [place] [address] 52443 Bilirubin [Mass/Vol] NEG NORMAL: NEGATIVE mg/dL Normal [facility] ospital (72861) Comment: Performed By: #### [id number] ## ## [facility],[address] [place] [address] 23924 Blood 250 NORMAL: NEGATIVE Abnormal 10-31-2019 [facility] (01401) Comment: Performed By: #### [id number] ## ## [facility],[address] [place] [address] 10070 Casts LM.LPF (Urine sed) NONE Normal 10-31 [facility] ( 03479) Comment: Performed By: #### [id number] ## ## [facility],[address] [place] [address] 80245 Clarity (U) very cloudy NORMAL: CLEAR Normal 10-31-2019 [facility] ( 70490) Comment: Performed By: #### [id number] ## ## [facility],[address] [place] [address] 52900 Color (U) david NORMAL: YELLOW Normal 10-31-2019 [facility] (78553) Comment: Performed By: #### [id number] ## ## [facility],[address] [place] [address] 96477 Crystals LM Nom (Urine sed) NONE Normal [facility] ( 34293) Comment: Performed By: #### [id number] ## ## [facility],[address] [place] [address] 26915 Epi Cells NONE Normal 10-31-2019 [facility] (74580) Comment: Performed By: #### 965244 ## ## [facility],[address] [place] [address] 81460 Glucose [Mass/Vol] NORM NORMAL: NORMAL Normal 2018 [facility] ( 37183) Comment: Performed By: #### [id number] ## ## [facility],[address] [place] [address] 74397 Ketone 5 NORMAL: NEGATIVE Abnormal 10-31-2019 [facility] (61795) Comment: Performed By: #### 635954 ## ## [facility],[address] [place] [address] 47678 Microscopic SEE BELOW Normal 10-31-[address] [facility] (56287) Comment: Result Comment: MICROSCOPIC Performed By: #### [id number] ## ## [facility],[address] [place] [address] 84261 Mucous 1+ Normal 10-31-2019 [facility] (16648) Comment: Performed By: #### [id number] ## ## [facility],[address] [place] [address] 30876 Nitrite Ql (U) POS NORMAL: NEGATIVE Normal 10-31-20 19 [facility] ( 00883) Comment: Performed By: #### [id number] ## ## [facility],[address] [place] [address] 50078 pH (Bld) 5 NORMAL: 5.0-8.0 Normal 10-31-2019 [facility] (22069) Comment: Performed By: #### [id number] ## ## [facility],[address] [place] [address] 43803 Protein (U) 100 NORMAL: NEGATIVE mg/dL Abnormal 10-31-2019 [facility] [Mass/Vol] [facility] (59272) Comment: Performed By: #### [id number] ## ## [facility],[address] [place] [address] 19469 Rbc TNTC 0-3/hpf Normal 10-31-2019 [facility] (83571) Comment: Performed By: #### [id number] ## ## [facility],[address] [place] [address] 93945 Sp [place] 1.025 NORMAL: 1.010-1.030 Normal 9 [facility] ( 81848) Comment: Performed By: #### [id number] ## ## [facility],[address] [place] [address] 49702 Specimen type Nom (Spec) Void Normal 10-31 [facility] (27714) Comment: Performed By: #### [id number] ## ## [facility],[address] [place] [address] 56013 Urobilinog NORM NORMAL: NORMAL Normal 10-31-2019 [facility] (95228) Comment: Performed By: #### 139087 ## ## [facility],[address] [place] [address] 32244 Wbc 26-50 0-5/hpf Normal 10-31-2019 [facility] (45313) Comment: Performed By: #### [id number] ## ## [facility],[address] [place] [address] 36016 WBC (Bld) [#/Vol] 500 NORMAL: NEGATIVE Abnormal 10-31 [facility] ( 44278) Comment: Performed By: #### [id number] ## ## [facility],[address] [place] [address] 90584 Yeast LM Ql (Urine sed) NONE Normal 2018 [facility] (76571) Comment: Performed By: #### [id number] ## ## [facility],[address] [place], [place] [address] culture urine on 20 07-11-12 CULTURE CULTURE URINE Normal 10-31-2019 [facility] URINE _URINE CULTURE_ [facility]il[facility] jyoti M I C R O B I O L O G Y R E P O R T FINAL [facility] ----- Antimicrobial Susceptibility and Organism Identification Report Hospital Specimen Number : [id number] Requested : 10/31/19 ([id number]) Specimen Source : URINE Collected : 10/31/19 12:05 [place] [facility] Isolation : Emergency Room Received : 10/31/19 12:05 Requesting Physician : FILIPE MULLER Patient/Specimen Tests and Comments Specimen Comments --------- FINAL REPORT: URINE COLONY COUNT: 5000 CFU/CC GRAM NEGATIVE RODS Organisms Identified --- ----- * 01 Pseudomonas aeruginosa 11/03/19 Comments --------- 5,000 cfu Tech : Source : URINE ID # : [id number] FINAL Report Date : / / : [...] Ticar/K Clav'ate for gram positives based on telephone sterilizer's breakpoints. Tech : Source : URINE ID # : [id number] FINAL Report Date : / / : Collected : 10/31/19 12:05 11/03/19.1005.FELICIA. 11/02/19.1035.PETERO. 11/01/19.0844.PETERO. SEND TO PHARMACY? YES 11/03/19.1005.FELICIA.COMPLETE YES Comment: Performed By: #### [id number] ## ## Antony Franklin [facility],[address] [place] [address] mr mri brain w/o contrast on 2019-10-30 MR MRI BRAIN W/O [facility] Normal 10-30 [facility] [address] [place], [place] [address] ([id number]) Patient: SEBASTIAN BURGOS Phone#: : 1940 Age: 79 Gender: F Pt. Type: Out Account: [id number] Location: [facility] Ordering: GERBER NICHOLAS Exam Date: 10/30/2019/10:21 Family Phys: Charge Code: [id number] Physician: Dickenson Order #: [id number] DLP Dose#: PROCEDURE: MRI BRAIN WITHOUT CONTRAST COMPARISON: [facility], MR, BRAIN WITHOUT CONTR AST, 08/01/2012, [...] the left at least ten foci. A sales representative electric service lesion measures 0.3 cm. No associated restricted [...] Report - Page 2 of 2 Patient: SBEASTIAN BURGOS Phone#: : 1940 Age: 79 Gender: F Pt. Type: Out Account: [id number] Location: [facility] Ordering: GERBER NICHOLAS Exam Date: 10/30/2019/10:21 Family Phys: Charge Code: [id number] Physician: Dickenson Order #: [id number] DLP Dose#: Approved by: Vanessa Walker MD on 10/30/2019 at 16:36 culture urine on 07-11-04 CULTURE CULTURE URINE Normal 10-23-2019 Antony URINE _URINE CULTURE_ Conchita Mock I C R O B I O L O G Y R E P O R T FINAL [facility] ----- Antimicrobial Susceptibility and Organism Identification Report Hospital Specimen Number : [id number] Requested : 10/23/19 ([id number]) Specimen Source : URINE Collected : 10/23/19 12:30 [place] of Isolation : OUTPATIENT Received : 10/23/19 12:30 Requesting Physician : DELMER Patient/Specimen Tests and Comments Specimen Comments --------- FINAL REPORT: URINE COLONY COUNT: [id number] CFU/CC GRAM NEGATIVE RODS CONTAMINATED WITH: GRAM POSITIVE TERESA Organisms Identified --- ----- * 01 Pseudomonas aeruginosa 10/26/19 Comments --------- 10-50,000 CFU Tech : Source : URINE ID # : [id number] FINAL Report Date : / / : [...] Ticar/K Clav'ate for gram positives based on telephone sterilizer's breakpoints. Tech : Source : URINE ID # : [id number] FINAL Report Date : / / : Collected : 10/23/19 12:30 10/26/19.0825.BKO. 10/25/19.1240.KLS. SEND TO PHARMACY? NO 10/26/19.BKO.COMPLETE NO Comment: Performed By: #### [id number] ## ## Antony [facility],[address] [place] [address] Encounters Date Type Reason Provider Location 05-02-2020 - Emergency [facility] Antony Franklin 05-02-2020 [facility] GERBER VENTURA (83183) [facility] NICHOLAS UNKNOWN PROVIDER UNKNOWN PROVIDER 04-06-2020 - Emergency BRIAN montes 04-06-2020 department patient BROCK MAYES MD [facility]oria l [facility] BROCK MAYES MD (54695) DELMER UNKNOWN PROVIDER UNKNOWN PROVIDER 10-31-2019 - Emergency BRIAN montes 10-31-2019 department patient BROCK GUTIÉRREZ Memor ial visit [facility]ER[facility] DELMER MAYES (99099) MD NICHOLAS UNKNOWN PROVIDER UNKNOWN PROVIDER 10-30-2019 - Emergency [facility] Antony Franklin 10-30-2019 department [facility] (41537) ARELIS NICHOLAS UNKNOWN PROVIDER UNKNOWN PROVIDER 03-07-2019 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 [place] carcamo:[facility] inpatient 08-14-2020 - Patient encounter ZACHARIAH Franklin 08-14-2020 procedure C TIFFANIE MAYES MD [facility] GUILLE UNKNOWN (46133) PROVIDER UNKNOWN PROVIDER 03-18-2020 - Patient encounter Other general symptoms GERBER Franklin 03-18-2020 procedure and signs DELMER Aviles [facility] GERBER VENTURA (32339) DELMER NICHOLAS UNKNOWN PROVIDER UNKNOWN PROVIDER 02-22-2020 - Patient encounter Urinary tract GERBER Arango jyoti 02-22-2020 procedure infection, site not DELMER MAYES Memo rial leia VENTURA [facility] GERBER VENTURA (65393) DELMER NICHOLAS UNKNOWN PROVIDER UNKNOWN PROVIDER 02-22-2020 - Patient encounter Type 2 diabetes GERBER armstrong 02-22-2020 procedure mellitus without DELMER MAYES Memoria l val VENTURA [facility] GERBER VENTURA (34420) DELMER NICHOLAS UNKNOWN PROVIDER UNKNOWN PROVIDER 01-22-2020 - Patient encounter Neuromuscular J KAY OSCAR J Antony Franklin 01-22-2020 procedure dysfunction of [facility] bladder, unspecified [facility] GERBER VENTURA (04806) DELMER UNKNOWN PROVIDER UNKNOWN PROVIDER 01-13-2020 Patient encounter GERBER saleh procedure DELMER Aviles [facility] GERBER VENTURA (86064) DELMER NICHOLAS UNKNOWN PROVIDER UNKNOWN PROVIDER 10-30-2019 - Patient encounter Disorientation, GERBER armstrong 10-30-2019 procedure unspecified DELMER Aviles MD [facility] GERBER VENTURA (00722) DELMER NICHOLAS UNKNOWN PROVIDER UNKNOWN PROVIDER 10-23-2019 - Patient encounter GERBER saleh 10-23-2019 procedure DELMER Aviles MD [facility] GERBER VENTURA ([id number]) DELMER NICHOLAS UNKNOWN PROVIDER UNKNOWN PROVIDER Procedures Procedure Name Date Provider Location Urinalysis 04-06-2020 [facility] ([id number]) Comment: Result Comment: URINALYSIS Performed By: #### [id number] ## ##[facility],[address] [place] [address] [id number] Urinalysis 10-31-2019 [facility] ([id number]) Comment: Result Comment: URINALYSIS Performed By: #### [id number] ## ## [facility],[address] [place] [id number] Payers Payer Name Policy Number Location [employer] [id number] [facility] ([id number]) MEDICARE OUTPATIENT [id number] [facility] ([id number]) [id number] [facility] ([id number]) [id number] [facility] ([id number]) [id number] [facility] ([id number]) [id number] [facility] ([id number]) [id number] [facility] ([id number]) [id number] [facility] ([id number]) [id number] [facility] ([id number]) [id number] [facility] ([id number]) [id number] [facility] ([id number]) [id number] [facility] ([id number]) [id number] [facility] ([id number]) [id number] [facility] ([id number]) [id number] [facility] ([id number]) [id number] [facility] ([id number]) The following information is from the original [...] DATE CREATED AUTHOR AUTHOR'S ORGANIZATIO N 02/28/2019 [facility] DATE CREATED AUTHOR AUTHOR'S ORGANIZATIO N 02/24/2020 [facility] DATE CREATED AUTHOR AUTHOR'S ORGANIZATIO N 08/15/2020 [facility]
== END 2020-04-20 10:15 | disposition home or self-care (01) | DRG 949 ==
PROVIDERS: Admitting Provider Family Medicine Geriatric Medicine; PCP Student in an Organized Health Care Education/Training Program; Visit Provider Family Medicine Geriatric Medicine
DX: Z48.816 Encounter for surgical aftercare following surgery on the genitourinary system (principal); N20.2 Calculus of kidney with calculus of ureter; N13.6 Pyonephrosis; J45.909 Unspecified asthma, uncomplicated; I48.91 Unspecified atrial fibrillation; B96.5 Pseudomonas (aeruginosa) (mallei) (pseudomallei) as the cause of diseases classified elsewhere; K21.9 Gastro-esophageal reflux disease without esophagitis; N95.1 Menopausal and female climacteric states; E53.9 Vitamin B deficiency, unspecified
CPT/HCPCS: 36415; 80048; 85025; 87635; 97110; 97116; 97162; 97165; 97530; 97535; 97802; G2023; J7050; A4216; U0004

== ENCOUNTER → 2020-04-16 | Outpatient (CLI) | payer MEDICARE, OTHER, SELFPAY ==
[2020-04-11 16:23] VITALS: BMI 32.5
== END | disposition home or self-care (01) ==
LOC: LABSPEC 15:50
PROVIDERS: PCP Student in an Organized Health Care Education/Training Program; Visit Provider Urology
DX: N20.0 Calculus of kidney (principal)

== ENCOUNTER → 2020-05-18 14:50 | Outpatient (CLI) | payer MEDICARE, OTHER, SELFPAY ==
[2020-05-12 14:22] VITALS: BMI 30.1
[2020-05-18 16:08] LABS: Absolute Lymphocyte Count 2.59 X10^3/uL (0.83-4.51); Absolute Neutrophil Count 4.8 X10^3/uL (2.0-7.7); Basophil# 0.03 X10^3/uL; Basophil% 0.4 % (0-1); Eosinophil# 0.09 X10^3/uL; Eosinophils% 1.1 % (0-5); Hematocrit 41.9 % (37-47); Hemoglobin 12.7 g/dL (12.0-15.0); Lymphocyte # 2.59 X10^3/ul (4.0); Mean Corp Hgb Conc 30.3 g/dL (32-36); Mean Corpuscular Hgb 27.4 pg (27.0-32.0); Mean Corpuscular Volume 90.5 fL (81-99); Mean Platelet Vol. 9.6 fl (6.2-12.0); Monocyte# 0.52 X10^3/uL; Monocyte% 6.4 % (0-10); NRBC Flagged by Analyzer 0 % (0-5); Neutrophil # 4.82 X10^3/uL (2.7-7.7); Neutrophil % 59.6 % (47-70); Platelet Count 414 K/mm3 (150-450); RBC Distribution Width CV 13.5 % (11.6-14.6); Red Blood Count 4.63 M/mm3 (4.2-5.4); White Blood Count 8.1 K/mm3 (4.4-11.0)
[2020-05-18 16:34] LABS: Vitamin D,25 Hydroxy 42.4 ng/mL
[2020-05-18 16:43] LABS: AST(SGOT) 16 U/L (15-37); Alanine Aminotransfer ALT/SGPT 20 U/L (13-56); Albumin, Serum 3.6 g/dL (3.2-5.0); Alkaline Phosphatase 99 U/L (45-117); Anion Gap 2 (5-15); BUN 22 mg/dL (7-18); BUN/Creat Ratio 23.3 RATIO (10-20); Calcium,Total 8.4 mg/dL (8.5-10.1); Chloride 110 mmol/L (98-107); Creatinine, Serum 0.95 mg/dL (0.55-1.02); EST Glomerular Filtration Rate 61 mL/min (>60); Est Glom Filt Rate - Afr Amer 73 mL/min (>60); Globulin 3.6 g/dL (2.2-4.2); Glucose 92 mg/dL (74-106); Protein, Total 7.2 g/dL (6.4-8.2); Sodium Level 142 mmol/L (136-145); Thyroid Stim Hormone (TSH) 2.01 uIU/mL (0.358-3.74)
[2020-05-24 03:06] LABS: Lyme IgG P18 Ab Present (.); Lyme IgG P23 Ab Absent (.); Lyme IgG P28 Ab Absent (.); Lyme IgG P30 Ab Absent (.); Lyme IgG P39 Ab Absent (.); Lyme IgG P41 Ab Present (.); Lyme IgG P45 Ab Absent (.); Lyme IgG P58 Ab Absent (.); Lyme IgG P66 Ab Absent (.); Lyme IgG P93 Ab Absent (.); Lyme IgM P23 Ab Absent (.); Lyme IgM P39 Ab Absent (.); Lyme IgM P41 Ab Absent (.)
[2020-05-24 05:19] LABS: Lyme IgG WB Interpretation Negative (.); Lyme IgM WB Interpretation Negative (.)
== END ==
PROVIDERS: Family Medicine Geriatric Medicine; PCP Student in an Organized Health Care Education/Training Program; Visit Provider Internal Medicine Cardiovascular Disease
DX: A69.20 Lyme disease, unspecified (principal); E55.9 Vitamin D deficiency, unspecified; I48.0 Paroxysmal atrial fibrillation; R53.83 Other fatigue
CPT/HCPCS: 36415; 80053; 82306; 84443; 85025; 86617; 93225; 93226

== ENCOUNTER → 2020-08-12 11:05 | Outpatient (CLI) | payer MEDICARE, OTHER, SELFPAY ==
[2020-05-12 14:22] VITALS: BMI 30.1
[2020-08-12 12:46] LABS: Absolute Lymphocyte Count 3.24 X10^3/uL (0.83-4.51); Absolute Neutrophil Count 5.4 X10^3/uL (2.0-7.7); Basophil# 0.05 X10^3/uL; Basophil% 0.5 % (0-1); Eosinophil# 0.12 X10^3/uL; Eosinophils% 1.3 % (0-5); Hematocrit 40.5 % (37-47); Hemoglobin 12.4 g/dL (12.0-15.0); Lymphocyte # 3.24 X10^3/ul (4.0); Lymphocyte % 33.9 % (19-41); Mean Corp Hgb Conc 30.6 g/dL (32-36); Monocyte# 0.72 X10^3/uL; Monocyte% 7.5 % (0-10); NRBC Flagged by Analyzer 0 % (0-5); Neutrophil # 5.39 X10^3/uL (2.7-7.7); Neutrophil % 56.4 % (47-70); Platelet Count 380 K/mm3 (150-450); RBC Distribution Width SD 41.9 fl (35.1-43.9); White Blood Count 9.6 K/mm3 (4.4-11.0)
[2020-08-12 13:08] LABS: Vitamin B12 492 pg/mL (211-911); Vitamin D,25 Hydroxy 32.2 ng/mL
[2020-08-12 13:13] LABS: AST(SGOT) 16 U/L (15-37); Alanine Aminotransfer ALT/SGPT 22 U/L (13-56); Albumin, Serum 3.8 g/dL (3.2-5.0); Alkaline Phosphatase 99 U/L (45-117); Anion Gap 3 (5-15); BUN 18 mg/dL (7-18); BUN/Creat Ratio 20.1 RATIO (10-20); Calcium,Total 8.8 mg/dL (8.5-10.1); Chloride 107 mmol/L (98-107); EST Glomerular Filtration Rate 65 mL/min (>60); Est Glom Filt Rate - Afr Amer 78 mL/min (>60); Globulin 3.7 g/dL (2.2-4.2); Glucose 91 mg/dL (74-106); Potassium 4.1 mmol/L (3.5-5.1); Protein, Total 7.5 g/dL (6.4-8.2); Sodium Level 140 mmol/L (136-145); Thyroid Stim Hormone (TSH) 2.14 uIU/mL (0.358-3.74)
== END ==
PROVIDERS: PCP Family Medicine Geriatric Medicine; Visit Provider Family Medicine Geriatric Medicine
DX: E55.9 Vitamin D deficiency, unspecified (principal); R53.83 Other fatigue
CPT/HCPCS: 36415; 80053; 82306; 82607; 84443; 85025

== ENCOUNTER → 2020-10-26 11:42 | Outpatient (CLI) | payer MEDICARE, OTHER, SELFPAY ==
[2020-05-12 14:22] VITALS: BMI 30.1
[2020-10-26 16:33] LABS: Vitamin D,25 Hydroxy 31.2 ng/mL
[2020-10-26 16:39] LABS: Absolute Lymphocyte Count 2.74 X10^3/uL (0.83-4.51); Absolute Neutrophil Count 5.8 X10^3/uL (2.0-7.7); Basophil# 0.04 X10^3/uL; Basophil% 0.4 % (0-1); Eosinophil# 0.09 X10^3/uL; Hematocrit 43.7 % (37-47); Lymphocyte # 2.74 X10^3/ul (4.0); Lymphocyte % 29.4 % (19-41); Mean Corp Hgb Conc 29.7 g/dL (32-36); Mean Corpuscular Hgb 25.9 pg (27.0-32.0); Mean Corpuscular Volume 87.2 fL (81-99); Mean Platelet Vol. 10.4 fl (6.2-12.0); Monocyte# 0.61 X10^3/uL; Monocyte% 6.5 % (0-10); NRBC Flagged by Analyzer 0 % (0-5); Neutrophil # 5.83 X10^3/uL (2.7-7.7); Neutrophil % 62.5 % (47-70); Platelet Count 375 K/mm3 (150-450); RBC Distribution Width CV 13.9 % (11.6-14.6); RBC Distribution Width SD 44.4 fl (35.1-43.9); Red Blood Count 5.01 M/mm3 (4.2-5.4); White Blood Count 9.3 K/mm3 (4.4-11.0)
[2020-10-26 16:49] LABS: ALB/GLOB Ratio 1.1 RATIO (0.9-2.4); AST(SGOT) 22 U/L (15-37); Alanine Aminotransfer ALT/SGPT 22 U/L (13-56); Alkaline Phosphatase 101 U/L (45-117); Anion Gap 7 (5-15); BUN 22 mg/dL (7-18); BUN/Creat Ratio 23.7 RATIO (10-20); Chloride 105 mmol/L (98-107); Creatinine, Serum 0.93 mg/dL (0.55-1.02); EST Glomerular Filtration Rate 62 mL/min (>60); Est Glom Filt Rate - Afr Amer 75 mL/min (>60); Globulin 3.8 g/dL (2.2-4.2); Glucose 78 mg/dL (74-106); Protein, Total 7.8 g/dL (6.4-8.2); Sodium Level 137 mmol/L (136-145); Thyroid Stim Hormone (TSH) 2.24 uIU/mL (0.358-3.74)
== END ==
PROVIDERS: PCP Family Medicine Geriatric Medicine; Visit Provider Family Medicine Geriatric Medicine
DX: E55.9 Vitamin D deficiency, unspecified (principal); R53.83 Other fatigue
CPT/HCPCS: 36415; 80053; 82306; 84443; 85025

== ENCOUNTER → 2021-01-12 15:50 | Outpatient (CLI) | payer MEDICARE, OTHER, SELFPAY ==
[2020-05-12 14:22] VITALS: BMI 30.1
[2021-01-12 17:25] LABS: Erythrocyte Sedimentation Rate 4 mm/hr (0-30)
[2021-01-12 17:34] LABS: CRP 3.93 mg/L (0.0-3.0)
== END ==
PROVIDERS: PCP Family Medicine Geriatric Medicine; Visit Provider Family Medicine Geriatric Medicine
DX: M72.9 Fibroblastic disorder, unspecified (principal)
CPT/HCPCS: 36415; 85652; 86140

== ENCOUNTER → 2021-01-25 11:05 | Outpatient (CLI) | payer MEDICARE, OTHER, SELFPAY ==
[2020-05-12 14:22] VITALS: BMI 30.1
[2021-01-25 12:25] LABS: Absolute Neutrophil Count 7.5 X10^3/uL (2.0-7.7); Basophil# 0.05 X10^3/uL; Basophil% 0.4 % (0-1); Eosinophils% 0.9 % (0-5); Hematocrit 42.3 % (37-47); Hemoglobin 12.8 g/dL (12.0-15.0); Lymphocyte % 27.8 % (19-41); Mean Corp Hgb Conc 30.3 g/dL (32-36); Mean Corpuscular Hgb 26.2 pg (27.0-32.0); Mean Corpuscular Volume 86.5 fL (81-99); Mean Platelet Vol. 9.7 fl (6.2-12.0); Monocyte# 0.62 X10^3/uL; Monocyte% 5.4 % (0-10); NRBC Flagged by Analyzer 0 % (0-5); Neutrophil # 7.46 X10^3/uL (2.7-7.7); Neutrophil % 64.8 % (47-70); Platelet Count 418 K/mm3 (150-450); RBC Distribution Width CV 13.9 % (11.6-14.6); RBC Distribution Width SD 43.2 fl (35.1-43.9); Red Blood Count 4.89 M/mm3 (4.2-5.4); White Blood Count 11.5 K/mm3 (4.4-11.0)
[2021-01-25 12:40] LABS: Vitamin D,25 Hydroxy 29.3 ng/mL
[2021-01-25 12:58] LABS: ALB/GLOB Ratio 1.1 RATIO (0.9-2.4); AST(SGOT) 13 U/L (15-37); Alanine Aminotransfer ALT/SGPT 24 U/L (13-56); Albumin, Serum 3.8 g/dL (3.2-5.0); Alkaline Phosphatase 96 U/L (45-117); Anion Gap 3 (5-15); BUN 22 mg/dL (7-18); BUN/Creat Ratio 22.8 RATIO (10-20); Calcium,Total 8.9 mg/dL (8.5-10.1); Chloride 104 mmol/L (98-107); Creatinine, Serum 0.97 mg/dL (0.55-1.02); EST Glomerular Filtration Rate 59 mL/min (>60); Est Glom Filt Rate - Afr Amer 72 mL/min (>60); Globulin 3.6 g/dL (2.2-4.2); Glucose 100 mg/dL (74-106); Protein, Total 7.4 g/dL (6.4-8.2); Sodium Level 138 mmol/L (136-145); Thyroid Stim Hormone (TSH) 3.19 uIU/mL (0.358-3.74)
== END ==
PROVIDERS: PCP Family Medicine Geriatric Medicine; Visit Provider Family Medicine Geriatric Medicine
DX: E55.9 Vitamin D deficiency, unspecified (principal); R53.83 Other fatigue
CPT/HCPCS: 36415; 80053; 82306; 84443; 85025

== ENCOUNTER → 2021-02-22 12:16 | Outpatient (CLI) | payer MEDICARE, OTHER, SELFPAY ==
[2021-01-25 13:44] VITALS: BMI 29.9
--- NOTE | 2021-02-22 12:25 | RAD_ITS ---
INDICATION: Diarrhea, unspecified EXAMINATION/TECHNIQUE: X-RAY - XR Abdomen 1 View COMPARISON: None FINDINGS: BOWEL GAS PATTERN: Non-obstructive. No bowel or stomach distention. FREE AIR: Not assessed on a single supine view. ORGANOMEGALY: Not seen. CALCIFICATIONS: No abnormal calcifications observed. LOWER CHEST: No acute pathology. BONES AND SOFT TISSUES: No acute pathology. RAD/Abdomen Single View IMPRESSION: Non-obstructive bowel gas pattern. Electronically Signed: Sammy Dick MD at 19:56 EDT Tel , Service support ,
== END ==
PROVIDERS: PCP Family Medicine Geriatric Medicine; Referring Provider Family Medicine Geriatric Medicine; Visit Provider Family Medicine Geriatric Medicine
DX: R19.7 Diarrhea, unspecified (principal)
CPT/HCPCS: 74018

== ENCOUNTER → 2021-02-25 13:35 | Outpatient (CLI) | payer MEDICARE, OTHER, SELFPAY ==
[2021-01-25 13:44] VITALS: BMI 29.9
== END ==
PROVIDERS: PCP Family Medicine Geriatric Medicine; Visit Provider Family Medicine Geriatric Medicine
DX: R19.7 Diarrhea, unspecified (principal)
CPT/HCPCS: 82274; 83630; 87177; 87209; 87493; 87506

== ENCOUNTER 2021-03-29 10:13 | Day surgery (SDC) | payer MEDICARE, OTHER, SELFPAY ==
[2021-03-10 09:56] VITALS: BMI 30.4
[2021-03-10 13:08] LABS: Anion Gap 5 (5-15); BUN 18 mg/dL (7-18); BUN/Creat Ratio 18.4 RATIO (10-20); Calcium,Total 8.8 mg/dL (8.5-10.1); Chloride 107 mmol/L (98-107); Creatinine, Serum 0.98 mg/dL (0.55-1.02); EST Glomerular Filtration Rate 58 mL/min (>60); Est Glom Filt Rate - Afr Amer 70 mL/min (>60); Glucose 97 mg/dL (74-106); Potassium 3.9 mmol/L (3.5-5.1); Sodium Level 137 mmol/L (136-145)
[2021-03-26 13:40] VITALS: BMI 30.4
--- NOTE | 2021-03-29 08:24 | HP_ITS ---
HPI HPI History of Present Illness Surgical H&P: Yes Details: This is a 80 year old female that presents here today for a cardiovascular follow up. She has a history of Lyme disease who presented to the hospital in March 2020 with sepsis, acute left sided hydronephrosis and developed atrial fibrillation with a rapid ventricular response rate. She converted to NSR. When she was in the office last month, she has noted to be in Atrial fib. She was started on eliquis and diltiazem. She notes that over the last few weeks she finds that she is more SOB with activity. She also tells me she has been dealing with constipation. Pt notes that over the last few weeks she has noted an increase in her heart racing. She is fatigued. Intake Vital Signs 03/10/21 Height 5 ft 3 in 03/10/21 Weight: 172 lb 03/10/21 BMI 30.4 03/10/21 BP 104/78 03/10/21 Blood Pressure Location Lt brachial 03/10/21 Position Sitting 03/10/21 Respiration 16 03/10/21 Pulse 104 H 03/10/21 Pulse Source Auscultation Intake Visit Reasons: 6 wk fu Allergies ciprofloxacin [From Cipro] Allergy (Verified 01/25/21 13:41) CONFUSION Iodinated Contrast Media [DYEE] Allergy (Verified 01/25/21 13:41) Anaphylaxis lisinopril Allergy (Verified 01/25/21 13:41) CONFUSION metoprolol Allergy (Verified 01/25/21 13:41) CONFUSION Sulfa (Sulfonamide Antibiotics) Allergy (Verified 01/25/21 13:41) CONFUSION FLUOROQUINOLONES Allergy (Unknown, Uncoded 05/12/20 14:22) Anaphylaxis Medications Vitamin B Complex 1 ea PO DAILY 01/24/20 [History Confirmed 03/10/21] Cranberry Conc/Ascorbic Acid [Cranberry 12,600 mg Softgel] 1 ea PO DAILY 04/06/20 [History Confirmed 03/10/21] biotin 5,000 mcg disintegrating tablet 10,000 mcg PO DAILY 01/25/21 [History Confirmed 03/10/21] citalopram 20 mg tablet 20 mg PO DAILY 01/25/21 [History Confirmed 03/10/21] conj estrogen-medroxyprogesterone 0.45 mg-1.5 mg tablet 1 tab PO DAILY 01/25/21 [History Confirmed 03/10/21] diltiazem HCl 120 mg capsule,24 hr,extended release 120 mg PO DAILY #30 cap 01/25/21 [Rx Confirmed 03/10/21] omeprazole 10 mg capsule,delayed release 10 mg PO DAILY cap 01/25/21 [History Confirmed 03/10/21] apixaban 5 mg tablet 5 mg PO BID #180 tablet 02/18/21 [Rx Confirmed 03/10/21] guaifenesin 600 mg tablet, extended release 12 hr 600 mg PO DAILY PRN tablet 03/10/21 [History Confirmed 03/10/21] polyethylene glycol 3350 17 gram oral powder packet 17 gm PO DAILY each 03/10/21 [History Confirmed 03/10/21] [facility] Medical History (Updated 03/10/21 @ 10:37 by Elsy CURIEL, PA) Benign myalgic encephalomyelitis (Chronic) TIA (transient ischemic attack) (Resolved) Paroxysmal atrial fibrillation (Chronic) Atrial fibrillation with rapid ventricular response (Resolved 04/11/20) Allergic alveolitis (Chronic) Asthma (Chronic) Debility (Chronic) GERD (gastroesophageal reflux disease) (Chronic) Menopausal syndrome (Chronic) Obstructive sleep apnea (Chronic) Ureteral stricture, left (Chronic) Hydronephrosis, left (Resolved) Left renal stone (Resolved) Sepsis (Resolved) Exercise-induced asthma (Inactive) Surgical History History of lithotripsy (Resolved 2016) History of renal stent (Resolved 04/16/20) Family History Father Hyperlipidemia Other Asthma Social History (Updated 03/11/21 @ 17:02 by Elsy CURIEL, PA) Smoking Status: Never smoker alcohol intake: never substance use type: does not use caffeine: Yes Type: carbonated beverages ROS Const Const: Positive for fatigue; negative for weakness, headache(s), frequent falls, difficulty sleeping or excessive sweating Eyes Eyes: Negative for loss of peripheral vision, transient loss of vision, blurry vision, double vision or tunnel vision ENT ENT: Positive for dizziness and balance problems; negative for headache(s) or Nosebleed/epistaxis Cardio Chest Pain: Yes Frequency: monthly (Normally a couple times per month, happened 2 x's this morning) Character: sharp Onset: at rest (while lying in bed) Location: mid sternal, left chest Duration: brief Palpitations: No Edema: None Muscle aches with walking: None Resp Respiratory: Positive for SOB with activity; negative for SOB at rest, SOB orthopnea\SOB lying down, Cough or paroxysmal nocturnal dyspnea GI GI: Negative nausea, vomiting, heartburn or black,tarry stools : Negative for hematuria Musc Musc: Positive for joint pain and balance problems; negative for muscle aches/ myalgia or muscle weakness Skin Skin: Negative non-healing lesions, rash or unusual bruising Neuro Neuro: Positive for dizziness and lightheadedness; negative for near syncope, syncope, frequent falls, headache(s), weakness, blurry vision, double vision or lack of coordination Derrick Hematologic/Lymphatic: Negative for easy bleeding or easy bruising Endo Endo: Positive for fatigue; negative for excessive sweating or increased thirst/drinking Psych Psych: Negative for anxiety or depression Allergy Allergy/Immunology: Negative for hives, Negative for rash Cardiology Exam Const Appearance: cooperative, no acute distress and well developed Orientation: alert, awake and oriented x3 Head Head: normocephalic and atraumatic Mouth: moist mucous membranes Eyes General: appearance normal, both eyes and all related structures Conjunctivae: conjunctivae normal Pupils: PERRL EOM: EOM intact bilaterally Neck Neck: normal visual inspection, no lymphadenopathy and no JVD Carotids: Negative bruit Neck Mass: Negative Neck mass Chest Chest inspection: normal inspection of the chest and symmetric chest movement Auscultation: Bilateral: Clear to Auscultation Cardio Palpation: normal PMI Rate: tachycardic Rhythm: irregularly irregular Heart sounds: S1 normal and S2 normal; negative rub, gallop or murmur GI GI: normal to inspection, soft, no hepatosplenomegaly and bowel sounds present; negative tender Neuro General: alert, awake, oriented x3, CN's II-XI intact bilaterally and moves all extremities Extremities Pulses: Normal: Right Posterior Tibial Pulse, Left Posterior Tibial Pulse, Right Radial Pulse, Left Radial Pulse Lower Extremity Edema: None: Bilateral Psych Psychological: normal affect Assessment & Plan Problems 1. Atrial fibrillation with rapid ventricular response I48.91 Plan Pt is more fatigued and has ROBLEDO. Would like to pursue a cardioversion. Her HR is still on the higher end. Do not feel that we can increase her cardizem d/t her lower Bp readings. Pt does have concerns of a reaction to anesthesia, will review with them prior to make sure there is not contraindications Patient Instructions Your cardioversion is scheduled for 03/29 at noon. You need to arrive at 1030. 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 Nothing to eat or drink after midnight. In the morning take your eliquis and your cardizem. 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 Left ventricular systolic function is normal. Stage 2 diastolic dysfunction. Trivial eccentric aortic valve insufficiency. Pulmonary artery systolic pressure is 34 mmHg. Diagnostics Electrocardiogram 01/25/21 COVID (Procedure Consent) Procedure Criteria Procedure Criteria: Yes Elective The surgeon/proceduralist and patient have discussed in detail the risk of exposure to and/or potential harm posed by the COVID-19 virus with having a surgery/procedure at this time versus the risk of? delaying the surgery/procedure. It is not possible to know either the risk of delaying the surgery or procedure or chance of getting an infection with perfect accuracy, but a joint decision was made between the patient and the surgeon/proceduralist ?to proceed at this time with the scheduled surgery/procedure as indicated on the consent form.
--- NOTE | 2021-03-29 13:05 | PCM.OP.BLANK ---
Problems Associated Problem List Diagnoses (1) Paroxysmal atrial fibrillation: Operative Report Date of Procedure: 03/29/21 Direct-current cardioversion. 80-year-old lady with a history of symptomatic atrial fibrillation. The patient was brought to the cardiac catheterization noninvasive lab. Informed consent was obtained. The patient was ascertained to have been compliant with all her medications. She was seen by Dr. Schwartz of the critical care division. Anterior-posterior pads were applied. The patient was then administered 60 mg of intravenous propofol. 200 J of synchronized DC cardioversion energy were applied with prompt reversal to sinus rhythm. Frequent premature atrial complexes were noted. Patient tolerated the procedure well. Conclusion: Successful DC cardioversion from atrial fibrillation to sinus rhythm. Frequent premature atrial complexes noted and short runs of atrial fibrillation present. Patient was administered 150 mg of intravenous amiodarone. Continue current medical therapy. We will start amiodarone 200 mg once a day
--- NOTE | 2021-03-29 13:31 | PCM.OP.PRO ---
Procedure Report Date of Procedure: 03/29/21 CONSCIOUS SEDATION REPORT BRIEF HISTORY OF PRESENT ILLNESS: The patient is a 80-year-old female who presented to [facility] for an elective outpatient cardioversion due to underlying atrial fibrillation. The patient reports no PO intake since midnight. The patient does have a history of obstructive sleep apnea, but is noncompliant with therapy. The patient reports no history of smoking and COPD. The patient denies any recent constitutional symptoms such as fevers, chills, nausea or vomiting. The patient denies previous anesthetic complications. Patient's EF was normal at the last evaluation. Patient reports taking anticoagulation on the day of the procedure PHYSICAL EXAMINATION: VITAL SIGNS: Reviewed and were acceptable. GENERAL: The patient is a female, in no apparent distress, speaking in full sentences. HEENT: Normocephalic, atraumatic. Mucous membranes are moist and pink. Good mouth opening noted. Trachea is midline. Good neck mobility. MP III CHEST: S1, S2 irregularly irregular. No murmurs, rubs or gallops were noted. LUNGS: Clear to auscultation bilaterally without appreciable wheezes, rales or rhonchi. ABDOMEN: Soft, nontender, nondistended. Positive bowel sounds. EXTREMITIES: There is no clubbing, cyanosis or edema. ASA Class: II DESCRIPTION OF PROCEDURE: After confirmation of informed consent, the patient's anesthesia plan was reviewed in detail. Propofol was chosen. Risks and benefits were reviewed and the patient agreed to proceed. At 12:59 PM, the patient was given 40 mg of propofol. The patient achieved an appropriate level of sedation and received 1 attempt synchronized cardioversion, at [address] Becerra at the bedside. This was successful in achieving normal sinus rhythm. The patient was monitored until 1:14 PM, at which time the patient reached their baseline mental status and function. The patient tolerated the procedure well. COMPLICATIONS: None ESTIMATED BLOOD LOSS: None RECOMMENDATIONS: Okay to recover in usual fashion. Procedures Pulmonary 9xxxx: Other Procedure See Report ([id number] minutes conscious sedation)
== END 2021-03-29 14:19 | disposition home or self-care (01) ==
PROVIDERS: Physician Assistant Medical; PCP Family Medicine Geriatric Medicine; Visit Provider Internal Medicine Cardiovascular Disease
DX: I48.0 Paroxysmal atrial fibrillation (principal); K21.9 Gastro-esophageal reflux disease without esophagitis; G47.33 Obstructive sleep apnea (adult) (pediatric); Z91.19 Patient's noncompliance with other medical treatment and regimen; Z79.01 Long term (current) use of anticoagulants; Z79.899 Other long term (current) drug therapy; Z86.73 Personal history of transient ischemic attack (TIA), and cerebral infarction without residual deficits
CPT/HCPCS: 36415; 80048; 92960; 93005; J7040

== ENCOUNTER → 2021-04-28 14:51 | Outpatient (CLI) | payer MEDICARE, OTHER, SELFPAY ==
[2021-04-05 11:22] VITALS: BMI 30.4
[2021-04-28 16:32] LABS: Absolute Lymphocyte Count 2.53 X10^3/uL (0.83-4.51); Absolute Neutrophil Count 6.6 X10^3/uL (2.0-7.7); Basophil# 0.05 X10^3/uL; Basophil% 0.5 % (0-1); Eosinophil# 0.11 X10^3/uL; Eosinophils% 1.1 % (0-5); Hematocrit 40.5 % (37-47); Hemoglobin 12.4 g/dL (12.0-15.0); Lymphocyte # 2.53 X10^3/ul (0.83-4.51); Lymphocyte % 25.1 % (19-41); Mean Corp Hgb Conc 30.6 g/dL (32-36); Mean Corpuscular Hgb 25.6 pg (27.0-32.0); Mean Corpuscular Volume 83.5 fL (81-99); Mean Platelet Vol. 9.7 fl (6.2-12.0); Monocyte% 6.9 % (0-10); NRBC Flagged by Analyzer 0 % (0-5); Neutrophil # 6.64 X10^3/uL (2.7-7.7); Neutrophil % 65.9 % (47-70); Platelet Count 377 K/mm3 (150-450); RBC Distribution Width CV 13.9 % (11.6-14.6); RBC Distribution Width SD 42.3 fl (35.1-43.9); Red Blood Count 4.85 M/mm3 (4.2-5.4); White Blood Count 10.1 K/mm3 (4.4-11.0)
[2021-04-28 17:08] LABS: AST(SGOT) 15 U/L (15-37); Alanine Aminotransfer ALT/SGPT 18 U/L (13-56); Albumin, Serum 3.6 g/dL (3.2-5.0); Alkaline Phosphatase 95 U/L (45-117); Anion Gap 9 (5-15); BUN 26 mg/dL (7-18); BUN/Creat Ratio 23.9 RATIO (10-20); Calcium,Total 8.8 mg/dL (8.5-10.1); Chloride 106 mmol/L (98-107); Creatinine, Serum 1.09 mg/dL (0.55-1.02); EST Glomerular Filtration Rate 51 mL/min (>60); Est Glom Filt Rate - Afr Amer 62 mL/min (>60); Globulin 3.6 g/dL (2.2-4.2); Glucose 110 mg/dL (74-106); Potassium 3.9 mmol/L (3.5-5.1); Protein, Total 7.2 g/dL (6.4-8.2); Sodium Level 138 mmol/L (136-145)
[2021-05-06 03:06] LABS: Lyme IgG P18 Ab Absent (.); Lyme IgG P23 Ab Absent (.); Lyme IgG P28 Ab Absent (.); Lyme IgG P30 Ab Absent (.); Lyme IgG P39 Ab Absent (.); Lyme IgG P41 Ab Present (.); Lyme IgG P45 Ab Absent (.); Lyme IgG P58 Ab Absent (.); Lyme IgG P66 Ab Absent (.); Lyme IgG P93 Ab Absent (.); Lyme IgM P23 Ab Absent (.); Lyme IgM P39 Ab Absent (.); Lyme IgM P41 Ab Absent (.)
[2021-05-06 14:21] LABS: Lyme IgG WB Interpretation Negative (.); Lyme IgM WB Interpretation Negative (.)
== END ==
PROVIDERS: PCP Family Medicine Geriatric Medicine; Referring Provider Internal Medicine Infectious Disease; Visit Provider Internal Medicine Infectious Disease
DX: S30.860A Insect bite (nonvenomous) of lower back and pelvis, initial encounter (principal); I48.0 Paroxysmal atrial fibrillation
CPT/HCPCS: 36415; 80053; 85025; 86617

== ENCOUNTER → 2021-05-13 10:14 | Outpatient (CLI) | payer MEDICARE, OTHER, SELFPAY ==
[2021-04-05 11:22] VITALS: BMI 30.4
[2021-05-13 12:40] LABS: Absolute Lymphocyte Count 2.51 X10^3/uL (0.83-4.51); Absolute Neutrophil Count 5.8 X10^3/uL (2.0-7.7); Basophil# 0.04 X10^3/uL; Basophil% 0.4 % (0-1); Eosinophils% 1.1 % (0-5); Hematocrit 41.1 % (37-47); Hemoglobin 12.4 g/dL (12.0-15.0); Lymphocyte # 2.51 X10^3/ul (0.83-4.51); Lymphocyte % 27.5 % (19-41); Mean Corp Hgb Conc 30.2 g/dL (32-36); Mean Corpuscular Hgb 25.8 pg (27.0-32.0); Mean Corpuscular Volume 85.4 fL (81-99); Mean Platelet Vol. 9.6 fl (6.2-12.0); Monocyte# 0.63 X10^3/uL; Monocyte% 6.9 % (0-10); NRBC Flagged by Analyzer 0 % (0-5); Neutrophil # 5.82 X10^3/uL (2.7-7.7); Neutrophil % 63.7 % (47-70); Platelet Count 453 K/mm3 (150-450); RBC Distribution Width CV 14.6 % (11.6-14.6); RBC Distribution Width SD 45.2 fl (35.1-43.9); Red Blood Count 4.81 M/mm3 (4.2-5.4); White Blood Count 9.1 K/mm3 (4.4-11.0)
[2021-05-13 13:00] LABS: Vitamin D,25 Hydroxy 26.8 ng/mL
[2021-05-13 13:05] LABS: ALB/GLOB Ratio 1.1 RATIO (0.9-2.4); AST(SGOT) 20 U/L (15-37); Alanine Aminotransfer ALT/SGPT 24 U/L (13-56); Alkaline Phosphatase 96 U/L (45-117); Anion Gap 7 (5-15); BUN 18 mg/dL (7-18); BUN/Creat Ratio 17.5 RATIO (10-20); Calcium,Total 8.8 mg/dL (8.5-10.1); Chloride 103 mmol/L (98-107); Creatinine, Serum 1.03 mg/dL (0.55-1.02); EST Glomerular Filtration Rate 55 mL/min (>60); Est Glom Filt Rate - Afr Amer 66 mL/min (>60); Globulin 3.6 g/dL (2.2-4.2); Glucose 112 mg/dL (74-106); Potassium 3.6 mmol/L (3.5-5.1); Protein, Total 7.6 g/dL (6.4-8.2); Sodium Level 138 mmol/L (136-145); Thyroid Stim Hormone (TSH) 3.65 uIU/mL (0.358-3.74)
== END ==
LOC: LAB.FUTURE 10:15 → POLAB3 10:20
PROVIDERS: PCP Family Medicine Geriatric Medicine; Visit Provider Family Medicine Geriatric Medicine
DX: R53.83 Other fatigue (principal); E55.9 Vitamin D deficiency, unspecified
CPT/HCPCS: 36415; 80053; 82306; 84443; 85025

== ENCOUNTER → 2021-06-03 12:18 | Outpatient (CLI) | payer MEDICARE, OTHER, SELFPAY ==
[2021-04-05 11:22] VITALS: BMI 30.4
--- NOTE | 2021-06-03 12:23 | US_ITS ---
STUDY: ULTRASOUND OF THE FEMALE PELVIS - COMPLETE REASON FOR EXAM: Female, 80 years old. IRREGULAR BLEEDING LMP: Patient is postmenopausal. TECHNIQUE: Transvaginal TECHNICAL QUALITY: Adequate. COMPARISON: None. FINDINGS: The uterus is anteverted and is tilted to the left side of the pelvis. The uterus measures 6.5 cm x 3.7 cm x 3.9 cm. Normal uterine cervix. The endometrium measures 2 mm in thickness, and is hyperechoic. There is no demonstrated endometrial mass. 2 uterine fibroids are seen. The larger measures 2.3 cm x 2.2 cm x 1.6 cm. The uterus is of heterogeneous echotexture. I.U.D. - The patient does not have an I.U.D. The right ovary is non-visualized. The left ovary is non-visualized. There is no fluid in the cul-de-sac. The pre void volume of the bladder was 57 ml. US/Transvaginal Non- IMPRESSION: Fibroid uterus. Electronically Signed: Sorin Deshpande MD at 10:59 EDT , Service support ,
== END ==
PROVIDERS: PCP Family Medicine Geriatric Medicine; Referring Provider Family Medicine Geriatric Medicine; Visit Provider Family Medicine Geriatric Medicine
DX: D25.9 Leiomyoma of uterus, unspecified (principal); N93.8 Other specified abnormal uterine and vaginal bleeding; Z78.0 Asymptomatic menopausal state
CPT/HCPCS: 76830

== ENCOUNTER → 2021-07-09 09:44 | Outpatient (CLI) | payer MEDICARE, OTHER, SELFPAY ==
--- NOTE | 2021-07-09 09:48 | RAD_ITS ---
STUDY: X-RAY - RIGHT TIBIA AND FIBULA REASON FOR EXAM: Female, 81 years old. PAIN IN RT LEG TECHNIQUE: 2 view(s) of the tibia and fibula were obtained. COMPARISON: None. FINDINGS: Normal visualized tibia. Normal visualized fibula. The soft tissue structures are unremarkable. RAD/Tibia & Fibula 2 Views IMPRESSION: Normal x-ray examination of the tibia and fibula. Electronically Signed: Gus Valverde MD at 10:16 EDT , Service support ,
--- NOTE | 2021-07-09 09:50 | RAD_ITS ---
STUDY: X-RAY - RIGHT FOOT CLINICAL: Female, 81 years old. Pain and swelling TECHNIQUE: 3 view(s) of the foot. COMPARISON: None. FINDINGS: Normal talus and tarsal bones. Calcaneal spurs Normal visualized subtalar, talonavicular, calcaneocuboid, tarsal and tarsometatarsal articulations. Normal metatarsi. There is degenerative arthrosis of the metatarsophalangeal joint of the hallux . Normal tibial and fibular sesamoid bones. Normal interphalangeal joint of the great toe. Normal phalanges of the great toe. Normal second through fifth metatarsophalangeal joints. PIP and DIP joint arthrosis The soft tissue structures are unremarkable. RAD/Foot min 3 Views IMPRESSION: Age consistent degenerative changes, calcaneal spurs, no demonstrated fracture Electronically Signed: Gus Valverde MD at 10:16 EDT , Service support ,
== END ==
PROVIDERS: PCP Family Medicine Geriatric Medicine; Referring Provider Family Medicine Geriatric Medicine; Visit Provider Family Medicine Geriatric Medicine
DX: M79.605 Pain in left leg (principal)
CPT/HCPCS: 73590; 73630

== ENCOUNTER → 2021-10-22 11:06 | Outpatient (CLI) | payer MEDICARE, OTHER, SELFPAY | PROVIDERS: PCP Family Medicine Geriatric Medicine; Visit Provider Family Medicine Geriatric Medicine | DX: E55.9 Vitamin D deficiency, unspecified (principal); R53.83 Other fatigue | CPT/HCPCS: 36415; 80053; 82306; 84443 ==

== ENCOUNTER 2021-12-13 12:14 | Outpatient (CLI) | payer MEDICARE, OTHER, SELFPAY ==
--- NOTE | 2021-12-13 12:19 | RAD_ITS ---
STUDY: X-RAY CHEST REASON FOR EXAM: Female, 81 years old. Cough TECHNIQUE: PA and lateral views of the chest. COMPARISON: None. FINDINGS: No confluent airspace infiltrate. No pleural effusion or pneumothorax. Normal size heart. Moderate-sized hiatal hernia. No pulmonary vascular congestion. Normal visualized aortic arch and descending thoracic aorta. Normal visualized thoracic spine. Normal visualized ribs, clavicles, and shoulders. There is no demonstrated abnormality of the visualized soft tissue structures of the upper abdomen. RAD/Chest PA and Lateral IMPRESSION: 1. No acute cardiopulmonary disease. 2. Moderate size hiatal hernia Electronically Signed: Tan Alas MD at 2:35 EST Tel , Service support ,
[2021-12-13 17:16] LABS: Anion Gap 5 (5-15); BUN 26 mg/dL (7-18); Calcium,Total 8.8 mg/dL (8.5-10.1); Chloride 105 mmol/L (98-107); Creatinine, Serum 1.18 mg/dL (0.55-1.02); EST Glomerular Filtration Rate 47 mL/min (>60); Est Glom Filt Rate - Afr Amer 57 mL/min (>60); Glucose 152 mg/dL (74-106); Sodium Level 139 mmol/L (136-145)
== END 2021-12-13 23:59 | disposition short-term general hospital (02) ==
LOC: RAD 12:17
PROVIDERS: PCP Family Medicine Geriatric Medicine; Referring Provider Otolaryngology; Visit Provider Otolaryngology
DX: R05.9 Cough, unspecified (principal); I10 Essential (primary) hypertension; E55.9 Vitamin D deficiency, unspecified; R53.83 Other fatigue
CPT/HCPCS: 36415; 71046; 80048

== ENCOUNTER 2022-01-07 12:55 | Outpatient (CLI) | payer MEDICARE, OTHER, SELFPAY ==
--- NOTE | 2022-01-07 13:56 | ECHOD_ITS ---
Reason For Study: Afib/Flutter Procedure This was a 2D Doppler, Color Flow transthoracic echocardiogram. Exam performed in department. Left Ventricle Normal LV size. Left ventricular systolic function is normal. The estimated ejection fraction is 60 %. No regional wall motion abnormalities noted. Right Ventricle Normal RV size. Normal systolic function. Atria The left atrium is mildly enlarged. Normal right atrium. Tricuspid Valve Normal tricuspid valve. Mild tricuspid valve insufficiency. Pulmonary artery systolic pressure is 30 mmHg. Aortic Valve Trisinus/trileaflet aortic valve. Pulmonic Valve Normal pulmonic valve. Great Vessels Normal aortic root. The pulmonary artery is normal size. Normal inferior vena cava. Pericardium/Pleural No pericardial effusion. MMode/2D Measurements & Calculations LVIDd: 4.1 cm IVSd: 1.1 cm Ao root diam: 3.1 cm LVIDs: 2.6 cm LVPWd: 1.2 cm LA dimension: 3.3 cm RVDd: 3.5 cm FS: 36.9 % LAV(MOD-bp): 57.1 ml LA A4 area: 23.5 cm2 RA A4 area: 17.9 cm2 LAV(MOD-bp) Indexed: 31.6 ml/m2 LAV(MOD-sp2): 46.1 ml LAV(MOD-sp4): 69.8 ml Doppler Measurements & Calculations MV E max lenka: 118.6 cm/sec Ao V2 max: 159.1 cm/sec LV V1 max: 121.7 cm/sec Ao max P.2 mmHg LV V1 max P.0 mmHg PA V2 max: 112.4 cm/sec TR max lenka: 260.4 cm/sec TR max P.1 mmHg ECHO/Echo Complete Interpretation Summary Normal LV size. Left ventricular systolic function is normal. The estimated ejection fraction is 60 %. The left atrium is mildly enlarged. Pulmonary artery systolic pressure is 30 mmHg. Ordering Physician: Gladys Rose Referring Physician: Torsten Koenig Chi Performed By: Yamil Teran RCS
--- NOTE | 2022-01-07 14:06 | PFTCOMP ---
COMPLETE PULMONARY FUNCTION TEST INTERPRETATION Brief HPI: Patient is an 81 year old female, currently under the care of Gladys Rose, who presents to [facility] for complete pulmonary function tests secondary to diagnosis of amiodarone. Respiratory therapist reports good effort and reproducible results. Interpretation: Forced expiration spirometry shows no large airways obstructive ventilatory defect with an FEV1 of 101% predicted. There is no significant bronchodilator response by strict ATS criteria. Spirograms are of good quality and plateau slowly, indicating slowly emptying areas of the lungs. The respiratory flow volume loop shows decreased expiratory flow rates at high lung volumes consistent with small airways obstruction. Lung volumes by body plethysmography show an elevated total lung capacity at 5.93 L, 131% predicted. FRC and RV are elevated out of proportion. Lung volume measurements are consistent with hyperinflation and air-trapping. Diffusion capacity by carbon monoxide is normal at 81% predicted. The airway resistance is normal. No previous pulmonary function tests were available for review. Impression: These pulmonary function tests are grossly within normal limits, but there are some stigmata of small airways disease
== END 2022-01-07 23:59 | disposition home or self-care (01) ==
LOC: CVS 12:55
PROVIDERS: PCP Family Medicine Geriatric Medicine; Referring Provider Nurse Practitioner Gerontology; Visit Provider Nurse Practitioner Gerontology
DX: I48.0 Paroxysmal atrial fibrillation (principal); R06.02 Shortness of breath; Z79.899 Other long term (current) drug therapy
CPT/HCPCS: 93225; 93226; 93306; 94060; 94726; 94729

== ENCOUNTER 2022-02-14 11:20 | Outpatient (CLI) | payer MEDICARE, OTHER, SELFPAY ==
--- NOTE | 2022-02-14 11:46 | CT_ITS ---
STUDY: CT ABDOMEN AND PELVIS WITHOUT CONTRAST REASON FOR EXAM: Female, 81 years old. 2 week history of right upper quadrant pain and diarrhea. RADIATION DOSAGE (If Supplied By Facility): CTDIvol = ( 11.37 ) mGy, DLP = ( 528.40 ) mGycm TECHNIQUE: Transaxial images were obtained from the dome of the diaphragm to the symphysis pubis without oral contrast, and without intravenous contrast. Sagittal and coronal images were reconstructed. Individualized dose optimization techniques were used for this CT. COMPARISON: Comparison is made with prior study dated 04/07/2020. FINDINGS: The visualized lung bases are unremarkable. The visualized portions of the heart are within normal limits. Normal liver. Normal gallbladder and extrahepatic biliary system. Normal spleen. Normal pancreas. Normal bilateral adrenal glands. There is a 2 mm nonobstructive calculus in the upper pole calyx of the right kidney. There is a 3.8 cm x 3.4 cm cyst in the lower pole of the right kidney. Normal left kidney. There is a moderate-sized hiatal hernia. Normal small intestine. There are scattered colonic diverticula consistent with diverticulosis. The appendix is visualized and appears normal. There is scattered atherosclerotic calcification of the abdominal aorta, without a demonstrated aneurysm. Normal inferior vena cava. Normal retroperitoneum. Normal urinary bladder. There is a small umbilical hernia containing fat. There are diffuse degenerative changes of the visualized lumbar spine. Mild dextroscoliosis. CT/Abdomen/Pelvis without Cont IMPRESSION: Scattered sigmoid diverticula. Stable right renal cyst. Electronically Signed: Sorin Deshpande MD at 15:38 EDT ,
[2022-02-14 12:26] LABS: Absolute Lymphocyte Count 2.32 X10^3/uL (0.83-4.51); Absolute Neutrophil Count 5.6 X10^3/uL (2.0-7.7); Basophil# 0.06 X10^3/uL; Basophil% 0.7 % (0-1); Eosinophils% 1.1 % (0-5); Hemoglobin 12.4 g/dL (12.0-15.0); Lymphocyte # 2.32 X10^3/ul (0.83-4.51); Lymphocyte % 26.6 % (19-41); Mean Corpuscular Hgb 25.9 pg (27.0-32.0); Mean Corpuscular Volume 83.5 fL (81-99); Mean Platelet Vol. 9.5 fl (6.2-12.0); Monocyte# 0.62 X10^3/uL; Monocyte% 7.1 % (0-10); NRBC Flagged by Analyzer 0 % (0-5); Neutrophil # 5.56 X10^3/uL (2.7-7.7); Neutrophil % 63.9 % (47-70); Platelet Count 419 K/mm3 (150-450); RBC Distribution Width CV 14.4 % (11.6-14.6); RBC Distribution Width SD 43.4 fl (35.1-43.9); Red Blood Count 4.79 M/mm3 (4.2-5.4); White Blood Count 8.7 K/mm3 (4.4-11.0)
[2022-02-14 13:08] LABS: AST(SGOT) 17 U/L (15-37); Alanine Aminotransfer ALT/SGPT 20 U/L (13-56); Albumin, Serum 3.7 g/dL (3.2-5.0); Alkaline Phosphatase 90 U/L (45-117); Anion Gap 5 (5-15); BUN 25 mg/dL (7-18); BUN/Creat Ratio 21.9 RATIO (10-20); Calcium,Total 9.1 mg/dL (8.5-10.1); Chloride 104 mmol/L (98-107); Creatinine, Serum 1.14 mg/dL (0.55-1.02); EST Glomerular Filtration Rate 49 mL/min (>60); Est Glom Filt Rate - Afr Amer 59 mL/min (>60); Globulin 3.8 g/dL (2.2-4.2); Glucose 114 mg/dL (74-106); Potassium 4.4 mmol/L (3.5-5.1); Protein, Total 7.5 g/dL (6.4-8.2); Sodium Level 137 mmol/L (136-145); Thyroid Stim Hormone (TSH) 5.38 uIU/mL (0.358-3.74)
== END 2022-02-14 23:59 | disposition home or self-care (01) ==
PROVIDERS: PCP Family Medicine Geriatric Medicine; Visit Provider Family Medicine Geriatric Medicine
DX: R10.9 Unspecified abdominal pain (principal); R19.7 Diarrhea, unspecified; R53.83 Other fatigue
CPT/HCPCS: 36415; 74176; 80053; 84443; 85025

== ENCOUNTER 2022-02-25 09:35 | Day surgery (SDC) | payer MEDICARE, OTHER, SELFPAY ==
[2022-02-24 07:47] VITALS: BMI 30.6
--- NOTE | 2022-02-25 12:24 | PCM.OP.BLANK ---
Problems Associated Problem List Diagnoses (1) Atrial fibrillation with rapid ventricular response: Operative Report Date of Procedure: 02/25/22 DC cardioversion. 81-year-old lady with a history of chronic persistent symptomatic atrial fibrillation. The patient was brought to cardiac catheterization lab in the postabsorptive nonsedated state. After informed consent was obtained the patient was seen by Dr. Donaldson of the critical care division. Anterior-posterior pads were applied. The patient was then administered 40 mg of intravenous propofol. After appropriate sedation 200 J of biphasic energy were applied with prompt reversal to sinus rhythm. Patient tolerated the procedure well. Conclusion: Successful DC cardioversion from atrial fibrillation to sinus rhythm. Patient prefers not to be on atenolol and will therefore be switched to carvedilol 6.25 mg twice a day.
--- NOTE | 2022-02-25 12:36 | PCM.OP.PRO ---
Procedure Report Date of Procedure: 02/25/22 CONSCIOUS SEDATION REPORT DATE OF SERVICE: February 25, 2022 BRIEF HISTORY OF PRESENT ILLNESS: The patient is an 81-year-old female who presented to [facility] for an elective outpatient cardioversion due to underlying atrial fibrillation. The patient did undergo a prior cardioversion in March 2021, during which time, the patient was medicated with 40 mg of propofol. The patient does have an apparent history of obstructive sleep apnea but does not currently utilize any form of nocturnal Pap therapy. Her last surface echocardiogram demonstrated an ejection fraction of 60%. She is systemically anticoagulated on Eliquis. PHYSICAL EXAMINATION: VITAL SIGNS: Reviewed and were acceptable. GENERAL: The patient is a female, in no apparent distress, speaking in full sentences. HEENT: Normocephalic, atraumatic. Mucous membranes are moist and pink. Good mouth opening noted. Trachea is midline. Good neck mobility. MPIII CHEST: S1, S2 irregularly irregular. No murmurs, rubs or gallops were noted. LUNGS: Clear to auscultation bilaterally without appreciable wheezes, rales or rhonchi. ABDOMEN: Soft, nontender, nondistended. Positive bowel sounds. EXTREMITIES: There is no clubbing, cyanosis or edema. ASA Class: II DESCRIPTION OF PROCEDURE: After confirmation of informed consent, the patient's anesthesia plan was reviewed in detail. Propofol was chosen. Risks and benefits were reviewed and the patient agreed to proceed. At 1206, the patient was given 40 mg of propofol. The patient achieved an appropriate level of sedation and was given a 200 joule synchronized cardioversion by Dr. Becerra at the bedside. This was successful in achieving normal sinus rhythm. The patient was monitored until 1219, at which time she reached her baseline mental status and function. The patient tolerated the procedure well. COMPLICATIONS: None ESTIMATED BLOOD LOSS: None RECOMMENDATIONS: Okay to recover in usual fashion. Procedures Pulmonary [id number]: [id number] Con Sedation
== END 2022-02-25 23:59 | disposition home or self-care (01) ==
LOC: CLSP 09:35
PROVIDERS: PCP Family Medicine Geriatric Medicine; Referring Provider Internal Medicine Cardiovascular Disease; Visit Provider Internal Medicine Cardiovascular Disease
DX: I48.0 Paroxysmal atrial fibrillation (principal); Z79.01 Long term (current) use of anticoagulants; K21.9 Gastro-esophageal reflux disease without esophagitis; Z79.899 Other long term (current) drug therapy; Z86.73 Personal history of transient ischemic attack (TIA), and cerebral infarction without residual deficits
CPT/HCPCS: 92960; 93005; J7040

== ENCOUNTER 2022-03-04 14:05 | Outpatient (CLI) | payer MEDICARE, OTHER, SELFPAY ==
[2022-03-04 14:37] LABS: Absolute Lymphocyte Count 3.01 X10^3/uL (0.83-4.51); Absolute Neutrophil Count 5.7 X10^3/uL (2.0-7.7); Basophil# 0.06 X10^3/uL; Basophil% 0.6 % (0-1); Eosinophil# 0.21 X10^3/uL; Eosinophils% 2.2 % (0-5); Hematocrit 36.1 % (37-47); Hemoglobin 11.1 g/dL (12.0-15.0); Lymphocyte # 3.01 X10^3/ul (0.83-4.51); Lymphocyte % 30.8 % (19-41); Mean Corp Hgb Conc 30.7 g/dL (32-36); Mean Corpuscular Hgb 26.2 pg (27.0-32.0); Mean Corpuscular Volume 85.1 fL (81-99); Mean Platelet Vol. 9.1 fl (6.2-12.0); Monocyte% 7.2 % (0-10); NRBC Flagged by Analyzer 0 % (0-5); Neutrophil # 5.66 X10^3/uL (2.7-7.7); Platelet Count 407 K/mm3 (150-450); RBC Distribution Width CV 14.5 % (11.6-14.6); RBC Distribution Width SD 43.8 fl (35.1-43.9); Red Blood Count 4.24 M/mm3 (4.2-5.4); White Blood Count 9.8 K/mm3 (4.4-11.0)
[2022-03-04 15:05] LABS: BNP,B-Type NATRIURETIC PEPTIDE 258.5 pg/mL (0-100)
[2022-03-04 15:14] LABS: Anion Gap 4 (5-15); BUN 24 mg/dL (7-18); BUN/Creat Ratio 23.3 RATIO (10-20); Calcium,Total 8.6 mg/dL (8.5-10.1); Chloride 106 mmol/L (98-107); Creatinine, Serum 1.03 mg/dL (0.55-1.02); EST Glomerular Filtration Rate 55 mL/min (>60); Est Glom Filt Rate - Afr Amer 66 mL/min (>60); Glucose 117 mg/dL (74-106); Potassium 3.7 mmol/L (3.5-5.1); Sodium Level 141 mmol/L (136-145); Thyroid Stim Hormone (TSH) 5.39 uIU/mL (0.358-3.74)
== END 2022-03-04 23:59 | disposition home or self-care (01) ==
LOC: LAB 14:07
PROVIDERS: PCP Family Medicine Geriatric Medicine; Referring Provider Physician Assistant Medical; Visit Provider Physician Assistant Medical
DX: R06.00 Dyspnea, unspecified (principal)
CPT/HCPCS: 36415; 80048; 83880; 84443; 85025

== ENCOUNTER → 2022-03-28 | Outpatient (CLI) | payer MEDICARE, OTHER, SELFPAY ==
--- NOTE | 2022-03-28 16:55 | RAD_ITS ---
STUDY: X-RAY - ABDOMEN/PELVIS REASON FOR EXAM: Female, 81 years old. DIARRHEA TECHNIQUE: AP supine and upright views of the abdomen, 4 images. COMPARISON: Chest x-ray 12/13/2021. FINDINGS: The bowel gas pattern is nonobstructive. A few scattered fluid levels in the colon right midabdomen, nonspecific. No abnormal mass or calcification is seen. Degenerative changes in lumbar spine with scoliosis. The included lung bases are grossly clear. Small hiatal hernia. RAD/Abd Decub and/or Erect(Portabl IMPRESSION: Nonobstructive bowel gas pattern. Fluid levels in the colon nonspecific can be seen with diarrhea. Electronically Signed: Ethel Lal MD at 7:22 EDT ,
== END | disposition home or self-care (01) ==
LOC: RAD.FUTURE 13:34 → RAD 16:48
PROVIDERS: PCP Family Medicine Geriatric Medicine; Referring Provider Family Medicine Geriatric Medicine; Visit Provider Family Medicine Geriatric Medicine
DX: R19.7 Diarrhea, unspecified (principal)
CPT/HCPCS: 74019

== ENCOUNTER → 2022-04-01 | Outpatient (CLI) | payer MEDICARE, OTHER, SELFPAY | END | disposition home or self-care (01) | LOC: LABSPEC 09:44 | PROVIDERS: PCP Family Medicine Geriatric Medicine; Visit Provider Family Medicine Geriatric Medicine | DX: R19.7 Diarrhea, unspecified (principal) | CPT/HCPCS: 82274; 83630; 87177; 87209; 87493; 87506 ==

== ENCOUNTER → 2022-05-16 | Outpatient (CLI) | payer MEDICARE, OTHER, SELFPAY ==
[2022-05-16 12:43] LABS: Absolute Lymphocyte Count 2.71 X10^3/uL (0.83-4.51); Absolute Neutrophil Count 4.1 X10^3/uL (2.0-7.7); Basophil# 0.06 X10^3/uL; Basophil% 0.8 % (0-1); Eosinophil# 0.06 X10^3/uL; Eosinophils% 0.8 % (0-5); Hemoglobin 11.1 g/dL (12.0-15.0); Lymphocyte # 2.71 X10^3/ul (0.83-4.51); Lymphocyte % 36.1 % (19-41); Mean Corp Hgb Conc 30.8 g/dL (32-36); Mean Corpuscular Hgb 26.7 pg (27.0-32.0); Mean Corpuscular Volume 86.5 fL (81-99); Mean Platelet Vol. 9.3 fl (6.2-12.0); Monocyte% 6.7 % (0-10); NRBC Flagged by Analyzer 0 % (0-5); Neutrophil # 4.13 X10^3/uL (2.7-7.7); Neutrophil % 55.1 % (47-70); Platelet Count 335 K/mm3 (150-450); RBC Distribution Width CV 16.8 % (11.6-14.6); RBC Distribution Width SD 51.9 fl (35.1-43.9); Red Blood Count 4.16 M/mm3 (4.2-5.4); White Blood Count 7.5 K/mm3 (4.4-11.0)
[2022-05-16 13:23] LABS: ALB/GLOB Ratio 0.8 RATIO (0.9-2.4); AST(SGOT) 16 U/L (15-37); Alanine Aminotransfer ALT/SGPT 18 U/L (13-56); Albumin, Serum 3.2 g/dL (3.2-5.0); Alkaline Phosphatase 90 U/L (45-117); Anion Gap 8 (5-15); BUN 20 mg/dL (7-18); BUN/Creat Ratio 15.5 RATIO (10-20); CRP 3.95 mg/L (0.0-3.0); Calcium,Total 8.9 mg/dL (8.5-10.1); Chloride 104 mmol/L (98-107); Creatinine, Serum 1.29 mg/dL (0.55-1.02); EST Glomerular Filtration Rate 42 mL/min (>60); Est Glom Filt Rate - Afr Amer 51 mL/min (>60); Globulin 4.1 g/dL (2.2-4.2); Glucose 109 mg/dL (74-106); Protein, Total 7.3 g/dL (6.4-8.2); Sodium Level 141 mmol/L (136-145); Thyroid Stim Hormone (TSH) 5.21 uIU/mL (0.358-3.74)
[2022-05-16 13:30] LABS: Vitamin D,25 Hydroxy 29.1 ng/mL
== END | disposition home or self-care (01) ==
LOC: LABSPEC 11:46
PROVIDERS: PCP Family Medicine Geriatric Medicine; Referring Provider Family Medicine Geriatric Medicine; Visit Provider Family Medicine Geriatric Medicine
DX: N39.0 Urinary tract infection, site not specified (principal); D89.89 Other specified disorders involving the immune mechanism, not elsewhere classified; E55.9 Vitamin D deficiency, unspecified; I10 Essential (primary) hypertension
CPT/HCPCS: 36415; 80053; 82306; 84443; 85025; 86140; 86850; 87086; 87088

== ENCOUNTER → 2022-07-04 | Outpatient (CLI) | payer MEDICARE, OTHER, SELFPAY ==
[2022-07-04 11:32] LABS: Thyroid Stim Hormone (TSH) 4.04 uIU/mL (0.358-3.74)
== END | disposition home or self-care (01) ==
PROVIDERS: PCP Family Medicine Geriatric Medicine; Referring Provider Family Medicine Geriatric Medicine; Visit Provider Family Medicine Geriatric Medicine
DX: E03.9 Hypothyroidism, unspecified (principal)
CPT/HCPCS: 36415; 84443

== ENCOUNTER → 2022-08-15 | Outpatient (CLI) | payer MEDICARE, OTHER, SELFPAY ==
[2022-08-15 12:21] LABS: Absolute Lymphocyte Count 2.44 X10^3/uL (0.83-4.51); Absolute Neutrophil Count 5.5 X10^3/uL (2.0-7.7); Basophil# 0.06 X10^3/uL; Basophil% 0.7 % (0-1); Eosinophil# 0.11 X10^3/uL; Eosinophils% 1.3 % (0-5); Hematocrit 34.5 % (37-47); Hemoglobin 10.7 g/dL (12.0-15.0); Lymphocyte # 2.44 X10^3/ul (0.83-4.51); Lymphocyte % 27.9 % (19-41); Mean Corpuscular Hgb 26.8 pg (27.0-32.0); Mean Corpuscular Volume 86.5 fL (81-99); Mean Platelet Vol. 9.6 fl (6.2-12.0); Monocyte# 0.52 X10^3/uL; Monocyte% 5.9 % (0-10); NRBC Flagged by Analyzer 0 % (0-5); Neutrophil % 62.7 % (47-70); Platelet Count 413 K/mm3 (150-450); RBC Distribution Width CV 14.7 % (11.6-14.6); RBC Distribution Width SD 46.9 fl (35.1-43.9); Red Blood Count 3.99 M/mm3 (4.2-5.4); White Blood Count 8.8 K/mm3 (4.4-11.0)
[2022-08-15 13:04] LABS: ALB/GLOB Ratio 0.8 RATIO (0.9-2.4); AST(SGOT) 16 U/L (15-37); Alanine Aminotransfer ALT/SGPT 21 U/L (13-56); Albumin, Serum 3.1 g/dL (3.2-5.0); Alkaline Phosphatase 96 U/L (45-117); Anion Gap 7 (5-15); BUN 32 mg/dL (7-18); BUN/Creat Ratio 26.7 RATIO (10-20); Calcium,Total 9.1 mg/dL (8.5-10.1); Chloride 107 mmol/L (98-107); EST Glomerular Filtration Rate 46 mL/min (>60); Est Glom Filt Rate - Afr Amer 55 mL/min (>60); Glucose 142 mg/dL (74-106); Potassium 4.4 mmol/L (3.5-5.1); Protein, Total 7.1 g/dL (6.4-8.2); Sodium Level 140 mmol/L (136-145); Thyroid Stim Hormone (TSH) 3.89 uIU/mL (0.358-3.74)
== END | disposition home or self-care (01) ==
PROVIDERS: PCP Family Medicine Geriatric Medicine; Visit Provider Family Medicine Geriatric Medicine
DX: I10 Essential (primary) hypertension (principal); E55.9 Vitamin D deficiency, unspecified; E03.9 Hypothyroidism, unspecified
CPT/HCPCS: 36415; 80053; 82306; 84443; 85025

== ENCOUNTER → 2022-08-24 | Outpatient (CLI) | payer MEDICARE, OTHER, SELFPAY ==
[2022-08-24 13:40] LABS: Absolute Lymphocyte Count 2.84 X10^3/uL (0.83-4.51); Absolute Neutrophil Count 6.6 X10^3/uL (2.0-7.7); Basophil# 0.07 X10^3/uL; Basophil% 0.7 % (0-1); Eosinophil# 0.15 X10^3/uL; Eosinophils% 1.4 % (0-5); Hematocrit 36.9 % (37-47); Hemoglobin 11.4 g/dL (12.0-15.0); Lymphocyte # 2.84 X10^3/ul (0.83-4.51); Lymphocyte % 26.9 % (19-41); Mean Corp Hgb Conc 30.9 g/dL (32-36); Mean Corpuscular Hgb 26.6 pg (27.0-32.0); Mean Corpuscular Volume 86.2 fL (81-99); Mean Platelet Vol. 9.4 fl (6.2-12.0); Monocyte# 0.77 X10^3/uL; Monocyte% 7.3 % (0-10); NRBC Flagged by Analyzer 0 % (0-5); Neutrophil # 6.61 X10^3/uL (2.7-7.7); Neutrophil % 62.7 % (47-70); Platelet Count 492 K/mm3 (150-450); RBC Distribution Width CV 14.6 % (11.6-14.6); Red Blood Count 4.28 M/mm3 (4.2-5.4); Reticulocyte Count 1.08 % (0.5-1.5); White Blood Count 10.6 K/mm3 (4.4-11.0)
[2022-08-24 14:26] LABS: Vitamin B12 360 pg/mL (211-911)
[2022-08-24 14:29] LABS: Ferritin 5 ng/mL (8-252); Iron 31 ug/dL (50-170); Iron Binding Capacity,Total 516 ug/dL (250-450); Thyroid Stim Hormone (TSH) 4.27 uIU/mL (0.358-3.74)
[2022-08-26 15:43] LABS: Folates, RBC Test 954 ng/mL (>498)
== END | disposition home or self-care (01) ==
LOC: POLAB3 12:13
PROVIDERS: PCP Family Medicine Geriatric Medicine; Visit Provider Family Medicine Geriatric Medicine
DX: D50.9 Iron deficiency anemia, unspecified (principal); R53.83 Other fatigue
CPT/HCPCS: 36415; 82607; 82728; 82747; 83540; 83550; 84443; 85014; 85025; 85045